=== PATIENT | female | born 1965 | race Caucasian/White ===

== ENCOUNTER 2016-10-28 12:58 | Inpatient (IN) ==
[2016-10-28] MEDS ORDERED: SODIUM CHLORIDE 0.9% 1,000 ML IV STA (13:29)
[2016-10-28] MEDS ORDERED: PROMETHAZINE 25 MG/1 ML VIAL IV STA (13:30)
[2016-10-28] MEDS ORDERED: METOCLOPRAMIDE 10 MG/2 ML VIAL IV STA (13:30)
[2016-10-28] MEDS ORDERED: PROMETHAZINE 25 MG/1 ML VIAL ONE (13:31)
--- NOTE | 2016-10-28 13:33 | Emergency Department Note ---
Arrival - Arrival Chief Complaint: Nausea/Vomiting/Diarrhea Stated Complaint: CHEST PAIN TROWING UP PASSING OUT WEAK PAIN ALL OV ED Nursing Triage Note: PT C/O NAUSEA/VOMITING/ABD PAIN SINCE LAST NIGHT. PT ALSO C/O CHEST PAIN, ONSET AFTER VOMITING SEVERAL TIMES LAST NIGHT. Mode of Arrival: Wheelchair Time Seen by Provider: 10/28/16 13:24 - History of Present Illness HPI Narrative: 51-year-old female presents today with complaint of nausea and vomiting with diarrhea that began last night. Patient states she has not been ill with hold down any food or fluids. As a bilious vomitus this morning. Complains of body aches all over as well. Subjective fever however has not checked her temperature. Has some abdominal pain from retching. Patient was released from the hospital approximately 3 weeks ago for the same. States had upper GI however no abnormality was identified at that time. Allergies/Adverse Reactions: Allergies Allergy/AdvReac Type Severity Reaction Status Date / Time ketorolac [From Toradol] Allergy ITCHING Verified 10/28/16 13:07 morphine AdvReac Unknown/Unable Verified 10/28/16 13:07 to obtain ondansetron AdvReac Anxiety Verified 10/28/16 13:07 prochlorperazine AdvReac Anxiety Verified 10/28/16 13:07 [From Compazine] Home Medications: Home Medications Medication Instructions Recorded Confirmed Type Gabapentin Cap/Tab [Neurontin 400 mg PO BID 09/11/16 10/28/16 History Cap/Tab] Insulin Aspart [NovoLOG] 15 unit SUBCUT TIDAC 09/11/16 10/28/16 History Insulin Glargine [Lantus] 50 unit SUBCUT BEDTIME 09/11/16 10/28/16 History Metoclopramide Tab [Reglan Tab] 10 mg PO BID 09/11/16 10/28/16 History Potassium Chloride Cap/Tab [K Dur] 10 meq PO DAILY 09/11/16 10/28/16 History Pantoprazole Tab [Protonix Tab] 40 mg PO DAILY #30 tablet 09/15/16 10/28/16 Rx HYDROcodone/ACETAMIN 10-325 [[place] 1 tablet PO BID 10/28/16 10/28/16 History 10-325] Review of System - Review of System 12 point system: reviewed and no additional remarkable complaints except as stated - Review of System Constitutional: Present: as per HPI, chills. 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 Pupils equal round and reactive to light with normal extraocular movement. Ear canals clear without discharge. Tympanic membranes with good light reflex and visualization of bony structures bilaterally. Throat without swelling, erythema or exudate. Neck: Supple without lymphadenopathy or nuchal rigidity Chest: Heart regular rate and rhythm without murmur. Lungs clear to auscultation and equal bilaterally. Abdomen: Soft with diffuse tenderness no masses. Bowel sounds normoactive. Back: Without CVA or point tenderness. Extremities: Full range of motion. No joint effusion or tenderness Skin: Clean dry and intact Vital Signs: Vital Signs Temperature 99.4 F 10/28/16 15:05 Pulse Rate 136 H 10/28/16 15:05 Respiratory Rate 20 10/28/16 15:05 Blood Pressure 180/103 10/28/16 15:05 O2 Sat by Pulse Oximetry 100 10/28/16 13:04 Course Course Narrative: Case discussed with Su Cai NP. They will evaluate pt in ED for admission - Reevaluation(s) Reevaluation #1: Patient continues to vomit despite having 10 of Reglan, 25 of Phenergan and Zofran. Time: 15:25 Results - Labs CBC & BMP: 10/28/16 13:30 10/28/16 13:30 Lab Results: I have reviewed the patients labs Disposition Clinical Impression: Gastroparesis, Intractable vomiting, Dehydration Case discussed with: patient Disposition: Still a Patient Time of Disposition: 15:41
--- NOTE | 2016-10-28 13:39 | EKG Report ---
Stationary ECG Study [facility] ER Test Date: 10/28/2016 1:12:31 PM Pat Name: ANN LOBO Department: Room: Gender: F Senior Director [employer]: : 1965 Requested by: Foreign [employer] Order Number: [id number] Reading MD: DONNY MENA Intervals [place] Rate: 123 P: 52 AR: 153 QRS: 65 QRSD: 85 T: 57 QT: 312 QTc: 385 Interpretive Statements SINUS TACHYCARDIA Electronically Signed On 10-28-16 14:24:21 [employer]OTT[employer] by DONNY MENA [email or web address]
[2016-10-28 13:52] LABS: Basophils % 0.2 % (0.0-0.8); Hematocrit 36.8 VOL% (35.7-47.0); Hemoglobin 13.2 GM/DL (12.0-16.0); Immature Granulocytes % 0.3 %; Immature Granulocytes Absolute 0.04 #; Lymphocytes # 0.9 10*3/uL (1.4-4.0); Lymphocytes % 7.4 % (21.3-54.2); Mean Corpuscular HGB Conc 35.9 GM/DL (32-36); Mean Corpuscular Hemoglobin 31 PG (27-34); Mean Corpuscular Volume 86.6 FL (87-102); Mean Platelet Volume 9.5 FL (9.6-12.0); Monocytes # 0.2 10*3/uL (0.11-0.8); Monocytes % 1.3 % (1.7-12.7); Neutrophils # 11.5 10*3/uL (1.4-7.4); Neutrophils % 90.8 % (38.7-73.9); Platelet Count 413 10*3/uL (130-400); Red Blood Count 4.25 10*6/uL (3.8-5.5); Red Cell Distribution Width 11.9 % (9.3-17.3); White Blood Count 12.6 10*3/uL (4.5-13.71)
[2016-10-28] MEDS ORDERED: METOCLOPRAMIDE 10 MG/2 ML VIAL ONE (13:54)
[2016-10-28 14:19] LABS: Alanine Aminotransferase 18 U/L (13-56); Albumin 3.9 G/DL (3.4-5.0); Alkaline Phosphatase 73 U/L (45-117); Aspartate Amino Transferase 31 U/L (0-37); Bilirubin,Direct < 0.1 MG/DL (0.0-0.20); Bilirubin,Indirect 0.7 MG/DL (0.0-1.0); Blood Urea Nitrogen 20 MG/DL (7-18); Calcium 9.1 MG/DL (8.5-10.1); Glucose 299 MG/DL (74-106); Osmolality,Calculated 286.8 MOS/KG (273-304); Potassium 5.2 MMOL/L (3.5-5.1); Sodium 137 MMOL/L (136-145); Total Protein 7.5 G/DL (6.4-8.3)
--- NOTE | 2016-10-28 14:22 | XRay Report ---
XR abdomen 2V Indication: Abdominal pain. Comparison: None. Technique: Flat and erect images of the abdomen were performed. Findings: Lung bases are clear. No organomegaly suggested. The bowel gas pattern demonstrates no significant abnormality. Bony structures as well as soft tissues demonstrate no evidence of significant pathology. Prior cholecystectomy is demonstrated. Additional midline infraumbilical celiotomy is suggested and may reflect hysterectomy. Impression: 1. No active process is suggested within the abdomen or pelvis. 10/28/2016 2:19 PM PROCEDURE INTERPRETED AT [facility] DEPARTMENT OF RADIOLOGY Final Report Signed by: Dr. Regan Locke
[2016-10-28 15:08] LABS: Lymphocytes 3 % (20-55); Segmented Neutrophils 96 % (50-85); Total Cells Counted 100
[2016-10-28 15:09] LABS: Platelet Estimate Normal
--- NOTE | 2016-10-28 15:10 | XRay Report ---
XR chest 2V Indication: Febrile illness. Comparison: Chest x-ray 09/11/2016 Technique: PA and lateral chest x-ray was performed. Findings: The heart size is within normal limits. The mediastinal contour demonstrates no significant abnormality. The lungs are clear. Bones and soft tissues demonstrate no acute abnormality. Previous cholecystectomy is again demonstrated. Impression: 1. No active cardiopulmonary disease. 10/28/2016 3:07 PM PROCEDURE INTERPRETED AT [facility] DEPARTMENT OF RADIOLOGY Final Report Signed by: Dr. Regan Locke
--- NOTE | 2016-10-28 15:10 | CT Report ---
CT abdomen pelvis wo con Indication: Left lower quadrant abdominal pain. Comparison: None. Technique: CT of the abdomen and pelvis was performed without administration of intravenous contrast. Findings: Suboptimal evaluation of the abdomen in the setting of abdominal pain is possible secondary lack of intravenous contrast. Complete evaluation of solid organs, bowel wall, and vascular structures is not possible. Lower chest demonstrates no evidence of acute pathology. Gallbladder surgically absent. Punctate calcifications present within the spleen are compatible with prior granulomatous disease. Previous hysterectomy is demonstrated. Surgical absence of the appendix is suggested. Otherwise, the imaged structures of the lower chest, liver, spleen, pancreas, adrenal glands, kidneys, aorta, inferior vena cava, stomach, bowel, and intrapelvic contents as well as bony structures soft tissues and musculature the body wall demonstrate no evidence of significant pathology. Impression: 1. No findings are present on noncontrast enhanced CT of the abdomen or pelvis to suggest etiology of provided symptoms. Other findings are present as detailed. 10/28/2016 3:05 PM PROCEDURE INTERPRETED AT [facility] DEPARTMENT OF RADIOLOGY Final Report Signed by: Dr. Regan Locke
[2016-10-28] MEDS ORDERED: ONDANSETRON 4 MG/2 ML VIAL ONE ×2 (15:14)
[2016-10-28] MEDS ORDERED: ONDANSETRON 4 MG/2 ML VIAL IV STA (15:23)
[2016-10-28] MEDS ORDERED: ACETAMINOPHEN 325 MG TABLET PO PRN (15:54)
[2016-10-28] MEDS ORDERED: LACTULOSE 20 GM/30 ML UDCUP PO PRN (15:54)
[2016-10-28] MEDS ORDERED: GLUCAGON 1 MG VIAL IM PRN (15:59)
[2016-10-28] MEDS: SODIUM CHLORIDE 0.9% 1,000 ML IV SCH (16:00)
[2016-10-28] MEDS: PROMETHAZINE 25 MG TABLET PO PRN (17:51)
[2016-10-28] MEDS: INSULIN LISPRO 100 UNIT/ML SUBCUT SCH ×3 (17:52→17:59)
[2016-10-28] MEDS: METOCLOPRAMIDE 10 MG/2 ML VIAL IV SCH (17:52)
--- NOTE | 2016-10-28 18:24 | Hospitalist History & Physical ---
Assessment and Plan - Time spent with patient Time spent with patient: Greater than 30 minutes (due to assessment, plan and documentation) (1) Dehydration Status: Acute Current Visit: Yes (2) Intractable vomiting Status: Acute Current Visit: Yes (3) Diabetes mellitus Status: Chronic Current Visit: No Qualifiers: Diabetes mellitus type: type 2 (4) Gastroparesis Status: Acute Assessment and plan: admit and monitor hydrate well with IV NS manage DM with home meds and SSI IV Reglan and IM Phenergan for anti-emetics PPI consult GI clear liquid diet for now PRN meds routine labs in AM further plan and addendum to follow per Dr. Velasquez Current Visit: Yes History of Present Illness Chief complaint: intractable n/v History of present illness: Ms. Romero is a 51 year old female with a PMH of gastropereis who presents to the ER today with a one week history of n/v/d with abdominal pain and unable to keep food and liquids down. She is using Reglan and Protonix at home with no relief. She was seen here in mid August for similar symptoms, had a normal EGD done but is wanting a colonoscopy done for fear she has some swelling in her intestines. She does appear to have lost significant amount of weight recently. Denies being able to control her pain, nausea or vomiting at home. She is also a diabetic, not well controlled. PSH includes non cancerous mass removed from her bladder. She does not smoke, denies alcohol. She denies chest pain, shortness of breath, does complain of subjective fever, weakness and generalized body aches. Home Medications Medication Instructions Recorded Confirmed Type Gabapentin Cap/Tab [Neurontin 400 mg PO BID 09/11/16 10/28/16 History Cap/Tab] Insulin Aspart [NovoLOG] 15 unit SUBCUT TIDAC 09/11/16 10/28/16 History Insulin Glargine [Lantus] 50 unit SUBCUT BEDTIME 09/11/16 10/28/16 History Metoclopramide Tab [Reglan Tab] 10 mg PO BID 09/11/16 10/28/16 History Potassium Chloride Cap/Tab [K Dur] 10 meq PO DAILY 09/11/16 10/28/16 History Pantoprazole Tab [Protonix Tab] 40 mg PO DAILY #30 tablet 09/15/16 10/28/16 Rx HYDROcodone/ACETAMIN 10-325 [[place] 1 tablet PO BID 10/28/16 10/28/16 History 10-325] Allergies Allergy/AdvReac Type Severity Reaction Status Date / Time ketorolac [From Toradol] Allergy ITCHING Verified 10/28/16 13:07 morphine AdvReac Unknown/Unable Verified 10/28/16 13:07 to obtain ondansetron AdvReac Anxiety Verified 10/28/16 13:07 prochlorperazine AdvReac Anxiety Verified 10/28/16 13:07 [From Compazine] Medical,Surgical,& Family Hx - Medical History Endocrine: History of: Diabetes Mellitus (IDDM) Genitourinary: History of: Problems (history of bladder benign mass removed and a bladder tact) Gastrointestinal: History of: GI Problems (gastropesis) - Surgical History HEENT Surgeries: Surgical HX of: Tonsilectomy & Adenoidectomy (tonsilectomy) Abdominal Surgeries: Surgical HX of: Appendectomy, Cholecystectomy Reproductive Surgeries: Surgical HX of;: Section (times 1), Genitourinary Surgery (Removed non cancerous mass from bladder), Hysterectomy - Family History Family History: Reports;: Family Diabetes (Mother, Father), Family Hypertension (Mother, Father) - Social History Smoking Status: Never smoker Frequency of Alcohol Use: None Type of Drug Use: None 12 point system: reviewed and no additional remarkable complaints except as stated Exam - Constitutional Vitals: Period Temp Pulse Resp BP Sys/Erickson Pulse Ox Last 24 Hr 136 20 156/76 98 General appearance: no acute distress, other (appears to have recently lost weight) - Head Head exam: Present: normal inspection, normocephalic - Eye Eye exam: Present: EOMI. Absent: scleral icterus Pupils: Present: DESTINY, normal accommodation - ENT ENT exam: Present: normal exam, normal oropharynx - Neck Neck exam: Present: normal inspection. Absent: lymphadenopathy - Respiratory Respiratory exam: Present: clear to auscultation bilaterally. Absent: wheezes - Cardiovascular Cardiovascular exam: Present: regular rate and rhythm. Absent: tachycardia - GI/Abdominal GI/Abdominal exam: Present: normal bowel sounds, soft. Absent: tenderness - Extremities Exam Extremities exam: Present: normal inspection, full ROM. Absent: edema - Back Exam Back exam: Present: normal inspection. Absent: muscle spasm - Neurological Exam Neurological exam: Present: alert, oriented X3 - Psychiatric Psychiatric exam: Present: normal affect, normal mood - Skin Skin exam: Present: normal color, warm, dry Results - Labs CBC & BMP: 10/28/16 13:30 10/28/16 13:30 Lab Results: I have reviewed the past 24 hour labs
[2016-10-28] MEDS: PROMETHAZINE 25 MG/1 ML VIAL IM PRN (20:16)
[2016-10-28] MEDS: GABAPENTIN 400 MG CAPSULE PO SCH (21:09)
[2016-10-28] MEDS: INSULIN GLARGINE 100 UNIT/ML SUBCUT SCH (21:09)
[2016-10-29] MEDS: SODIUM CHLORIDE 0.9% 1,000 ML IV SCH ×3 (02:02→19:00)
[2016-10-29] MEDS: PROMETHAZINE 25 MG/1 ML VIAL IM PRN ×4 (02:04→20:30)
[2016-10-29] MEDS: INSULIN LISPRO 100 UNIT/ML SUBCUT SCH ×7 (02:04→18:05)
[2016-10-29] MEDS: METOCLOPRAMIDE 10 MG/2 ML VIAL IV SCH ×3 (02:59→15:08)
[2016-10-29 05:38] LABS: Basophils % 0.3 % (0.0-0.8); Eosinophils % 0.1 % (0.00-10.9); Hematocrit 30.3 VOL% (35.7-47.0); Hemoglobin 10.4 GM/DL (12.0-16.0); Immature Granulocytes % 0.3 %; Immature Granulocytes Absolute 0.04 #; Lymphocytes # 3.8 10*3/uL (1.4-4.0); Lymphocytes % 29.2 % (21.3-54.2); Mean Corpuscular HGB Conc 34.3 GM/DL (32-36); Mean Corpuscular Hemoglobin 30 PG (27-34); Mean Corpuscular Volume 88.6 FL (87-102); Mean Platelet Volume 9.2 FL (9.6-12.0); Monocytes # 1.2 10*3/uL (0.11-0.8); Monocytes % 9.5 % (1.7-12.7); Neutrophils # 7.9 10*3/uL (1.4-7.4); Neutrophils % 60.6 % (38.7-73.9); Platelet Count 354 10*3/uL (130-400); Red Blood Count 3.42 10*6/uL (3.8-5.5); Red Cell Distribution Width 12.1 % (9.3-17.3); White Blood Count 13.1 10*3/uL (4.5-13.71)
[2016-10-29 06:10] LABS: Albumin 3.2 G/DL (3.4-5.0); Bilirubin,Total 0.9 MG/DL (0.2-1.0); Calcium 8.3 MG/DL (8.5-10.1); Osmolality,Calculated 283.8 MOS/KG (273-304); Potassium 3.5 MMOL/L (3.5-5.1); Total Protein 5.6 G/DL (6.4-8.3)
[2016-10-29] MEDS: PANTOPRAZOLE 40 MG TABLET PO SCH (08:29)
[2016-10-29] MEDS: GABAPENTIN 400 MG CAPSULE PO SCH ×2 (08:29→20:30)
--- NOTE | 2016-10-29 08:58 | Hospitalist Progress Note ---
Assessment and Plan (1) Abdominal pain Status: Acute Assessment and plan: She continues to complain of constant abdominal pain. She is not experiencing nausea or vomiting. Dr. Perrin of GI has been consulted. Current Visit: Yes Qualifiers: Abdominal location: generalized Qualified Code(s): R10.84 - Generalized abdominal pain Exam - Constitutional Vitals: Period Temp Pulse Resp BP Sys/Erickson Pulse Ox Last 24 Hr 97.5 F-98.4 F 103-136 16-20 116-156/66-76 95-98 General appearance: no acute distress, under weight - Head Head exam: Present: normal inspection - Neck Neck exam: Present: normal inspection - Respiratory Respiratory exam: Present: clear to auscultation bilaterally - Cardiovascular Cardiovascular exam: Present: regular rate and rhythm - GI/Abdominal GI/Abdominal exam: Present: normal bowel sounds, soft, other (nontender) - Extremities Exam Extremities exam: Present: normal inspection - Skin Skin exam: Present: normal color Results - Labs CBC & BMP: 10/29/16 05:12 10/29/16 05:12 Specialty Discharge - Follow Up or Referrals - Discharge Medications No Action Insulin Aspart [NovoLOG] 15 unit SUBCUT TIDAC Metoclopramide Tab [Reglan Tab] 10 mg PO BID Insulin Glargine [Lantus] 50 unit SUBCUT BEDTIME Potassium Chloride Cap/Tab [K Dur] 10 meq PO DAILY Gabapentin Cap/Tab [Neurontin Cap/Tab] 400 mg PO BID Pantoprazole Tab [Protonix Tab] 40 mg PO DAILY #30 tablet HYDROcodone/ACETAMIN 10-325 [[place] 10-325] 1 tablet PO BID
--- NOTE | 2016-10-29 12:07 | Gastrointestinal Consult Note ---
Assessment and Plan (1) Intractable vomiting Status: Acute Assessment and plan: 1/-Recent history of cyclic episodes of nausea and intractable vomiting with upper abd pain. Not well controlled with Reglan and Protonix. Plan and addendum to follow by Dr Perrin. Current Visit: Yes (2) Abdominal pain Status: Acute Assessment and plan: 10/29-LUQ abd pain, precipitated by food, with intractable nausea and vomiting with recent history of weight loss. Negative gastric emptying scan in August as well as negative EGD. Plan and addendum to follow by Dr Perrin. Current Visit: Yes Qualifiers: Abdominal location: generalized Qualified Code(s): R10.84 - Generalized abdominal pain History of Present Illness Chief complaint: N/V, abd pain History of present illness: Ms. Romero is a 51 year old female who presents to the hospital with ongoing nausea, vomiting and abdominal pain/discomfort. Pt was admitted two months ago with the same symptoms to our facility. She underwent a gastric emptying scan which was normal at that time. After discharge, she had an EGD done at [facility] which was normal as well per patient. She states that she has had minimal relief from her nausea and waves of pain with taking Protonix and Reglan regularly. She had lost 40 pounds in the last year as of August however her weight is up slightly at present approximately 5 pounds. She states that since discharge in August she has had waves of nausea and vomiting as well as LUQ pain that seems to always be precipitated by eating. She has had a cholecystectomy in the past and states this pain is nothing like that was before. She states she always feels "swollen" in her upper abdomen. She has a history of DM that she reports has been controlled fairly well. She denies any fever, chills or recent exposure to others who have been ill. Denies any coffee ground or hematemesis. States she has chronic constipation as well and only has a bowel movement every 4 days on average. She has concerns over needing a colonoscopy due to mother had history of multiple polyps and grandfather had colon cancer in the past. Denies any melena or hematochezia. Noncontrasted CT of abdomen shows no acute findings. Lipase 61. Home Medications Medication Instructions Recorded Confirmed Type Gabapentin Cap/Tab [Neurontin 400 mg PO BID 09/11/16 10/28/16 History Cap/Tab] Insulin Aspart [NovoLOG] 15 unit SUBCUT TIDAC 09/11/16 10/28/16 History Insulin Glargine [Lantus] 50 unit SUBCUT BEDTIME 09/11/16 10/28/16 History Metoclopramide Tab [Reglan Tab] 10 mg PO BID 09/11/16 10/28/16 History Potassium Chloride Cap/Tab [K Dur] 10 meq PO DAILY 09/11/16 10/28/16 History Pantoprazole Tab [Protonix Tab] 40 mg PO DAILY #30 tablet 09/15/16 10/28/16 Rx HYDROcodone/ACETAMIN 10-325 [[place] 1 tablet PO BID 10/28/16 10/28/16 History 10-325] Allergies Allergy/AdvReac Type Severity Reaction Status Date / Time ketorolac [From Toradol] Allergy ITCHING Verified 10/28/16 13:07 morphine AdvReac Unknown/Unable Verified 10/28/16 13:07 to obtain ondansetron AdvReac Anxiety Verified 10/28/16 13:07 prochlorperazine AdvReac Anxiety Verified 10/28/16 13:07 [From Compazine] Medical,Surgical,& Family Hx - Medical History Endocrine: History of: Diabetes Mellitus (IDDM) Genitourinary: History of: Problems (history of bladder benign mass removed and a bladder tact) Gastrointestinal: History of: GI Problems (gastropesis) - Surgical History HEENT Surgeries: Surgical HX of: Tonsilectomy & Adenoidectomy (tonsilectomy) Abdominal Surgeries: Surgical HX of: Appendectomy, Cholecystectomy Reproductive Surgeries: Surgical HX of;: Section (times 1), Genitourinary Surgery (Removed non cancerous mass from bladder), Hysterectomy - Family History Family History: Reports;: Family Diabetes (Mother, Father), Family Hypertension (Mother, Father) - Social History Smoking Status: Never smoker Frequency of Alcohol Use: None Type of Drug Use: None 12 point system: reviewed and no additional remarkable complaints except as stated - Constitutional Constitutional: Present: as per HPI - EENT Eyes: Present: as per HPI Ears: Present: as per HPI Nose, mouth and throat: Present: as per HPI - Cardiovascular Cardiovascular: Present: as per HPI - Respiratory Respiratory: Present: as per HPI - Gastrointestinal Gastrointestinal: Present: as per HPI, abdominal pain, nausea, vomiting - Genitourinary Genitourinary: Present: as per HPI - Musculoskeletal Musculoskeletal: Present: as per HPI - Neurological Neurological: Present: as per HPI - Psychiatric Psychiatric: Present: as per HPI - Endocrine Endocrine: Present: as per HPI - Hematologic/Lymphatic Hematologic/Lymphatic: Present: as per HPI Exam - Constitutional Vitals: Period Temp Pulse Resp BP Sys/Erickson Pulse Ox Last 24 Hr 97.5 F-98.4 F 97-136 14-20 88-190/49-85 95-98 General appearance: normal weight, no acute distress - Head Head exam: Present: normal inspection, normocephalic - Eye Eye exam: Present: other (lids and conjunctiva unremarkable). Absent: scleral icterus - ENT ENT exam: Present: normal exam, normal oropharynx - Neck Neck exam: Present: normal inspection - Respiratory Respiratory exam: Present: clear to auscultation bilaterally. Absent: rales, rhonchi, wheezes - Cardiovascular Cardiovascular exam: Present: regular rate and rhythm. Absent: diastolic murmur , JVD, systolic murmur - GI/Abdominal GI/Abdominal exam: Present: normal bowel sounds, soft. Absent: ascites, distended, mass, organomegaly, tenderness - Extremities Exam Extremities exam: Present: normal inspection, full ROM - Back Exam Back exam: Present: normal inspection - Neurological Exam Neurological exam: Present: alert, oriented X3 - Psychiatric Psychiatric exam: Present: normal affect, normal mood - Skin Skin exam: Present: normal color, warm, dry Results - Labs CBC & BMP: 10/29/16 05:12 10/29/16 05:12 Lab Results: I have reviewed the past 24 hour labs Specialty Discharge - Follow Up or Referrals - Discharge Medications No Action Insulin Aspart [NovoLOG] 15 unit SUBCUT TIDAC Metoclopramide Tab [Reglan Tab] 10 mg PO BID Insulin Glargine [Lantus] 50 unit SUBCUT BEDTIME Potassium Chloride Cap/Tab [K Dur] 10 meq PO DAILY Gabapentin Cap/Tab [Neurontin Cap/Tab] 400 mg PO BID Pantoprazole Tab [Protonix Tab] 40 mg PO DAILY #30 tablet HYDROcodone/ACETAMIN 10-325 [[place] 10-325] 1 tablet PO BID
[2016-10-29] MEDS: INSULIN GLARGINE 100 UNIT/ML SUBCUT SCH (20:33)
[2016-10-30] MEDS: INSULIN LISPRO 100 UNIT/ML SUBCUT SCH ×7 (00:37→18:42)
[2016-10-30] MEDS: DEXTROSE 50% 25 GM/50 ML VIAL IV PRN ×2 (00:53→06:15)
[2016-10-30] MEDS: METOCLOPRAMIDE 10 MG/2 ML VIAL IV SCH ×3 (01:20→17:10)
[2016-10-30] MEDS: PROMETHAZINE 25 MG/1 ML VIAL IM PRN ×4 (03:05→21:21)
[2016-10-30] MEDS: GABAPENTIN 400 MG CAPSULE PO SCH ×2 (09:06→21:23)
[2016-10-30] MEDS: PANTOPRAZOLE 40 MG TABLET PO SCH (09:06)
--- NOTE | 2016-10-30 09:41 | Gastrointestinal Progress Note ---
Assessment and Plan (1) Intractable vomiting Status: Acute Assessment and plan: 10/30-N/V improved at this time. Tolerating clear liquids. Will slowly advance diet at this time. Plan and addendum to follow by Dr Perrin. 10/29-Recent history of cyclic episodes of nausea and intractable vomiting with upper abd pain. Not well controlled with Reglan and Protonix. Plan and addendum to follow by Dr Perrin. Current Visit: Yes (2) Abdominal pain Status: Acute Assessment and plan: 10/30-No pain at present time. Advance to full liquids. Plan and addendum to follow by Dr Perrin. 10/29-LUQ abd pain, precipitated by food, with intractable nausea and vomiting with recent history of weight loss. Negative gastric emptying scan in August as well as negative EGD. Plan and addendum to follow by Dr Perrin. Current Visit: Yes Qualifiers: Abdominal location: generalized Qualified Code(s): R10.84 - Generalized abdominal pain Gastroenterology - PN: Subj Interval history: CC: Abd pain, nausea, vomiting Pt is awake and alert lying in bed with spouse at side. States she is feeling some better today. She has not had any nausea or vomiting since yesterday. She is tolerating a clear liquid diet well at this time. Denies any abdominal pain. Abdomen is soft, nontender. ROS: Denies SOB or chest pain Exam (Progress Note) - Constitutional Vitals: Period Temp Pulse Resp BP Sys/Erickson Pulse Ox Last 24 Hr 97.9 F-98.2 F 92-102 14-20 88-149/49-80 95-100 General appearance: normal weight, no acute distress - Head Head exam: Present: normal inspection, normocephalic - Eye Eye exam: Present: other (lids and conjunctiva unremarakble). Absent: scleral icterus - ENT ENT exam: Present: normal exam, normal oropharynx - Neck Neck exam: Present: normal inspection - Respiratory Respiratory exam: Present: clear to auscultation bilaterally. Absent: rales, rhonchi, wheezes - Cardiovascular Cardiovascular exam: Present: regular rate and rhythm. Absent: diastolic murmur , JVD, systolic murmur - GI/Abdominal GI/Abdominal exam: Present: normal bowel sounds, soft. Absent: ascites, distended, mass, organomegaly, tenderness - Extremities Exam Extremities exam: Present: normal inspection, full ROM - Back Exam Back exam: Present: normal inspection - Neurological Exam Neurological exam: Present: alert, oriented X3 - Psychiatric Psychiatric exam: Present: normal affect, normal mood - Skin Skin exam: Present: normal color, warm, dry Results - Labs CBC & BMP: 10/29/16 05:12 10/29/16 05:12 Lab Results: I have reviewed the past 24 hour labs Specialty Discharge - Follow Up or Referrals - Discharge Medications No Action Insulin Aspart [NovoLOG] 15 unit SUBCUT TIDAC Metoclopramide Tab [Reglan Tab] 10 mg PO BID Insulin Glargine [Lantus] 50 unit SUBCUT BEDTIME Potassium Chloride Cap/Tab [K Dur] 10 meq PO DAILY Gabapentin Cap/Tab [Neurontin Cap/Tab] 400 mg PO BID Pantoprazole Tab [Protonix Tab] 40 mg PO DAILY #30 tablet HYDROcodone/ACETAMIN 10-325 [[place] 10-325] 1 tablet PO BID
--- NOTE | 2016-10-30 09:50 | Hospitalist Progress Note ---
Assessment and Plan (1) Abdominal pain Status: Acute Assessment and plan: She is not experuiencing abdominal pain today. She is tolerating a clear liquid diet. I will advance her to full liquids. Current Visit: Yes Qualifiers: Abdominal location: generalized Qualified Code(s): R10.84 - Generalized abdominal pain (2) Gastroparesis Status: Acute Assessment and plan: As above. Current Visit: Yes Hospitalist: Subjective Interval history: She is tolerating a clear liquid diet. Exam - Constitutional Vitals: Period Temp Pulse Resp BP Sys/Erickson Pulse Ox Last 24 Hr 97.9 F-98.2 F 92-102 14-20 88-157/49-90 95-100 General appearance: no acute distress - Head Head exam: Present: normal inspection - Neck Neck exam: Present: normal inspection - Respiratory Respiratory exam: Present: clear to auscultation bilaterally - Cardiovascular Cardiovascular exam: Present: regular rate and rhythm - GI/Abdominal GI/Abdominal exam: Present: normal bowel sounds, soft, other (nontender) - Extremities Exam Extremities exam: Present: normal inspection - Skin Skin exam: Present: normal color Results - Labs CBC & BMP: 10/29/16 05:12 10/29/16 05:12 Specialty Discharge - Follow Up or Referrals - Discharge Medications No Action Insulin Aspart [NovoLOG] 15 unit SUBCUT TIDAC Metoclopramide Tab [Reglan Tab] 10 mg PO BID Insulin Glargine [Lantus] 50 unit SUBCUT BEDTIME Potassium Chloride Cap/Tab [K Dur] 10 meq PO DAILY Gabapentin Cap/Tab [Neurontin Cap/Tab] 400 mg PO BID Pantoprazole Tab [Protonix Tab] 40 mg PO DAILY #30 tablet HYDROcodone/ACETAMIN 10-325 [[place] 10-325] 1 tablet PO BID
[2016-10-30] MEDS: SODIUM CHLORIDE 0.9% 1,000 ML IV SCH ×2 (10:11→18:06)
[2016-10-30 15:45] LABS: Barbiturates Screen,Urine Negative (Negative); Benzodiazepines Screen,Urine Negative (Negative); Cannabinoid Screen,Urine Negative (Negative); Opiate Screen,Urine Negative (Negative); Phencyclidine Screen,Urine Negative (Negative)
[2016-10-30] MEDS: INSULIN GLARGINE 100 UNIT/ML SUBCUT SCH (21:37)
[2016-10-31] MEDS: INSULIN LISPRO 100 UNIT/ML SUBCUT SCH ×8 (00:27→23:32)
[2016-10-31] MEDS: METOCLOPRAMIDE 10 MG/2 ML VIAL IV SCH ×3 (00:49→15:46)
[2016-10-31] MEDS: SODIUM CHLORIDE 0.9% 1,000 ML IV SCH ×3 (02:16→18:14)
[2016-10-31] MEDS: PROMETHAZINE 25 MG/1 ML VIAL IM PRN ×5 (04:02→21:47)
[2016-10-31] MEDS: GABAPENTIN 400 MG CAPSULE PO SCH ×2 (08:26→21:48)
[2016-10-31] MEDS: PANTOPRAZOLE 40 MG TABLET PO SCH (08:27)
--- NOTE | 2016-10-31 10:16 | Hospitalist Progress Note ---
Assessment and Plan (1) Abdominal pain Status: Acute Assessment and plan: She was unable to tolerate full liquids. She experienced recurrent abdominal pain with full liquids. Will change her back to clear liquids. Current Visit: Yes Qualifiers: Abdominal location: generalized Qualified Code(s): R10.84 - Generalized abdominal pain (2) Gastroparesis Status: Acute Assessment and plan: As above. Current Visit: Yes Exam - Constitutional Vitals: Period Temp Pulse Resp BP Sys/Erickson Pulse Ox Last 24 Hr 98.1 F-99.2 F 97-118 16-20 117-165/65-98 97-99 General appearance: no acute distress - Head Head exam: Present: normal inspection - Neck Neck exam: Present: normal inspection - Respiratory Respiratory exam: Present: clear to auscultation bilaterally - Cardiovascular Cardiovascular exam: Present: regular rate and rhythm - GI/Abdominal GI/Abdominal exam: Present: normal bowel sounds, soft, other (nontender) - Extremities Exam Extremities exam: Present: normal inspection - Skin Skin exam: Present: normal color Results - Labs CBC & BMP: 10/29/16 05:12 10/29/16 05:12 Specialty Discharge - Follow Up or Referrals - Discharge Medications No Action Insulin Aspart [NovoLOG] 15 unit SUBCUT TIDAC Metoclopramide Tab [Reglan Tab] 10 mg PO BID Insulin Glargine [Lantus] 50 unit SUBCUT BEDTIME Potassium Chloride Cap/Tab [K Dur] 10 meq PO DAILY Gabapentin Cap/Tab [Neurontin Cap/Tab] 400 mg PO BID Pantoprazole Tab [Protonix Tab] 40 mg PO DAILY #30 tablet HYDROcodone/ACETAMIN 10-325 [[place] 10-325] 1 tablet PO BID
--- NOTE | 2016-10-31 14:14 | Gastrointestinal Progress Note ---
Assessment and Plan (1) Intractable vomiting Status: Acute Assessment and plan: 10/31-N/V worse today, 2-3 episodes of vomiting. Diet changed back to clear liquids. Negative drug screen. Plan and addendum to follow by DR Perrin. 10/30-N/V improved at this time. Tolerating clear liquids. Will slowly advance diet at this time. Plan and addendum to follow by Dr Perrin. 10/29-Recent history of cyclic episodes of nausea and intractable vomiting with upper abd pain. Not well controlled with Reglan and Protonix. Plan and addendum to follow by Dr Perrin. Current Visit: Yes (2) Abdominal pain Status: Acute Assessment and plan: 10/30-No pain at present time. Advance to full liquids. Plan and addendum to follow by Dr Perrin. 10/29-LUQ abd pain, precipitated by food, with intractable nausea and vomiting with recent history of weight loss. Negative gastric emptying scan in August as well as negative EGD. Plan and addendum to follow by Dr Perrin. Current Visit: Yes Qualifiers: Abdominal location: generalized Qualified Code(s): R10.84 - Generalized abdominal pain Gastroenterology - PN: Subj Interval history: CC: Intractable nausea, vomiting Pt is lying in bed, not feeling well today. States the nausea and vomiting reoccurred last night and has had 2-3 episodes since yesterday and having continued nausea. States the pain is the same at well. Abdomen is soft, mild tenderness. She was tolerating her diet however this has been changed back to clear liquids at present time. Urine drug screen noted to be negative. ROS: Denies SOB or chest pain Exam (Progress Note) - Constitutional Vitals: Period Temp Pulse Resp BP Sys/Erickson Pulse Ox Last 24 Hr 98.1 F-99.0 F 100-120 16-20 117-165/65-98 97-99 - Other Additional findings: General appearance: normal weight, no acute distress - Head Head exam: Present: normal inspection, normocephalic - Eye Eye exam: Present: other (lids and conjunctiva unremarakble). Absent: scleral icterus - ENT ENT exam: Present: normal exam, normal oropharynx - Neck Neck exam: Present: normal inspection - Respiratory Respiratory exam: Present: clear to auscultation bilaterally. Absent: rales, rhonchi, wheezes - Cardiovascular Cardiovascular exam: Present: regular rate and rhythm. Absent: diastolic murmur , JVD, systolic murmur - GI/Abdominal GI/Abdominal exam: Present: normal bowel sounds, soft. Absent: ascites, distended, mass, organomegaly, tenderness - Extremities Exam Extremities exam: Present: normal inspection, full ROM - Back Exam Back exam: Present: normal inspection - Neurological Exam Neurological exam: Present: alert, oriented X3 - Psychiatric Psychiatric exam: Present: normal affect, normal mood - Skin Skin exam: Present: normal color, warm, dry Results - Labs CBC & BMP: 10/29/16 05:12 10/29/16 05:12 Lab Results: I have reviewed the past 24 hour labs Specialty Discharge - Follow Up or Referrals - Discharge Medications No Action Insulin Aspart [NovoLOG] 15 unit SUBCUT TIDAC Metoclopramide Tab [Reglan Tab] 10 mg PO BID Insulin Glargine [Lantus] 50 unit SUBCUT BEDTIME Potassium Chloride Cap/Tab [K Dur] 10 meq PO DAILY Gabapentin Cap/Tab [Neurontin Cap/Tab] 400 mg PO BID Pantoprazole Tab [Protonix Tab] 40 mg PO DAILY #30 tablet HYDROcodone/ACETAMIN 10-325 [[place] 10-325] 1 tablet PO BID
[2016-10-31] MEDS: ERYTHROMYCIN INJ 125 MG in SODIUM CHLORIDE 0.9% 100 ML IV SCH (18:15)
[2016-10-31] MEDS: INSULIN GLARGINE 100 UNIT/ML SUBCUT SCH (21:00)
[2016-11-01] MEDS: ERYTHROMYCIN INJ 125 MG in SODIUM CHLORIDE 0.9% 100 ML IV SCH ×3 (02:02→17:25)
[2016-11-01] MEDS: PROMETHAZINE 25 MG/1 ML VIAL IM PRN ×5 (02:20→21:11)
[2016-11-01] MEDS: SODIUM CHLORIDE 0.9% 1,000 ML IV SCH ×3 (04:18→22:51)
[2016-11-01] MEDS: INSULIN LISPRO 100 UNIT/ML SUBCUT SCH ×6 (05:46→17:26)
[2016-11-01 06:05] LABS: Basophils % 0.2 % (0.0-0.8); Eosinophils % 0.1 % (0.00-10.9); Hematocrit 34.6 VOL% (35.7-47.0); Hemoglobin 11.8 GM/DL (12.0-16.0); Immature Granulocytes % 0.5 %; Immature Granulocytes Absolute 0.05 #; Lymphocytes # 1.9 10*3/uL (1.4-4.0); Mean Corpuscular HGB Conc 34.1 GM/DL (32-36); Mean Corpuscular Hemoglobin 30 PG (27-34); Mean Platelet Volume 9.7 FL (9.6-12.0); Monocytes # 0.4 10*3/uL (0.11-0.8); Monocytes % 3.7 % (1.7-12.7); Neutrophils # 8.6 10*3/uL (1.4-7.4); Neutrophils % 78.5 % (38.7-73.9); Platelet Count 351 10*3/uL (130-400); Red Blood Count 3.93 10*6/uL (3.8-5.5); Red Cell Distribution Width 11.9 % (9.3-17.3); White Blood Count 10.9 10*3/uL (4.5-13.71)
[2016-11-01 06:34] LABS: Calcium 8.1 MG/DL (8.5-10.1); Osmolality,Calculated 279.7 MOS/KG (273-304); Potassium 3.5 MMOL/L (3.5-5.1)
--- NOTE | 2016-11-01 07:28 | CT Report ---
CT angio abdomen TECHNIQUE: Axial CT images of the Abdomen were obtained during the arterial phase of contrast injection. Standard coronal and sagittal reformatted images were available for review. 3-D vascular MIPS reconstructions and multiplanar reformats were also created and evaluated. Omnipaque 350, 100 cc was administered intravenously with no immediate complication. Total DLP: 131.6 COMPARISON: Prior CT abdomen pelvis 10/28/16 CLINICAL HISTORY: Persistent/recurrent weight loss with abdominal pain CTA FINDINGS: The abdominal aorta is normal caliber with minimal atherosclerotic disease visualized. The celiac and superior mesenteric arteries appear widely patent with minimal atherosclerotic disease. There are single bilateral renal arteries which are widely patent. Inferior mesenteric artery is also widely patent. Included portion of the distal aorta appears grossly unremarkable. The bilateral common iliac arteries are widely patent with minimal atherosclerotic disease. NON--CTA FINDINGS: Very minimal posterior basilar atelectatic changes are noted bilaterally. Lung bases are otherwise clear. There is no pleural or pericardial effusion. ABDOMEN: Liver/Gallbladder: No abnormal enhancing hepatic lesions. Prior cholecystectomy. No biliary ductal dilatation. Portal vein is grossly patent. Spleen: No acute findings. Pancreas: No acute findings. Adrenals: Within normal limits in appearance. Kidneys: Both kidneys enhance symmetrically with no evidence of obstructive uropathy. Bowel/mesentery: Small bowel is nondilated. There is no free fluid/air within the abdomen. There is no mesenteric adenopathy. Visualized portion of the colon appears normal caliber. Retroperitoneum: No evidence of retroperitoneal adenopathy. Multiple punctate air droplets are noted within the gluteal regions bilaterally likely related to injection granulomas. BONES: No acute or suspicious osseous abnormalities are identified. IMPRESSION: 1. No evidence of significant atherosclerotic disease, aortic aneurysm or vascular stenosis within the visceral arterial vessels to suggest ischemia as a cause of persistent weight loss. 2. No other acute abnormality within the abdomen to explain patient's symptoms. 11/01/2016 7:07 AM PROCEDURE INTERPRETED AT [facility] DEPARTMENT OF RADIOLOGY Final Report Signed by: Gaurav Hernandez
[2016-11-01] MEDS: PANTOPRAZOLE 40 MG TABLET PO SCH (09:12)
[2016-11-01] MEDS: GABAPENTIN 400 MG CAPSULE PO SCH ×2 (09:12→21:11)
--- NOTE | 2016-11-01 10:02 | Gastrointestinal Progress Note ---
Assessment and Plan (1) Intractable vomiting Status: Acute Assessment and plan: 11/01-N/V continues thru the night. CTA of abdomen negative. Plan and addendum to follow by Dr Perrin. 10/31-N/V worse today, 2-3 episodes of vomiting. Diet changed back to clear liquids. Negative drug screen. Plan and addendum to follow by DR Perrin. 10/30-N/V improved at this time. Tolerating clear liquids. Will slowly advance diet at this time. Plan and addendum to follow by Dr Perrin. 10/29-Recent history of cyclic episodes of nausea and intractable vomiting with upper abd pain. Not well controlled with Reglan and Protonix. Plan and addendum to follow by Dr Perrin. Current Visit: Yes (2) Abdominal pain Status: Acute Assessment and plan: 10/30-No pain at present time. Advance to full liquids. Plan and addendum to follow by Dr Perrin. 10/29-LUQ abd pain, precipitated by food, with intractable nausea and vomiting with recent history of weight loss. Negative gastric emptying scan in August as well as negative EGD. Plan and addendum to follow by Dr Perrin. Current Visit: Yes Qualifiers: Abdominal location: generalized Qualified Code(s): R10.84 - Generalized abdominal pain Gastroenterology - PN: Subj Interval history: CC: Intractable nausea, vomiting Pt is awake, with spouse at side. States she is not feeling well today. Reports intractable nausea and vomiting overnight. She states nothing seems to be helping at present time. SHe had CTA of abdomen this morning with no acute findings noted. Abdomen is soft, mild tenderness. She is requesting pain medication for the nausea despite mild pain only. Discussed with pt that the side effect of the pain medication, in absence of severe pain, can worsen her nausea at this time. ROS: Denies SOB or chest pain Exam (Progress Note) - Constitutional Vitals: Period Temp Pulse Resp BP Sys/Erickson Pulse Ox Last 24 Hr 98.4 F-99.0 F 117-120 17-20 127-147/76-81 97-98 - Other Additional findings: General appearance: normal weight, no acute distress - Head Head exam: Present: normal inspection, normocephalic - Eye Eye exam: Present: other (lids and conjunctiva unremarakble). Absent: scleral icterus - ENT ENT exam: Present: normal exam, normal oropharynx - Neck Neck exam: Present: normal inspection - Respiratory Respiratory exam: Present: clear to auscultation bilaterally. Absent: rales, rhonchi, wheezes - Cardiovascular Cardiovascular exam: Present: regular rate and rhythm. Absent: diastolic murmur , JVD, systolic murmur - GI/Abdominal GI/Abdominal exam: Present: normal bowel sounds, soft. Absent: ascites, distended, mass, organomegaly, tenderness - Extremities Exam Extremities exam: Present: normal inspection, full ROM - Back Exam Back exam: Present: normal inspection - Neurological Exam Neurological exam: Present: alert, oriented X3 - Psychiatric Psychiatric exam: Present: normal affect, normal mood - Skin Skin exam: Present: normal color, warm, dry Results - Labs CBC & BMP: 11/01/16 05:37 11/01/16 05:37 Lab Results: I have reviewed the past 24 hour labs Specialty Discharge - Follow Up or Referrals - Discharge Medications No Action Insulin Aspart [NovoLOG] 15 unit SUBCUT TIDAC Metoclopramide Tab [Reglan Tab] 10 mg PO BID Insulin Glargine [Lantus] 50 unit SUBCUT BEDTIME Potassium Chloride Cap/Tab [K Dur] 10 meq PO DAILY Gabapentin Cap/Tab [Neurontin Cap/Tab] 400 mg PO BID Pantoprazole Tab [Protonix Tab] 40 mg PO DAILY #30 tablet HYDROcodone/ACETAMIN 10-325 [[place] 10-325] 1 tablet PO BID
--- NOTE | 2016-11-01 13:08 | Hospitalist Progress Note ---
Assessment and Plan (1) Abdominal pain Status: Acute Assessment and plan: She has been experiencing nausea, some vomiting, and persistent abdominal pain today. She was begun on IV erythromycin by GI. Current Visit: Yes Qualifiers: Abdominal location: generalized Qualified Code(s): R10.84 - Generalized abdominal pain (2) Gastroparesis Status: Acute Assessment and plan: As above. Current Visit: Yes Exam - Constitutional Vitals: Period Temp Pulse Resp BP Sys/Erickson Pulse Ox Last 24 Hr 98.4 F-99.1 F 117-118 17-22 147-154/66-76 98-98 General appearance: no acute distress - Head Head exam: Present: normal inspection - Neck Neck exam: Present: normal inspection - Respiratory Respiratory exam: Present: clear to auscultation bilaterally - Cardiovascular Cardiovascular exam: Present: regular rate and rhythm - GI/Abdominal GI/Abdominal exam: Present: normal bowel sounds, soft, other (nontender) - Extremities Exam Extremities exam: Present: normal inspection - Skin Skin exam: Present: normal color Results - Labs CBC & BMP: 11/01/16 05:37 11/01/16 05:37 Specialty Discharge - Follow Up or Referrals - Discharge Medications No Action Insulin Aspart [NovoLOG] 15 unit SUBCUT TIDAC Metoclopramide Tab [Reglan Tab] 10 mg PO BID Insulin Glargine [Lantus] 50 unit SUBCUT BEDTIME Potassium Chloride Cap/Tab [K Dur] 10 meq PO DAILY Gabapentin Cap/Tab [Neurontin Cap/Tab] 400 mg PO BID Pantoprazole Tab [Protonix Tab] 40 mg PO DAILY #30 tablet HYDROcodone/ACETAMIN 10-325 [[place] 10-325] 1 tablet PO BID
[2016-11-01] MEDS: INSULIN GLARGINE 100 UNIT/ML SUBCUT SCH (21:03)
[2016-11-02] MEDS: INSULIN LISPRO 100 UNIT/ML SUBCUT SCH ×7 (00:23→17:35)
[2016-11-02] MEDS: ERYTHROMYCIN INJ 125 MG in SODIUM CHLORIDE 0.9% 100 ML IV SCH ×4 (02:01→20:50)
[2016-11-02] MEDS: PROMETHAZINE 25 MG/1 ML VIAL IM PRN ×4 (02:02→17:35)
--- NOTE | 2016-11-02 08:57 | Hospitalist Progress Note ---
Assessment and Plan (1) Abdominal pain Status: Acute Assessment and plan: She has had less abdominal pain, nausea, and vomiting since yesterday. Will continue IV erythromycin. Current Visit: Yes Qualifiers: Abdominal location: generalized Qualified Code(s): R10.84 - Generalized abdominal pain (2) Gastroparesis Status: Acute Assessment and plan: As above. Current Visit: Yes Exam - Constitutional Vitals: Period Temp Pulse Resp BP Sys/Erickson Pulse Ox Last 24 Hr 97.6 F-99 F 109-127 18-24 135-159/70-86 98-99 General appearance: no acute distress - Head Head exam: Present: normal inspection - Neck Neck exam: Present: normal inspection - Respiratory Respiratory exam: Present: clear to auscultation bilaterally - Cardiovascular Cardiovascular exam: Present: regular rate and rhythm - GI/Abdominal GI/Abdominal exam: Present: normal bowel sounds, soft, other (nontender) - Extremities Exam Extremities exam: Present: normal inspection - Skin Skin exam: Present: normal color Results - Labs CBC & BMP: 11/01/16 05:37 11/01/16 05:37 Specialty Discharge - Follow Up or Referrals - Discharge Medications No Action Insulin Aspart [NovoLOG] 15 unit SUBCUT TIDAC Metoclopramide Tab [Reglan Tab] 10 mg PO BID Insulin Glargine [Lantus] 50 unit SUBCUT BEDTIME Potassium Chloride Cap/Tab [K Dur] 10 meq PO DAILY Gabapentin Cap/Tab [Neurontin Cap/Tab] 400 mg PO BID Pantoprazole Tab [Protonix Tab] 40 mg PO DAILY #30 tablet HYDROcodone/ACETAMIN 10-325 [[place] 10-325] 1 tablet PO BID
--- NOTE | 2016-11-02 09:57 | Gastrointestinal Progress Note ---
Assessment and Plan - Time spent with patient Time spent with patient: Greater than 30 minutes (1) Intractable vomiting Status: Acute Current Visit: Yes (2) Abdominal pain Status: Acute Current Visit: Yes Qualifiers: Abdominal location: generalized Qualified Code(s): R10.84 - Generalized abdominal pain (3) Other specified counseling Status: Acute Current Visit: Yes Exam (Progress Note) - Constitutional Vitals: Period Temp Pulse Resp BP Sys/Erickson Pulse Ox Last 24 Hr 97.6 F-99 F 109-127 18-24 135-159/70-86 98-99 Results - Labs CBC & BMP: 11/01/16 05:37 11/01/16 05:37 Specialty Discharge - Follow Up or Referrals - Discharge Medications No Action Insulin Aspart [NovoLOG] 15 unit SUBCUT TIDAC Metoclopramide Tab [Reglan Tab] 10 mg PO BID Insulin Glargine [Lantus] 50 unit SUBCUT BEDTIME Potassium Chloride Cap/Tab [K Dur] 10 meq PO DAILY Gabapentin Cap/Tab [Neurontin Cap/Tab] 400 mg PO BID Pantoprazole Tab [Protonix Tab] 40 mg PO DAILY #30 tablet HYDROcodone/ACETAMIN 10-325 [[place] 10-325] 1 tablet PO BID Note Addendum: PLEASE NOTE -- automatic citation of patient information is unavoidable in this electronic note. I have made a reasonable effort to review the information cited , but it is not a part of my evaluation, impression, or recommendation unless specifically discussed in the dictated text that follows. As well, voice recognition software was used in the creation of this clinical note. Reasonable effort was made to identify and correct gross errors. Despite proofreading, errors in hothouse worker may be present, including nonsense verbiage at times. If you encounter such an error, please contact me at [phone] for discussion and correction. -- Tesha Chief complaint: vomiting Subjective: the patient is a 51-year-old female seen for follow-up of persistent abdominal pain and nausea. She was admitted on 29 October with primary diagnosis of same. Working diagnosis, per Dr. Perrin, is diabetic gastroparesis and he has been progressing through pharmacologic therapies with current regimen including erythromycin. The patient has not endorsed significant improvement with any of these. Recent endoscopic examination has not revealed ideology. CT angiogram has also been accomplished with no etiologic finding. No emesis has been documented overnight. No bowel movements have been documented overnight. For her part, the patient reports that nausea is near constant and has been for probably a year. She knows that even the presence of food exacerbates the nausea but that the actual act of eating doesn' t make it any worse or any better. She does endorse some moderate improvement with the addition of erythromycin. Medications: Tylenol, [place], erythromycin, gabapentin, insulin, lactulose, Protonix, Phenergen, normal saline infusion Review of Symptoms: 12 point review of symptoms was negative except as noted above Physical examination: Vital Signs: Current vital signs reviewed. General Appearance: lying in bed. Comfortable. No apparent distress. Head: Normocephalic. Eyes: no scleral icterus. No scleral injection. No conjunctival pallor. Oral Cavity: Odor of breath was normal. No drooling was observed. Lips showed no abnormalities. Lungs: Respiration rhythm and depth was normal. Cardiovascular: Heart rate and rhythm were normal. Abdomen: abdomen was not distended. Abdominal auscultation revealed no abnormalities. Ascites was not discovered. Abdominal palpation revealed minimal diffuse tenderness with no hepatosplenomegaly or other focal findings. Musculoskeletal System: musculoskeletal system was grossly normal. Neurological: level of consciousness was normal. Speech was normal. No coordination/cerebellum abnormalities were noted. Skin: Gen. appearance was normal. Color and pigmentation were normal. No skin lesions were appreciated. Laboratory: no new laboratories ordered today Radiology: CT angiogram negative as discussed Impressions: 1. Nausea with vomiting -- I agree this is likely diabetic related gastroparesis. Patient endorses some improvement with erythromycin and I recommend continuing same. I have encouraged her to redouble her efforts to tolerate a clear liquid diet, working through the nausea, and she has agreed to do so. We have discussed potential treatment regimens up to and including gastric pacing and some consideration could be given to an outpatient consult in this regard. 2. Abdominal pain -- likely multifactorial with contribution from gastroparesis as well as functional abdominal pain. CT has not revealed evidence of intra- abdominal etiology, neither vascular compromise. I recommend against analgesics specifically for abdominal pain as this reliably leads to worsening problems over time. Hope would be that she will enjoy some improvement as the gastroparesis improves. 3. Patient Counseling: Medical Management: Patient seen for greater than 30 minutes. Greater than 50% of this time was spent counseling regarding differential diagnosis, likely diagnosis,, diagnostic and therapeutic options, risks, benefits, and alternatives to procedures and medications, informed consent, and plan of care generally. Patient has expressed understanding and wishes to proceed. Recommendations: -- continue current medication regimen -- continue to urge oral intake -- aggressive control of volume status and electrolytes including serum glucose -- some consideration could be given to outpatient consultation for gastric pacing -- will continue to follow with you
[2016-11-02] MEDS: SODIUM CHLORIDE 0.9% 1,000 ML IV SCH ×3 (10:56→20:23)
[2016-11-02] MEDS: PANTOPRAZOLE 40 MG TABLET PO SCH (10:57)
[2016-11-02] MEDS: GABAPENTIN 400 MG CAPSULE PO SCH ×2 (10:57→20:51)
[2016-11-02] MEDS: PROMETHAZINE 25 MG TABLET PO PRN (11:06)
[2016-11-02] MEDS: INSULIN GLARGINE 100 UNIT/ML SUBCUT SCH (20:51)
[2016-11-03] MEDS: INSULIN LISPRO 100 UNIT/ML SUBCUT SCH ×7 (04:09→21:11)
[2016-11-03] MEDS: ERYTHROMYCIN INJ 125 MG in SODIUM CHLORIDE 0.9% 100 ML IV SCH ×3 (05:31→21:25)
[2016-11-03] MEDS: PROMETHAZINE 25 MG/1 ML VIAL IM PRN ×4 (05:32→21:23)
[2016-11-03] MEDS: SODIUM CHLORIDE 0.9% 1,000 ML IV SCH ×2 (06:00→16:00)
--- NOTE | 2016-11-03 09:06 | Gastrointestinal Progress Note ---
Assessment and Plan (1) Intractable vomiting Status: Acute Current Visit: Yes (2) Abdominal pain Status: Acute Current Visit: Yes Qualifiers: Abdominal location: generalized Qualified Code(s): R10.84 - Generalized abdominal pain (3) Other specified counseling Status: Acute Current Visit: Yes Exam (Progress Note) - Constitutional Vitals: Period Temp Pulse Resp BP Sys/Erickson Pulse Ox Last 24 Hr 97.9 F-98.3 F 82-115 16-20 111-166/56-77 98-100 Results - Labs CBC & BMP: 11/01/16 05:37 11/01/16 05:37 Specialty Discharge - Follow Up or Referrals - Discharge Medications No Action Insulin Aspart [NovoLOG] 15 unit SUBCUT TIDAC Metoclopramide Tab [Reglan Tab] 10 mg PO BID Insulin Glargine [Lantus] 50 unit SUBCUT BEDTIME Potassium Chloride Cap/Tab [K Dur] 10 meq PO DAILY Gabapentin Cap/Tab [Neurontin Cap/Tab] 400 mg PO BID Pantoprazole Tab [Protonix Tab] 40 mg PO DAILY #30 tablet HYDROcodone/ACETAMIN 10-325 [[place] 10-325] 1 tablet PO BID Note Addendum: PLEASE NOTE -- automatic citation of patient information is unavoidable in this electronic note. I have made a reasonable effort to review the information cited , but it is not a part of my evaluation, impression, or recommendation unless specifically discussed in the dictated text that follows. As well, voice recognition software was used in the creation of this clinical note. Reasonable effort was made to identify and correct gross errors. Despite proofreading, errors in large engine assembler may be present, including nonsense verbiage at times. If you encounter such an error, please contact me at [phone] for discussion and correction. -- Tesha Chief complaint: vomiting Subjective: the patient is a 51-year-old female seen for follow-up of persistent abdominal pain and nausea. She reports feeling some better today. She has been able to tolerate some clear liquids without nausea or abdominal pain. She is not uncomfortable at present. Medications: Tylenol, [place], erythromycin, gabapentin, insulin, lactulose, Protonix, Phenergen, normal saline infusion Review of Symptoms: 12 point review of symptoms was negative except as noted above Physical examination: Vital Signs: Current vital signs reviewed. General Appearance: lying in bed. Comfortable. No apparent distress. Head: Normocephalic. Eyes: no scleral icterus. No scleral injection. No conjunctival pallor. Oral Cavity: Odor of breath was normal. No drooling was observed. Lips showed no abnormalities. Lungs: Respiration rhythm and depth was normal. Cardiovascular: Heart rate and rhythm were normal. Abdomen: abdomen was not distended. Abdominal auscultation revealed no abnormalities. Ascites was not discovered. Abdominal palpation revealed minimal diffuse tenderness with no hepatosplenomegaly or other focal findings. Musculoskeletal System: musculoskeletal system was grossly normal. Neurological: level of consciousness was normal. Speech was normal. No coordination/cerebellum abnormalities were noted. Skin: Gen. appearance was normal. Color and pigmentation were normal. No skin lesions were appreciated. Laboratory: no new laboratories ordered today Radiology: CT angiogram negative as discussed Impressions: 1. Nausea with vomiting -- I agree this is likely diabetic related gastroparesis. The patient is improving somewhat. I recommend continuing current regimen. 2. Abdominal pain -- likely multifactorial with contribution from gastroparesis as well as functional abdominal pain. She endorses some improvement today and my hope is this will be durable. 3. Patient Counseling: Medical Management: Patient seen for less than 30 minutes. Greater than 50% of this time was spent counseling regarding differential diagnosis, likely diagnosis,, diagnostic and therapeutic options, risks, benefits, and alternatives to procedures and medications, informed consent, and plan of care generally. Patient has expressed understanding and wishes to proceed. Recommendations: -- continue current medication regimen -- continue to urge oral intake -- aggressive control of volume status and electrolytes including serum glucose -- some consideration could be given to outpatient consultation for gastric pacing -- will continue to follow with you
[2016-11-03] MEDS: PANTOPRAZOLE 40 MG TABLET PO SCH (09:38)
[2016-11-03] MEDS: GABAPENTIN 400 MG CAPSULE PO SCH ×2 (09:40→21:22)
--- NOTE | 2016-11-03 10:04 | Hospitalist Progress Note ---
Assessment and Plan (1) Abdominal pain Status: Acute Assessment and plan: No dashawn, nausea, or vomiting. She has tolerated eating popsickles and wishes to try soup. Will continue IV erythromycin. Current Visit: Yes Qualifiers: Abdominal location: generalized Qualified Code(s): R10.84 - Generalized abdominal pain (2) Gastroparesis Status: Acute Assessment and plan: As above. Current Visit: Yes Exam - Constitutional Vitals: Period Temp Pulse Resp BP Sys/Erickson Pulse Ox Last 24 Hr 97.9 F-98.3 F 82-115 16-20 111-166/56-77 98-100 Results - Labs CBC & BMP: 11/01/16 05:37 11/01/16 05:37 Specialty Discharge - Follow Up or Referrals - Discharge Medications No Action Insulin Aspart [NovoLOG] 15 unit SUBCUT TIDAC Metoclopramide Tab [Reglan Tab] 10 mg PO BID Insulin Glargine [Lantus] 50 unit SUBCUT BEDTIME Potassium Chloride Cap/Tab [K Dur] 10 meq PO DAILY Gabapentin Cap/Tab [Neurontin Cap/Tab] 400 mg PO BID Pantoprazole Tab [Protonix Tab] 40 mg PO DAILY #30 tablet HYDROcodone/ACETAMIN 10-325 [[place] 10-325] 1 tablet PO BID
[2016-11-03] MEDS: INSULIN GLARGINE 100 UNIT/ML SUBCUT SCH (21:24)
[2016-11-04] MEDS: SODIUM CHLORIDE 0.9% 1,000 ML IV SCH ×3 (04:13→23:03)
[2016-11-04] MEDS: PROMETHAZINE 25 MG/1 ML VIAL IM PRN ×4 (04:13→22:44)
[2016-11-04] MEDS: INSULIN LISPRO 100 UNIT/ML SUBCUT SCH ×7 (04:16→17:43)
[2016-11-04] MEDS: ERYTHROMYCIN INJ 125 MG in SODIUM CHLORIDE 0.9% 100 ML IV SCH ×3 (05:16→22:47)
[2016-11-04 05:53] LABS: Basophils % 0.2 % (0.0-0.8); Eosinophils # 0.1 10*3/uL (0.0-0.87); Eosinophils % 0.9 % (0.00-10.9); Hematocrit 32.9 VOL% (35.7-47.0); Hemoglobin 11.9 GM/DL (12.0-16.0); Immature Granulocytes % 0.3 %; Immature Granulocytes Absolute 0.03 #; Lymphocytes % 33.6 % (21.3-54.2); Mean Corpuscular HGB Conc 36.2 GM/DL (32-36); Mean Corpuscular Hemoglobin 30 PG (27-34); Mean Corpuscular Volume 84.1 FL (87-102); Mean Platelet Volume 9.5 FL (9.6-12.0); Monocytes # 0.7 10*3/uL (0.11-0.8); Monocytes % 7.4 % (1.7-12.7); Neutrophils # 5.1 10*3/uL (1.4-7.4); Neutrophils % 57.6 % (38.7-73.9); Platelet Count 325 10*3/uL (130-400); Red Blood Count 3.91 10*6/uL (3.8-5.5); Red Cell Distribution Width 12.1 % (9.3-17.3); White Blood Count 8.9 10*3/uL (4.5-13.71)
[2016-11-04 06:19] LABS: Calcium 7.7 MG/DL (8.5-10.1); Osmolality,Calculated 281.7 MOS/KG (273-304); Potassium 2.6 MMOL/L (3.5-5.1)
--- NOTE | 2016-11-04 09:17 | Hospitalist Progress Note ---
Assessment and Plan (1) Abdominal pain Status: Acute Assessment and plan: No pain, nausea, or vomiting. She is tolerating liquids. Will continue IV erythromycin. Current Visit: Yes Qualifiers: Abdominal location: generalized Qualified Code(s): R10.84 - Generalized abdominal pain (2) Gastroparesis Status: Acute Assessment and plan: As above. Current Visit: Yes Hospitalist: Subjective Interval history: She is about the same. She is tolerating liquids but not much else. Exam - Constitutional Vitals: Period Temp Pulse Resp BP Sys/Erickson Pulse Ox Last 24 Hr 97.3 F-98.7 F 102-103 18-22 123-157/76-84 98-100 General appearance: no acute distress - Head Head exam: Present: normal inspection - Neck Neck exam: Present: normal inspection - Respiratory Respiratory exam: Present: clear to auscultation bilaterally - Cardiovascular Cardiovascular exam: Present: regular rate and rhythm - GI/Abdominal GI/Abdominal exam: Present: normal bowel sounds, soft, other (nontender) - Extremities Exam Extremities exam: Present: normal inspection - Skin Skin exam: Present: normal color Results - Labs CBC & BMP: 11/04/16 05:21 11/04/16 05:21 Specialty Discharge - Follow Up or Referrals - Discharge Medications No Action Insulin Aspart [NovoLOG] 15 unit SUBCUT TIDAC Metoclopramide Tab [Reglan Tab] 10 mg PO BID Insulin Glargine [Lantus] 50 unit SUBCUT BEDTIME Potassium Chloride Cap/Tab [K Dur] 10 meq PO DAILY Gabapentin Cap/Tab [Neurontin Cap/Tab] 400 mg PO BID Pantoprazole Tab [Protonix Tab] 40 mg PO DAILY #30 tablet HYDROcodone/ACETAMIN 10-325 [[place] 10-325] 1 tablet PO BID
[2016-11-04] MEDS: GABAPENTIN 400 MG CAPSULE PO SCH ×2 (09:21→22:46)
[2016-11-04] MEDS: POTASSIUM CHLORIDE 20 MEQ/15 ML UDCUP PO SCH (09:21)
[2016-11-04] MEDS: PANTOPRAZOLE 40 MG TABLET PO SCH (09:21)
--- NOTE | 2016-11-04 12:13 | Gastrointestinal Progress Note ---
Assessment and Plan (1) Intractable vomiting Status: Acute Assessment and plan: 11/04-No further vomiting x 2 days. Nausea continues. Plan and addendum to follow by DR Perrin. 11/01-N/V continues thru the night. CTA of abdomen negative. Plan and addendum to follow by Dr Perrin. 10/31-N/V worse today, 2-3 episodes of vomiting. Diet changed back to clear liquids. Negative drug screen. Plan and addendum to follow by DR Perrin. 10/30-N/V improved at this time. Tolerating clear liquids. Will slowly advance diet at this time. Plan and addendum to follow by Dr Perrin. 10/29-Recent history of cyclic episodes of nausea and intractable vomiting with upper abd pain. Not well controlled with Reglan and Protonix. Plan and addendum to follow by Dr Perrin. Current Visit: Yes (2) Abdominal pain Status: Acute Assessment and plan: 10/30-No pain at present time. Advance to full liquids. Plan and addendum to follow by Dr Perrin. 10/29-LUQ abd pain, precipitated by food, with intractable nausea and vomiting with recent history of weight loss. Negative gastric emptying scan in August as well as negative EGD. Plan and addendum to follow by Dr Perrin. Current Visit: Yes Qualifiers: Abdominal location: generalized Qualified Code(s): R10.84 - Generalized abdominal pain Gastroenterology - PN: Subj Interval history: CC: Abd pain Pt is awake and alert lying in bed. States she is feeling a little better however having some hypoglycemia. She states that she has not had vomiting x 2 days. She is tolerating small amounts of clear liquids at a time. Denies any abdominal pain at present. Abdomen is soft, nontender. ROS: Denies SOB or chest pain Exam (Progress Note) - Constitutional Vitals: Period Temp Pulse Resp BP Sys/Erickson Pulse Ox Last 24 Hr 97.3 F-98.7 F 101-105 18-22 123-157/70-84 98-100 - Other Additional findings: General appearance: normal weight, no acute distress - Head Head exam: Present: normal inspection, normocephalic - Eye Eye exam: Present: other (lids and conjunctiva unremarakble). Absent: scleral icterus - ENT ENT exam: Present: normal exam, normal oropharynx - Neck Neck exam: Present: normal inspection - Respiratory Respiratory exam: Present: clear to auscultation bilaterally. Absent: rales, rhonchi, wheezes - Cardiovascular Cardiovascular exam: Present: regular rate and rhythm. Absent: diastolic murmur , JVD, systolic murmur - GI/Abdominal GI/Abdominal exam: Present: normal bowel sounds, soft. Absent: ascites, distended, mass, organomegaly, tenderness - Extremities Exam Extremities exam: Present: normal inspection, full ROM - Back Exam Back exam: Present: normal inspection - Neurological Exam Neurological exam: Present: alert, oriented X3 - Psychiatric Psychiatric exam: Present: normal affect, normal mood - Skin Skin exam: Present: normal color, warm, dry Results - Labs CBC & BMP: 11/04/16 05:21 11/04/16 05:21 Lab Results: I have reviewed the past 24 hour labs Specialty Discharge - Follow Up or Referrals - Discharge Medications No Action Insulin Aspart [NovoLOG] 15 unit SUBCUT TIDAC Metoclopramide Tab [Reglan Tab] 10 mg PO BID Insulin Glargine [Lantus] 50 unit SUBCUT BEDTIME Potassium Chloride Cap/Tab [K Dur] 10 meq PO DAILY Gabapentin Cap/Tab [Neurontin Cap/Tab] 400 mg PO BID Pantoprazole Tab [Protonix Tab] 40 mg PO DAILY #30 tablet HYDROcodone/ACETAMIN 10-325 [[place] 10-325] 1 tablet PO BID
[2016-11-04] MEDS: INSULIN GLARGINE 100 UNIT/ML SUBCUT SCH (23:15)
[2016-11-05] MEDS: INSULIN LISPRO 100 UNIT/ML SUBCUT SCH ×3 (02:39→08:38)
[2016-11-05 05:57] LABS: Osmolality,Calculated 286.3 MOS/KG (273-304); Potassium 2.8 MMOL/L (3.5-5.1)
[2016-11-05] MEDS: SODIUM CHLORIDE 0.9% 1,000 ML IV SCH (06:09)
[2016-11-05] MEDS: PROMETHAZINE 25 MG/1 ML VIAL IM PRN (06:15)
[2016-11-05] MEDS: ERYTHROMYCIN INJ 125 MG in SODIUM CHLORIDE 0.9% 100 ML IV SCH (06:23)
[2016-11-05] MEDS: GABAPENTIN 400 MG CAPSULE PO SCH (08:38)
[2016-11-05] MEDS: PANTOPRAZOLE 40 MG TABLET PO SCH (08:38)
[2016-11-05] MEDS: POTASSIUM CHLORIDE 20 MEQ/15 ML UDCUP PO SCH (08:38)
--- NOTE | 2016-11-05 09:42 | Discharge Summary ---
Hospital Course - Hospital Course Hospital Course: Ms. Romero was hospitalized with abdominal pain, nausea, and vomiting. She had a previous histoty of gastrparesis and this was felt to be an exacerbation. She was seen in consultation by Dr. Perrin of GI. She was treated with NPO, IV NS, promethazine, and IV erythromycin. By the time of discharge, her symptoms had subsided and she was tolerating a liquid diet. Diagnosis - Discharge Diagnosis (1) Abdominal pain Status: Acute (2) Gastroparesis Status: Acute Specialty Discharge - Follow Up or Referrals - Discharge Medications No Action Insulin Aspart [NovoLOG] 15 unit SUBCUT TIDAC Metoclopramide Tab [Reglan Tab] 10 mg PO BID Insulin Glargine [Lantus] 50 unit SUBCUT BEDTIME Potassium Chloride Cap/Tab [K Dur] 10 meq PO DAILY Gabapentin Cap/Tab [Neurontin Cap/Tab] 400 mg PO BID Pantoprazole Tab [Protonix Tab] 40 mg PO DAILY #30 tablet HYDROcodone/ACETAMIN 10-325 [[place] 10-325] 1 tablet PO BID Discharge Plan - Discharge Data Disposition: Disch To Home/Self Care Condition at Discharge: Stable Discharge Diet: advance to your usual diet Activity: resume usual activities as tolerated Hygiene: no restrictions - Discharge Medications New Promethazine Tab [Phenergan Tab] 25 mg PO Q6H PRN #10 tablet PRN Reason: Nausea Continue Insulin Aspart [NovoLOG] 15 unit SUBCUT TIDAC Metoclopramide Tab [Reglan Tab] 10 mg PO BID Insulin Glargine [Lantus] 50 unit SUBCUT BEDTIME Potassium Chloride Cap/Tab [K Dur] 10 meq PO DAILY Gabapentin Cap/Tab [Neurontin Cap/Tab] 400 mg PO BID Pantoprazole Tab [Protonix Tab] 40 mg PO DAILY #30 tablet HYDROcodone/ACETAMIN 10-325 [[place] 10-325] 1 tablet PO BID - Follow Up or Referral - Forms/Instructions Exam - Constitutional Vitals: Period Temp Pulse Resp BP Sys/Erickson Pulse Ox Last 24 Hr 97.6 F-98.6 F 100-105 18-20 125-147/68-80 98-100 General appearance: no acute distress - Head Head exam: Present: normal inspection - Neck Neck exam: Present: normal inspection - Respiratory Respiratory exam: Present: clear to auscultation bilaterally - Cardiovascular Cardiovascular exam: Present: regular rate and rhythm - GI/Abdominal GI/Abdominal exam: Present: normal bowel sounds, soft, other (nontender) - Extremities Exam Extremities exam: Present: normal inspection - Skin Skin exam: Present: normal color Discharge Results Procedures and tests throughout hospitalization: Pending Orders 11/06/16 04:00 Basic Metabolic Panel IN AM 11/07/16 04:00 Basic Metabolic Panel IN AM Labs on day of discharge: Labs from last 24 hours 11/05/16 11/05/16 11/04/16 05:35 04:32 23:01 Sodium 148 H Potassium 2.8 L Chloride 107 Carbon Dioxide 29 Anion Gap 14.8 BUN 2 L Creatinine 0.20 L GFR Calculation 143 BUN/Creatinine Ratio 10.00 Glucose 50 L POC Glucose 60 L 192 H Calculated Osmolality 286.3 Calcium 8.0 L 11/04/16 11/04/16 11/04/16 18:13 16:01 11:05 Sodium Potassium Chloride Carbon Dioxide Anion Gap BUN Creatinine GFR Calculation BUN/Creatinine Ratio Glucose POC Glucose 159 H 120 H 66 L Calculated Osmolality Calcium 11/04/16 08:54 Sodium Potassium Chloride Carbon Dioxide Anion Gap BUN Creatinine GFR Calculation BUN/Creatinine Ratio Glucose POC Glucose 90 Calculated Osmolality Calcium DS: Provider Date of admission: 10/28/16 15:54 Primary care physician: Matthew Parker MD Attending physician on admission: Iraj Velasquez Consults: 10/28/16 16:01 Consult to Pharmacy [CONS] Routine Reason for Pharmacy Consult: Adjust Meds Renal Funct Discharging clinician: Iraj Velasquez Expected date of discharge: 11/05/16
[2016-11-05 09:53] VITALS: BP 142/79
== END 2016-11-05 11:18 | disposition home or self-care (01) | DRG 74 ==
LOC: N.ED 12:58 → N.EDINP 12:58 → OBSVTOIN 15:54 → N.2E 17:16

== ENCOUNTER 2016-11-08 09:14 | Inpatient (IN) ==
[2016-11-08] MEDS ORDERED: SODIUM CHLORIDE 0.9% 2,000 ML IV STA (09:57)
--- NOTE | 2016-11-08 10:05 | Emergency Department Note ---
Arrival - Arrival Chief Complaint: Abdominal / Flank Pain Stated Complaint: throwing up, weak, dizzy ED Nursing Triage Note: ABD pain "for several weeks". Pt was D/C'ed Wed for gastroparesis. Also c/o dizziness, N/V. BP checked several times in triage and bilat arms. Mode of Arrival: Ambulatory Limitations: No Limitations Source: Patient, RN Notes Reviewed Time Seen by Provider: 11/08/16 09:41 - History of Present Illness HPI Narrative: Patient is a 51-year-old white female who was recently hospitalized with a diagnosis of gastroparesis. She is seen today complaining of abdominal pain which is been persistent since her discharge from the hospital 3 days ago. The patient has had nausea and vomiting and been unable to keep any food or liquids down. She denies any chills or fever. She denies any dysuria or urinary frequency. Her last bowel movement was prior to being discharged from the hospital. Patient has a 30 year history of diabetes mellitus. Onset (ago): week(s) Consistency: constant Severity: moderate Allergies/Adverse Reactions: Allergies Allergy/AdvReac Type Severity Reaction Status Date / Time ketorolac [From Toradol] Allergy ITCHING Verified 10/28/16 13:07 morphine AdvReac Unknown/Unable Verified 10/28/16 13:07 to obtain ondansetron AdvReac Anxiety Verified 10/28/16 13:07 prochlorperazine AdvReac Anxiety Verified 10/28/16 13:07 [From Compazine] Home Medications: Home Medications Medication Instructions Recorded Confirmed Type Gabapentin Cap/Tab [Neurontin 400 mg PO BID 09/11/16 11/08/16 History Cap/Tab] Insulin Aspart [NovoLOG] 15 unit SUBCUT TIDAC 09/11/16 11/08/16 History Insulin Glargine [Lantus] 50 unit SUBCUT BEDTIME 09/11/16 11/08/16 History Potassium Chloride Cap/Tab [K Dur] 10 meq PO DAILY 09/11/16 11/08/16 History Pantoprazole Tab [Protonix Tab] 40 mg PO DAILY #30 tablet 09/15/16 11/08/16 Rx HYDROcodone/ACETAMIN 10-325 [[place] 1 tablet PO BID 10/28/16 11/08/16 History 10-325] Promethazine Tab [Phenergan Tab] 25 mg PO Q6H PRN #10 tablet 11/05/16 11/08/16 Rx Methocarbamol [Methocarbamol] 750 mg PO TID PRN 11/08/16 11/08/16 History Review of System - Review of System 12 point system: reviewed and no additional remarkable complaints except as stated Medical,Surgical,& Family Hx - Medical History Endocrine: History of: Diabetes Mellitus (IDDM) Genitourinary: History of: Problems (history of bladder benign mass removed and a bladder tact) Gastrointestinal: History of: GI Problems (gastropesis) - Surgical History HEENT Surgeries: Surgical HX of: Tonsilectomy & Adenoidectomy (tonsilectomy) Abdominal Surgeries: Surgical HX of: Appendectomy, Cholecystectomy Reproductive Surgeries: Surgical HX of;: Section (times 1), Genitourinary Surgery (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 VITAL SIGNS: Reviewed HEENT: Head is atraumatic and normocephalic. Pupils are equal round react to light. Extraocular movements are intact. Oropharynx is benign with dry mucous membranes. NECK: Neck is soft and supple without tenderness. There are no masses. There is no lymphadenopathy. LUNGS: Lungs are clear to auscultation. Chest rises symmetrically. There is no chest wall tenderness. CV: Heart is regular rate and rhythm without murmurs rubs or gallops. ABDOMEN: Abdomen is soft, minimal generalized tenderness to palpation without rebound or guarding. There are no abdominal abnormal masses palpated. There is no organomegaly. Bowel sounds are present and active. SKIN: Skin is warm and dry. No rash. EXTREMITIES: Patient has full range of motion without tenderness. There is no pedal edema. NEUROLOGIC: Awake alert and oriented 4. Cranial nerves II through XII are grossly intact. Motor is 5 over 5 in all extremities bilaterally. Course - Consultations Consultation #1: Discussed with hospitalist. Patient will be admitted to their service. Time: 11:52 Results - Labs CBC & BMP: 11/08/16 10:18 11/08/16 10:18 Lab Results: I have reviewed the patients labs - Diagnostic Findings Procedure: Abdominal x-ray: image reviewed by me (Nonspecific gas pattern, no free air, gas in the rectum.), Chest x-ray: image reviewed by me (No infiltrates , no cardiomegaly, no pleural effusions.) Disposition Clinical Impression: Moderate dehydration, Diabetes mellitus, Diabetic gastroparesis, Chronic abdominal pain Case discussed with: patient, patient's family Disposition: Still a Patient Condition: Stable Time of Disposition: 11:52
--- NOTE | 2016-11-08 10:23 | XRay Report ---
Portable chest Date:[10/28/2016] Clinical history: Generalized abdominal pain Comparison: 10/28/2016 Technique: Portable AP sitting chest Findings: The heart is normal in size. Minimal atelectasis at the lung bases. Unremarkable mediastinum. Degenerative changes are noted with right shoulder calcific tendinitis. Prior cholecystectomy. Impression: Minimal atelectasis at the lung bases. Right shoulder calcific tendinitis. Prior cholecystectomy. PROCEDURE INTERPRETED AT [facility] DEPARTMENT OF RADIOLOGY Final Report Signed by: Dr. Tere Valentine
--- NOTE | 2016-11-08 10:25 | XRay Report ---
Exam: XR abdomen 2V Date: 11/08/2016 9:57 AM Comparison: 10/28/2016 Indication: Generalized abdominal pain Technique: Supine and left lateral decubitus abdomen Findings: Mild gaseous distention of bowel with increased fecal material. No free air is identified. Prior cholecystectomy with postoperative findings in the pelvis. Minimal degenerative changes are noted. Impression: Mild gaseous distention of bowel which could be related to possible ileus, increased fecal material, etc. No free air is identified. Stable postoperative findings including prior cholecystectomy. PROCEDURE INTERPRETED AT [facility] DEPARTMENT OF RADIOLOGY Final Report Signed by: Dr. Tere Valentine
[2016-11-08 10:46] LABS: Basophils % 0.5 % (0.0-0.8); Eosinophils # 0.1 10*3/uL (0.0-0.87); Eosinophils % 0.9 % (0.00-10.9); Hematocrit 37.1 VOL% (35.7-47.0); Hemoglobin 12.8 GM/DL (12.0-16.0); Immature Granulocytes % 0.3 %; Immature Granulocytes Absolute 0.03 #; Lymphocytes # 2.5 10*3/uL (1.4-4.0); Lymphocytes % 29.5 % (21.3-54.2); Mean Corpuscular HGB Conc 34.5 GM/DL (32-36); Mean Corpuscular Hemoglobin 31 PG (27-34); Mean Corpuscular Volume 88.3 FL (87-102); Mean Platelet Volume 9.5 FL (9.6-12.0); Monocytes # 0.8 10*3/uL (0.11-0.8); Monocytes % 8.7 % (1.7-12.7); Neutrophils # 5.2 10*3/uL (1.4-7.4); Neutrophils % 60.1 % (38.7-73.9); Platelet Count 344 10*3/uL (130-400); White Blood Count 8.6 10*3/uL (4.5-13.71)
[2016-11-08] MEDS ORDERED: PROMETHAZINE 25 MG/1 ML VIAL IM STA (10:58)
[2016-11-08] MEDS ORDERED: PROMETHAZINE 25 MG/1 ML VIAL ONE (11:01)
[2016-11-08 11:23] LABS: Albumin 3.3 G/DL (3.4-5.0); Bilirubin,Total 0.4 MG/DL (0.2-1.0); Calcium 8.3 MG/DL (8.5-10.1); Osmolality,Calculated 276.8 MOS/KG (273-304); Potassium 3.9 MMOL/L (3.5-5.1); Total Protein 6.5 G/DL (6.4-8.3)
[2016-11-08 11:27] LABS: Amorphous Crystals,Urine Few /HPF (Few); Apearance,Urine CLOUDY (Clear); Bacteria,Urine Occasional /HPF (Few); Bilirubin,Urine Negative (Negative); Blood, Urine Negative (Negative); Glucose,Urine (UA) >=500 mg/dL (Negative); Ketones,Urine 80 mg/dL (Negative); Mucus,Urine Occasional /LPF (Occasional); Nitrite,Urine Negative (Negative); Protein,Urine 30 MG/DL; RBC,Urine 2 /HPF (0-4); Squamous Epithelial Cell,Urine Occasional /HPF (0-10); Urine Color Yellow (Yellow); Urine Specific Gravity 1.014 (1.001-1.035); Urine Urobilinogen < 2.0 EU/DL (0.2-1.0); WBC,Urine 2 /HPF (0-6)
[2016-11-08] MEDS ORDERED: HYDROmorphone 2 MG/1 ML VIAL IV STA (12:48)
[2016-11-08] MEDS ORDERED: HYDROmorphone 2 MG/1 ML VIAL ONE (12:50)
--- NOTE | 2016-11-08 14:22 | Hospitalist History & Physical ---
Assessment and Plan - Time spent with patient Time spent with patient: Greater than 30 minutes (due to assessment, plan and documentation) (1) Chronic abdominal pain Status: Acute Current Visit: Yes (2) Diabetes mellitus Status: Acute Current Visit: Yes (3) Moderate dehydration Status: Acute Current Visit: Yes (4) Diabetic gastroparesis Status: Acute Assessment and plan: Admit as inpt clear liquid diet consult GI, Dr. Perrin consult Dr. 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 Santos Current Visit: Yes History of Present Illness Chief complaint: gastroparesis History of present illness: Ms. Romero is a 51 year old female who presents to the ER today with gastroparesis. She was just discharged on Friday after an admit for the same. She states she was feeling better while here but did not continue to improve once she got home. She was tolerated a liquid diet on discharge but states she has not been able to tolerate a regular diet since she left. On her most recent admission, record states that she was taking reglan at home, however it is not on her home medication list today. She states her home meds are not helping her. She complains of upper abdominal pain and vomiting. She is tachycardic on bedside monitor and seems dry on exam. She is tender in her upper abdomen/ epigastric area. She has a PMH of gastroparesis and DM. 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 She does not smoke or drink. At present, she denies chest pain, shortness of breath, does complain of subjective fever, weakness and generalized body aches. Home Medications Medication Instructions Recorded Confirmed Type Insulin Aspart [NovoLOG] 15 unit SUBCUT TIDAC 09/11/16 11/08/16 History Insulin Glargine [Lantus] 50 unit SUBCUT BEDTIME 09/11/16 11/08/16 History Potassium Chloride Cap/Tab [K Dur] 10 meq PO DAILY 09/11/16 11/08/16 History Pantoprazole Tab [Protonix Tab] 40 mg PO DAILY #30 tablet 09/15/16 11/08/16 Rx HYDROcodone/ACETAMIN 10-325 [[place] 1 tablet PO BID 10/28/16 11/08/16 History 10-325] Promethazine Tab [Phenergan Tab] 25 mg PO Q6H PRN #10 tablet 11/05/16 11/08/16 Rx Methocarbamol [Methocarbamol] 750 mg PO TID PRN 11/08/16 11/08/16 History Allergies Allergy/AdvReac Type Severity Reaction Status Date / Time ketorolac [From Toradol] Allergy ITCHING Verified 10/28/16 13:07 morphine AdvReac Unknown/Unable Verified 10/28/16 13:07 to obtain ondansetron AdvReac Anxiety Verified 10/28/16 13:07 prochlorperazine AdvReac Anxiety Verified 10/28/16 13:07 [From Compazine] Medical,Surgical,& Family Hx - Medical History Endocrine: History of: Diabetes Mellitus (IDDM) Genitourinary: History of: Problems (history of bladder benign mass removed and a bladder tact) Gastrointestinal: History of: GI Problems (gastropesis) - Surgical History HEENT Surgeries: Surgical HX of: Tonsilectomy & Adenoidectomy (tonsilectomy) Abdominal Surgeries: Surgical HX of: Appendectomy, Cholecystectomy Reproductive Surgeries: Surgical HX of;: Section (times 1), Genitourinary Surgery (Removed non cancerous mass from bladder), Hysterectomy - Family History Family History: Reports;: Family Diabetes (Mother, Father), Family Hypertension (Mother, Father) - Social History Smoking Status: Never smoker Frequency of Alcohol Use: Unknown Type of Drug Use: Unknown 12 point system: reviewed and no additional remarkable complaints except as stated Exam - Constitutional Vitals: Period Temp Pulse Resp BP Sys/Erickson Pulse Ox Last 24 Hr 97.2 F 107-116 17-20 132-153/80-87 97-98 General appearance: no acute distress - Head Head exam: Present: normal inspection, normocephalic - Eye Eye exam: Present: EOMI. Absent: scleral icterus Pupils: Present: DESTINY, normal accommodation - ENT ENT exam: Present: normal exam, normal oropharynx - Neck Neck exam: Present: normal inspection. Absent: lymphadenopathy - Respiratory Respiratory exam: Present: clear to auscultation bilaterally. Absent: wheezes - Cardiovascular Cardiovascular exam: Present: regular rate and rhythm. Absent: tachycardia - GI/Abdominal GI/Abdominal exam: Present: normal bowel sounds, tenderness (mid upper abdomen/ epigastric region), soft - Extremities Exam Extremities exam: Present: normal inspection, full ROM. Absent: edema - Back Exam Back exam: Present: normal inspection. Absent: muscle spasm - Neurological Exam Neurological exam: Present: alert, oriented X3 - Psychiatric Psychiatric exam: Present: normal affect, normal mood - Skin Skin exam: Present: normal color, warm, dry Results - Labs CBC & BMP: 11/08/16 10:18 11/08/16 10:18 Lab Results: I have reviewed the past 24 hour labs
[2016-11-08] MEDS ORDERED: ACETAMINOPHEN 325 MG TABLET PO PRN (14:40)
[2016-11-08] MEDS ORDERED: LACTULOSE 20 GM/30 ML UDCUP PO PRN (14:40)
[2016-11-08] MEDS ORDERED: DEXTROSE 50% 25 GM/50 ML VIAL IV PRN (14:40)
[2016-11-08] MEDS ORDERED: GLUCAGON 1 MG VIAL IM PRN (14:40)
[2016-11-08] MEDS ORDERED: METOCLOPRAMIDE 10 MG/2 ML VIAL IV SCH (15:00)
[2016-11-08] MEDS: SODIUM CHLORIDE 0.45% 1,000 ML IV SCH (15:30)
[2016-11-08] MEDS ORDERED: DEXTROSE 10% 1,000 ML IV PRN (17:44)
[2016-11-08] MEDS: ERYTHROMYCIN INJ 500 MG in SODIUM CHLORIDE 0.9% 100 ML IV SCH ×2 (17:45→23:00)
[2016-11-08] MEDS: FAT EMULSION 20% 250 ML IV SCH (19:15)
[2016-11-08] MEDS: TRACE ELEMENTS (5) 1 ML, MULTIVITAMIN INJ 10 ML in AMINO ACIDS/DEXT/LYTES 4.25-5% 2,000 ML IV SCH (19:15)
[2016-11-08] MEDS: INSULIN LISPRO 100 UNIT/ML SUBCUT SCH (19:15)
[2016-11-08] MEDS: PROMETHAZINE 25 MG TABLET PO PRN (20:06)
[2016-11-08] MEDS ORDERED: INSULIN GLARGINE 100 UNIT/ML SUBCUT SCH (21:00)
[2016-11-08] MEDS ORDERED: GABAPENTIN 400 MG CAPSULE PO SCH (21:00)
[2016-11-09] MEDS: INSULIN LISPRO 100 UNIT/ML SUBCUT SCH ×4 (00:04→18:22)
[2016-11-09] MEDS: PROMETHAZINE 25 MG TABLET PO PRN ×3 (03:22→21:03)
[2016-11-09] MEDS: SODIUM CHLORIDE 0.45% 1,000 ML IV SCH ×2 (03:30→14:23)
[2016-11-09 04:56] LABS: Hematocrit 33.5 VOL% (35.7-47.0); Hemoglobin 11.5 GM/DL (12.0-16.0); Red Blood Count 3.82 10*6/uL (3.8-5.5); White Blood Count 8.5 10*3/uL (4.5-13.71)
[2016-11-09 04:57] LABS: Basophils % 0.2 % (0.0-0.8); Eosinophils # 0.2 10*3/uL (0.0-0.87); Eosinophils % 1.8 % (0.00-10.9); Immature Granulocytes % 0.2 %; Immature Granulocytes Absolute 0.02 #; Lymphocytes # 2.8 10*3/uL (1.4-4.0); Lymphocytes % 33.3 % (21.3-54.2); Mean Corpuscular HGB Conc 34.3 GM/DL (32-36); Mean Corpuscular Hemoglobin 30 PG (27-34); Mean Corpuscular Volume 87.7 FL (87-102); Mean Platelet Volume 9.8 FL (9.6-12.0); Monocytes # 0.6 10*3/uL (0.11-0.8); Monocytes % 7.3 % (1.7-12.7); Neutrophils # 4.8 10*3/uL (1.4-7.4); Neutrophils % 57.2 % (38.7-73.9); Platelet Count 332 10*3/uL (130-400); Red Cell Distribution Width 11.9 % (9.3-17.3)
[2016-11-09 05:27] LABS: Calcium 8.1 MG/DL (8.5-10.1); Osmolality,Calculated 283.4 MOS/KG (273-304); Potassium 3.9 MMOL/L (3.5-5.1)
[2016-11-09] MEDS: ERYTHROMYCIN INJ 500 MG in SODIUM CHLORIDE 0.9% 100 ML IV SCH ×4 (05:30→22:55)
[2016-11-09 05:31] LABS: Magnesium 1.7 MG/DL (1.8-2.4); Phosphorous 3.8 MG/DL (2.5-4.9); Prealbumin 18.8 MG/DL (20-40)
--- NOTE | 2016-11-09 10:45 | Hospitalist Progress Note ---
Assessment and Plan (1) Diabetic gastroparesis Status: Acute Assessment and plan: Continue to hydrate have GI see Current Visit: Yes Hospitalist: Subjective Interval history: Patient is a little better this morning was still having difficulty with eating Exam - Constitutional Vitals: Period Temp Pulse Resp BP Sys/Erickson Pulse Ox Last 24 Hr 97.2 F-99.9 F 104-116 16-20 126-170/70-94 97-99 Exam: Constitutional: General appearance is normal Eyes: Pupils equal round react to light and accommodation conjunctiva and lids are normal Neck: supple without masses Respiratory: Respiratory effort is normal. Lungs are clear to auscultation. Resonant to percussion. Cardiac: Regular rate and rhythm without murmur rub or gallop. PMI at the midclavicular line by palpation. Carotid arteries 2+ palpation no bruits GI: Bowel sounds normoactive, no tenderness or rebound tenderness, no organomegaly Extremities: no clubbing cyanosis or edema Results - Labs CBC & BMP: 11/09/16 03:46 11/09/16 03:46
--- NOTE | 2016-11-09 14:17 | Gastrointestinal Consult Note ---
Assessment and Plan - Time spent with patient Time spent with patient: Greater than 30 minutes (1) Intractable nausea and vomiting Status: Resolved Current Visit: No Qualifiers: Vomiting type: unspecified Qualified Code(s): R11.2 - Nausea with vomiting , unspecified (2) Abdominal pain Status: Acute Current Visit: No Qualifiers: Abdominal location: generalized Qualified Code(s): R10.84 - Generalized abdominal pain (3) Other specified counseling Status: Acute Current Visit: No History of Present Illness History of present illness: Ms. Romero is a 51 year old female Home Medications Medication Instructions Recorded Confirmed Type Insulin Aspart [NovoLOG] 15 unit SUBCUT TIDAC 09/11/16 11/08/16 History Insulin Glargine [Lantus] 50 unit SUBCUT BEDTIME 09/11/16 11/08/16 History Potassium Chloride Cap/Tab [K Dur] 10 meq PO DAILY 09/11/16 11/08/16 History Pantoprazole Tab [Protonix Tab] 40 mg PO DAILY #30 tablet 09/15/16 11/08/16 Rx HYDROcodone/ACETAMIN 10-325 [[place] 1 tablet PO BID 10/28/16 11/08/16 History 10-325] Promethazine Tab [Phenergan Tab] 25 mg PO Q6H PRN #10 tablet 11/05/16 11/08/16 Rx Methocarbamol [Methocarbamol] 750 mg PO TID PRN 11/08/16 11/08/16 History Allergies Allergy/AdvReac Type Severity Reaction Status Date / Time ketorolac [From Toradol] Allergy ITCHING Verified 10/28/16 13:07 morphine AdvReac Unknown/Unable Verified 10/28/16 13:07 to obtain ondansetron AdvReac Anxiety Verified 10/28/16 13:07 prochlorperazine AdvReac Anxiety Verified 10/28/16 13:07 [From Compazine] Medical,Surgical,& Family Hx - Medical History Endocrine: History of: Diabetes Mellitus (IDDM) Genitourinary: History of: Problems (history of bladder benign mass removed and a bladder tact) Gastrointestinal: History of: GI Problems (gastropesis) - Surgical History HEENT Surgeries: Surgical HX of: Tonsilectomy & Adenoidectomy (tonsilectomy) Abdominal Surgeries: Surgical HX of: Appendectomy, Cholecystectomy Reproductive Surgeries: Surgical HX of;: Section (times 1), Genitourinary Surgery (Removed non cancerous mass from bladder), Hysterectomy - Family History Family History: Reports;: Family Diabetes (Mother, Father), Family Hypertension (Mother, Father) - Social History Smoking Status: Never smoker Frequency of Alcohol Use: Unknown Type of Drug Use: Unknown Exam - Constitutional Vitals: Period Temp Pulse Resp BP Sys/Erickson Pulse Ox Last 24 Hr 98.0 F-99.9 F 104-115 16-18 126-170/70-94 97-99 Results - Labs CBC & BMP: 11/09/16 03:46 11/09/16 03:46 Note Addendum: PLEASE NOTE -- automatic citation of patient information is unavoidable in this electronic note. I have made a reasonable effort to review the information cited , but it is not a part of my evaluation, impression, or recommendation unless specifically discussed in the dictated text that follows.~ As well, voice recognition software was used in the creation of this clinical note. Reasonable effort was made to identify and correct gross errors. Despite proofreading, errors in roofing applicator may be present, including nonsense verbiage at times. If you encounter such an error, please contact me at for discussion and correction. -- Tesha Chief complaint: nausea and vomiting History of present illness: patient is a 51-year-old female, new patient, seen by consultation for evaluation of persistent nausea and vomiting. She is admitted to the hospitalist service with a primary diagnosis of chronic abdominal pain. She carries an underlying diagnosis of gastroparesis and has been admitted for treatment of these symptoms on several prior occasions, most recently on October 28 this year. Review of her discharge summary, November 05, reveal that her symptoms were treated with intravenous erythromycin as well as anti-emetic medications. She reports that she was not taking Reglan and was not taking erythromycin. She was reported to be tolerating PO intake at the time of her discharge. Dr. Perrin saw her in consultation during the recent admission and recommended she continue with Pro motility agents and follow-up in the outpatient G.I. clinic. She reports symptoms including abdominal pain, nausea, and vomiting. She is unable to take oral nutrition due to the symptoms. She has been treated conservatively but reports little change in symptoms since her admission. Patient denies fever, chills, night sweats, rigors, headache, dizziness, neck pain, visual changes, redness of the eyes, dysphagia, odynophagia, difficulty chewing, chest pain, shortness of breath, hematemesis, hematochezia, melena, proctalgia, constipation, dysuria, skin changes, temperature regulation issues, flushing, easy bleeding/bruising, musculoskeletal pain, mental status change, numbness/weakness in the extremities, yellowing of the eyes/skin, cutaneous eruptions, family history of gastrointestinal cancer and colon polyps, and other complaints in general. Review of systems: 12 point review of systems was negative except as documented above. Outpatient medications: methocarbamol, Phenergen, potassium chloride, Protonix, insulin, [place] Inpatient medications: Tylenol, [place], Benadryl, erythromycin, insulin, lactulose, promethazine, 1/2NS infusion Past Medical History: diabetes, gastroparesis, noncancerous bladder mass, appendicitis status post resection, cholecystitis status post resection Social history: negative tobacco. Negative alcohol ~ Family history: no gastrointestinal cancers. Mother and father with both diabetes and hypertension Physical examination:~ Vital Signs: Current vital signs reviewed and documented above.~ General Appearance: well-appearing. Not acutely ill. Head: Normocephalic.~ Neck: Palpation of the neck revealed no abnormalities.~ Eyes: No scleral icterus.~ No scleral injection.~ No conjunctival pallor.~ Oral Cavity: Odor of breath was normal. No drooling was observed. Lips showed no abnormalities. Floor of the mouth showed no abnormalities.~ Pharynx: Oropharynx was normal.~ Lungs: Respiration rhythm and depth was normal.~ Cardiovascular: Heart rate and rhythm were normal. No murmurs were appreciated.~ Abdomen: abdomen was not distended. Abdominal palpation revealed no tenderness and no hepatosplenomegaly. Ascites was not discovered. Abdominal auscultation revealed positive bowel sounds. Musculoskeletal System: Musculoskeletal system was grossly normal.~ Neurological: level of consciousness was normal. Speech was normal. Skin: General appearance was normal. Color and pigmentation were normal. No skin lesions. ~ Laboratory: white blood count 8.5, hemoglobin 11.5, hematocrit 33.5, platelets 332, sodium 140, potassium 3.9, chloride 101, CO2 28, BUN seven, creatinine 0.3 , glucose 233, calcium 8.1, magnesium 1.7, ALT 15, AST 13, bilirubin 0.4, albumin 3.3, total protein 6.5, alkaline phosphatase 58, pre-albumin 18.8 Radiology: CTA from 01 November revealed no evidence of significant atherosclerotic disease Impressions:~ 1. Intractable vomiting -- This is likely diabetic gastroparesis. I recommend continued aggressive diabetes, volume, and electrolyte control. I also recommend continued erythromycin. The patient reports subjective exacerbation of symptoms with Reglan but we can reconsider this at her discretion. 2. Abdominal pain -- multifactorial with no objective treatable etiology demonstrated on radiology or otherwise. Improvement of the gastroparesis may improve the symptoms. 3. Other specified counseling:~ The patient was seen for greater than 30 minutes.~ The patient was counseled for greater than 50% of this time regarding differential diagnosis, likely diagnosis, diagnostic and therapeutic alternatives, risks/benefits/alternatives of medications and procedures, and plan of care generally.~ The patient expressed understanding and wishes to proceed. Recommendations: -- continue current medication regimen -- continue aggressive control of glucose, electrolytes, and volume overall -- minimize gut altering medication to the greatest extent possible -- consider consultation for gastric pacing -- thank you for this consultation. We will continue to follow with you.
[2016-11-09] MEDS: diphenhydrAMINE CAP 25 MG CAPSULE PO PRN ×2 (14:19→21:03)
[2016-11-09] MEDS: FAT EMULSION 20% 250 ML IV SCH (16:08)
[2016-11-09] MEDS: TRACE ELEMENTS (5) 1 ML, MULTIVITAMIN INJ 10 ML in AMINO ACIDS/DEXT/LYTES 4.25-5% 2,000 ML IV SCH (18:21)
[2016-11-10] MEDS: INSULIN LISPRO 100 UNIT/ML SUBCUT SCH ×4 (00:15→18:17)
[2016-11-10] MEDS: SODIUM CHLORIDE 0.45% 1,000 ML IV SCH ×2 (00:15→11:20)
[2016-11-10] MEDS: PROMETHAZINE 25 MG TABLET PO PRN ×4 (02:40→21:02)
[2016-11-10] MEDS: diphenhydrAMINE CAP 25 MG CAPSULE PO PRN ×3 (02:44→21:02)
[2016-11-10] MEDS: ERYTHROMYCIN INJ 500 MG in SODIUM CHLORIDE 0.9% 100 ML IV SCH ×4 (05:37→22:48)
--- NOTE | 2016-11-10 09:26 | Pulmonology Progress Note ---
Pulmonary - PN: Subj Interval history: Patient without complaints this morning Exam (Progress Note) - Constitutional Vitals: Period Temp Pulse Resp BP Sys/Erickson Pulse Ox Last 24 Hr 97.7 F-98.5 F 93-114 16-20 129-160/70-88 97-99 Exam: Constitutional: General appearance is normal Eyes: Pupils equal round react to light and accommodation conjunctiva and lids are normal Neck: supple without masses Respiratory: Respiratory effort is normal. Lungs are clear to auscultation. Resonant to percussion. Cardiac: Regular rate and rhythm without murmur rub or gallop. PMI at the midclavicular line by palpation. Carotid arteries 2+ palpation no bruits GI: Bowel sounds normoactive, no tenderness or rebound tenderness, no organomegaly Extremities: no clubbing cyanosis or edema Results - Labs CBC & BMP: 11/09/16 03:46 11/09/16 03:46 Assessment and Plan (1) Diabetic gastroparesis Status: Acute Assessment and plan: Continue to hydrate have GI see 11/10 appreciate GIs input continue treatment as they've recommended we'll repeat blood work in the morning don't know if she's going to be a candidate for a gastric polyp or not Current Visit: Yes
--- NOTE | 2016-11-10 10:55 | Gastrointestinal Progress Note ---
Assessment and Plan (1) Intractable nausea and vomiting Status: Resolved Current Visit: No Qualifiers: Vomiting type: unspecified Qualified Code(s): R11.2 - Nausea with vomiting , unspecified (2) Abdominal pain Status: Acute Current Visit: No Qualifiers: Abdominal location: generalized Qualified Code(s): R10.84 - Generalized abdominal pain (3) Other specified counseling Status: Acute Current Visit: No Exam (Progress Note) - Constitutional Vitals: Period Temp Pulse Resp BP Sys/Erickson Pulse Ox Last 24 Hr 97.7 F-98.5 F 93-114 16-20 129-160/70-88 97-99 Results - Labs CBC & BMP: 11/09/16 03:46 11/09/16 03:46 Note Addendum: PLEASE NOTE -- automatic citation of patient information is unavoidable in this electronic note. I have made a reasonable effort to review the information cited , but it is not a part of my evaluation, impression, or recommendation unless specifically discussed in the dictated text that follows.~ As well, voice recognition software was used in the creation of this clinical note. Reasonable effort was made to identify and correct gross errors. Despite proofreading, errors in healthcare administrator may be present, including nonsense verbiage at times. If you encounter such an error, please contact me at for discussion and correction. -- Tesha Chief complaint: nausea and vomiting History of present illness: patient is a 51-year-old female seen for follow-up of gastroparesis with persistent nausea and vomiting. She is tolerating some oral intake. She has had one bowel movement reported overnight. She continues with abdominal bloating and discomfort. She would like to retry Reglan. Review of systems: 12 point review of systems was negative except as documented above. Medications: Tylenol, [place], Benadryl, erythromycin, PPN, insulin, lactulose, Phenergan, one half normal saline infusion Physical examination:~ Vital Signs: Current vital signs reviewed and documented above.~ General Appearance: well-appearing. Not acutely ill. Head: Normocephalic.~ Neck: Palpation of the neck revealed no abnormalities.~ Eyes: No scleral icterus.~ No scleral injection.~ No conjunctival pallor.~ Oral Cavity: Odor of breath was normal. No drooling was observed. Lips showed no abnormalities. Floor of the mouth showed no abnormalities.~ Pharynx: Oropharynx was normal.~ Lungs: Respiration rhythm and depth was normal.~ Cardiovascular: Heart rate and rhythm were normal. No murmurs were appreciated.~ Abdomen: abdomen was not distended. Abdominal palpation revealed no tenderness and no hepatosplenomegaly. Ascites was not discovered. Abdominal auscultation revealed positive bowel sounds. Musculoskeletal System: Musculoskeletal system was grossly normal.~ Neurological: level of consciousness was normal. Speech was normal. Skin: General appearance was normal. Color and pigmentation were normal. No skin lesions. ~ Laboratory: No new labs today Radiology: CTA from 01 November revealed no evidence of significant atherosclerotic disease Impressions:~ 1. Intractable vomiting -- the patient may be improving some. I recommend continued intravenous erythromycin. As discussed, consideration can be given to restarting Reglan at the patient's direction. 2. Abdominal pain -- multifactorial with no objective treatable etiology demonstrated on radiology or otherwise. Improvement of the gastroparesis may improve the symptoms. 3. Other specified counseling: The patient was seen for greater than 30 minutes.~ The patient was counseled for greater than 50% of this time regarding differential diagnosis, likely diagnosis, diagnostic and therapeutic alternatives, risks/benefits/alternatives of medications and procedures, and plan of care generally.~ The patient expressed understanding and wishes to proceed. Recommendations: -- continue current medication regimen -- add reglan -- continue aggressive control of glucose, electrolytes, and volume overall -- minimize gut altering medication to the greatest extent possible -- consider consultation for gastric pacing -- thank you for this consultation. Dr. Perrin will assume GI care for this patient tomorrow.
[2016-11-10] MEDS: FAT EMULSION 20% 250 ML IV SCH (13:43)
[2016-11-10] MEDS: TRACE ELEMENTS (5) 1 ML, MULTIVITAMIN INJ 10 ML in AMINO ACIDS/DEXT/LYTES 4.25-5% 2,000 ML IV SCH (18:18)
[2016-11-11] MEDS: INSULIN LISPRO 100 UNIT/ML SUBCUT SCH ×4 (00:54→18:14)
[2016-11-11] MEDS: diphenhydrAMINE CAP 25 MG CAPSULE PO PRN ×3 (03:12→17:33)
[2016-11-11] MEDS: PROMETHAZINE 25 MG TABLET PO PRN ×3 (03:12→17:33)
[2016-11-11] MEDS: ERYTHROMYCIN INJ 500 MG in SODIUM CHLORIDE 0.9% 100 ML IV SCH ×3 (05:44→17:32)
[2016-11-11 06:23] LABS: Basophils % 0.3 % (0.0-0.8); Eosinophils # 0.2 10*3/uL (0.0-0.87); Eosinophils % 2.6 % (0.00-10.9); Hematocrit 34.4 VOL% (35.7-47.0); Hemoglobin 11.9 GM/DL (12.0-16.0); Immature Granulocytes % 0.3 %; Immature Granulocytes Absolute 0.03 #; Lymphocytes # 2.4 10*3/uL (1.4-4.0); Lymphocytes % 26.5 % (21.3-54.2); Mean Corpuscular HGB Conc 34.6 GM/DL (32-36); Mean Corpuscular Hemoglobin 30 PG (27-34); Mean Corpuscular Volume 87.5 FL (87-102); Monocytes # 0.7 10*3/uL (0.11-0.8); Monocytes % 7.4 % (1.7-12.7); Neutrophils # 5.6 10*3/uL (1.4-7.4); Neutrophils % 62.9 % (38.7-73.9); Platelet Count 324 10*3/uL (130-400); Red Blood Count 3.93 10*6/uL (3.8-5.5); Red Cell Distribution Width 11.9 % (9.3-17.3)
[2016-11-11 06:43] LABS: Alanine Aminotransferase 11 U/L (13-56); Albumin 3.2 G/DL (3.4-5.0); Alkaline Phosphatase 68 U/L (45-117); Aspartate Amino Transferase 7 U/L (0-37); Bilirubin,Total < 0.39 MG/DL (0.2-1.0); Blood Urea Nitrogen 11 MG/DL (7-18); Calcium 8.4 MG/DL (8.5-10.1); Glucose 225 MG/DL (74-106); Osmolality,Calculated 284.4 MOS/KG (273-304); Potassium 4.4 MMOL/L (3.5-5.1); Sodium 140 MMOL/L (136-145); Total Protein 5.7 G/DL (6.4-8.3)
[2016-11-11] MEDS: SODIUM CHLORIDE 0.45% 1,000 ML IV SCH (09:15)
--- NOTE | 2016-11-11 09:20 | Gastrointestinal Progress Note ---
Assessment and Plan (1) Intractable nausea and vomiting Status: Resolved Assessment and plan: 11/10-Continued intractable nausea, no vomiting at this time. LUQ tenderness. TPN has been started. Continue to monitor at this time. Plan and addendum to follow by Dr Perrin. Current Visit: No Qualifiers: Vomiting type: unspecified Qualified Code(s): R11.2 - Nausea with vomiting , unspecified Gastroenterology - PN: Subj Interval history: CC: Nausea and vomiting Pt is seen, awake and alert lying in bed with family at side. States that she feels the same at present. She is having continued, intractable nausea without vomiting. She is unable to take in very much orally at this time. TPN has been started. Abdomen is soft, mild LUQ tenderness. ROS: Denies SOB or chest pain Exam (Progress Note) - Constitutional Vitals: Period Temp Pulse Resp BP Sys/Erickson Pulse Ox Last 24 Hr 97.8 F-98.6 F 89-115 18-19 97-157/57-78 92-100 General appearance: normal weight, no acute distress - Head Head exam: Present: normal inspection, normocephalic - Eye Eye exam: Present: other (lids and conjunctiva unremarakble). Absent: scleral icterus - ENT ENT exam: Present: normal exam, normal oropharynx - Neck Neck exam: Present: normal inspection - Respiratory Respiratory exam: Present: clear to auscultation bilaterally. Absent: rales, rhonchi, wheezes - Cardiovascular Cardiovascular exam: Present: regular rate and rhythm. Absent: diastolic murmur , JVD, systolic murmur - GI/Abdominal GI/Abdominal exam: Present: normal bowel sounds, soft. Absent: ascites, distended, mass, organomegaly, tenderness - Extremities Exam Extremities exam: Present: normal inspection, full ROM - Back Exam Back exam: Present: normal inspection - Neurological Exam Neurological exam: Present: alert, oriented X3 - Psychiatric Psychiatric exam: Present: normal affect, normal mood - Skin Skin exam: Present: normal color, warm, dry Results - Labs CBC & BMP: 11/11/16 05:34 11/11/16 05:34 Lab Results: I have reviewed the past 24 hour labs
[2016-11-11] MEDS: METOCLOPRAMIDE 10 MG/2 ML VIAL IV SCH ×2 (11:54→17:32)
[2016-11-11] MEDS: FAT EMULSION 20% 250 ML IV SCH (14:57)
[2016-11-11] MEDS: TRACE ELEMENTS (5) 1 ML, MULTIVITAMIN INJ 10 ML in AMINO ACIDS/DEXT/LYTES 4.25-5% 2,000 ML IV SCH (17:35)
--- NOTE | 2016-11-11 18:47 | Hospitalist Progress Note ---
Assessment and Plan (1) Diabetic gastroparesis Status: Acute Assessment and plan: reglan and erythromycin IV and tpn Current Visit: Yes (2) Diabetes mellitus Status: Acute Assessment and plan: lantus 15 units at bedtime Current Visit: Yes Hospitalist: Subjective Interval history: Patient was reporting that she still very nauseated and still vomiting. We have started her on IV Reglan. She is already on TPN. We will give her full liquids see if she can tolerate it. when out in the [place] after had left and asked for more pain medicines for her and I said that would only make her gastroparesis worse which we cannot do right now. Exam - Constitutional Vitals: Period Temp Pulse Resp BP Sys/Erickson Pulse Ox Last 24 Hr 96.4 F-98.7 F 94-115 18-20 92-167/55-90 92-100 Exam: Heart Rate-[tachy] Lungs-[CTAB] GI [+bs soft, tender diffuse] Ext-[no edema] neuro alert and oriented times 3, motor 5/5 psych depressed mood Results - Labs CBC & BMP: 11/11/16 05:34 11/11/16 05:34 Lab Results: I have reviewed the past 24 hour labs
[2016-11-11] MEDS: ENOXAPARIN 40 MG/0.4 ML SYRINGE SUBCUT SCH (21:59)
[2016-11-11] MEDS: INSULIN GLARGINE 100 UNIT/ML SUBCUT SCH (21:59)
[2016-11-12] MEDS: INSULIN LISPRO 100 UNIT/ML SUBCUT SCH ×4 (00:30→17:59)
[2016-11-12] MEDS: ERYTHROMYCIN INJ 500 MG in SODIUM CHLORIDE 0.9% 100 ML IV SCH ×4 (00:30→16:17)
[2016-11-12] MEDS: METOCLOPRAMIDE 10 MG/2 ML VIAL IV SCH ×4 (00:31→17:01)
[2016-11-12] MEDS: PROMETHAZINE 25 MG TABLET PO PRN ×4 (03:01→23:09)
[2016-11-12] MEDS: diphenhydrAMINE CAP 25 MG CAPSULE PO PRN ×3 (09:14→23:09)
--- NOTE | 2016-11-12 09:22 | Gastrointestinal Progress Note ---
Assessment and Plan (1) Gastroparesis Status: Acute Assessment and plan: 11/12-Continued intractable nausea, no vomiting. Tolerating TPN at present time. Denies abd pain. Plan and addendum to follow by Dr Perrin. Current Visit: No Gastroenterology - PN: Subj Interval history: CC: Intractable nausea, vomiting Pt is awake and alert with spouse at side. States she rested until 2am when she awoke with nausea and states it has persisted since then. No vomiting reported. Denies abdominal pain at present time. She and her and contemplating her options at this time. Discussed this with them further today regarding risk and complications associated. They continue to have some questions regarding the gastric pacemaker verses the J-tube. ROS: Denies SOB or chest pain Exam (Progress Note) - Constitutional Vitals: Period Temp Pulse Resp BP Sys/Erickson Pulse Ox Last 24 Hr 96.4 F-98.7 F 98-115 16-20 92-167/55-90 96-99 General appearance: normal weight, no acute distress - Head Head exam: Present: normal inspection, normocephalic - Eye Eye exam: Present: other (lids and conjunctiva unremarkable). Absent: scleral icterus - ENT ENT exam: Present: normal exam, normal oropharynx - Neck Neck exam: Present: normal inspection - Respiratory Respiratory exam: Present: clear to auscultation bilaterally. Absent: rales, rhonchi, wheezes - Cardiovascular Cardiovascular exam: Present: regular rate and rhythm. Absent: diastolic murmur , JVD, systolic murmur - GI/Abdominal GI/Abdominal exam: Present: normal bowel sounds, soft. Absent: ascites, distended, mass, organomegaly, tenderness - Extremities Exam Extremities exam: Present: normal inspection, full ROM - Back Exam Back exam: Present: normal inspection - Neurological Exam Neurological exam: Present: alert, oriented X3 - Psychiatric Psychiatric exam: Present: normal affect, normal mood - Skin Skin exam: Present: normal color, warm, dry Results - Labs CBC & BMP: 11/11/16 05:34 11/11/16 05:34 Lab Results: I have reviewed the past 24 hour labs
[2016-11-12] MEDS: FAT EMULSION 20% 250 ML IV SCH (13:34)
--- NOTE | 2016-11-12 15:55 | Event Note ---
Have brief discussion with Miss Romero and her family regarding J-tube versus gastric stimulator placement. She has lost about 100 pounds in the last year. She's had 3 hospitalizations for gastroparesis in the last month or so. At present she seems to be doing okay and tolerating TPN. She has no abdominal pain. I discussed with her how the gastric stimulator work and she seems agreeable. She seems to be an appropriate candidate. She will follow-up with me next week after discharge so that we can get authorization to proceed if she still wants to go ahead. I would hold off on J-tube placement at this time and hopefully we can get a stimulator placed soon.
--- NOTE | 2016-11-12 16:06 | Hospitalist Progress Note ---
Assessment and Plan (1) Diabetic gastroparesis Status: Acute Assessment and plan: reglan and erythromycin IV. wean off TPN, boost, gastric pace maker as outpatient Current Visit: Yes (2) Diabetes mellitus Status: Acute Assessment and plan: cont toshaus Current Visit: Yes Hospitalist: Subjective Interval history: Patient is still nauseated seems what mildly improved since yesterday though. Told her she did have start drinking boost and we needed to get her off the TPN. Dr. Duvall is seen her and feels that she would be a good candidate for a gastric pacemaker. I think that would be more of an outpatient procedure. I will give her boost today and try to wean her off the TPN Exam - Constitutional Vitals: Period Temp Pulse Resp BP Sys/Erickson Pulse Ox Last 24 Hr 97.2 F-98.7 F 98-111 16-20 99-152/61-84 96-99 Exam: Heart Rate-[tachy] Lungs-[CTAB] GI [+bs soft, tender diffuse] Ext-[no edema] neuro alert and oriented times 3, motor 5/5 psych depressed mood Results - Labs CBC & BMP: 11/11/16 05:34 11/11/16 05:34 Lab Results: I have reviewed the past 24 hour labs Specialty Discharge - Follow Up or Referrals Follow up with: Albert Duvall MD [Physician] - (middle of next week appointment)
[2016-11-12] MEDS: METOPROLOL SUCCINATE XL 25 MG TABLET PO SCH (16:16)
[2016-11-12] MEDS: TRACE ELEMENTS (5) 1 ML, MULTIVITAMIN INJ 10 ML in AMINO ACIDS/DEXT/LYTES 4.25-5% 2,000 ML IV SCH (17:01)
[2016-11-12] MEDS: ENOXAPARIN 40 MG/0.4 ML SYRINGE SUBCUT SCH (17:59)
[2016-11-12] MEDS: INSULIN GLARGINE 100 UNIT/ML SUBCUT SCH (20:30)
[2016-11-13] MEDS: INSULIN LISPRO 100 UNIT/ML SUBCUT SCH ×4 (00:02→18:35)
--- NOTE | 2016-11-13 08:40 | Gastrointestinal Progress Note ---
Assessment and Plan (1) Gastroparesis Status: Acute Assessment and plan: 11/13-Worsening of symptoms overnight due to medications held for pending gastric scan. Will await results. Plan and addendum to follow by Dr Perrin 11/12-Continued intractable nausea, no vomiting. Tolerating TPN at present time. Denies abd pain. Plan and addendum to follow by Dr Perrin. Current Visit: No Gastroenterology - PN: Subj Interval history: CC: Nausea, vomiting Pt states she had a bad night with continued nausea, no vomiting, due to her mediations being held for the repeat gastric emptying scan today. She has been seen in consultation by Dr Duvall regarding gastric pacemaker vs J-tube placement. They are still undecided on which option she feels is best at present time. Abdomen is soft, mild tenderness. Will await results of scan today. ROS: Denies SOB or chest pain Exam (Progress Note) - Constitutional Vitals: Period Temp Pulse Resp BP Sys/Erickson Pulse Ox Last 24 Hr 97.2 F-98.8 F 99-105 16-20 124-149/71-84 98-100 - Other Additional findings: General appearance: normal weight, no acute distress - Head Head exam: Present: normal inspection, normocephalic - Eye Eye exam: Present: other (lids and conjunctiva unremarkable). Absent: scleral icterus - ENT ENT exam: Present: normal exam, normal oropharynx - Neck Neck exam: Present: normal inspection - Respiratory Respiratory exam: Present: clear to auscultation bilaterally. Absent: rales, rhonchi, wheezes - Cardiovascular Cardiovascular exam: Present: regular rate and rhythm. Absent: diastolic murmur , JVD, systolic murmur - GI/Abdominal GI/Abdominal exam: Present: normal bowel sounds, soft, tenderness. Absent: ascites, distended, mass, organomegaly - Extremities Exam Extremities exam: Present: normal inspection, full ROM - Back Exam Back exam: Present: normal inspection - Neurological Exam Neurological exam: Present: alert, oriented X3 - Psychiatric Psychiatric exam: Present: normal affect, normal mood - Skin Skin exam: Present: normal color, warm, dry Results - Labs CBC & BMP: 11/11/16 05:34 11/11/16 05:34 Lab Results: I have reviewed the past 24 hour labs Specialty Discharge - Follow Up or Referrals Follow up with: Albert Duvall MD [Physician] - (middle of next week appointment)
[2016-11-13] MEDS: METOPROLOL SUCCINATE XL 25 MG TABLET PO SCH ×2 (09:49→21:10)
--- NOTE | 2016-11-13 13:02 | Hospitalist Progress Note ---
Assessment and Plan (1) Diabetic gastroparesis Status: Acute Assessment and plan: reglan liquid, [facility]PN through [facility],gastric emptying study today, gastric pace maker as outpatient Current Visit: Yes (2) Diabetes mellitus Status: Acute Assessment and plan: Increase Lantus to 20 units at bedtime. Current Visit: Yes Hospitalist: Subjective Interval history: Spoke with Dr. Roxanna Parker and he is okay to continue ppn at home. Patient getting another gastric emptying study again today. Patient feeling better last night until she was taken off reglan. Patient will need a picc line in am. Exam - Constitutional Vitals: Period Temp Pulse Resp BP Sys/Erickson Pulse Ox Last 24 Hr 97.4 F-98.8 F 99-111 16-20 124-157/71-84 98-100 Exam: Heart Rate-[tachy] Lungs-[CTAB] GI [+bs soft, tender diffuse] Ext-[no edema] neuro alert and oriented times 3, motor 5/5 psych depressed mood and affect general mild acute distress Results - Labs CBC & BMP: 11/11/16 05:34 11/11/16 05:34 Lab Results: I have reviewed the past 24 hour labs Specialty Discharge - Follow Up or Referrals Follow up with: Albert Duvall MD [Physician] - (middle of next week appointment)
--- NOTE | 2016-11-13 13:20 | Nuclear Medicine Report ---
NM gastric emptying study Indication: Nausea and vomiting. GASTRIC EMPTYING NUCLEAR MEDICINE SCAN Technique: 500 ?Ci technetium 99 labeled sulfur colloid was given by mouth in solid food (scrambled egg sandwich). Time activity curves of the stomach with linear fit analysis was performed. Findings: Half-life of activity in the stomach is 239 minutes raw data, 251 minutes linear fit. At 263 minutes, there is 50% emptying of the stomach with 33% residual activity present in the stomach. Impression: Delayed gastric emptying. PROCEDURE INTERPRETED AT [facility] DEPARTMENT OF RADIOLOGY Final Report Signed by: Rupert Esquivel M.D.
[2016-11-13] MEDS: PROMETHAZINE 25 MG TABLET PO PRN ×2 (13:47→21:09)
[2016-11-13] MEDS: FAT EMULSION 20% 250 ML IV SCH (13:51)
[2016-11-13] MEDS: ALPRAZolam 0.5 MG TABLET PO PRN ×2 (14:57→21:10)
[2016-11-13] MEDS: METOCLOPRAMIDE 10 MG/10 ML UDCUP PO SCH ×2 (16:22→21:09)
[2016-11-13] MEDS: ENOXAPARIN 40 MG/0.4 ML SYRINGE SUBCUT SCH (18:31)
[2016-11-13] MEDS ORDERED: INSULIN GLARGINE 100 UNIT/ML SUBCUT SCH (21:00)
[2016-11-13] MEDS: TRACE ELEMENTS (5) 1 ML, MULTIVITAMIN INJ 10 ML in AMINO ACIDS/DEXT/LYTES 4.25-5% 2,000 ML IV SCH ×2 (21:06→21:58)
[2016-11-13] MEDS: diphenhydrAMINE CAP 25 MG CAPSULE PO PRN (21:09)
[2016-11-14] MEDS: INSULIN LISPRO 100 UNIT/ML SUBCUT SCH ×3 (01:23→12:21)
[2016-11-14] MEDS: PROMETHAZINE 25 MG TABLET PO PRN ×2 (05:17→12:24)
[2016-11-14] MEDS: diphenhydrAMINE CAP 25 MG CAPSULE PO PRN (05:17)
[2016-11-14] MEDS: METOCLOPRAMIDE 10 MG/10 ML UDCUP PO SCH ×3 (08:57→17:11)
[2016-11-14] MEDS: ALPRAZolam 0.5 MG TABLET PO PRN (09:11)
[2016-11-14] MEDS: METOPROLOL SUCCINATE XL 25 MG TABLET PO SCH (09:11)
--- NOTE | 2016-11-14 09:39 | Discharge Summary ---
<Rosetta Maravilla - Last Filed: 11/14/16 09:29> Hospital Course - Hospital Course Hospital Course: Ms. Romero was admitted on 11/08/16 with diabetic gastroparesis, DM, chronic abdominal pain. She had recently been discharged for diabetic gastroparesis and was tolerating some clear liquids at discharge. She had previously been treated with Reglan, but felt that it made her sick, so this had been stopped. She also had some dizziness upon standing and appeared malnourished. E-mycin was not helpful. She was started on IV hydration, GI consult, and Dr. Duvall for gastroparesis symptoms management. IV reglan and IV phenergan was also started. Dr. Duvall has seen her and discussed J tube vs gastric stimulator placement. She has lost about 100 lbs in the past year. She seemed agreeable to the gastric stimulator placement. She was also started on erythromycin IV and TPN as well was trying to be weaned. She has had a gastric emptying scan and showed delayed gastric emptying at 263 minutes she had 50% emptying of the stomach with 33% residual activity present in the stomach. Her lantus was increased to 20 units at . She will be discharged home today with appropriate medications and follow up. - Time spent with patient Time with patient DS: Greater than 30 minutes (due to plan, doc and med rec.) Diagnosis - Discharge Diagnosis (1) Diabetic gastroparesis Status: Acute (2) Mild malnutrition Status: Acute (3) Diabetes mellitus Status: Acute Specialty Discharge - Follow Up or Referrals Follow up with: Albert Duvall MD [Physician] - 11/28/16 9:15 am (middle of next week appointment) Discharge Plan - Discharge Data Disposition: Home Health Service - Discharge Medications New ALPRAZolam [Xanax] 0.5 mg PO BID PRN #30 tablet PRN Reason: Anxiety Metoprolol Succinate Xl [Toprol Xl] 50 mg PO BID #60 tablet Continue Promethazine Tab [Phenergan Tab] 25 mg PO Q6H PRN #30 tablet PRN Reason: Nausea Pantoprazole Tab [Protonix Tab] 40 mg PO DAILY #30 tablet Metoclopramide Liquid [Reglan Liquid] 10 mg PO ACHS #1200 ml Changed HYDROcodone/ACETAMIN 10-325 [[place] 10-325] 1 tablet PO Q6H #30 tablet Insulin Aspart [NovoLOG] 7 unit SUBCUT TIDAC #100 ml Insulin Glargine [Lantus] 40 unit SUBCUT BEDTIME #100 ml Discontinued Potassium Chloride Cap/Tab [K Dur] 10 meq PO DAILY Methocarbamol [Methocarbamol] 750 mg PO TID PRN PRN Reason: muscle spasms - Follow Up or Referral Follow Up: Albert Duvlal MD [Physician] - 11/28/16 9:15 am (middle of next week appointment) Matthew Parker MD [Primary Care Provider] - 1 Week - Forms/Instructions Exam - Constitutional Vitals: Period Temp Pulse Resp BP Sys/Erickson Pulse Ox Last 24 Hr 97.6 F-98.2 F 92-126 16-18 99-157/55-81 99-100 Discharge Results Labs on day of discharge: Labs from last 24 hours 11/14/16 11/13/16 11/13/16 06:22 23:38 18:30 POC Glucose 248 H 329 H 394 H 11/13/16 11:18 POC Glucose 296 H DS: Provider Date of admission: 11/08/16 11:54 Primary care physician: Matthew Parker MD Attending physician on admission: Su Santos MD Consults: 11/08/16 13:35 Consult to Dietitian [CONS] Routine Reason for Dietitian: Diet Instruction 11/08/16 14:40 Consult to Physician [CONS] Routine Comment: Consulting Provider: Saul Perrin Person Notified: Date Notified: 11/08/16 Time Notified: 15:22 11/08/16 14:44 Consult to Pharmacy [CONS] Routine Reason for Pharmacy Consult: Adjust Meds Renal Funct 11/08/16 16:22 Consult to Dietitian [CONS] Routine Reason for Dietitian: TPN/PPN-Initiate/Manage 11/12/16 14:47 Consult to Physician [CONS] Routine Comment: gastric pacemaker Consulting Provider: Albert Duvall When should Consulting Provider be notified: Now Date Notified: 11/12/16 Time Notified: 15:54 Consult Notification Comment: aware 11/12/16 16:02 Consult to Case Mgmt/Social Srvs [CONS] Routine Reason for Case Mgmt/Social Srvs: Home IV Therapy Consult Comment: home PPN through [facility]. 11/12/16 16:05 Consult to Dietitian [CONS] Routine Reason for Dietitian: TPN/PPN-Initiate/Manage Consult Comment: need wean off ppn instructions/rate Discharging clinician: Rosetta Maravilla NP Expected date of discharge: 11/14/16 <Doreen Hector - Last Filed: 11/14/16 10:34> Hospital Course - Hospital Course Hospital Course: Patient seen and examined. Hospital course reviewed and edited as follows. Patient advanced to soft diet. Patient will be discharged home on Reglan liquid and TPN. Dr. Duvall has now had her gastric pacemaker approved. She is scheduled to see him in follow-up on November 28. [facility] providing her PPN not TPN. Her blood sugars are still not well controlled and we will increase her Lantus to 40 units at bedtime. Patient usually sees Dr. Howe for her pain medicines but has missed appointments due to hospitalization. I have spoken with Dr. Roxanna Parker has agreed to manage the PPN. Diagnosis - Discharge Diagnosis (1) Diabetic gastroparesis Status: Acute (2) Diabetes mellitus Status: Acute Discharge Plan - Discharge Data Condition at Discharge: Stable Discharge Diet: other (soft) Activity: resume usual activities as tolerated Hygiene: no restrictions Weight Bearing at Discharge: full weight bearing - Forms/Instructions Additional Discharge Instructions: [facility] by [facility]. Home health with nurse aide social media community manager and pharmacy. Exam - Constitutional General appearance: normal weight, no acute distress - Respiratory Respiratory exam: Present: clear to auscultation bilaterally. Absent: rhonchi, wheezes - Cardiovascular Cardiovascular exam: Present: regular rate and rhythm - GI/Abdominal GI/Abdominal exam: Present: soft. Absent: tenderness - Neurological Exam Neurological exam: Present: alert, oriented X3 - Psychiatric Psychiatric exam: Present: normal affect, normal mood
[2016-11-14] MEDS: FAT EMULSION 20% 250 ML IV SCH (14:49)
--- NOTE | 2016-11-14 16:25 | Post Interventional Procedure ---
Pre-op diagnosis: diabetic gastroparesis Post-op diagnosis: same Procedure: PICC placement Contrast: none Flouroscopy: 0.4 min Radiologist: Gaurav Hernandez Anesthesia: local Specimens: none sent Estimated blood loss: minimal (2 mL) Complications: none Condition: stable Description/Findings: 5 Divehi dual-lumen power PICC line placed to the left basilic vein. The catheter is ready for use. Assessment and Plan - Time spent with patient Time spent with patient: Less than 30 minutes (1) Diabetic gastroparesis Problem details: chronic issues Status: Acute Assessment and plan: PICC placement for home TPN Current Visit: Yes
--- NOTE | 2016-11-14 16:30 | Ultrasound Report ---
IR PICC line insertion, US guide vascular access IR PICC Placement Peripherally-inserted central catheter (PICC) placement using ultrasound and fluoroscopic guidance Ultrasound of the left upper extremity Clinical Information: PICC line is requested for home TPN administration 51 yo with diabetic gastroparesis. Physician: Dr. Hernandez Procedure: The patient was advised of the benefits, risks, and alternatives of the procedure and informed consent was obtained. A time out was performed with verification of the patient's name, MRN, site of procedure, and type of procedure to be performed. The patient was positioned in the supine position on the angiographic table. The site was prepped and draped in the usual sterile fashion. Additionally, maximal sterile barrier technique was employed for the procedure. A architect in training radiograph reveals no relevant abnormality. Ultrasound examination of the left arm demonstrates patent and compressible brachial and basilic veins. The left arm was prepped and draped in the usual sterile fashion. The left basilic vein was again identified. Using ultrasound guidance, a 21 gauge needle was used to access the vein. A permanent ultrasound recording of vascular access was obtained for the patient's record. A 0.018" cope wire was then advanced into the vein. The needle was exchanged for a 5 Nepali peel-away sheath. A 5 Nepali double lumen Bard Solo PICC catheter was measured and trimmed to the 40 cm goldie. The PICC line was advanced through the sheath and into the central circulation. The catheter tip was positioned at the cavo-atrial junction. The peel-away sheath was then removed. At the conclusion of the procedure, the catheter was secured in place using a Stat-Lock device. A sterile dressing was applied. The lumens aspirate and flush freely. The catheter is ready for immediate use. The patient tolerated the procedure well and was returned to the PRU in stable condition. EBL: < 5 mL. Complications: None. Fluoroscopy time: 0.4 minutes Conclusion: Successful placement of a 5 Nepali double lumen Bard Solo power injectable PICC via the left basilic vein. The catheter is ready for immediate use. PROCEDURE INTERPRETED AT [facility] DEPARTMENT OF RADIOLOGY Final Report Signed by: Gaurav Hernandez
[2016-11-14] MEDS: TRACE ELEMENTS (5) 1 ML, MULTIVITAMIN INJ 10 ML in AMINO ACIDS/DEXT/LYTES 4.25-5% 2,000 ML IV SCH (17:30)
[2016-11-14 22:49] VITALS: BP 159/74
== END 2016-11-14 18:10 | disposition home health service (06) | DRG 74 ==
LOC: N.ED 09:14 → N.EDINP 11:54 → N.5E 12:48
PROVIDERS: ADMIT Internal Medicine; ATTEND Internal Medicine

== ENCOUNTER 2017-02-19 20:25 | Inpatient (IN) ==
[2017-02-19] MEDS ORDERED: METOCLOPRAMIDE 10 MG/2 ML VIAL IV STA (21:54)
[2017-02-19] MEDS ORDERED: SODIUM CHLORIDE 0.9% 1,000 ML IV STA (21:54)
[2017-02-19] MEDS ORDERED: HYDROmorphone 2 MG/1 ML VIAL IV STA (21:54)
[2017-02-19] MEDS ORDERED: PANTOPRAZOLE 40 MG VIAL IV STA (21:54)
[2017-02-19] MEDS ORDERED: ALUM/MAG/SIMETH/LIDO VISC 1:1 30 ML BOTTLE PO STA (21:54)
--- NOTE | 2017-02-19 22:35 | Emergency Department Note ---
Saji Lin Manpreet, am scribing for, and in the presence of, Isaias Gutierrez MD 22:06. Brenda Lin Charles R, MD, personally performed the services described in this documentation, ascribed by Willie Lennon in my presence, and it is both accurate and complete . Arrival - Arrival Chief Complaint: Weakness Stated Complaint: throwing up, weak, dizzy, hurting ED Nursing Triage Note: patient to triage with c/o N/V, weakness, and dizziness since last friday. patient has seen her PCP and been seen in ER since the start of s/s. patient has TPN pump in use to central line to LUE. patient has gastric stimulator as well. Mode of Arrival: Wheelchair Source: Patient, Old Records Reviewed, RN Notes Reviewed - History of Present Illness HPI Narrative: Pt is a 51 y/o female with Hx of IDDM, gastroparesis, TPN, gastric stimulator, who presents to the ED with CC of weakness accompanied by N/V/D since 2016. Pt was previously seen in the ER for the same complaint, but states she did not feel better. Pt notes being advised by Dr. Duvall, s/p of gastric stimulator, to come to the ER if pain worsens. Pt states having more than 10 episodes of emesis today. Dr. Perrin is her puppy walker. No other complaints/pains reported to ED. Onset (ago): hour(s) Consistency: constant Severity: moderate Severity scale (1-10): 5 Date of Last Menstrual Period: hyst Allergies/Adverse Reactions: Allergies Allergy/AdvReac Type Severity Reaction Status Date / Time ketorolac [From Toradol] AdvReac Agitated Verified 02/19/17 20:42 ondansetron AdvReac ITCHING Verified 02/19/17 20:42 [From Zofran (as hydrochloride)] prochlorperazine AdvReac Anxiety Verified 02/19/17 20:42 [From Compazine] Home Medications: Home Medications Medication Instructions Recorded Confirmed Type ALPRAZolam [Xanax] 0.5 mg PO BID PRN #30 tablet 11/14/16 02/19/17 Rx Metoclopramide Liquid [Reglan 10 mg PO ACHS #1200 ml 11/14/16 02/19/17 Rx Liquid] Pantoprazole Tab [Protonix Tab] 40 mg PO DAILY #30 tablet 11/14/16 02/19/17 Rx Insulin Glargine [Lantus] 40 unit SUBCUT BEDTIME #0 01/31/17 02/19/17 Rx Promethazine Tab [Phenergan Tab] 25 mg PO Q6H PRN #30 tablet 01/31/17 02/19/17 Rx ARIPiprazole [Abilify] 5 mg PO BEDTIME 02/17/17 02/19/17 History Hydrocodone/Acetaminophen 1 each PO Q6H 02/17/17 02/19/17 History [Hydrocodon-Acetaminophn 10-325] Insulin Aspart [NovoLOG] 7 unit SUBCUT TID 02/17/17 02/19/17 History Metoprolol Succinate Xl [Toprol Xl] 50 mg PO BID 02/17/17 02/19/17 History Polyethylene Glycol Powder 17 gm PO QOTHER DAY PRN 02/17/17 02/19/17 History [Miralax] Review of System - Review of System 12 point system: reviewed and no additional remarkable complaints except as stated - Review of System Constitutional: Absent: diaphoresis, fever Cardiovascular: Absent: chest pain, palpitations Gastrointestinal: Present: abdominal pain, nausea, vomiting, diarrhea Musculoskeletal: Absent: arm pain, back pain, lower back pain, leg pain, neck pain Neurological: Absent: headache Medical,Surgical,& Family Hx - Medical History Cardio: History of: Cardiovascular Problems (tachycardia, VARICOUS VEINS LEFT LEG) Psychological: History of: Anxiety Disorders Neurology: History of: Migraine No history of: Seizures Endocrine: History of: Diabetes Mellitus (IDDM), Thyroid Disorder Respiratory: History of: Pneumonia Genitourinary: History of: Problems (history of bladder benign mass removed and a bladder tact) Gastrointestinal: History of: GERD, GI Problems (Gastroparesis. TPN. 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), Hysterectomy - Family History Family History: Reports;: Family Diabetes (Mother, Father), Family Hypertension (Mother, Father) - Social History Smoking Status: Never smoker Frequency of Alcohol Use: None Type of Drug Use: None Exam Vital Signs: Vital Signs Temperature 98.8 F 02/19/17 20:37 Pulse Rate 109 H 02/19/17 22:33 Respiratory Rate 20 02/19/17 22:34 Blood Pressure 152/101 02/19/17 22:33 O2 Sat by Pulse Oximetry 100 02/19/17 22:33 - General General appearance: alert, other (General weak appearance) - Head Head exam: Present: atraumatic, normocephalic, normal inspection - Eye Eye exam: Present: normal appearance, PERRL, EOMI - ENT ENT exam: Present: normal exam, normal oropharynx, mucous membranes dry, TM's normal bilaterally - Neck Neck exam: Present: normal inspection, full ROM, trachea midline. Absent: tenderness - Chest Chest inspection: Present: normal inspection, symmetric chest wall rise. Absent : tenderness - Respiratory Respiratory exam: Present: normal lung sounds bilaterally, accessory muscle use - Cardiovascular Cardiovascular exam: Present: normal rhythm, tachycardia, normal heart sounds - Abdominal Exam Abdominal exam: Present: soft, tenderness (Diffuse Tenderness), normal bowel sounds. Absent: distention - Rectal Exam Rectal exam: Present: deferred - Extremities Exam Extremities exam: Present: normal inspection, full ROM. Absent: tenderness - Back Exam Back exam: Present: normal inspection, full ROM. Absent: tenderness - Neurological Exam Neurological exam: Present: alert, oriented X3, CN II-XII intact. Absent: normal gait - Psychiatric Psychiatric exam: Present: normal affect, normal mood - Skin Skin exam: Present: warm, dry, intact, normal color. Absent: pallor Course - Consultations Time: 23:59 Results - Labs CBC & BMP: 02/19/17 22:35 02/19/17 22:35 Lab Results: I have reviewed the patients labs Labs: Laboratory Tests 02/19/17 22:35 WBC 10.4 D RBC 3.85 D Hgb 11.8 L Hct 34.2 L Plt Count 354 D Laboratory Tests 02/19/17 22:35 Sodium 132 L Potassium 4.3 Chloride 97 L Carbon Dioxide 25 Anion Gap 14.3 BUN 16 Creatinine 0.50 L BUN/Creatinine Ratio 32.00 H Glucose 334 H Calcium 8.4 L Magnesium 1.7 L Albumin/Globulin Ratio 1.0 L Lipase 112.0 D Disposition Clinical Impression: Abdominal pain, Diabetic gastroparesis, Vomiting, Mild malnutrition, Chronic abdominal pain, Dehydration, Intractable vomiting, Hyperglycemia Case discussed with: patient, patient's family Disposition: Still a Patient Condition: Stable Time of Disposition: 23:59
[2017-02-19] MEDS ORDERED: HYDROmorphone 2 MG/1 ML VIAL ONE (22:39)
[2017-02-19] MEDS ORDERED: ALUM/MAG/SIMETH/LIDO VISC 1:1 30 ML BOTTLE PO ONE (22:39)
[2017-02-19] MEDS ORDERED: PANTOPRAZOLE 40 MG VIAL IV ONE (22:39)
[2017-02-19] MEDS ORDERED: METOCLOPRAMIDE 10 MG/2 ML VIAL ONE (22:39)
[2017-02-19 22:55] LABS: Basophils # 0.1 10*3/uL (0.0-0.2); Basophils % 0.7 % (0.0-0.8); Eosinophils # 0.1 10*3/uL (0.0-0.87); Eosinophils % 1.1 % (0.00-10.9); Hematocrit 34.2 VOL% (35.7-47.0); Hemoglobin 11.8 GM/DL (12.0-16.0); Immature Granulocytes % 0.3 %; Immature Granulocytes Absolute 0.03 #; Lymphocytes # 2.4 10*3/uL (1.4-4.0); Lymphocytes % 23.2 % (21.3-54.2); Mean Corpuscular HGB Conc 34.5 GM/DL (32-36); Mean Corpuscular Hemoglobin 31 PG (27-34); Mean Corpuscular Volume 88.8 FL (87-102); Mean Platelet Volume 10.4 FL (9.6-12.0); Monocytes # 0.7 10*3/uL (0.11-0.8); Monocytes % 6.8 % (1.7-12.7); Neutrophils # 7.1 10*3/uL (1.4-7.4); Neutrophils % 67.9 % (38.7-73.9); Platelet Count 354 T/CUMM (130-400); Red Blood Count 3.85 MC/CUMM (3.8-5.5); Red Cell Distribution Width 12.4 % (9.3-17.3); White Blood Count 10.4 T/CUMM (4-12)
[2017-02-19 23:18] LABS: Alanine Aminotransferase 13 U/L (13-56); Albumin 3.4 G/DL (3.4-5.0); Alkaline Phosphatase 70 U/L (45-117); Amylase 57 U/L (25-115); Aspartate Amino Transferase 10 U/L (0-37); Blood Urea Nitrogen 16 MG/DL (7-18); Calcium 8.4 MG/DL (8.5-10.1); Glucose 334 MG/DL (74-106); Magnesium 1.7 MG/DL (1.8-2.4); Osmolality,Calculated 277.5 MOS/KG (273-304); Potassium 4.3 MMOL/L (3.5-5.1); Sodium 132 MMOL/L (136-145); Total Protein 6.5 G/DL (6.4-8.3); Troponin I Only < 0.015 NG/ML (0.00-0.045)
[2017-02-19] MEDS ORDERED: INSULIN REGULAR 100 UNIT/ML SUBCUT STA (23:58)
[2017-02-19] MEDS ORDERED: MAGNESIUM SULF RIDER 2 GM in PREMIX 1 EACH IV STA (23:59)
[2017-02-20] MEDS ORDERED: GLUCAGON 1 MG VIAL IM PRN (00:06)
[2017-02-20] MEDS ORDERED: DEXTROSE 50% 25 GM/50 ML VIAL IV PRN (00:06)
[2017-02-20] MEDS ORDERED: MAGNESIUM SULF RIDER 50 ML IV ONE (00:07)
[2017-02-20] MEDS ORDERED: INSULIN NPH/REGULAR 70/30 100 UNIT/ML SUBCUT ONE (00:09)
[2017-02-20 00:31] LABS: Apearance,Urine CLEAR (Clear); Bilirubin,Urine Negative (Negative); Blood, Urine Negative (Negative); Glucose,Urine (UA) >=500 mg/dL (Negative); Ketones,Urine Negative (Negative); Mucus,Urine Occasional /LPF (Occasional); Nitrite,Urine Negative (Negative); Protein,Urine Negative; Squamous Epithelial Cell,Urine Occasional /HPF (0-10); Urine Color Yellow (Yellow); Urine Specific Gravity 1.011 (1.001-1.035); Urine Urobilinogen < 2.0 EU/DL (0.2-1.0); WBC,Urine <1 /HPF (0-6)
--- NOTE | 2017-02-20 00:39 | Hospitalist History & Physical ---
Assessment and Plan (1) Diabetes mellitus Status: Acute Current Visit: No (2) Diabetic gastroparesis Problem details: chronic issues Status: Acute Current Visit: Yes (3) Chronic abdominal pain Status: Acute Current Visit: Yes (4) Abdominal pain Status: Acute Current Visit: Yes (5) Vomiting Status: Acute Current Visit: Yes (6) Anemia Status: Acute Current Visit: No (7) Hyperglycemia Status: Acute Assessment and plan: Our plan for this patient will be admission to our service. We will continue with IV hydration. We will continue with her TPN. We will put her on a clear liquid diet and see how she does. Phenergan can be used for her nausea. We will get Dr. Perrin to see her while she is here. We will also consult Dr. Kaplan to see her while she is here. She has already received some IV insulin while in the emergency room. We will need to monitor her glucose and treat accordingly should be able to restart her nighttime Lantus dose tomorrow. Current Visit: Yes History of Present Illness Chief complaint: Nausea and vomiting and abdominal pain History of present illness: Ms. Romero is a 51 year old female with past medical history significant for gastroparesis status post stimulator placed on the sixth and diabetes who presents to our ER tonight. Patient requires TPN at home she does this 20 out of 24 hours a day. She cannot keep anything down the water no food. She has been to the hospital a few days ago and was discharged and she still continued to throw up. Will question about the stimulator she said it seem like it worked well for about 2 weeks and then her symptoms returned. She came back to the ER tonight with the same nausea vomiting abdominal pain symptoms. I was consulted to admit her through the emergency room Home Medications Medication Instructions Recorded Confirmed Type ALPRAZolam [Xanax] 0.5 mg PO BID PRN #30 tablet 11/14/16 02/19/17 Rx Metoclopramide Liquid [Reglan 10 mg PO ACHS #1200 ml 11/14/16 02/19/17 Rx Liquid] Pantoprazole Tab [Protonix Tab] 40 mg PO DAILY #30 tablet 11/14/16 02/19/17 Rx Insulin Glargine [Lantus] 40 unit SUBCUT BEDTIME #0 01/31/17 02/19/17 Rx Promethazine Tab [Phenergan Tab] 25 mg PO Q6H PRN #30 tablet 01/31/17 02/19/17 Rx ARIPiprazole [Abilify] 5 mg PO BEDTIME 02/17/17 02/19/17 History Hydrocodone/Acetaminophen 1 each PO Q6H 02/17/17 02/19/17 History [Hydrocodon-Acetaminophn 10-325] Insulin Aspart [NovoLOG] 7 unit SUBCUT TID 02/17/17 02/19/17 History Metoprolol Succinate Xl [Toprol Xl] 50 mg PO BID 02/17/17 02/19/17 History Polyethylene Glycol Powder 17 gm PO QOTHER DAY PRN 02/17/17 02/19/17 History [Miralax] Allergies Allergy/AdvReac Type Severity Reaction Status Date / Time ketorolac [From Toradol] AdvReac Agitated Verified 02/19/17 20:42 ondansetron AdvReac ITCHING Verified 02/19/17 20:42 [From Zofran (as hydrochloride)] prochlorperazine AdvReac Anxiety Verified 02/19/17 20:42 [From Compazine] Medical,Surgical,& Family Hx - Medical History Cardio: History of: Cardiovascular Problems (tachycardia, VARICOUS VEINS LEFT LEG) Psychological: History of: Anxiety Disorders Neurology: History of: Migraine No history of: Seizures Endocrine: History of: Diabetes Mellitus (IDDM), Thyroid Disorder Respiratory: History of: Pneumonia Genitourinary: History of: Problems (history of bladder benign mass removed and a bladder tact) Gastrointestinal: History of: GERD, GI Problems (Gastroparesis. TPN. 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), Hysterectomy - Family History Family History: Reports;: Family Diabetes (Mother, Father), Family Hypertension (Mother, Father) - Social History Smoking Status: Never smoker Frequency of Alcohol Use: None Type of Drug Use: None 12 point system: reviewed and no additional remarkable complaints except as stated Exam - Constitutional Vitals: Period Temp Pulse Resp BP Sys/Erickson Pulse Ox Last 24 Hr 98.8 F-98.8 F 100-115 14-20 113-152/67-101 99-100 - General General appearance: alert, thin - Head Head exam: Present: atraumatic, normocephalic, normal inspection - Eye Eye exam: Present: normal appearance, PERRL, EOMI - ENT ENT exam: Present: normal exam, normal oropharynx, mucous membranes dry, TM's normal bilaterally - Neck Neck exam: Present: normal inspection, full ROM, trachea midline. Absent: tenderness - Chest Chest inspection: Present: normal inspection, symmetric chest wall rise. Absent : tenderness - Respiratory Respiratory exam: Present: normal lung sounds bilaterally, accessory muscle use - Cardiovascular Cardiovascular exam: Present: normal rhythm, tachycardia, normal heart sounds - Abdominal Exam Abdominal exam: Present: soft, tenderness diffuse positive bowel sounds - Extremities Exam Extremities exam: Present: normal inspection, full ROM. Absent: tenderness - Back Exam Back exam: Present: normal inspection, full ROM. Absent: tenderness - Neurological Exam Neurological exam: Present: alert, oriented X3, CN II-XII intact. Absent: normal gait - Psychiatric Psychiatric exam: Present: normal affect, normal mood - Skin Skin exam: Present: warm, dry, intact, normal color. Results - Labs CBC & BMP: 02/19/17 22:35 02/19/17 22:35
[2017-02-20] MEDS ORDERED: POLYETHYLENE GLYCOL POWDER 17 GM PACK PO PRN (00:49)
[2017-02-20] MEDS: SODIUM CHLORIDE 0.9% 1,000 ML IV SCH ×3 (02:10→15:47)
[2017-02-20] MEDS: HYDROmorphone 2 MG/1 ML VIAL IV PRN ×4 (02:15→22:46)
[2017-02-20] MEDS: PROMETHAZINE 25 MG/1 ML VIAL IM PRN ×2 (02:47→08:55)
--- NOTE | 2017-02-20 05:53 | XRay Report ---
XR abdomen 2V Indication: Abdominal pain. Comparison: Abdominal series 01/18/2017 Technique: Flat and erect images of the abdomen were performed. Findings: Interval placement of gastric pacemaker is demonstrated. Surgical absence of the gallbladder is present. Lung bases are clear. No organomegaly is suggested. Bowel gas pattern demonstrates no significant abnormality. Impression: 1. No active process is suggested within the abdomen or pelvis. 02/20/2017 5:48 AM PROCEDURE INTERPRETED AT [facility] OF [facility] Final Report Signed by: Dr. Regan Locke
--- NOTE | 2017-02-20 05:53 | XRay Report ---
XR chest 1V portable Indication: Abdominal pain Comparison: None. Technique: Portable AP chest was performed. Findings: Heart size, mediastinal contour, and hilar structures demonstrate no evidence of acute pathology. Lungs are clear. Bones and soft tissues demonstrate no evidence of acute pathology. Left-sided PICC appears to terminate within the azygos vein. Impression: 1. No evidence of acute pathology. 2. PICC placement as detailed. 02/20/2017 5:47 AM PROCEDURE INTERPRETED AT [facility] DEPARTMENT OF RADIOLOGY Final Report Signed by: Dr. Regan Locke
[2017-02-20 06:17] LABS: Basophils % 0.5 % (0.0-0.8); Eosinophils # 0.2 10*3/uL (0.0-0.87); Eosinophils % 1.9 % (0.00-10.9); Hematocrit 28.9 VOL% (35.7-47.0); Immature Granulocytes % 0.3 %; Immature Granulocytes Absolute 0.02 #; Lymphocytes # 3.1 10*3/uL (1.4-4.0); Lymphocytes % 39.2 % (21.3-54.2); Mean Corpuscular HGB Conc 34.6 GM/DL (32-36); Mean Corpuscular Hemoglobin 30 PG (27-34); Mean Corpuscular Volume 87.3 FL (87-102); Mean Platelet Volume 10.3 FL (9.6-12.0); Monocytes # 0.6 10*3/uL (0.11-0.8); Neutrophils % 51.1 % (38.7-73.9); Platelet Count 294 T/CUMM (130-400); Red Blood Count 3.31 MC/CUMM (3.8-5.5); Red Cell Distribution Width 12.6 % (9.3-17.3); White Blood Count 7.9 T/CUMM (4-12)
--- NOTE | 2017-02-20 06:38 | EKG Report ---
Stationary ECG Study [facility] ER Test Date: 02/20/2017 1:11:05 AM Pat Name: ANN LOBO Department: Room: 220 Gender: F Sidehand: : 1965 Requested by: Isaias Mcknight Order Number: [id number] Dee MD: FLAVIO MAURO Intervals [place] Rate: 100 P: 65 NH: 154 QRS: 82 QRSD: 86 T: 16 QT: 326 QTc: 383 Interpretive Statements SINUS TACHYCARDIA Electronically Signed On 02-23-17 17:31:06 CDT by FLAVIO MAURO [email or web address]
[2017-02-20 06:53] LABS: Calcium 8.2 MG/DL (8.5-10.1); Potassium 3.9 MMOL/L (3.5-5.1)
--- NOTE | 2017-02-20 07:58 | Hospitalist Progress Note ---
Hospitalist: Subjective Interval history: Pt continues to complain of 10/10 sharp diffuse abd pain. She states her last emesis was in ER around 3AM today. No fever. LAst BM yesterday and denies melena or BRBPR. No diarrhea. +heartburn. No cp or SOB. Exam - Constitutional Vitals: Period Temp Pulse Resp BP Sys/Erickson Pulse Ox Last 24 Hr 98.0 F-98.4 F 102-104 18-20 120-139/49-77 95-98 Exam: General exam: Patient is chronically ill-appearing, lying in hospital bed in no acute distress HEENT: Clear sclerae, dry mucous membranes. Neck: Supple, no lymphadenopathy or thyromegaly appreciated. No JVD CV: Tachycardia but regular rhythm, normal S1-S2 no obvious murmurs rubs or gallops. LUNGS: Clear to auscultation bilaterally anteriorly. Diminished at the bases. Nonlabored breathing noted. Abdomen: Soft with suprapubic tenderness to palpation without rebound or guarding. hypoactive bowel sounds. Extremities: Warm and well perfused no clubbing cyanosis or edema. NEURO: Nonfocal Results - Labs CBC & BMP: 02/20/17 05:58 02/20/17 05:58 - Impressions (1) Diabetes mellitus with complications of DM gastroparesis Status: Acute Current Visit: No - Resume Lantus at 20 units qhs and cont I.S.S. for now. Check HgbA1c. (2) Acute Diabetic gastroparesis flare Problem details: chronic issues Status: Acute Current Visit: Yes - on Reglan. Will order Thorazine for hiccups and nausea/ vomiting as needed. Clear diet and advance as tolerated. Dr. Perrin (GI) to see. Dr. Kaplan ( surgery) has been consulted to evaluate the gastric stimulator. (3) Chronic abdominal pain Status: Acute Current Visit: Yes - resume home oral analagesics. Check UA (4) Anemia Status: Chronic Current Visit: No (5) Suspect severe protein calorie malnutrition - D/W pharmacy and resume home TPN. Follow triglycerides, lytes and renal function per protocol. Status: Acute Current Visit: Yes DVT prophylaxis- SCDs. D/W pt, , and pharmacy. All questions answered. Quality Measures - Stroke Symptom Onset Unknown: No
[2017-02-20] MEDS ORDERED: DEXTROSE 10% 1,000 ML IV PRN (08:55)
[2017-02-20] MEDS: INSULIN REGULAR 100 UNIT/ML SUBCUT SCH ×4 (08:58→22:33)
[2017-02-20] MEDS: METOCLOPRAMIDE 10 MG/10 ML UDCUP PO SCH ×4 (08:59→22:33)
[2017-02-20] MEDS: PANTOPRAZOLE 40 MG TABLET PO SCH (08:59)
[2017-02-20] MEDS: METOPROLOL SUCCINATE XL 50 MG TABLET PO SCH ×2 (09:06→22:33)
[2017-02-20] MEDS ORDERED: chlorproMAZINE 25 MG/1 ML AMP IM PRN (10:09)
[2017-02-20] MEDS ORDERED: chlorproMAZINE INJ 25 MG in SODIUM CHLORIDE 0.9% 100 ML IV PRN (10:10)
[2017-02-20] MEDS ORDERED: CALCIUM CARBONATE CHEW 500 MG TABLET PO PRN (10:12)
--- NOTE | 2017-02-20 10:38 | Gastrointestinal Consult Note ---
Assessment and Plan (1) Gastroparesis Status: Acute Assessment and plan: 02/20-Exacerbation of nausea, vomiting, abd pain similar to prior flare of gastroparesis in the past with recent gastric pacemaker placement. Plan and addendum to follow by Dr Perrin Current Visit: No History of Present Illness Chief complaint: Gastroparesis History of present illness: Ms. Romero is a 51 year old female who presented to the hospital with complaints of nausea, vomiting and abdominal pain. Pt has a history of uncontrolled gastroparesis with four hospitalizations over the last 6 months for exacerbations of this. Pt states that she was doing fairly well after her last discharge 12/28/16 and was managing her gastroparesis at home along with TPN. She was discharged home on Protonix, Reglan and Phenergan. She decided to proceed with the gastric pacemaker and underwent this on 01/[address] Duvall. Pt states initially the pacemaker did help with the nausea and vomiting. She saw Dr Duvall last week on and states the pacemaker was adjusted due to her symptoms had increased. Pt states that she is still on TPN however this has been decreased to 20 out of 24 hours at present time. She states over the last several days she has been unable to keep anything down and had some generalized abdominal soreness, tenderness. She denies any fever, chills. Denies any melena or hematochezia. Denies any diarrhea. Pt was admitted for IV fluids and Dr Duvall has been consulted. Home Medications Medication Instructions Recorded Confirmed Type ALPRAZolam [Xanax] 0.5 mg PO BID PRN #30 tablet 11/14/16 02/20/17 Rx Metoclopramide Liquid [Reglan 10 mg PO ACHS #1200 ml 11/14/16 02/20/17 Rx Liquid] Pantoprazole Tab [Protonix Tab] 40 mg PO DAILY #30 tablet 11/14/16 02/20/17 Rx Insulin Glargine [Lantus] 40 unit SUBCUT BEDTIME #0 01/31/17 02/20/17 Rx Promethazine Tab [Phenergan Tab] 25 mg PO Q6H PRN #30 tablet 01/31/17 02/20/17 Rx ARIPiprazole [Abilify] 5 mg PO BEDTIME 02/17/17 02/20/17 History Hydrocodone/Acetaminophen 1 each PO Q6H 02/17/17 02/20/17 History [Hydrocodon-Acetaminophn 10-325] Insulin Aspart [NovoLOG] 7 unit SUBCUT TID 02/17/17 02/20/17 History Metoprolol Succinate Xl [Toprol Xl] 50 mg PO BID 02/17/17 02/20/17 History Polyethylene Glycol Powder 17 gm PO QOTHER DAY PRN 02/17/17 02/20/17 History [Miralax] Allergies Allergy/AdvReac Type Severity Reaction Status Date / Time ketorolac [From Toradol] AdvReac Agitated Verified 02/19/17 20:42 ondansetron AdvReac ITCHING Verified 02/19/17 20:42 [From Zofran (as hydrochloride)] prochlorperazine AdvReac Anxiety Verified 02/19/17 20:42 [From Compazine] Medical,Surgical,& Family Hx - Medical History Cardio: History of: Cardiovascular Problems (tachycardia, VARICOUS VEINS LEFT LEG) Psychological: History of: Anxiety Disorders Neurology: History of: Migraine No history of: Seizures Endocrine: History of: Diabetes Mellitus (IDDM), Thyroid Disorder Respiratory: History of: Pneumonia Genitourinary: History of: Recurring Urinary Tract Infections, Problems ( history of bladder benign mass removed and a bladder tact) Gastrointestinal: History of: GERD, GI Problems (Gastroparesis. TPN. 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), Hysterectomy - Family History Family History: Reports;: Family Diabetes (Mother, Father), Family Hypertension (Mother, Father) - Social History Smoking Status: Never smoker Frequency of Alcohol Use: None Type of Drug Use: None 12 point system: reviewed and no additional remarkable complaints except as stated - Constitutional Constitutional: Present: as per HPI - EENT Eyes: Present: as per HPI Ears: Present: as per HPI Nose, mouth and throat: Present: as per HPI - Cardiovascular Cardiovascular: Present: as per HPI - Respiratory Respiratory: Present: as per HPI - Gastrointestinal Gastrointestinal: Present: as per HPI, abdominal pain, nausea, vomiting - Genitourinary Genitourinary: Present: as per HPI - Musculoskeletal Musculoskeletal: Present: as per HPI - Neurological Neurological: Present: as per HPI - Psychiatric Psychiatric: Present: as per HPI - Endocrine Endocrine: Present: as per HPI - Hematologic/Lymphatic Hematologic/Lymphatic: Present: as per HPI Exam - Constitutional Vitals: Period Temp Pulse Resp BP Sys/Erickson Pulse Ox Last 24 Hr 98.0 F-98.4 F 102-104 18-20 120-139/49-77 95-98 General appearance: normal weight, no acute distress - Head Head exam: Present: normal inspection, normocephalic - Eye Eye exam: Present: other (lids and conjunctive unremarkable). Absent: scleral icterus - ENT ENT exam: Present: normal exam, normal oropharynx - Neck Neck exam: Present: normal inspection - Respiratory Respiratory exam: Present: clear to auscultation bilaterally. Absent: rales, rhonchi, wheezes - Cardiovascular Cardiovascular exam: Present: regular rate and rhythm. Absent: diastolic murmur , JVD, systolic murmur - GI/Abdominal GI/Abdominal exam: Present: normal bowel sounds, tenderness, soft. Absent: ascites, distended, mass, organomegaly - Extremities Exam Extremities exam: Present: normal inspection, full ROM - Back Exam Back exam: Present: normal inspection - Neurological Exam Neurological exam: Present: alert, oriented X3 - Psychiatric Psychiatric exam: Present: normal affect, normal mood - Skin Skin exam: Present: normal color, warm, dry Results - Labs CBC & BMP: 02/20/17 05:58 02/20/17 05:58 Lab Results: I have reviewed the past 24 hour labs Quality Measures - Stroke Symptom Onset Unknown: No
--- NOTE | 2017-02-20 10:48 | Event Note ---
Patient known to me. She is undergone gastric stimulator placement. She is admitted with an acute flare of gastroparesis. I saw her in the office a couple of days ago and significantly increased her settings at that time. Her nausea remains. Her vomiting has improved since admission. She has some suprapubic pain unrelated to surgery. She is really nontender at the generator site and incisions in the upper abdomen. I reviewed the CT scan abdominal x- ray and lab work. There is nothing to suggest infection. There does not appear to be any complication from surgery. She has follow-up with me next month. It may take up to 6 weeks for the setting changes to become effective. Recommend continuing hydration and anti-medics for symptom control. Nothing further surgical needed at this time.
[2017-02-20] MEDS: ENOXAPARIN 40 MG/0.4 ML SYRINGE SUBCUT SCH (12:54)
[2017-02-20] MEDS: FAT EMULSION 20% 250 ML IV SCH (14:57)
[2017-02-20] MEDS ORDERED: ELECTROLYTE CONCENTRATE 40 ML, TRACE ELEMENTS (5) 1 ML, MULTIVITAMIN INJ 10 ML, INSULIN... IV SCH (17:00)
[2017-02-20] MEDS: INSULIN GLARGINE 100 UNIT/ML SUBCUT SCH ×2 (22:34→22:47)
[2017-02-20] MEDS: ERYTHROMYCIN INJ 125 MG in SODIUM CHLORIDE 0.9% 100 ML IV SCH (22:34)
[2017-02-20] MEDS: ARIPiprazole 5 MG TABLET PO SCH (22:45)
[2017-02-20] MEDS: PROMETHAZINE 25 MG TABLET PO PRN (22:52)
[2017-02-21] MEDS: HYDROmorphone 2 MG/1 ML VIAL IV PRN ×4 (02:55→21:19)
[2017-02-21] MEDS: SODIUM CHLORIDE 0.9% 1,000 ML IV SCH ×2 (04:48→14:44)
[2017-02-21] MEDS: PROMETHAZINE 25 MG TABLET PO PRN ×3 (04:49→19:07)
[2017-02-21] MEDS: ERYTHROMYCIN INJ 125 MG in SODIUM CHLORIDE 0.9% 100 ML IV SCH ×4 (04:50→22:53)
[2017-02-21 08:39] LABS: Magnesium 1.4 MG/DL (1.8-2.4); Phosphorous 3.5 MG/DL (2.5-4.9); Potassium 3.2 MMOL/L (3.5-5.1); Prealbumin 14.9 MG/DL (20-40)
[2017-02-21 08:44] LABS: Calcium 5.7 MG/DL (8.5-10.1)
--- NOTE | 2017-02-21 09:08 | Hospitalist Progress Note ---
Hospitalist: Subjective Interval history: Pt states the Thorazine helped her hiccups but has since been discontinued. She states she continues to have nausea and vomiting and is tearful at the bedside. She denies any change in her abdominal pain. No cp or SOB. +loose stool this am. She states she is unable to eat Exam - Constitutional Vitals: Period Temp Pulse Resp BP Sys/Erickson Pulse Ox Last 24 Hr 97.3 F-98.9 F 106-120 18-20 118-146/68-77 95-99 Exam: General exam: Patient is chronically ill-appearing, sitting on the side of the hospital bed tearful HEENT: Clear sclerae, moist mucous membranes. Neck: Supple, no lymphadenopathy or thyromegaly appreciated. No JVD CV: regular rate and rhythm, normal S1-S2 no obvious murmurs rubs or gallops. LUNGS: Clear to auscultation bilaterally anteriorly. Diminished at the bases. Nonlabored breathing noted. Abdomen: Soft with suprapubic tenderness to palpation without rebound or guarding. hypoactive bowel sounds. Extremities: Warm and well perfused no clubbing cyanosis or edema. NEURO: Nonfocal Results - Labs CBC & BMP: 02/20/17 05:58 02/21/17 07:16 - Impressions (1) Diabetes mellitus with complications of DM gastroparesis- pt is hyperglycemic today. Fairly well controlled with HgbA1c 7.4 Status: Acute Current Visit: No - Lantus was not given last night. ??? why. Cont I.S.S. for now. (2) Acute Diabetic gastroparesis flare s/p gastric stimulator 01/30 Problem details: chronic issues Status: Acute Current Visit: Yes - on Reglan po and IV Erythromycin per GI. Cont antiemetics as needed Clear diet and advance as tolerated. Dr. Perrin (GI) following. Appreciate Dr. Kaplan (surgery) input. No further surgical indication noted. (3) Chronic abdominal pain with loose stools Status: Acute Current Visit: Yes - Cont home oral analagesics. UA negative for signs of infection. May need to consider fecal fat studies and consider Creon if positive. (4) Normocytic Anemia -suspect of chronic disease Status: Chronic Current Visit: No (5) Severe protein calorie malnutrition - Cont TPN. Follow triglycerides, lytes and renal function per protocol. Status: Acute Current Visit: Yes (6) Hypomagnesemia and hypokalemia - replace per protocol DVT prophylaxis- SCDs. D/W pt. Attempted to discuss with nurse but she was not available. All questions answered. Quality Measures - Stroke Symptom Onset Unknown: No
[2017-02-21] MEDS ORDERED: POTASSIUM CHLORIDE RIDER 10 MEQ in PREMIX 1 EACH IV PRN (09:10)
[2017-02-21] MEDS ORDERED: POTASSIUM CHLORIDE RIDER 20 MEQ in PREMIX 1 EACH IV PRN (09:10)
[2017-02-21] MEDS ORDERED: MAGNESIUM SULF RIDER 4 GM in PREMIX 1 EACH IV PRN (09:10)
[2017-02-21 09:27] LABS: Albumin 2.2 G/DL (3.4-5.0); Calcium 5.9 MG/DL (8.5-10.1); Phosphorous 3.3 MG/DL (2.5-4.9); Potassium 3.2 MMOL/L (3.5-5.1)
--- NOTE | 2017-02-21 09:55 | Gastrointestinal Progress Note ---
Assessment and Plan (1) Gastroparesis Status: Acute Assessment and plan: 02/21-Continued N/V with abd pain overnight. Continue to monitor at present time. Plan and addendum to follow by Dr Perrin. 02/20-Exacerbation of nausea, vomiting, abd pain similar to prior flare of gastroparesis in the past with recent gastric pacemaker placement. Plan and addendum to follow by Dr Perrin Current Visit: No Gastroenterology - PN: Subj Interval history: CC: Gastroparesis Pt is seen, awake, with spouse at side. States she is having continued nausea and vomiting during the night. She states that the po Phenergan is not staying down as well. Abdomen is soft, nontender. She was concerned that her Thorazine has been stopped however informed pt that a potential interaction exists between this and Erythromycin. Pt verbalized understanding. ROS: Denies SOB or chest pain Exam (Progress Note) - Constitutional Vitals: Period Temp Pulse Resp BP Sys/Erickson Pulse Ox Last 24 Hr 97.3 F-98.9 F 106-120 18-20 118-146/68-77 95-99 General appearance: normal weight, no acute distress - Head Head exam: Present: normal inspection, normocephalic - Eye Eye exam: Present: other (lids and conjunctiva unremarkable). Absent: scleral icterus - ENT ENT exam: Present: normal exam, normal oropharynx - Neck Neck exam: Present: normal inspection - Respiratory Respiratory exam: Present: clear to auscultation bilaterally. Absent: rales, rhonchi, wheezes - Cardiovascular Cardiovascular exam: Present: regular rate and rhythm. Absent: diastolic murmur , JVD, systolic murmur - GI/Abdominal GI/Abdominal exam: Present: normal bowel sounds, tenderness, soft. Absent: ascites, distended, mass, organomegaly - Extremities Exam Extremities exam: Present: normal inspection, full ROM - Back Exam Back exam: Present: normal inspection - Neurological Exam Neurological exam: Present: alert, oriented X3 - Psychiatric Psychiatric exam: Present: normal affect, normal mood - Skin Skin exam: Present: normal color, warm, dry Results - Labs CBC & BMP: 02/20/17 05:58 02/21/17 07:16 Lab Results: I have reviewed the past 24 hour labs
[2017-02-21] MEDS: INSULIN REGULAR 100 UNIT/ML SUBCUT SCH ×4 (10:31→21:16)
[2017-02-21] MEDS: METOCLOPRAMIDE 10 MG/10 ML UDCUP PO SCH ×4 (10:32→21:18)
[2017-02-21] MEDS: PANTOPRAZOLE 40 MG TABLET PO SCH (10:33)
[2017-02-21] MEDS: ENOXAPARIN 40 MG/0.4 ML SYRINGE SUBCUT SCH (10:33)
[2017-02-21] MEDS: ALPRAZolam 0.5 MG TABLET PO PRN ×2 (10:33→21:18)
[2017-02-21] MEDS: METOPROLOL SUCCINATE XL 50 MG TABLET PO SCH ×2 (10:34→21:18)
[2017-02-21] MEDS: FAT EMULSION 20% 250 ML IV SCH (14:12)
[2017-02-21] MEDS: ELECTROLYTE CONCENTRATE 40 ML, TRACE ELEMENTS (5) 1 ML, MULTIVITAMIN INJ 10 ML, INSULIN... IV SCH (18:55)
[2017-02-21] MEDS: MAGNESIUM SULF RIDER 2 GM in PREMIX 1 EACH IV PRN (19:08)
[2017-02-21] MEDS: INSULIN GLARGINE 100 UNIT/ML SUBCUT SCH (21:17)
[2017-02-21] MEDS: ARIPiprazole 5 MG TABLET PO SCH (22:53)
[2017-02-22] MEDS: PROMETHAZINE 25 MG TABLET PO PRN ×4 (03:18→23:18)
[2017-02-22] MEDS: HYDROmorphone 2 MG/1 ML VIAL IV PRN ×5 (03:19→23:18)
[2017-02-22] MEDS: SODIUM CHLORIDE 0.9% 1,000 ML IV SCH ×4 (03:20→21:22)
[2017-02-22 06:25] LABS: Calcium 8.1 MG/DL (8.5-10.1); Magnesium 2.4 MG/DL (1.8-2.4); Osmolality,Calculated 274.7 MOS/KG (273-304); Potassium 3.8 MMOL/L (3.5-5.1)
--- NOTE | 2017-02-22 08:14 | Hospitalist Progress Note ---
Hospitalist: Subjective Interval history: Patient states she feels better but has only had 2 bites of popsicle. Nursing reports she has not visualized any emesis. No chest pain or shortness of breath. She denies any abdominal pain at this time. No fevers or chills. No bowel movement yet today. Exam - Constitutional Vitals: Period Temp Pulse Resp BP Sys/Erickson Pulse Ox Last 24 Hr 98.3 F-99.6 F 94-110 17-20 130-147/69-82 96-99 Exam: General exam: Patient is chronically ill-appearing, lying in the hospital bed in no acute distress. Color appears to be better today. HEENT: Clear sclerae, moist mucous membranes. Neck: Supple, no lymphadenopathy or thyromegaly appreciated. No JVD CV: regular rate and rhythm, normal S1-S2 no obvious murmurs rubs or gallops. LUNGS: Clear to auscultation bilaterally anteriorly. Diminished at the bases. Nonlabored breathing noted. Abdomen: Soft, nontender, nondistended, hypoactive bowel sounds. Extremities: Warm and well perfused no clubbing cyanosis or edema. NEURO: Nonfocal Results - Labs CBC & BMP: 02/20/17 05:58 02/22/17 05:31 - Impressions (1) Diabetes mellitus with complications of DM gastroparesis-blood sugar is better today after receiving insulin. Fairly well controlled with HgbA1c 7.4 Status: Acute Current Visit: No -Cont Lantus and I.S.S. for now. (2) Acute Diabetic gastroparesis flare s/p gastric stimulator / Problem details: chronic issues Status: Acute Current Visit: Yes - on Reglan po and IV Erythromycin per GI. Cont antiemetics as needed. Clear diet and advance as tolerated. Dr. Perrin (GI) following. Appreciate Dr. Kaplan (surgery) input. No further surgical indication noted. Plans to follow -up with Dr. Kaplan outpatient in approximately 1 month. (3) Chronic abdominal pain with loose stools Status: Acute Current Visit: Yes - Cont home oral analagesics. UA negative for signs of infection. Fecal fat studies ordered. Consider Creon if positive. (4) Normocytic Anemia -suspect of chronic disease Status: Chronic Current Visit: No (5) Severe protein calorie malnutrition - Cont TPN. Follow triglycerides, lytes and renal function per protocol. Status: Acute Current Visit: Yes (6) Hypomagnesemia and hypokalemia - replace per protocol DVT prophylaxis- SCDs. D/W pt and at bedside. Discuss with nurse. All questions answered. I will be away several days. One of my associates will follow in my absence. Quality Measures - Stroke Symptom Onset Unknown: No
[2017-02-22] MEDS: PANTOPRAZOLE 40 MG TABLET PO SCH (08:29)
[2017-02-22] MEDS: METOCLOPRAMIDE 10 MG/10 ML UDCUP PO SCH ×4 (08:29→21:24)
[2017-02-22] MEDS: ALPRAZolam 0.5 MG TABLET PO PRN ×2 (08:29→21:24)
[2017-02-22] MEDS: METOPROLOL SUCCINATE XL 50 MG TABLET PO SCH ×2 (08:29→22:13)
[2017-02-22] MEDS: ENOXAPARIN 40 MG/0.4 ML SYRINGE SUBCUT SCH (08:30)
[2017-02-22] MEDS: ERYTHROMYCIN INJ 125 MG in SODIUM CHLORIDE 0.9% 100 ML IV SCH ×3 (09:07→23:17)
[2017-02-22] MEDS: INSULIN REGULAR 100 UNIT/ML SUBCUT SCH ×4 (09:12→21:24)
[2017-02-22] MEDS: FAT EMULSION 20% 250 ML IV SCH (13:57)
--- NOTE | 2017-02-22 16:53 | Gastrointestinal Progress Note ---
Assessment and Plan (1) Gastroparesis Status: Acute Assessment and plan: 02/22 appears to be slowly improving with gastroparesis flare on IV erythromycin. Continue IVs fluid support and antinausea therapy. Current Visit: No Gastroenterology - PN: Subj Interval history: Patient some improved today with less vomiting. Still complains of nausea. She is starting to eat some clear liquids. Exam (Progress Note) - Constitutional Vitals: Period Temp Pulse Resp BP Sys/Erickson Pulse Ox Last 24 Hr 98.2 F-99.6 F 93-95 17-18 131-147/69-82 96-98 General appearance: no acute distress - Head Head exam: Present: normocephalic, atraumatic - Eye Eye exam: Absent: scleral icterus - Respiratory Respiratory exam: Present: clear to auscultation bilaterally. Absent: wheezes - Cardiovascular Cardiovascular exam: Present: regular rate and rhythm. Absent: gallop, rubs - GI/Abdominal GI/Abdominal exam: Present: normal bowel sounds, soft. Absent: distended, tenderness - Extremities Exam Extremities exam: Absent: calf tenderness, edema - Neurological Exam Neurological exam: Present: alert, oriented X3, CN II-XII intact - Psychiatric Psychiatric exam: Present: flat affect - Skin Skin exam: Present: warm, dry Results - Labs CBC & BMP: 02/20/17 05:58 02/22/17 05:31 Lab Results: I have reviewed the past 24 hour labs
[2017-02-22] MEDS: ELECTROLYTE CONCENTRATE 40 ML, TRACE ELEMENTS (5) 1 ML, MULTIVITAMIN INJ 10 ML, INSULIN... IV SCH (19:02)
[2017-02-22] MEDS: ARIPiprazole 5 MG TABLET PO SCH (21:24)
[2017-02-22] MEDS: INSULIN GLARGINE 100 UNIT/ML SUBCUT SCH (21:24)
[2017-02-23] MEDS: HYDROmorphone 2 MG/1 ML VIAL IV PRN ×4 (05:42→22:40)
[2017-02-23] MEDS: PROMETHAZINE 25 MG TABLET PO PRN (05:42)
[2017-02-23] MEDS: SODIUM CHLORIDE 0.9% 1,000 ML IV SCH ×2 (05:46→19:00)
--- NOTE | 2017-02-23 09:07 | Hospitalist Progress Note ---
Assessment and Plan - Time spent with patient Time spent with patient: Less than 30 minutes (1) Malnutrition Status: Acute Assessment and plan: Continuing TPN at this time. Following electrolytes and nutritional status. Current Visit: Yes (2) Gastroparesis Status: Chronic Assessment and plan: Patient has gastroparesis and is status post gastric stimulator placement. She continues with severe nausea and we are providing IV fluids and nutritional support along with IV erythromycin and IV antibiotic therapy. Gastroenterology is assisting with her care. Current Visit: No (3) Diabetes mellitus Status: Chronic Assessment and plan: Continuing current medical regimen and Accu-Cheks with sliding scale insulin. Current Visit: No Qualifiers: Diabetes mellitus type: type 2 (4) Anemia Status: Chronic Assessment and plan: Stable without any evidence of bleeding. Continue to follow. Current Visit: No Hospitalist: Subjective Interval history: Patient states he is having some abdominal discomfort and continues to have severe nausea but denies any recent emesis. She states that she is tolerating minimal clear liquids. Chart has been reviewed in detail. is in the room and present during our discussion. Exam - Constitutional Vitals: Period Temp Pulse Resp BP Sys/Erickson Pulse Ox Last 24 Hr 97.8 F-98.9 F 90-97 14-20 126-158/71-89 95-99 General appearance: no acute distress - Head Head exam: Present: normocephalic, atraumatic - Eye Eye exam: Present: EOMI Pupils: Present: DESTINY - ENT ENT exam: Present: normal exam - Neck Neck exam: Present: normal inspection - Respiratory Respiratory exam: Present: clear to auscultation bilaterally - Cardiovascular Cardiovascular exam: Present: regular rate and rhythm. Absent: systolic murmur - GI/Abdominal GI/Abdominal exam: Present: normal bowel sounds, soft. Absent: tenderness - Extremities Exam Extremities exam: Absent: calf tenderness, edema - Back Exam Back exam: Present: normal inspection - Neurological Exam Neurological exam: Present: alert, oriented X3, CN II-XII intact. Absent: motor sensory deficit - Psychiatric Psychiatric exam: Present: normal affect, normal mood. Absent: agitated, anxious - Skin Skin exam: Present: warm, dry. Absent: rash Results - Labs CBC & BMP: 02/20/17 05:58 02/22/17 05:31 Lab Results: I have reviewed the past 24 hour labs Quality Measures - Stroke Symptom Onset Unknown: No
[2017-02-23] MEDS: ERYTHROMYCIN INJ 125 MG in SODIUM CHLORIDE 0.9% 100 ML IV SCH ×3 (09:51→22:51)
[2017-02-23] MEDS: ALPRAZolam 0.5 MG TABLET PO PRN ×2 (09:52→22:39)
[2017-02-23] MEDS: ENOXAPARIN 40 MG/0.4 ML SYRINGE SUBCUT SCH (09:52)
[2017-02-23] MEDS: METOPROLOL SUCCINATE XL 50 MG TABLET PO SCH ×3 (09:52→22:24)
[2017-02-23] MEDS: PANTOPRAZOLE 40 MG TABLET PO SCH (09:52)
[2017-02-23] MEDS: METOCLOPRAMIDE 10 MG/10 ML UDCUP PO SCH ×2 (09:53→13:42)
[2017-02-23] MEDS: INSULIN REGULAR 100 UNIT/ML SUBCUT SCH ×4 (11:35→22:24)
[2017-02-23] MEDS: FAT EMULSION 20% 250 ML IV SCH (13:55)
--- NOTE | 2017-02-23 14:28 | Gastrointestinal Progress Note ---
Assessment and Plan (1) Gastroparesis Status: Acute Assessment and plan: 02/22 appears to be slowly improving with gastroparesis flare on IV erythromycin. Continue IVs fluid support and antinausea therapy. 02/23 51-year-old female with gastroparesis has still persistent nausea symptoms unrelieved with Zofran. She remains on TPN. I am going to add Phenergan IM as needed for nausea symptoms. Continue IV erythromycin for now. Current Visit: No Gastroenterology - PN: Subj Interval history: Severe nausea persists but no vomiting she says. She is drinking sips of water intermittently. Still having epigastric pain as well. Had a formed bowel movement yesterday. Exam (Progress Note) - Constitutional Vitals: Period Temp Pulse Resp BP Sys/Erickson Pulse Ox Last 24 Hr 97.8 F-98.9 F 90-97 14-20 126-158/71-89 95-99 General appearance: no acute distress - Head Head exam: Present: normocephalic, atraumatic - Eye Eye exam: Present: EOMI. Absent: scleral icterus - Respiratory Respiratory exam: Present: clear to auscultation bilaterally. Absent: wheezes - Cardiovascular Cardiovascular exam: Present: regular rate and rhythm. Absent: gallop, rubs - GI/Abdominal GI/Abdominal exam: Present: normal bowel sounds, soft. Absent: distended, organomegaly, tenderness - Extremities Exam Extremities exam: Absent: calf tenderness, edema - Neurological Exam Neurological exam: Present: alert, oriented X3, CN II-XII intact - Psychiatric Psychiatric exam: Present: anxious, flat affect - Skin Skin exam: Present: warm, dry Results - Labs CBC & BMP: 02/20/17 05:58 02/22/17 05:31
[2017-02-23] MEDS: PROMETHAZINE 25 MG/1 ML VIAL IM PRN ×2 (15:28→22:41)
[2017-02-23] MEDS: ELECTROLYTE CONCENTRATE 40 ML, TRACE ELEMENTS (5) 1 ML, MULTIVITAMIN INJ 10 ML, INSULIN... IV SCH (18:48)
[2017-02-23] MEDS: ARIPiprazole 5 MG TABLET PO SCH (22:39)
[2017-02-23] MEDS: INSULIN GLARGINE 100 UNIT/ML SUBCUT SCH (23:14)
[2017-02-24] MEDS: SODIUM CHLORIDE 0.9% 1,000 ML IV SCH ×3 (03:27→16:17)
[2017-02-24] MEDS: PROMETHAZINE 25 MG/1 ML VIAL IM PRN ×3 (05:05→21:04)
[2017-02-24] MEDS: HYDROmorphone 2 MG/1 ML VIAL IV PRN ×5 (05:06→21:04)
[2017-02-24 06:58] LABS: Calcium 8.5 MG/DL (8.5-10.1); Magnesium 1.9 MG/DL (1.8-2.4); Osmolality,Calculated 275.2 MOS/KG (273-304); Potassium 4.7 MMOL/L (3.5-5.1)
[2017-02-24 07:02] LABS: Phosphorous 4.3 MG/DL (2.5-4.9); Prealbumin 20.8 MG/DL (20-40)
[2017-02-24] MEDS: ERYTHROMYCIN INJ 125 MG in SODIUM CHLORIDE 0.9% 100 ML IV SCH ×2 (08:58→16:20)
[2017-02-24] MEDS: INSULIN REGULAR 100 UNIT/ML SUBCUT SCH ×4 (08:58→22:44)
--- NOTE | 2017-02-24 09:10 | Hospitalist Progress Note ---
Assessment and Plan (1) Gastroparesis Status: Chronic Assessment and plan: Impression: 1. Type II DM with gastroparesis Plan: Continue TPN and GI rest. She and I discussed minimizing her use of opioids. She is already taking several anti-emetics. This note was completed using [employer] voice recognition software. There may be creative/art director errors as a result. Current Visit: No Hospitalist: Subjective Interval history: Follow-up type II DM with gastroparesis. The patient has been diabetic for over 20 years. She says that she has had gastroparesis symptoms following a urologic procedure couple of years ago. She has had a gastric pacemaker implanted about a month ago. At that time, she also started some Abilify for what sounds like some depressive symptoms. She reports an initial good response to the pacemaker, but now is having a flare of her gastroparesis. She reports chronic nausea despite taking her usual home medications, and is not able to tolerate liquids. She continues on TPN. Exam - Constitutional Vitals: Period Temp Pulse Resp BP Sys/Erickson Pulse Ox Last 24 Hr 97.8 F-98.7 F 97-108 18-20 112-141/59-72 95-99 Vital signs are noted above. Heart is regular with no murmur or gallop. Lungs are clear with no rales. Abdomen is soft with only minimal bowel sounds noted. Results - Labs CBC & BMP: 02/20/17 05:58 02/24/17 06:02 Quality Measures - Stroke Symptom Onset Unknown: No
[2017-02-24] MEDS: ENOXAPARIN 40 MG/0.4 ML SYRINGE SUBCUT SCH (09:40)
[2017-02-24] MEDS: METOPROLOL SUCCINATE XL 50 MG TABLET PO SCH ×2 (09:41→21:33)
[2017-02-24] MEDS: PANTOPRAZOLE 40 MG TABLET PO SCH (09:41)
--- NOTE | 2017-02-24 10:25 | Gastrointestinal Progress Note ---
Assessment and Plan (1) Gastroparesis Status: Chronic Assessment and plan: 02/24-nausea better controlled, no vomiting at present. Abdominal soreness. Continue IV erythromycin. Plan an addendum to followed by Dr. Perrin. 02/21-Continued N/V with abd pain overnight. Continue to monitor at present time. Plan and addendum to follow by Dr Perrin. 02/20-Exacerbation of nausea, vomiting, abd pain similar to prior flare of gastroparesis in the past with recent gastric pacemaker placement. Plan and addendum to follow by Dr Perrin Current Visit: No Gastroenterology - PN: Subj Interval history: CC: Gastroparesis Patient is seen awake, alert, with spouse at bedside. States she is feeling about the same at this time. She states the only improvement is that she is having continued nausea but she is only had one episode of vomiting in the past couple of days. Changing her Phenergan IM has helped some with controlling this. Denies any abdominal pain however just complains of some soreness. Abdomen soft, nontender. She has had 2 small bowel movements over the weekend. ROS: Denies shortness of breath or chest pain Exam (Progress Note) - Constitutional Vitals: Period Temp Pulse Resp BP Sys/Erickson Pulse Ox Last 24 Hr 97.8 F-98.7 F 97-108 18-20 112-141/59-72 95-99 General appearance: normal weight, no acute distress - Head Head exam: Present: normal inspection, normocephalic - Eye Eye exam: Present: other (Lids and conjunctivae are unremarkable). Absent: scleral icterus - ENT ENT exam: Present: normal exam, normal oropharynx - Neck Neck exam: Present: normal inspection - Respiratory Respiratory exam: Present: clear to auscultation bilaterally. Absent: rales, rhonchi, wheezes - Cardiovascular Cardiovascular exam: Present: regular rate and rhythm. Absent: diastolic murmur , JVD, systolic murmur - GI/Abdominal GI/Abdominal exam: Present: normal bowel sounds, tenderness, soft. Absent: ascites, distended, mass, organomegaly - Extremities Exam Extremities exam: Present: normal inspection, full ROM - Back Exam Back exam: Present: normal inspection - Neurological Exam Neurological exam: Present: alert, oriented X3 - Psychiatric Psychiatric exam: Present: normal affect, normal mood - Skin Skin exam: Present: normal color, warm, dry Results - Labs CBC & BMP: 02/20/17 05:58 02/24/17 06:02 Lab Results: I have reviewed the past 24 hour labs
[2017-02-24] MEDS: FAT EMULSION 20% 250 ML IV SCH (14:36)
[2017-02-24] MEDS: ELECTROLYTE CONCENTRATE 40 ML, TRACE ELEMENTS (5) 1 ML, MULTIVITAMIN INJ 10 ML, INSULIN... IV SCH (19:49)
[2017-02-24] MEDS: ALPRAZolam 0.5 MG TABLET PO PRN (21:03)
[2017-02-24] MEDS: ARIPiprazole 5 MG TABLET PO SCH (21:03)
[2017-02-24] MEDS: INSULIN GLARGINE 100 UNIT/ML SUBCUT SCH (21:33)
[2017-02-25] MEDS: ERYTHROMYCIN INJ 125 MG in SODIUM CHLORIDE 0.9% 100 ML IV SCH ×3 (00:32→16:39)
[2017-02-25] MEDS: SODIUM CHLORIDE 0.9% 1,000 ML IV SCH ×4 (00:35→21:35)
[2017-02-25] MEDS: PROMETHAZINE 25 MG/1 ML VIAL IM PRN ×3 (03:30→16:40)
[2017-02-25] MEDS: HYDROmorphone 2 MG/1 ML VIAL IV PRN ×3 (03:30→21:34)
--- NOTE | 2017-02-25 08:48 | Hospitalist Progress Note ---
Assessment and Plan (1) Gastroparesis Status: Chronic Assessment and plan: Impression: 1. Type II DM with gastroparesis Plan: Continue TPN and GI rest. She will attempt liquids when she feels like her nausea is better. Recheck electrolytes in the morning.. This note was completed using [email or web address] voice recognition software. There may be thermal engineer errors as a result. Current Visit: No Hospitalist: Subjective Interval history: Follow-up type II DM with gastroparesis The patient continues to have nausea just about around the clock. She has some liquids on her breakfast tray, but is not interested in trying these at this time. She has not had a bowel movement in a day or so. TPN continues to infuse. Prior to placement of the gastric pacemaker, she reports hospitalizations several times a year for management of flares of gastroparesis. Glucoses are anywhere from 200-300. Exam - Constitutional Vitals: Period Temp Pulse Resp BP Sys/Erickson Pulse Ox Last 24 Hr 96.2 F-98.5 F 94-105 15-20 110-154/59-80 98-99 Vital signs are noted above. Heart is regular with no murmur or gallop. Lungs are clear with no rales or wheezes. Abdomen is soft with rare bowel sounds and generalized tenderness. She is awake and alert. Results - Labs CBC & BMP: 02/20/17 05:58 02/24/17 06:02 Lab Results: I have reviewed the past 24 hour labs (Magnesium is normal following supplementation.) Quality Measures - Stroke Symptom Onset Unknown: No
[2017-02-25] MEDS: INSULIN REGULAR 100 UNIT/ML SUBCUT SCH ×4 (09:31→21:35)
[2017-02-25] MEDS: PANTOPRAZOLE 40 MG TABLET PO SCH (09:31)
[2017-02-25] MEDS: METOPROLOL SUCCINATE XL 50 MG TABLET PO SCH ×2 (09:31→21:36)
[2017-02-25] MEDS: ENOXAPARIN 40 MG/0.4 ML SYRINGE SUBCUT SCH (09:31)
--- NOTE | 2017-02-25 10:06 | Gastrointestinal Progress Note ---
Assessment and Plan (1) Gastroparesis Status: Chronic Assessment and plan: 02/25-continued nausea, no emesis. Tolerating very small amounts of full liquids. No changes at present. Plan an addendum to follow by Dr. Perrin. 02/24-nausea better controlled, no vomiting at present. Abdominal soreness. Continue IV erythromycin. Plan an addendum to followed by Dr. Perrin. 02/21-Continued N/V with abd pain overnight. Continue to monitor at present time. Plan and addendum to follow by Dr Perrin. 02/20-Exacerbation of nausea, vomiting, abd pain similar to prior flare of gastroparesis in the past with recent gastric pacemaker placement. Plan and addendum to follow by Dr Perrin Current Visit: No Gastroenterology - PN: Subj Interval history: CC: Gastroparesis Patient is seen awake and alert with spouse at bedside. States she is feeling about the same at this time. Patient states that she has had no further vomiting but does have continued nausea. She was able to eat several bites of pudding on yesterday and tolerated BS. Abdomen is soft, nontender. She has not had a bowel movement in a couple of days. States she is having continued upper abdominal soreness/discomfort but it is controlled at present time. ROS: Denies shortness of breath or chest pain. Exam (Progress Note) - Constitutional Vitals: Period Temp Pulse Resp BP Sys/Erickson Pulse Ox Last 24 Hr 96.2 F-98.5 F 94-105 15-20 110-154/59-80 98-99 - Other Additional findings: General appearance: normal weight, no acute distress - Head Head exam: Present: normal inspection, normocephalic - Eye Eye exam: Present: other (Lids and conjunctivae are unremarkable). Absent: scleral icterus - ENT ENT exam: Present: normal exam, normal oropharynx - Neck Neck exam: Present: normal inspection - Respiratory Respiratory exam: Present: clear to auscultation bilaterally. Absent: rales, rhonchi, wheezes - Cardiovascular Cardiovascular exam: Present: regular rate and rhythm. Absent: diastolic murmur , JVD, systolic murmur - GI/Abdominal GI/Abdominal exam: Present: normal bowel sounds, tenderness, soft. Absent: ascites, distended, mass, organomegaly - Extremities Exam Extremities exam: Present: normal inspection, full ROM - Back Exam Back exam: Present: normal inspection - Neurological Exam Neurological exam: Present: alert, oriented X3 - Psychiatric Psychiatric exam: Present: normal affect, normal mood - Skin Skin exam: Present: normal color, warm, dry Results - Labs CBC & BMP: 02/20/17 05:58 02/24/17 06:02 Lab Results: I have reviewed the past 24 hour labs
[2017-02-25 11:04] LABS: Basophils % 0.6 % (0.0-0.8); Eosinophils # 0.4 10*3/uL (0.0-0.87); Eosinophils % 5.8 % (0.00-10.9); Hematocrit 34.1 VOL% (35.7-47.0); Hemoglobin 11.6 GM/DL (12.0-16.0); Immature Granulocytes % 0.3 %; Immature Granulocytes Absolute 0.02 #; Lymphocytes # 2.3 10*3/uL (1.4-4.0); Lymphocytes % 33.1 % (21.3-54.2); Mean Corpuscular Hemoglobin 30 PG (27-34); Mean Corpuscular Volume 88.6 FL (87-102); Mean Platelet Volume 10.4 FL (9.6-12.0); Monocytes # 0.5 10*3/uL (0.11-0.8); Monocytes % 7.8 % (1.7-12.7); Neutrophils # 3.6 10*3/uL (1.4-7.4); Neutrophils % 52.4 % (38.7-73.9); Platelet Count 309 T/CUMM (130-400); Red Blood Count 3.85 MC/CUMM (3.8-5.5); Red Cell Distribution Width 12.3 % (9.3-17.3); White Blood Count 6.9 T/CUMM (4-12)
[2017-02-25] MEDS: FAT EMULSION 20% 250 ML IV SCH (14:10)
[2017-02-25] MEDS: ELECTROLYTE CONCENTRATE 40 ML, TRACE ELEMENTS (5) 1 ML, MULTIVITAMIN INJ 10 ML, INSULIN... IV SCH (17:15)
[2017-02-25] MEDS: ARIPiprazole 5 MG TABLET PO SCH (21:34)
[2017-02-25] MEDS: ALPRAZolam 0.5 MG TABLET PO PRN (21:34)
[2017-02-25] MEDS: INSULIN GLARGINE 100 UNIT/ML SUBCUT SCH (21:35)
[2017-02-26] MEDS: ERYTHROMYCIN INJ 125 MG in SODIUM CHLORIDE 0.9% 100 ML IV SCH ×3 (00:22→16:30)
[2017-02-26] MEDS: PROMETHAZINE 25 MG/1 ML VIAL IM PRN ×3 (02:39→16:17)
[2017-02-26] MEDS: HYDROmorphone 2 MG/1 ML VIAL IV PRN ×4 (02:39→21:25)
[2017-02-26 06:43] LABS: Calcium 8.2 MG/DL (8.5-10.1); Magnesium 1.9 MG/DL (1.8-2.4); Potassium 4.4 MMOL/L (3.5-5.1)
[2017-02-26] MEDS: SODIUM CHLORIDE 0.9% 1,000 ML IV SCH ×4 (07:08→21:30)
--- NOTE | 2017-02-26 08:19 | Hospitalist Progress Note ---
Assessment and Plan (1) Gastroparesis Status: Chronic Assessment and plan: Impression: 1. Type II DM with gastroparesis Plan: Continue TPN and liquids. Increase activity. Recheck lab in the morning. This note was completed using [employer] voice recognition software. There may be dba developer errors as a result. Current Visit: No Hospitalist: Subjective Interval history: Follow-up type II DM with gastroparesis. The patient continues on TPN and IV fluids. She is still having difficulty tolerating full liquids. She spends most of the day in the bed, and we discussed increasing her activity in an attempt to improve GI motility. She says that she will try to get out of bed today. Exam - Constitutional Vitals: Period Temp Pulse Resp BP Sys/Erickson Pulse Ox Last 24 Hr 97.0 F-98.8 F 98-106 18-20 120-164/61-80 98-99 Vital signs are noted above. Heart is regular with no murmur or gallop. Abdomen is diffusely tender with only rare bowel sounds. She is awake and alert. Results - Labs CBC & BMP: 02/25/17 10:23 02/26/17 05:47 Quality Measures - Stroke Symptom Onset Unknown: No
[2017-02-26] MEDS: ENOXAPARIN 40 MG/0.4 ML SYRINGE SUBCUT SCH (09:50)
[2017-02-26] MEDS: INSULIN REGULAR 100 UNIT/ML SUBCUT SCH ×4 (09:51→21:42)
[2017-02-26] MEDS: PANTOPRAZOLE 40 MG TABLET PO SCH (09:51)
[2017-02-26] MEDS: METOPROLOL SUCCINATE XL 50 MG TABLET PO SCH ×2 (09:52→21:26)
--- NOTE | 2017-02-26 10:10 | Gastrointestinal Progress Note ---
Assessment and Plan (1) Gastroparesis Status: Chronic Assessment and plan: 02/26-no changes at present time. No emesis. Tolerating small amounts of pudding /crackers. Plan an addendum to followed by Dr. Perrin. 02/25-continued nausea, no emesis. Tolerating very small amounts of full liquids. No changes at present. Plan an addendum to follow by Dr. Perrin. 02/24-nausea better controlled, no vomiting at present. Abdominal soreness. Continue IV erythromycin. Plan an addendum to followed by Dr. Perrin. 02/21-Continued N/V with abd pain overnight. Continue to monitor at present time. Plan and addendum to follow by Dr Perrin. 02/20-Exacerbation of nausea, vomiting, abd pain similar to prior flare of gastroparesis in the past with recent gastric pacemaker placement. Plan and addendum to follow by Dr Perrin Current Visit: No Gastroenterology - PN: Subj Interval history: CC: Gastroparesis Patient is seen awake and alert with spouse at side. States she is feeling a little better today. She has been able to tolerate pudding and crackers since yesterday in small increments. Denies any vomiting. She has continued nausea but states this is better controlled at present time. Abdomen is soft, mild tenderness to palpation. No bowel movement 3 days. ROS: Denies shortness of breath or chest pain. Exam (Progress Note) - Constitutional Vitals: Period Temp Pulse Resp BP Sys/Erickson Pulse Ox Last 24 Hr 97.0 F-98.8 F 95-106 18-20 116-164/61-80 98-99 General appearance: normal weight, no acute distress - Head Head exam: Present: normal inspection, normocephalic - Eye Eye exam: Present: other (Lids and conjunctivae unremarkable). Absent: scleral icterus - ENT ENT exam: Present: normal exam, normal oropharynx - Neck Neck exam: Present: normal inspection - Respiratory Respiratory exam: Present: clear to auscultation bilaterally. Absent: rales, rhonchi, wheezes - Cardiovascular Cardiovascular exam: Present: regular rate and rhythm. Absent: diastolic murmur , JVD, systolic murmur - GI/Abdominal GI/Abdominal exam: Present: normal bowel sounds, soft. Absent: ascites, distended, mass, organomegaly, tenderness - Extremities Exam Extremities exam: Present: normal inspection, full ROM - Back Exam Back exam: Present: normal inspection - Neurological Exam Neurological exam: Present: alert, oriented X3 - Psychiatric Psychiatric exam: Present: normal affect, normal mood - Skin Skin exam: Present: normal color, warm, dry Results - Labs CBC & BMP: 02/25/17 10:23 02/26/17 05:47 Lab Results: I have reviewed the past 24 hour labs
[2017-02-26] MEDS: FAT EMULSION 20% 250 ML IV SCH (13:52)
[2017-02-26] MEDS: ELECTROLYTE CONCENTRATE 40 ML, TRACE ELEMENTS (5) 1 ML, MULTIVITAMIN INJ 10 ML, INSULIN... IV SCH (16:30)
[2017-02-26] MEDS: INSULIN GLARGINE 100 UNIT/ML SUBCUT SCH (21:24)
[2017-02-26] MEDS: ARIPiprazole 5 MG TABLET PO SCH (21:25)
[2017-02-27] MEDS: ERYTHROMYCIN INJ 125 MG in SODIUM CHLORIDE 0.9% 100 ML IV SCH ×3 (01:39→16:49)
[2017-02-27] MEDS: PROMETHAZINE 25 MG/1 ML VIAL IM PRN ×3 (01:41→17:14)
[2017-02-27] MEDS: HYDROmorphone 2 MG/1 ML VIAL IV PRN ×4 (01:49→21:20)
[2017-02-27 07:05] LABS: Calcium 8.4 MG/DL (8.5-10.1); Magnesium 1.9 MG/DL (1.8-2.4); Potassium 4.4 MMOL/L (3.5-5.1); Prealbumin 16.7 MG/DL (20-40)
--- NOTE | 2017-02-27 08:18 | Hospitalist Progress Note ---
Assessment and Plan (1) Gastroparesis Status: Chronic Assessment and plan: Impression: 1. Type II DM with gastroparesis Plan: Continue TPN and liquids. I have encouraged her to continue to increase activity. Add MiraLAX. This note was completed using [employer] voice recognition software. There may be engineering leader errors as a result. Current Visit: No Hospitalist: Subjective Interval history: Follow-up for type II DM and gastroparesis. She continues to complain of some abdominal pain with nausea. She has not vomited. She is tolerating some yogurt at the time of my visit. She reports no bowel movement in several days. She was able to get up and move about with the assistance of physical therapy. Exam - Constitutional Vitals: Period Temp Pulse Resp BP Sys/Erickson Pulse Ox Last 24 Hr 97.1 F-99.0 F 95-108 18-20 102-144/59-67 95-100 Vital signs are noted above. Heart is regular with no murmur or gallop. Lungs are clear with no rales or wheezes. Abdomen is soft with some minimal generalized tenderness. Bowel sounds are hypoactive. She is awake and alert. Results - Labs CBC & BMP: 02/25/17 10:23 02/27/17 05:16 Lab Results: I have reviewed the past 24 hour labs Quality Measures - Stroke Symptom Onset Unknown: No
[2017-02-27] MEDS: PANTOPRAZOLE 40 MG TABLET PO SCH (09:15)
[2017-02-27] MEDS: ALPRAZolam 0.5 MG TABLET PO PRN ×2 (09:16→21:28)
[2017-02-27] MEDS: POLYETHYLENE GLYCOL POWDER 17 GM PACK PO SCH (09:16)
[2017-02-27] MEDS: ENOXAPARIN 40 MG/0.4 ML SYRINGE SUBCUT SCH (09:44)
--- NOTE | 2017-02-27 10:25 | Gastrointestinal Progress Note ---
Assessment and Plan (1) Gastroparesis Status: Chronic Assessment and plan: 02/27-nausea continues with no vomiting reported. Tolerating very small amounts of full liquids. Plan an addendum to followed by Dr. Perrin 02/26-no changes at present time. No emesis. Tolerating small amounts of pudding /crackers. Plan an addendum to followed by Dr. Perrin. 02/25-continued nausea, no emesis. Tolerating very small amounts of full liquids. No changes at present. Plan an addendum to follow by Dr. Perrin. 02/24-nausea better controlled, no vomiting at present. Abdominal soreness. Continue IV erythromycin. Plan an addendum to followed by Dr. Perrin. 02/21-Continued N/V with abd pain overnight. Continue to monitor at present time. Plan and addendum to follow by Dr Perrin. 02/20-Exacerbation of nausea, vomiting, abd pain similar to prior flare of gastroparesis in the past with recent gastric pacemaker placement. Plan and addendum to follow by Dr Perrin Current Visit: No Gastroenterology - PN: Subj Interval history: CC: Gastroparesis Patient is seen awake, alert. Spouse is at bedside. She states that she is feeling slightly better today. She has been up ambulating some. She is tolerating a little more of her diet with addition of yogurt. Abdomen is soft, nontender. She has still not had a bowel movement however she has just recently felt like ambulating with the assistance of physical therapy. No bowel movement now 4 days. MiraLAX has been started. ROS: Denies shortness of breath or chest Exam (Progress Note) - Constitutional Vitals: Period Temp Pulse Resp BP Sys/Erickson Pulse Ox Last 24 Hr 97.1 F-99.0 F 95-108 18-20 102-144/59-67 95-100 - Other Additional findings: General appearance: normal weight, no acute distress - Head Head exam: Present: normal inspection, normocephalic - Eye Eye exam: Present: other (Lids and conjunctivae unremarkable). Absent: scleral icterus - ENT ENT exam: Present: normal exam, normal oropharynx - Neck Neck exam: Present: normal inspection - Respiratory Respiratory exam: Present: clear to auscultation bilaterally. Absent: rales, rhonchi, wheezes - Cardiovascular Cardiovascular exam: Present: regular rate and rhythm. Absent: diastolic murmur , JVD, systolic murmur - GI/Abdominal GI/Abdominal exam: Present: normal bowel sounds, soft. Absent: ascites, distended, mass, organomegaly, tenderness - Extremities Exam Extremities exam: Present: normal inspection, full ROM - Back Exam Back exam: Present: normal inspection - Neurological Exam Neurological exam: Present: alert, oriented X3 - Psychiatric Psychiatric exam: Present: normal affect, normal mood - Skin Skin exam: Present: normal color, warm, dry Results - Labs CBC & BMP: 02/25/17 10:23 02/27/17 05:16 Lab Results: I have reviewed the past 24 hour labs
[2017-02-27] MEDS: METOPROLOL SUCCINATE XL 50 MG TABLET PO SCH ×2 (12:27→21:20)
[2017-02-27] MEDS: INSULIN REGULAR 100 UNIT/ML SUBCUT SCH ×4 (12:42→21:23)
[2017-02-27] MEDS: FAT EMULSION 20% 250 ML IV SCH (14:29)
[2017-02-27] MEDS: SODIUM CHLORIDE 0.9% 1,000 ML IV SCH (14:29)
[2017-02-27] MEDS: ELECTROLYTE CONCENTRATE 40 ML, TRACE ELEMENTS (5) 1 ML, MULTIVITAMIN INJ 10 ML, INSULIN... IV SCH (16:50)
[2017-02-27] MEDS: ARIPiprazole 5 MG TABLET PO SCH (21:23)
[2017-02-27] MEDS: INSULIN GLARGINE 100 UNIT/ML SUBCUT SCH (21:25)
[2017-02-28] MEDS: HYDROmorphone 2 MG/1 ML VIAL IV PRN ×4 (02:41→20:26)
[2017-02-28] MEDS: ERYTHROMYCIN INJ 125 MG in SODIUM CHLORIDE 0.9% 100 ML IV SCH ×4 (02:41→23:57)
[2017-02-28] MEDS: PROMETHAZINE 25 MG/1 ML VIAL IM PRN ×3 (02:41→20:28)
[2017-02-28] MEDS: SODIUM CHLORIDE 0.9% 1,000 ML IV SCH ×3 (06:20→22:30)
[2017-02-28 06:25] LABS: Basophils % 0.5 % (0.0-0.8); Eosinophils # 0.4 10*3/uL (0.0-0.87); Eosinophils % 5.5 % (0.00-10.9); Hematocrit 30.7 VOL% (35.7-47.0); Hemoglobin 10.5 GM/DL (12.0-16.0); Immature Granulocytes % 0.6 %; Immature Granulocytes Absolute 0.05 #; Lymphocytes # 2.7 10*3/uL (1.4-4.0); Lymphocytes % 33.7 % (21.3-54.2); Mean Corpuscular HGB Conc 34.2 GM/DL (32-36); Mean Corpuscular Hemoglobin 30 PG (27-34); Mean Corpuscular Volume 87.7 FL (87-102); Mean Platelet Volume 10.6 FL (9.6-12.0); Monocytes # 0.8 10*3/uL (0.11-0.8); Monocytes % 9.6 % (1.7-12.7); Neutrophils % 50.1 % (38.7-73.9); Platelet Count 277 T/CUMM (130-400); Red Cell Distribution Width 12.2 % (9.3-17.3)
[2017-02-28] MEDS: ENOXAPARIN 40 MG/0.4 ML SYRINGE SUBCUT SCH (08:02)
[2017-02-28] MEDS: POLYETHYLENE GLYCOL POWDER 17 GM PACK PO SCH (08:03)
[2017-02-28] MEDS: PANTOPRAZOLE 40 MG TABLET PO SCH (08:03)
[2017-02-28] MEDS: METOPROLOL SUCCINATE XL 50 MG TABLET PO SCH ×2 (08:03→21:09)
[2017-02-28] MEDS: ALPRAZolam 0.5 MG TABLET PO PRN (09:15)
[2017-02-28] MEDS: INSULIN REGULAR 100 UNIT/ML SUBCUT SCH ×4 (09:15→21:07)
--- NOTE | 2017-02-28 09:40 | Hospitalist Progress Note ---
Assessment and Plan (1) Gastroparesis Status: Chronic Assessment and plan: Impression: 1. Type II DM with gastroparesis Plan: Continue TPN and liquids. Continue MiraLAX and increase activity. We will look at discharge planning once she is able to go a day without vomiting. This note was completed using [employer] voice recognition software. There may be tax professional errors as a result. Current Visit: No Hospitalist: Subjective Interval history: Follow-up type II DM with gastroparesis. The patient continues on TPN and IV fluids. She vomited last night. She has not had a bowel movement for several days now. She is still spending most of the day in the bed. Exam - Constitutional Vitals: Period Temp Pulse Resp BP Sys/Erickson Pulse Ox Last 24 Hr 97.2 F-98.8 F 84-105 18-20 93-137/57-85 97-100 Vital signs are noted above. Heart is regular with no murmur or gallop. Lungs are clear with no rales or wheezes. Abdomen has occasional bowel sounds, and some generalized tenderness. She is awake alert. Results - Labs CBC & BMP: 02/28/17 05:52 02/27/17 05:16 Lab Results: I have reviewed the past 24 hour labs Quality Measures - Stroke Symptom Onset Unknown: No
--- NOTE | 2017-02-28 09:43 | Gastrointestinal Progress Note ---
Assessment and Plan (1) Gastroparesis Status: Chronic Assessment and plan: 02/28-Vomiting x 1 last night. Slightly more intake of full liquids. Plan and addendum to follow by Dr Perrin. 02/27-nausea continues with no vomiting reported. Tolerating very small amounts of full liquids. Plan an addendum to followed by Dr. Perrin 02/26-no changes at present time. No emesis. Tolerating small amounts of pudding /crackers. Plan an addendum to followed by Dr. Perrin. 02/25-continued nausea, no emesis. Tolerating very small amounts of full liquids. No changes at present. Plan an addendum to follow by Dr. Perrin. 02/24-nausea better controlled, no vomiting at present. Abdominal soreness. Continue IV erythromycin. Plan an addendum to followed by Dr. Perrin. 02/21-Continued N/V with abd pain overnight. Continue to monitor at present time. Plan and addendum to follow by Dr Perrin. 02/20-Exacerbation of nausea, vomiting, abd pain similar to prior flare of gastroparesis in the past with recent gastric pacemaker placement. Plan and addendum to follow by Dr Perrin Current Visit: No Gastroenterology - PN: Subj Interval history: CC: Gastroparesis Pt is seen awake and alert. States she is feeling about the same at this time. She was able to take in a little more of her full liquid diet however she did throw up last night. She states that she has been eating a little more though. Abdomen is soft, nontender. She has not had a bowel movement but states she feels like she will today. ROS: Denies SOB or chest pain Exam (Progress Note) - Constitutional Vitals: Period Temp Pulse Resp BP Sys/Erickson Pulse Ox Last 24 Hr 97.2 F-98.8 F 84-105 18-20 93-137/57-85 97-100 General appearance: normal weight, no acute distress - Head Head exam: Present: normal inspection, normocephalic - Eye Eye exam: Present: other (lids and conjunctiva unremarakble). Absent: scleral icterus - ENT ENT exam: Present: normal exam, normal oropharynx - Neck Neck exam: Present: normal inspection - Respiratory Respiratory exam: Present: clear to auscultation bilaterally. Absent: rales, rhonchi, wheezes - Cardiovascular Cardiovascular exam: Present: regular rate and rhythm. Absent: diastolic murmur , JVD, systolic murmur - GI/Abdominal GI/Abdominal exam: Present: normal bowel sounds, soft. Absent: ascites, mass, organomegaly, tenderness - Extremities Exam Extremities exam: Present: normal inspection, full ROM - Back Exam Back exam: Present: normal inspection - Neurological Exam Neurological exam: Present: alert, oriented X3 - Psychiatric Psychiatric exam: Present: normal affect, normal mood - Skin Skin exam: Present: normal color, warm, dry Results - Labs CBC & BMP: 02/28/17 05:52 02/27/17 05:16 Lab Results: I have reviewed the past 24 hour labs
[2017-02-28] MEDS: FAT EMULSION 20% 250 ML IV SCH (14:22)
[2017-02-28] MEDS: ARIPiprazole 5 MG TABLET PO SCH (21:05)
[2017-02-28] MEDS: INSULIN GLARGINE 100 UNIT/ML SUBCUT SCH (21:05)
[2017-03-01] MEDS: HYDROmorphone 2 MG/1 ML VIAL IV PRN ×6 (00:29→22:28)
[2017-03-01] MEDS: ELECTROLYTE CONCENTRATE 40 ML, TRACE ELEMENTS (5) 1 ML, MULTIVITAMIN INJ 10 ML, INSULIN... IV SCH (00:33)
[2017-03-01] MEDS: PROMETHAZINE 25 MG/1 ML VIAL IM PRN ×3 (03:25→22:30)
[2017-03-01] MEDS: INSULIN REGULAR 100 UNIT/ML SUBCUT SCH ×4 (08:41→21:06)
[2017-03-01] MEDS: ENOXAPARIN 40 MG/0.4 ML SYRINGE SUBCUT SCH (08:41)
[2017-03-01] MEDS: PANTOPRAZOLE 40 MG TABLET PO SCH (08:41)
[2017-03-01] MEDS: ALPRAZolam 0.5 MG TABLET PO PRN (08:41)
[2017-03-01] MEDS: ERYTHROMYCIN INJ 125 MG in SODIUM CHLORIDE 0.9% 100 ML IV SCH ×2 (08:42→16:37)
[2017-03-01] MEDS: POLYETHYLENE GLYCOL POWDER 17 GM PACK PO SCH (08:42)
[2017-03-01] MEDS: METOPROLOL SUCCINATE XL 50 MG TABLET PO SCH ×2 (08:42→21:07)
--- NOTE | 2017-03-01 09:03 | Hospitalist Progress Note ---
Assessment and Plan (1) Gastroparesis Status: Chronic Assessment and plan: Impression: 1. Type II DM with gastroparesis Plan: Continue current diet. Continue MiraLAX and increase activity. Tentatively plan discharge in the morning unless she has a setback.. This note was completed using [employer] voice recognition software. There may be charge aide errors as a result. Current Visit: No Hospitalist: Subjective Interval history: Follow-up type II DM with gastroparesis. The patient says that she had a small bowel movement yesterday. She has done physical therapy twice. She has been out of the bed. She has tolerated a soft diet, and has not vomited in over 24 hours. Exam - Constitutional Vitals: Period Temp Pulse Resp BP Sys/Erickson Pulse Ox Last 24 Hr 98.0 F-98.9 F 94-111 16-21 110-148/53-81 94-99 Vital signs are noted above. Heart is regular with no murmur or gallop. Lungs are clear with no rales or wheezes. Abdomen is soft with occasional bowel sounds and no evidence of peritoneal irritation. She is awake and alert Results - Labs CBC & BMP: 02/28/17 05:52 02/27/17 05:16 Quality Measures - Stroke Symptom Onset Unknown: No
--- NOTE | 2017-03-01 10:58 | Gastrointestinal Progress Note ---
Assessment and Plan (1) Intractable nausea and vomiting Status: Resolved Assessment and plan: The patient's primary care provider is Dr. Perrin who is off for the weekend. The patient herself is improved, though the patient is not able to eat much food, she remains on TPN--I will be at a low level of only 35 mL/h. She has been able to tolerate small amounts of pudding. My suggestion would be at this point to discontinue the IV fluids entirely/TPN entirely--just to see if she still needs this. This may motivate her to eat and drink more which would help expand her stomach and help with the motivation needed to return to full feeds. Current Visit: No Qualifiers: Vomiting type: unspecified Qualified Code(s): R11.2 - Nausea with vomiting , unspecified (2) Abnormal weight loss Status: Acute Assessment and plan: Patient states that she is lost approximately 130 pounds of weight in the left last 1 year. We will continue to monitor daily weights. Current Visit: Yes (3) Gastroparesis Status: Chronic Assessment and plan: This is a patient who is status post gastric pacemaker. She is required TPN at home due to her extreme weight loss of approximately 130 pounds over the last 1 year. It is my hope that we may be able to wean her off of her low level of TPN at this time. Current Visit: No (4) Anemia Status: Acute Assessment and plan: This patient does have mild anemia with hematocrit of 28%, presumably nutritional. Current Visit: Yes Gastroenterology - PN: Subj Interval history: Patient states that she is tolerating a little bit of pudding, i.e. some full liquids, but no solids yet. She is on a relatively decreased dose of TPN, she is about to be discharged from the hospital according to the hospitalist notes. She states that she has had approximately 130 pound weight loss over the last 1 year. She recently had a gastric pacemaker placed previous to this admission. Dr. Duvall followed this patient up last on 02/20/17 Exam (Progress Note) - Constitutional Vitals: Period Temp Pulse Resp BP Sys/Erickson Pulse Ox Last 24 Hr 98.0 F-98.9 F 94-111 16-21 110-148/53-81 94-99 General appearance: mild distress - Eye Eye exam: Present: EOMI Pupils: Present: DESTINY - Respiratory Respiratory exam: Present: clear to auscultation bilaterally. Absent: rhonchi, stridor, wheezes - Cardiovascular Cardiovascular exam: Present: regular rate and rhythm - GI/Abdominal GI/Abdominal exam: Present: normal bowel sounds, distended, tenderness, soft, other (Recent surgical site in the lower abdomen from gastric pacemaker insertion). Absent: rebound - Back Exam Back exam: Present: normal inspection - Neurological Exam Neurological exam: Present: alert, oriented X3 - Psychiatric Psychiatric exam: Present: normal affect, normal mood - Skin Skin exam: Present: warm Results - Labs CBC & BMP: 02/28/17 05:52 02/27/17 05:16
[2017-03-01] MEDS: SODIUM CHLORIDE 0.9% 1,000 ML IV SCH (14:48)
[2017-03-01] MEDS: ARIPiprazole 5 MG TABLET PO SCH (21:07)
[2017-03-01] MEDS: INSULIN GLARGINE 100 UNIT/ML SUBCUT SCH (21:07)
[2017-03-02] MEDS: ERYTHROMYCIN INJ 125 MG in SODIUM CHLORIDE 0.9% 100 ML IV SCH ×4 (00:19→23:04)
[2017-03-02] MEDS: HYDROmorphone 2 MG/1 ML VIAL IV PRN ×5 (02:27→20:07)
[2017-03-02] MEDS: SODIUM CHLORIDE 0.9% 1,000 ML IV SCH ×2 (04:03→14:58)
[2017-03-02] MEDS: PROMETHAZINE 25 MG/1 ML VIAL IM PRN ×3 (04:04→23:04)
[2017-03-02] MEDS: POLYETHYLENE GLYCOL POWDER 17 GM PACK PO SCH (08:33)
[2017-03-02] MEDS: METOPROLOL SUCCINATE XL 50 MG TABLET PO SCH ×2 (08:33→21:05)
[2017-03-02] MEDS: PANTOPRAZOLE 40 MG TABLET PO SCH (08:36)
[2017-03-02] MEDS: ALPRAZolam 0.5 MG TABLET PO PRN (08:36)
[2017-03-02] MEDS: ENOXAPARIN 40 MG/0.4 ML SYRINGE SUBCUT SCH (08:36)
[2017-03-02] MEDS: INSULIN REGULAR 100 UNIT/ML SUBCUT SCH ×4 (08:36→21:03)
--- NOTE | 2017-03-02 08:47 | Hospitalist Progress Note ---
Assessment and Plan (1) Gastroparesis Status: Chronic Assessment and plan: Impression: 1. Type II DM with gastroparesis Plan: She still has significant pain. We will try to increase activity. TPN was discontinued yesterday by GI. The patient and her are going to aim for going home tomorrow. This note was completed using [employer] voice recognition software. There may be equipment sales specialist errors as a result. Current Visit: No Hospitalist: Subjective Interval history: Follow-up gastroparesis. The patient's TPN was discontinued. She is tolerating small amounts of pudding and liquids. She says that her bowels finally moved yesterday. She has not vomited so far today. She says that she is up and about, but I have never seen her out of the bed. Exam - Constitutional Vitals: Period Temp Pulse Resp BP Sys/Erickson Pulse Ox Last 24 Hr 98.0 F-98.9 F 93-102 18-18 91-112/46-63 95-100 Vital signs are noted above. Heart is regular with no murmur or gallop. Lungs are clear with no rales or wheezes. Abdomen is generally tender with hypoactive bowel sounds. She is awake and alert Results - Labs CBC & BMP: 02/28/17 05:52 02/27/17 05:16 Quality Measures - Stroke Symptom Onset Unknown: No
[2017-03-02] MEDS ORDERED: GLUCAGON 1 MG VIAL IM PRN (12:38)
[2017-03-02] MEDS ORDERED: DEXTROSE 50% 25 GM/50 ML VIAL IV PRN (12:38)
--- NOTE | 2017-03-02 12:43 | Gastrointestinal Progress Note ---
Assessment and Plan (1) Intractable nausea and vomiting Status: Resolved Assessment and plan: The patient's primary care provider is Dr. Perrin who is off for the weekend. The patient herself is improved, though the patient is not able to eat much food, she remains on TPN--I will be at a low level of only 35 mL/h. She has been able to tolerate small amounts of pudding. My suggestion would be at this point to discontinue the IV fluids entirely/TPN entirely--just to see if she still needs this. This may motivate her to eat and drink more which would help expand her stomach and help with the motivation needed to return to full feeds. 03/02/17--the patient does state that her appetite is mildly improved and would like to try something a little bit more hearty than the full liquid diet. We discussed this and will go ahead and start her on an 1800-calorie ADA low residual soft diet to see how she tolerates this. She was reminded to eat small amounts all through the day for best tolerance. Current Visit: No Qualifiers: Vomiting type: unspecified Qualified Code(s): R11.2 - Nausea with vomiting , unspecified (2) Abnormal weight loss Status: Acute Assessment and plan: Patient states that she is lost approximately 130 pounds of weight in the left last 1 year. We will continue to monitor daily weights. 03/02/17--Patient is currently noted to have a weight of 125.1 pounds. We will continue to monitor this over time. Dr. Perrin will return again tomorrow. I do not the patient has been tried on Reglan and erythromycin but not domperidone, a potential consideration for the future. Current Visit: Yes (3) Gastroparesis Status: Chronic Assessment and plan: This is a patient who is status post gastric pacemaker. She is required TPN at home due to her extreme weight loss of approximately 130 pounds over the last 1 year. It is my hope that we may be able to wean her off of her low level of TPN at this time. 03/02/17--Continue to observe the patient as she attempts to advance her diet. Current Visit: No (4) Anemia Status: Acute Assessment and plan: This patient does have mild anemia with hematocrit of 28%, presumably nutritional. 03/02/17--Recheck patient's hematocrit in the future. Especially if she begins to eat better/gain weight. Current Visit: Yes Gastroenterology - PN: Subj Interval history: Patient states that she is now taking the full liquid diet adequately and would like to try something a little bit more solid potentially. We did talk about the need to take multiple small meals during the day in order to allow her stomach time to adapt to the pacemaker. She desires a soft ADA diet, will write for low residual as well. TPN is on hold to see if this will improve her appetite. Exam (Progress Note) - Constitutional Vitals: Period Temp Pulse Resp BP Sys/Erickson Pulse Ox Last 24 Hr 97.0 F-98.9 F 69-102 18-20 91-104/46-63 93-100 General appearance: no acute distress - Head Head exam: Present: normocephalic - Eye Pupils: Present: DESTINY - Respiratory Respiratory exam: Present: clear to auscultation bilaterally - Cardiovascular Cardiovascular exam: Present: regular rate and rhythm - GI/Abdominal GI/Abdominal exam: Present: normal bowel sounds, tenderness (Mild tenderness noted mostly in the epigastric region but also slightly elsewhere), soft. Absent: distended, guarding, rebound - Extremities Exam Extremities exam: Absent: edema - Neurological Exam Neurological exam: Present: alert, oriented X3 - Psychiatric Psychiatric exam: Present: normal affect, normal mood - Skin Skin exam: Present: warm Results - Labs CBC & BMP: 02/28/17 05:52 02/27/17 05:16
[2017-03-02] MEDS: INSULIN GLARGINE 100 UNIT/ML SUBCUT SCH (21:03)
[2017-03-02] MEDS: ARIPiprazole 5 MG TABLET PO SCH (21:05)
[2017-03-03] MEDS: HYDROmorphone 2 MG/1 ML VIAL IV PRN ×5 (00:15→19:47)
[2017-03-03] MEDS: SODIUM CHLORIDE 0.9% 1,000 ML IV SCH ×2 (04:38→19:48)
[2017-03-03 07:15] LABS: Calcium 7.6 MG/DL (8.5-10.1); Magnesium 1.6 MG/DL (1.8-2.4); Osmolality,Calculated 277.5 MOS/KG (273-304); Phosphorous 3.7 MG/DL (2.5-4.9); Potassium 3.9 MMOL/L (3.5-5.1); Prealbumin 11.9 MG/DL (20-40)
[2017-03-03] MEDS: METOPROLOL SUCCINATE XL 50 MG TABLET PO SCH ×2 (09:26→20:49)
[2017-03-03] MEDS: PROMETHAZINE 25 MG/1 ML VIAL IM PRN ×3 (09:30→22:26)
[2017-03-03] MEDS: ERYTHROMYCIN INJ 125 MG in SODIUM CHLORIDE 0.9% 100 ML IV SCH ×3 (09:30→23:51)
[2017-03-03] MEDS: ALPRAZolam 0.5 MG TABLET PO PRN (09:34)
[2017-03-03] MEDS: INSULIN REGULAR 100 UNIT/ML SUBCUT SCH ×4 (09:34→20:49)
[2017-03-03] MEDS: ENOXAPARIN 40 MG/0.4 ML SYRINGE SUBCUT SCH (09:35)
[2017-03-03] MEDS: POLYETHYLENE GLYCOL POWDER 17 GM PACK PO SCH (09:35)
[2017-03-03] MEDS: PANTOPRAZOLE 40 MG TABLET PO SCH (09:35)
--- NOTE | 2017-03-03 10:26 | Gastrointestinal Progress Note ---
Assessment and Plan (1) Gastroparesis Status: Chronic Assessment and plan: 03/03-Nausea w/o vomiting over weekend. TPN discontinued on Friday. Plan and addendum to follow by Dr Perrin. 02/28-Vomiting x 1 last night. Slightly more intake of full liquids. Plan and addendum to follow by Dr Perrin. 02/27-nausea continues with no vomiting reported. Tolerating very small amounts of full liquids. Plan an addendum to followed by Dr. Perrin 02/26-no changes at present time. No emesis. Tolerating small amounts of pudding /crackers. Plan an addendum to followed by Dr. Perrin. 02/25-continued nausea, no emesis. Tolerating very small amounts of full liquids. No changes at present. Plan an addendum to follow by Dr. Perrin. 02/24-nausea better controlled, no vomiting at present. Abdominal soreness. Continue IV erythromycin. Plan an addendum to followed by Dr. Perrin. 02/21-Continued N/V with abd pain overnight. Continue to monitor at present time. Plan and addendum to follow by Dr Perrin. 02/20-Exacerbation of nausea, vomiting, abd pain similar to prior flare of gastroparesis in the past with recent gastric pacemaker placement. Plan and addendum to follow by Dr Perrin Current Visit: No Gastroenterology - PN: Subj Interval history: CC: Gastroparesis Pt is seen awake, alert, with family at side. States she is feeling about the same at present time. She has had continued nausea throughout the weekend without any vomiting reported. She states that she has had no abdominal pain at present time. She states she is only able to take in small amounts again at present time and was started on a low residual diet over the weekend. Her TPN was stopped on friday. Abdomen is soft, nontender. ROS: Denies SOB or chest pain Exam (Progress Note) - Constitutional Vitals: Period Temp Pulse Resp BP Sys/Erickson Pulse Ox Last 24 Hr 97.0 F-98.7 F 69-101 16-22 88-137/53-70 93-99 General appearance: normal weight, no acute distress - Head Head exam: Present: normal inspection, normocephalic - Eye Eye exam: Present: other (lids and conjunctiva unremarkable). Absent: scleral icterus - ENT ENT exam: Present: normal exam, normal oropharynx - Neck Neck exam: Present: normal inspection - Respiratory Respiratory exam: Present: clear to auscultation bilaterally. Absent: rales, rhonchi, wheezes - Cardiovascular Cardiovascular exam: Present: regular rate and rhythm. Absent: diastolic murmur , JVD, systolic murmur - GI/Abdominal GI/Abdominal exam: Present: normal bowel sounds, soft. Absent: ascites, distended, mass, organomegaly, tenderness - Extremities Exam Extremities exam: Present: normal inspection, full ROM - Back Exam Back exam: Present: normal inspection - Neurological Exam Neurological exam: Present: alert, oriented X3 - Psychiatric Psychiatric exam: Present: normal affect, normal mood - Skin Skin exam: Present: normal color, warm, dry Results - Labs CBC & BMP: 02/28/17 05:52 03/03/17 04:49 Lab Results: I have reviewed the past 24 hour labs
--- NOTE | 2017-03-03 10:50 | Hospitalist Progress Note ---
Assessment and Plan (1) Nausea Status: Acute Assessment and plan: Continue supportive treatment. Defer to GI. Current Visit: Yes (2) Gastroparesis Status: Acute Assessment and plan: Defer to GI. Current Visit: No (3) Diabetes mellitus Status: Acute Assessment and plan: Continue current management. Current Visit: No Hospitalist: Subjective Interval history: Reports continued nausea. Has been on a clear diet. States she hasnt had much by mouth and is concerned she isnt on TPN which was discontinued over the weekend. Exam - Constitutional Vitals: Period Temp Pulse Resp BP Sys/Erickson Pulse Ox Last 24 Hr 97.0 F-98.7 F 69-101 16-22 88-137/53-70 93-99 General appearance: no acute distress, under weight - Head Head exam: Present: normocephalic, atraumatic - Eye Eye exam: Present: EOMI Pupils: Present: DESTINY - ENT ENT exam: Present: normal exam - Neck Neck exam: Present: normal inspection - Respiratory Respiratory exam: Present: clear to auscultation bilaterally. Absent: accessory muscle use, prolonged expiratory phase, rhonchi, wheezes - Cardiovascular Cardiovascular exam: Present: regular rate and rhythm. Absent: bradycardia, gallop, irregular rhythm, rubs, systolic murmur - GI/Abdominal GI/Abdominal exam: Present: hypoactive bowel sounds, soft. Absent: distended, firm, guarding, tenderness, rebound - Extremities Exam Extremities exam: Present: normal inspection. Absent: calf tenderness, edema Results - Labs CBC & BMP: 02/28/17 05:52 03/03/17 04:49 Quality Measures - Stroke Symptom Onset Unknown: No
[2017-03-03] MEDS: MAGNESIUM SULF RIDER 2 GM in PREMIX 1 EACH IV PRN (13:35)
[2017-03-03] MEDS: ARIPiprazole 5 MG TABLET PO SCH (20:49)
[2017-03-03] MEDS: INSULIN GLARGINE 100 UNIT/ML SUBCUT SCH (20:53)
[2017-03-04] MEDS: HYDROmorphone 2 MG/1 ML VIAL IV PRN ×3 (02:59→13:23)
[2017-03-04 04:02] LABS: Basophils % 0.4 % (0.0-0.8); Eosinophils # 0.2 10*3/uL (0.0-0.87); Eosinophils % 2.8 % (0.00-10.9); Hematocrit 26.6 VOL% (35.7-47.0); Immature Granulocytes % 0.3 %; Immature Granulocytes Absolute 0.02 #; Lymphocytes # 2.2 10*3/uL (1.4-4.0); Lymphocytes % 32.2 % (21.3-54.2); Mean Corpuscular HGB Conc 33.8 GM/DL (32-36); Mean Corpuscular Hemoglobin 30 PG (27-34); Mean Corpuscular Volume 87.8 FL (87-102); Mean Platelet Volume 11.2 FL (9.6-12.0); Monocytes # 0.5 10*3/uL (0.11-0.8); Monocytes % 7.4 % (1.7-12.7); Neutrophils # 3.9 10*3/uL (1.4-7.4); Neutrophils % 56.9 % (38.7-73.9); Platelet Count 218 T/CUMM (130-400); Red Blood Count 3.03 MC/CUMM (3.8-5.5); White Blood Count 6.8 T/CUMM (4-12)
[2017-03-04 04:26] LABS: Calcium 8.1 MG/DL (8.5-10.1); Osmolality,Calculated 275.4 MOS/KG (273-304); Potassium 3.6 MMOL/L (3.5-5.1)
[2017-03-04] MEDS: PANTOPRAZOLE 40 MG TABLET PO SCH (08:56)
[2017-03-04] MEDS: ENOXAPARIN 40 MG/0.4 ML SYRINGE SUBCUT SCH (08:56)
[2017-03-04] MEDS: INSULIN REGULAR 100 UNIT/ML SUBCUT SCH ×3 (08:57→22:11)
[2017-03-04] MEDS: METOPROLOL SUCCINATE XL 50 MG TABLET PO SCH (08:58)
[2017-03-04] MEDS: POLYETHYLENE GLYCOL POWDER 17 GM PACK PO SCH (08:59)
[2017-03-04] MEDS: SODIUM CHLORIDE 0.9% 1,000 ML IV SCH (09:19)
[2017-03-04] MEDS: ALPRAZolam 0.5 MG TABLET PO PRN (09:19)
[2017-03-04] MEDS: ERYTHROMYCIN INJ 125 MG in SODIUM CHLORIDE 0.9% 100 ML IV SCH ×2 (09:20→22:09)
[2017-03-04] MEDS: PROMETHAZINE 25 MG TABLET PO PRN (10:12)
--- NOTE | 2017-03-04 10:16 | Gastrointestinal Progress Note ---
Assessment and Plan (1) Gastroparesis Status: Chronic Assessment and plan: 03/04-No abd pain, N/V. Tolerating small amounts diet. Okay to discharge from GI standpoint .Plan and addendum to follow by Dr Perrin. 03/03-Nausea w/o vomiting over weekend. TPN discontinued on Friday. Plan and addendum to follow by Dr Perrin. 02/28-Vomiting x 1 last night. Slightly more intake of full liquids. Plan and addendum to follow by Dr Perrin. 02/27-nausea continues with no vomiting reported. Tolerating very small amounts of full liquids. Plan an addendum to followed by Dr. Perrin 02/26-no changes at present time. No emesis. Tolerating small amounts of pudding /crackers. Plan an addendum to followed by Dr. Perrin. 02/25-continued nausea, no emesis. Tolerating very small amounts of full liquids. No changes at present. Plan an addendum to follow by Dr. Perrin. 02/24-nausea better controlled, no vomiting at present. Abdominal soreness. Continue IV erythromycin. Plan an addendum to followed by Dr. Perrin. 02/21-Continued N/V with abd pain overnight. Continue to monitor at present time. Plan and addendum to follow by Dr Perrin. 02/20-Exacerbation of nausea, vomiting, abd pain similar to prior flare of gastroparesis in the past with recent gastric pacemaker placement. Plan and addendum to follow by Dr Perrin Current Visit: No Gastroenterology - PN: Subj Interval history: CC: Gastroparesis Pt is seen, awake, alert, stating she is feeling some better today. She has had no vomiting episodes and nausea is a little better controlled at present time. She is tolerating small amounts of her diet. Abdomen is soft, nontender. She states she feels as if she is ready for discharge at this time and attempt controlling her symptoms at home. ROS: Denies SOB or chest pain Exam (Progress Note) - Constitutional Vitals: Period Temp Pulse Resp BP Sys/Erickson Pulse Ox Last 24 Hr 97.9 F-98.9 F 86-106 16-20 107-158/61-81 98-99 General appearance: normal weight, no acute distress - Head Head exam: Present: normal inspection, normocephalic - Eye Eye exam: Present: other (lids and conjunctiva unremarkable). Absent: scleral icterus - ENT ENT exam: Present: normal exam, normal oropharynx - Neck Neck exam: Present: normal inspection - Respiratory Respiratory exam: Present: clear to auscultation bilaterally. Absent: rales, rhonchi, wheezes - Cardiovascular Cardiovascular exam: Present: regular rate and rhythm. Absent: diastolic murmur , JVD, systolic murmur - GI/Abdominal GI/Abdominal exam: Present: normal bowel sounds, soft. Absent: ascites, distended, mass, organomegaly, tenderness - Extremities Exam Extremities exam: Present: normal inspection, full ROM - Back Exam Back exam: Present: normal inspection - Neurological Exam Neurological exam: Present: alert, oriented X3 - Psychiatric Psychiatric exam: Present: normal affect, normal mood - Skin Skin exam: Present: normal color, warm, dry Results - Labs CBC & BMP: 03/04/17 Unknown 03/04/17 Unknown Lab Results: I have reviewed the past 24 hour labs
--- NOTE | 2017-03-04 12:21 | Discharge Summary ---
Hospital Course - Hospital Course Hospital Course: Ms. Romero was admitted for evaluation of nausea vomiting and abdominal pain. CT her abdomen was unremarkable. She was seen in consultation by Dr. Kaplan given her history of gastric stimulator placement. Furthermore patient was seen in consultation by gastroenterology. Patient required IV Phenergan and IV Dilaudid for control of nausea and abdominal pain. Her abdominal pain and nausea improved and the patient was able to tolerate a diet. By discharge she had returned to baseline had met maximum benefit of hospitalization. She will follow-up with surgery as an outpatient. I spent 35 minutes coordinating this discharge. - Time spent with patient Time with patient DS: Greater than 30 minutes Diagnosis - Discharge Diagnosis (1) Nausea Status: Acute (2) Gastroparesis Status: Acute (3) Diabetes mellitus Status: Acute Discharge Plan - Discharge Data Disposition: Disch To Home/Self Care Condition at Discharge: Stable Discharge Diet: diabetic diet Activity: resume usual activities as tolerated - Discharge Medications Continue ALPRAZolam [Xanax] 0.5 mg PO BID PRN #30 tablet PRN Reason: Anxiety Insulin Glargine [Lantus] 40 unit SUBCUT BEDTIME #0 Promethazine Tab [Phenergan Tab] 25 mg PO Q6H PRN #30 tablet PRN Reason: Nausea ARIPiprazole [Abilify] 5 mg PO BEDTIME Insulin Aspart [NovoLOG] 7 unit SUBCUT TID Polyethylene Glycol Powder [Miralax] 17 gm PO QOTHER DAY PRN PRN Reason: Constipation Pantoprazole Tab [Protonix Tab] 40 mg PO DAILY #30 tablet Metoclopramide Liquid [Reglan Liquid] 10 mg PO ACHS #1200 ml Metoprolol Succinate Xl [Toprol Xl] 50 mg PO BID Hydrocodone/Acetaminophen [Hydrocodon-Acetaminophn 10-325] 1 each PO Q6H - Follow Up or Referral - Forms/Instructions Exam - Constitutional Vitals: Period Temp Pulse Resp BP Sys/Erickson Pulse Ox Last 24 Hr 97.9 F-98.9 F 86-106 16-20 107-158/66-81 98-99 General appearance: normal weight, no acute distress - Head Head exam: Present: normal inspection, normocephalic, atraumatic - Eye Eye exam: Present: EOMI Pupils: Present: DESTINY - ENT ENT exam: Present: normal exam - Neck Neck exam: Present: normal inspection - Respiratory Respiratory exam: Present: clear to auscultation bilaterally. Absent: accessory muscle use, prolonged expiratory phase, wheezes - Cardiovascular Cardiovascular exam: Present: regular rate and rhythm. Absent: bradycardia, irregular rhythm, systolic murmur - GI/Abdominal GI/Abdominal exam: Present: normal bowel sounds. Absent: ascites, distended, hypoactive bowel sounds, tenderness - Extremities Exam Extremities exam: Present: normal inspection Discharge Results Procedures and tests throughout hospitalization: Pending Orders 02/21/17 11:20 Fat, Feces Stat Labs on day of discharge: Labs from last 24 hours 03/04/17 03/04/17 03/04/17 Unknown Unknown 11:32 WBC 6.8 RBC 3.03 L Hgb 9.0 L Hct 26.6 L MCV 87.8 MCH 30 MCHC 33.8 RDW 12.0 Plt Count 218 D MPV 11.2 Neut % (Auto) 56.9 Lymph % (Auto) 32.2 Meigs % (Auto) 7.4 Eos % (Auto) 2.8 Baso % (Auto) 0.4 Neut # (Auto) 3.9 Lymph # (Auto) 2.2 Meigs # (Auto) 0.5 Eos # (Auto) 0.2 Baso # (Auto) 0.0 Immature Gran % 0.3 Nucleated RBC % 0.0 Immature Gran # 0.02 Nucleated RBCs # 0.00 Sodium 140 Potassium 3.6 Chloride 104 Carbon Dioxide 28 Anion Gap 11.6 BUN 5 L Creatinine 0.20 L GFR Calculation 146 BUN/Creatinine Ratio 25.00 H Glucose 97 POC Glucose 133 H Calculated Osmolality 275.4 Calcium 8.1 L 03/04/17 03/03/17 03/03/17 07:41 19:58 15:33 WBC RBC Hgb Hct MCV MCH MCHC RDW Plt Count MPV Neut % (Auto) Lymph % (Auto) Meigs % (Auto) Eos % (Auto) Baso % (Auto) Neut # (Auto) Lymph # (Auto) Meigs # (Auto) Eos # (Auto) Baso # (Auto) Immature Gran % Nucleated RBC % Immature Gran # Nucleated RBCs # Sodium Potassium Chloride Carbon Dioxide Anion Gap BUN Creatinine GFR Calculation BUN/Creatinine Ratio Glucose POC Glucose 91 207 H 125 H Calculated Osmolality Calcium DS: Provider Date of admission: 02/20/17 00:03 Primary care physician: Matthew Parker MD Attending physician on admission: Rhona Samaniego MD Consults: 02/20/17 01:51 Consult to Dietitian [CONS] Routine Reason for Dietitian: Other Consult Comment: pt takes tpn at home, initiate TPN Consult to Pastoral Services [CONS] Routine Comment: Pastoral Screen: Request [facility] Visit Pastoral Screen Source of Request: Patient 02/20/17 07:59 Consult to Pharmacy [CONS] Routine Reason for Pharmacy Consult: Home Medication Review Comment: please clarify home insulin dose 02/26/17 08:23 Consult to Physical Therapy [CONS] Routine Reason for Physical Therapy: Evaluate and Treat Discharging clinician: Gris Hargrove MD Expected date of discharge: 03/04/17
[2017-03-04 21:54] VITALS: BP 178/67
== END 2017-03-04 17:15 | disposition home health service (06) | DRG 73 ==
LOC: N.ED 20:25 → N.EDINP 02-20 00:03 → SUATTDRO 02-20 00:03 → N.EDINP 02-20 01:16 → N.2E 02-20 01:29
PROVIDERS: ADMIT Pediatrics; ATTEND Internal Medicine

== ENCOUNTER 2020-07-13 15:09 | Inpatient (IN) ==
[2020-07-13] MEDS ORDERED: ONDANSETRON 4 MG/2 ML VIAL IV STA (15:23)
[2020-07-13] MEDS ORDERED: SODIUM CHLORIDE 0.9% 1,000 ML IV STA (15:23)
[2020-07-13 15:53] LABS: Basophils % 0.2 % (0.0-0.8); Hematocrit 36.2 VOL% (35.7-47.0); Hemoglobin 11.8 GM/DL (12.0-16.0); Immature Granulocytes Absolute 0.05 #; Lymphocytes % 19.7 % (21.3-54.2); Mean Corpuscular HGB Conc 32.6 GM/DL (32-36); Mean Corpuscular Volume 86.4 FL (87-102); Mean Platelet Volume 9.3 FL (9.6-12.0); Monocytes % 4.4 % (1.7-12.7); Neutrophils % 74.7 % (38.7-73.9); Platelet Count 336 T/CUMM (130-400); Red Blood Count 4.19 MC/CUMM (3.8-5.5); Red Cell Distribution Width 13.4 % (9.3-17.3); White Blood Count 5.2 T/CUMM (4-12)
[2020-07-13 16:15] LABS: Albumin 3.3 G/DL (3.4-5.0); Bilirubin,Total 0.6 MG/DL (0.2-1.0); Calcium 8.8 MG/DL (8.5-10.1); Osmolality,Calculated 278.5 MOS/KG (273-304); Total Protein 8.2 G/DL (6.4-8.3)
[2020-07-13 16:20] LABS: Bilirubin,Urine Negative (Negative); Blood, Urine Negative (Negative); Glucose,Urine (UA) >=500 mg/dL (Negative); Ketones,Urine 80 mg/dL (Negative); Mucus,Urine Occasional /LPF (Occasional); Nitrite,Urine Negative (Negative); Protein,Urine 100 MG/DL; Squamous Epithelial Cell,Urine Occasional /HPF (0-10); Urine Appearance CLEAR (Clear); Urine Color Yellow (Yellow); Urine Specific Gravity 1.028 (1.001-1.035); Urine Urobilinogen < 2.0 EU/DL (0.2-1.0); WBC,Urine 1 /HPF (0-6)
[2020-07-13 16:23] LABS: Hypochromasia 1+; Lymphocytes 17 % (20-55); Microcytosis 1+; Platelet Estimate Adequate; Segmented Neutrophils 81 % (50-85); Total Cells Counted 100
[2020-07-13] MEDS ORDERED: PROMETHAZINE 25 MG/1 ML VIAL ONE (16:50)
[2020-07-13] MEDS ORDERED: PROMETHAZINE 25 MG/1 ML VIAL IM STA (16:55)
[2020-07-13] MEDS ORDERED: METOCLOPRAMIDE 10 MG/2 ML VIAL IV STA (17:27)
[2020-07-13] MEDS ORDERED: HYDROmorphone 2 MG/1 ML VIAL IV STA (17:28)
[2020-07-13] MEDS ORDERED: GLUCAGON 1 MG VIAL IM PRN (19:03)
[2020-07-13] MEDS ORDERED: DEXTROSE 50% 25 GM/50 ML VIAL IV PRN (19:03)
[2020-07-13] MEDS ORDERED: hydrALAZINE 20 MG/1 ML VIAL IV PRN (19:07)
[2020-07-13] MEDS ORDERED: niCARdipine INJ 25 MG in SODIUM CHLORIDE 0.9% 240 ML IV PRN ×2 (19:31→19:53)
[2020-07-13] MEDS: SODIUM CHLORIDE 0.9% 1,000 ML IV SCH (20:19)
[2020-07-13] MEDS: HYDROmorphone 2 MG/1 ML VIAL IV PRN (21:37)
[2020-07-13] MEDS: ENOXAPARIN 40 MG/0.4 ML SYRINGE SUBCUT SCH (21:37)
[2020-07-13] MEDS: QUEtiapine 100 MG TABLET PO SCH (21:37)
[2020-07-13] MEDS: GABAPENTIN 600 MG TABLET PO SCH (21:37)
[2020-07-13] MEDS: busPIRone 15 MG TABLET PO SCH (21:38)
[2020-07-13] MEDS: ONDANSETRON 4 MG/2 ML VIAL IV PRN (21:45)
[2020-07-13] MEDS: INSULIN LISPRO 100 UNIT/ML SUBCUT SCH (21:58)
[2020-07-13] MEDS: PROMETHAZINE INJ 12.5 MG in SODIUM CHLORIDE 0.9% 50 ML IV PRN (22:47)
[2020-07-14] MEDS: HYDROmorphone 2 MG/1 ML VIAL IV PRN ×4 (04:16→21:14)
[2020-07-14] MEDS: PROMETHAZINE INJ 12.5 MG in SODIUM CHLORIDE 0.9% 50 ML IV PRN ×3 (04:17→18:31)
[2020-07-14 06:39] LABS: Basophils % 0.2 % (0.0-0.8); Eosinophils % 0.2 % (0.00-10.9); Hematocrit 29.3 VOL% (35.7-47.0); Hemoglobin 9.4 GM/DL (12.0-16.0); Immature Granulocytes Absolute 0.05 #; Lymphocytes # 2.1 10*3/uL (1.4-4.0); Lymphocytes % 41.9 % (21.3-54.2); Mean Corpuscular HGB Conc 32.1 GM/DL (32-36); Mean Corpuscular Volume 89.3 FL (87-102); Mean Platelet Volume 9.7 FL (9.6-12.0); Monocytes % 10.6 % (1.7-12.7); Neutrophils % 46.1 % (38.7-73.9); Platelet Count 311 T/CUMM (130-400); Red Blood Count 3.28 MC/CUMM (3.8-5.5); Red Cell Distribution Width 13.5 % (9.3-17.3); White Blood Count 4.9 T/CUMM (4-12)
[2020-07-14 07:12] LABS: Osmolality,Calculated 281.5 MOS/KG (273-304); Thyroid Stimulating Hormone 0.267 uIU/ml (0.358-3.74)
[2020-07-14 07:20] LABS: Hypochromasia Slight; Lymphocytes 44 % (20-55); Platelet Estimate Normal; Segmented Neutrophils 48 % (50-85); Total Cells Counted 100
[2020-07-14] MEDS: INSULIN LISPRO 100 UNIT/ML SUBCUT SCH ×4 (07:43→21:16)
[2020-07-14] MEDS: ONDANSETRON 4 MG/2 ML VIAL IV PRN ×2 (07:50→15:12)
[2020-07-14] MEDS: PANTOPRAZOLE 40 MG VIAL IV SCH ×2 (07:52→08:58)
[2020-07-14] MEDS: SODIUM CHLORIDE 0.9% 1,000 ML IV SCH (07:52)
[2020-07-14] MEDS: GABAPENTIN 600 MG TABLET PO SCH ×2 (08:57→21:08)
[2020-07-14] MEDS: ARIPiprazole 10 MG TABLET PO SCH (08:57)
[2020-07-14] MEDS: tiZANidine 4 MG TABLET PO SCH (08:57)
[2020-07-14] MEDS: busPIRone 15 MG TABLET PO SCH ×2 (08:58→21:09)
[2020-07-14] MEDS: QUEtiapine 100 MG TABLET PO SCH (21:09)
[2020-07-14] MEDS: traZODone 50 MG TABLET PO SCH (21:16)
[2020-07-14] MEDS: ENOXAPARIN 40 MG/0.4 ML SYRINGE SUBCUT SCH (21:19)
[2020-07-15] MEDS: HYDROmorphone 2 MG/1 ML VIAL IV PRN ×4 (01:29→16:00)
[2020-07-15] MEDS: PROMETHAZINE INJ 12.5 MG in SODIUM CHLORIDE 0.9% 50 ML IV PRN ×3 (01:31→21:10)
[2020-07-15 05:26] LABS: Basophils % 0.6 % (0.0-0.8); Eosinophils # 0.1 10*3/uL (0.0-0.87); Hemoglobin 9.5 GM/DL (12.0-16.0); Immature Granulocytes Absolute 0.05 #; Lymphocytes # 2.4 10*3/uL (1.4-4.0); Mean Corpuscular HGB Conc 31.7 GM/DL (32-36); Mean Corpuscular Volume 89.3 FL (87-102); Mean Platelet Volume 9.2 FL (9.6-12.0); Monocytes % 11.9 % (1.7-12.7); Neutrophils % 38.5 % (38.7-73.9); Platelet Count 299 T/CUMM (130-400); Red Blood Count 3.36 MC/CUMM (3.8-5.5); White Blood Count 5.2 T/CUMM (4-12)
[2020-07-15 06:02] LABS: Band Neutrophils 1 % (0-10); Eosinophils 1 % (0-10); Hypochromasia 1+; Lymphocytes 41 % (20-55); Microcytosis 1+; Nucleated Red Blood Cells 1 (0-5); Platelet Estimate Adequate; Segmented Neutrophils 41 % (50-85); Total Cells Counted 100
[2020-07-15 06:03] LABS: Atypical Lymphocytes Few; Calcium 7.8 MG/DL (8.5-10.1); Osmolality,Calculated 284.4 MOS/KG (273-304)
[2020-07-15] MEDS: ONDANSETRON 4 MG/2 ML VIAL IV PRN ×2 (07:39→16:02)
[2020-07-15] MEDS: INSULIN LISPRO 100 UNIT/ML SUBCUT SCH ×4 (07:50→21:09)
[2020-07-15] MEDS: PANTOPRAZOLE 40 MG VIAL IV SCH ×3 (09:12→21:04)
[2020-07-15] MEDS: busPIRone 15 MG TABLET PO SCH ×2 (09:13→21:08)
[2020-07-15] MEDS: ARIPiprazole 10 MG TABLET PO SCH (09:13)
[2020-07-15] MEDS: tiZANidine 4 MG TABLET PO SCH (09:14)
[2020-07-15] MEDS: GABAPENTIN 600 MG TABLET PO SCH ×2 (09:14→21:08)
[2020-07-15] MEDS: POTASSIUM CHLORIDE RIDER 10 MEQ in PREMIX 1 EACH IV PRN ×4 (09:29→13:05)
[2020-07-15] MEDS ORDERED: BISACODYL 10 MG SUPP RECTAL PRN (10:52)
[2020-07-15] MEDS: POLYETHYLENE GLYCOL POWDER 17 GM PACK PO SCH (21:06)
[2020-07-15] MEDS: ENOXAPARIN 40 MG/0.4 ML SYRINGE SUBCUT SCH (21:08)
[2020-07-15] MEDS: QUEtiapine 100 MG TABLET PO SCH (21:08)
[2020-07-15] MEDS: traZODone 50 MG TABLET PO SCH (21:09)
[2020-07-16] MEDS: PROMETHAZINE INJ 12.5 MG in SODIUM CHLORIDE 0.9% 50 ML IV PRN (03:24)
[2020-07-16 04:56] LABS: Basophils % 0.4 % (0.0-0.8); Eosinophils # 0.1 10*3/uL (0.0-0.87); Eosinophils % 1.7 % (0.00-10.9); Hematocrit 32.5 VOL% (35.7-47.0); Hemoglobin 10.1 GM/DL (12.0-16.0); Immature Granulocytes Absolute 0.05 #; Lymphocytes % 38.2 % (21.3-54.2); Mean Corpuscular HGB Conc 31.1 GM/DL (32-36); Mean Corpuscular Volume 90.5 FL (87-102); Mean Platelet Volume 9.2 FL (9.6-12.0); Neutrophils % 47.7 % (38.7-73.9); Platelet Count 302 T/CUMM (130-400); Red Blood Count 3.59 MC/CUMM (3.8-5.5); Red Cell Distribution Width 13.3 % (9.3-17.3); White Blood Count 5.2 T/CUMM (4-12)
[2020-07-16 05:30] LABS: Eosinophils 3 % (0-10); Lymphocytes 25 % (20-55); Platelet Estimate Normal; Segmented Neutrophils 65 % (50-85); Total Cells Counted 100
[2020-07-16 05:44] LABS: Calcium 8.1 MG/DL (8.5-10.1); Osmolality,Calculated 278.1 MOS/KG (273-304)
[2020-07-16] MEDS: PANTOPRAZOLE 40 MG VIAL IV SCH ×2 (10:09→21:27)
[2020-07-16] MEDS: POLYETHYLENE GLYCOL POWDER 17 GM PACK PO SCH ×3 (10:10→21:23)
[2020-07-16] MEDS: tiZANidine 4 MG TABLET PO SCH (10:10)
[2020-07-16] MEDS: ARIPiprazole 10 MG TABLET PO SCH (10:11)
[2020-07-16] MEDS: GABAPENTIN 600 MG TABLET PO SCH ×2 (10:11→21:21)
[2020-07-16] MEDS: busPIRone 15 MG TABLET PO SCH ×2 (10:20→21:21)
[2020-07-16] MEDS: INSULIN LISPRO 100 UNIT/ML SUBCUT SCH ×4 (10:25→21:22)
[2020-07-16] MEDS ORDERED: PHENOL 1.4% THROAT SPRAY 177 ML BOTTLE PO PRN (10:28)
[2020-07-16] MEDS: ONDANSETRON 4 MG/2 ML VIAL IV PRN (16:03)
[2020-07-16] MEDS: QUEtiapine 100 MG TABLET PO SCH (21:21)
[2020-07-16] MEDS: ENOXAPARIN 40 MG/0.4 ML SYRINGE SUBCUT SCH (21:22)
[2020-07-16] MEDS: traZODone 50 MG TABLET PO SCH (21:23)
[2020-07-17 05:16] LABS: Basophils % 0.4 % (0.0-0.8); Eosinophils # 0.2 10*3/uL (0.0-0.87); Hematocrit 30.2 VOL% (35.7-47.0); Hemoglobin 9.6 GM/DL (12.0-16.0); Immature Granulocytes % 0.9 %; Immature Granulocytes Absolute 0.05 #; Lymphocytes # 2.3 10*3/uL (1.4-4.0); Lymphocytes % 40.4 % (21.3-54.2); Mean Corpuscular HGB Conc 31.8 GM/DL (32-36); Mean Corpuscular Volume 89.1 FL (87-102); Mean Platelet Volume 9.1 FL (9.6-12.0); Monocytes % 10.7 % (1.7-12.7); Neutrophils % 44.6 % (38.7-73.9); Platelet Count 340 T/CUMM (130-400); Red Blood Count 3.39 MC/CUMM (3.8-5.5); Red Cell Distribution Width 13.2 % (9.3-17.3); White Blood Count 5.6 T/CUMM (4-12)
[2020-07-17 05:30] LABS: Calcium 8.3 MG/DL (8.5-10.1); Osmolality,Calculated 283.3 MOS/KG (273-304)
[2020-07-17 05:35] LABS: Hypochromasia 1+; Microcytosis Slight; Ovalocytes Slight; Platelet Estimate Adequate
[2020-07-17] MEDS: INSULIN LISPRO 100 UNIT/ML SUBCUT SCH ×4 (08:40→21:11)
[2020-07-17] MEDS: busPIRone 15 MG TABLET PO SCH ×2 (08:41→21:11)
[2020-07-17] MEDS: ARIPiprazole 10 MG TABLET PO SCH (08:41)
[2020-07-17] MEDS: tiZANidine 4 MG TABLET PO SCH (08:41)
[2020-07-17] MEDS: PANTOPRAZOLE 40 MG VIAL IV SCH (08:41)
[2020-07-17] MEDS: GABAPENTIN 600 MG TABLET PO SCH ×2 (08:41→21:13)
[2020-07-17] MEDS: POLYETHYLENE GLYCOL POWDER 17 GM PACK PO SCH ×3 (08:41→21:11)
[2020-07-17] MEDS: POTASSIUM CHLORIDE RIDER 10 MEQ in PREMIX 1 EACH IV PRN ×2 (08:42→10:56)
[2020-07-17] MEDS: PROMETHAZINE INJ 12.5 MG in SODIUM CHLORIDE 0.9% 50 ML IV PRN (09:45)
[2020-07-17] MEDS: PANTOPRAZOLE 40 MG TABLET PO SCH (21:12)
[2020-07-17] MEDS: QUEtiapine 100 MG TABLET PO SCH (21:12)
[2020-07-17] MEDS: ENOXAPARIN 40 MG/0.4 ML SYRINGE SUBCUT SCH (21:17)
[2020-07-17] MEDS: traZODone 50 MG TABLET PO SCH (21:17)
[2020-07-18] MEDS: PROMETHAZINE 25 MG TABLET PO PRN ×2 (00:35→08:38)
[2020-07-18] MEDS: POLYETHYLENE GLYCOL POWDER 17 GM PACK PO SCH ×3 (08:39→21:40)
[2020-07-18] MEDS: GABAPENTIN 600 MG TABLET PO SCH ×2 (08:39→21:40)
[2020-07-18] MEDS: busPIRone 15 MG TABLET PO SCH ×2 (08:39→21:39)
[2020-07-18] MEDS: PANTOPRAZOLE 40 MG TABLET PO SCH ×2 (08:39→21:39)
[2020-07-18] MEDS: ARIPiprazole 10 MG TABLET PO SCH (08:39)
[2020-07-18] MEDS: tiZANidine 4 MG TABLET PO SCH (08:39)
[2020-07-18] MEDS: INSULIN LISPRO 100 UNIT/ML SUBCUT SCH ×4 (08:39→22:26)
[2020-07-18] MEDS: PROMETHAZINE 25 MG/1 ML VIAL IM PRN ×2 (14:45→21:39)
[2020-07-18] MEDS: QUEtiapine 100 MG TABLET PO SCH (21:38)
[2020-07-18] MEDS: ENOXAPARIN 40 MG/0.4 ML SYRINGE SUBCUT SCH (21:40)
[2020-07-18] MEDS: traZODone 50 MG TABLET PO SCH (21:46)
[2020-07-19] MEDS: PROMETHAZINE 25 MG/1 ML VIAL IM PRN ×3 (04:16→18:21)
[2020-07-19 05:33] LABS: Basophils % 0.5 % (0.0-0.8); Eosinophils # 0.2 10*3/uL (0.0-0.87); Eosinophils % 3.7 % (0.00-10.9); Hematocrit 31.5 VOL% (35.7-47.0); Hemoglobin 10.4 GM/DL (12.0-16.0); Immature Granulocytes % 0.9 %; Immature Granulocytes Absolute 0.06 #; Lymphocytes # 2.7 10*3/uL (1.4-4.0); Lymphocytes % 41.2 % (21.3-54.2); Mean Corpuscular Volume 87.5 FL (87-102); Mean Platelet Volume 9.3 FL (9.6-12.0); Monocytes % 8.4 % (1.7-12.7); Neutrophils % 45.3 % (38.7-73.9); Platelet Count 354 T/CUMM (130-400); Red Cell Distribution Width 12.9 % (9.3-17.3); White Blood Count 6.4 T/CUMM (4-12)
[2020-07-19 05:47] LABS: Calcium 8.6 MG/DL (8.5-10.1); Osmolality,Calculated 278.8 MOS/KG (273-304)
[2020-07-19] MEDS ORDERED: ONDANSETRON 4 MG/2 ML VIAL ONE (08:43)
[2020-07-19] MEDS: LACTATED RINGERS 1,000 ML IV SCH (08:43)
[2020-07-19] MEDS: ONDANSETRON 4 MG/2 ML VIAL IV PRN (08:47)
[2020-07-19] MEDS ORDERED: propofoL 200 MG/20 ML VIAL IV ONE (09:00)
[2020-07-19] MEDS ORDERED: SUCCINYLCHOLINE 200 MG/10 ML VIAL ONE ×2 (09:00→11:36)
[2020-07-19] MEDS ORDERED: LIDOCAINE 2% 5 ML VIAL ONE (09:00)
[2020-07-19] MEDS ORDERED: MIDAZOLAM 2 MG/2 ML VIAL ONE (09:26)
[2020-07-19] MEDS: ARIPiprazole 10 MG TABLET PO SCH (11:38)
[2020-07-19] MEDS: busPIRone 15 MG TABLET PO SCH ×2 (11:38→21:57)
[2020-07-19] MEDS: POLYETHYLENE GLYCOL POWDER 17 GM PACK PO SCH ×3 (11:38→21:57)
[2020-07-19] MEDS: PANTOPRAZOLE 40 MG TABLET PO SCH ×2 (11:39→22:01)
[2020-07-19] MEDS: tiZANidine 4 MG TABLET PO SCH (11:39)
[2020-07-19] MEDS: INSULIN LISPRO 100 UNIT/ML SUBCUT SCH ×4 (11:39→20:13)
[2020-07-19] MEDS: GABAPENTIN 600 MG TABLET PO SCH ×2 (11:39→21:57)
[2020-07-19] MEDS: ENOXAPARIN 40 MG/0.4 ML SYRINGE SUBCUT SCH (21:57)
[2020-07-19] MEDS: QUEtiapine 100 MG TABLET PO SCH (21:57)
[2020-07-19] MEDS: traZODone 50 MG TABLET PO SCH (21:58)
[2020-07-20] MEDS: PROMETHAZINE 25 MG/1 ML VIAL IM PRN (04:05)
[2020-07-20] MEDS ORDERED: PROMETHAZINE 25 MG/1 ML VIAL IV PRN (05:03)
[2020-07-20 06:31] LABS: Basophils % 0.4 % (0.0-0.8); Eosinophils % 0.1 % (0.00-10.9); Hemoglobin 10.6 GM/DL (12.0-16.0); Immature Granulocytes % 0.8 %; Immature Granulocytes Absolute 0.09 #; Lymphocytes # 2.3 10*3/uL (1.4-4.0); Lymphocytes % 20.2 % (21.3-54.2); Mean Corpuscular HGB Conc 32.1 GM/DL (32-36); Mean Corpuscular Volume 87.5 FL (87-102); Mean Platelet Volume 9.9 FL (9.6-12.0); Monocytes % 5.1 % (1.7-12.7); Neutrophils % 73.4 % (38.7-73.9); Platelet Count 418 T/CUMM (130-400); Red Blood Count 3.77 MC/CUMM (3.8-5.5); Red Cell Distribution Width 13.1 % (9.3-17.3); White Blood Count 11.4 T/CUMM (4-12)
[2020-07-20 06:51] LABS: Calcium 8.7 MG/DL (8.5-10.1); Osmolality,Calculated 281.2 MOS/KG (273-304)
[2020-07-20] MEDS: POLYETHYLENE GLYCOL POWDER 17 GM PACK PO SCH ×3 (09:26→22:09)
[2020-07-20] MEDS: tiZANidine 4 MG TABLET PO SCH (09:27)
[2020-07-20] MEDS: GABAPENTIN 600 MG TABLET PO SCH ×2 (09:27→22:10)
[2020-07-20] MEDS: PANTOPRAZOLE 40 MG TABLET PO SCH ×2 (09:27→22:09)
[2020-07-20] MEDS: ARIPiprazole 10 MG TABLET PO SCH (09:27)
[2020-07-20] MEDS: INSULIN LISPRO 100 UNIT/ML SUBCUT SCH ×4 (09:28→22:09)
[2020-07-20] MEDS: busPIRone 15 MG TABLET PO SCH ×2 (09:28→22:09)
[2020-07-20] MEDS: PROMETHAZINE INJ 12.5 MG in SODIUM CHLORIDE 0.9% 50 ML IV PRN ×2 (09:46→17:09)
[2020-07-20 12:00] LABS: Bilirubin,Urine Negative (Negative); Blood, Urine Negative (Negative); Glucose,Urine (UA) >=500 mg/dL (Negative); Hyaline Casts,Urine 4 /LPF (0-3); Ketones,Urine 20 mg/dL (Negative); Nitrite,Urine Negative (Negative); Protein,Urine Negative; RBC,Urine 3 /HPF (0-4); Squamous Epithelial Cell,Urine Occasional /HPF (0-10); Urine Appearance CLEAR (Clear); Urine Color Yellow (Yellow); Urine Specific Gravity 1.027 (1.001-1.035); Urine Urobilinogen < 2.0 EU/DL (0.2-1.0); WBC,Urine 8 /HPF (0-6)
[2020-07-20] MEDS: LACTATED RINGERS 1,000 ML IV SCH (15:48)
[2020-07-20] MEDS: ENOXAPARIN 40 MG/0.4 ML SYRINGE SUBCUT SCH (22:08)
[2020-07-20] MEDS: QUEtiapine 100 MG TABLET PO SCH (22:09)
[2020-07-20] MEDS: PROMETHAZINE 25 MG TABLET PO PRN (22:23)
[2020-07-20] MEDS: traZODone 50 MG TABLET PO SCH (23:03)
[2020-07-21] MEDS: PROMETHAZINE 25 MG TABLET PO PRN ×4 (04:28→22:42)
[2020-07-21] MEDS: tiZANidine 4 MG TABLET PO SCH (09:54)
[2020-07-21] MEDS: ARIPiprazole 10 MG TABLET PO SCH (09:54)
[2020-07-21] MEDS: PANTOPRAZOLE 40 MG TABLET PO SCH ×2 (09:54→21:13)
[2020-07-21] MEDS: GABAPENTIN 600 MG TABLET PO SCH ×2 (09:54→21:13)
[2020-07-21] MEDS: busPIRone 15 MG TABLET PO SCH ×2 (09:54→21:13)
[2020-07-21] MEDS: INSULIN LISPRO 100 UNIT/ML SUBCUT SCH ×4 (09:57→21:14)
[2020-07-21] MEDS: POLYETHYLENE GLYCOL POWDER 17 GM PACK PO SCH ×3 (10:01→21:12)
[2020-07-21] MEDS: LACTATED RINGERS 1,000 ML IV SCH (19:08)
[2020-07-21] MEDS: ENOXAPARIN 40 MG/0.4 ML SYRINGE SUBCUT SCH (21:13)
[2020-07-21] MEDS: QUEtiapine 100 MG TABLET PO SCH (21:13)
[2020-07-21] MEDS: traZODone 50 MG TABLET PO SCH (21:13)
[2020-07-22 06:49] LABS: Basophils % 0.6 % (0.0-0.8); Eosinophils # 0.2 10*3/uL (0.0-0.87); Eosinophils % 2.3 % (0.00-10.9); Hematocrit 33.6 VOL% (35.7-47.0); Immature Granulocytes % 0.6 %; Immature Granulocytes Absolute 0.04 #; Lymphocytes # 2.7 10*3/uL (1.4-4.0); Lymphocytes % 41.7 % (21.3-54.2); Mean Corpuscular HGB Conc 32.7 GM/DL (32-36); Mean Platelet Volume 9.8 FL (9.6-12.0); Monocytes % 8.3 % (1.7-12.7); Neutrophils % 46.5 % (38.7-73.9); Platelet Count 356 T/CUMM (130-400); Red Blood Count 3.82 MC/CUMM (3.8-5.5); Red Cell Distribution Width 13.5 % (9.3-17.3); White Blood Count 6.4 T/CUMM (4-12)
[2020-07-22 07:04] LABS: Calcium 8.5 MG/DL (8.5-10.1)
[2020-07-22 08:17] VITALS: BP 119/64
[2020-07-22] MEDS: INSULIN LISPRO 100 UNIT/ML SUBCUT SCH (09:24)
[2020-07-22] MEDS: tiZANidine 4 MG TABLET PO SCH (09:24)
[2020-07-22] MEDS: GABAPENTIN 600 MG TABLET PO SCH (09:24)
[2020-07-22] MEDS: ARIPiprazole 10 MG TABLET PO SCH (09:24)
[2020-07-22] MEDS: busPIRone 15 MG TABLET PO SCH (09:24)
[2020-07-22] MEDS: PANTOPRAZOLE 40 MG TABLET PO SCH (09:24)
[2020-07-22] MEDS: PROMETHAZINE 25 MG TABLET PO PRN (09:25)
[2020-07-22] MEDS: POLYETHYLENE GLYCOL POWDER 17 GM PACK PO SCH (09:30)
[2020-07-22] MEDS: LACTATED RINGERS 1,000 ML IV SCH (10:25)
== END 2020-07-22 11:21 | disposition home or self-care (01) | DRG 74 ==
LOC: N.ED 15:09 → N.EDINP 19:03 → N.TELEN 20:45
PROVIDERS: ADMIT Internal Medicine; ATTEND Internal Medicine

== ENCOUNTER 2020-08-29 14:50 | Inpatient (IN) ==
[2020-08-29] MEDS ORDERED: PANTOPRAZOLE 40 MG VIAL IV STA (15:43)
[2020-08-29] MEDS ORDERED: SODIUM CHLORIDE 0.9% 1,000 ML IV STA (15:43)
[2020-08-29] MEDS ORDERED: HYDROmorphone 2 MG/1 ML VIAL IV STA (15:43)
[2020-08-29 15:44] LABS: Bilirubin,Urine Negative (Negative); Blood, Urine Negative (Negative); Glucose,Urine (UA) >=500 mg/dL (Negative); Hyaline Casts,Urine 4 /LPF (0-3); Ketones,Urine 20 mg/dL (Negative); Mucus,Urine Occasional /LPF (Occasional); Nitrite,Urine Negative (Negative); Protein,Urine 30 MG/DL; RBC,Urine 2 /HPF (0-4); Squamous Epithelial Cell,Urine Few /HPF (0-10); Urine Appearance Slightly Hazy (Clear); Urine Color Yellow (Yellow); Urine Specific Gravity 1.023 (1.001-1.035); Urine Urobilinogen < 2.0 EU/DL (0.2-1.0); WBC,Urine 7 /HPF (0-6)
[2020-08-29] MEDS ORDERED: PROMETHAZINE 25 MG/1 ML VIAL ONE (15:57)
[2020-08-29 16:12] LABS: Basophils % 0.1 % (0.0-0.8); Hematocrit 35.8 VOL% (35.7-47.0); Hemoglobin 12.1 GM/DL (12.0-16.0); Immature Granulocytes % 0.7 %; Immature Granulocytes Absolute 0.15 #; Lymphocytes % 9.8 % (21.3-54.2); Mean Corpuscular HGB Conc 33.8 GM/DL (32-36); Mean Corpuscular Volume 85.6 FL (87-102); Mean Platelet Volume 9.9 FL (9.6-12.0); Monocytes % 4.5 % (1.7-12.7); Neutrophils % 84.9 % (38.7-73.9); Platelet Count 512 T/CUMM (130-400); Red Blood Count 4.18 MC/CUMM (3.8-5.5); Red Cell Distribution Width 13.8 % (9.3-17.3); White Blood Count 20.9 T/CUMM (4-12)
[2020-08-29 16:34] LABS: Albumin 4.2 G/DL (3.4-5.0); Bilirubin,Total 0.6 MG/DL (0.2-1.0); Calcium 9.2 MG/DL (8.5-10.1); Osmolality,Calculated 279.9 MOS/KG (273-304); Total Protein 8.7 G/DL (6.4-8.3)
[2020-08-29 16:45] LABS: Lymphocytes 10 % (20-55); Segmented Neutrophils 88 % (50-85); Total Cells Counted 100
[2020-08-29 16:46] LABS: Anisocytosis Slight; Atypical Lymphocytes Few; Microcytosis Slight; Platelet Estimate Increased
[2020-08-29] MEDS ORDERED: INSULIN REGULAR 100 UNIT/ML IV STA (17:49)
[2020-08-29] MEDS ORDERED: PROMETHAZINE INJ 25 MG in SODIUM CHLORIDE 0.9% 50 ML IV STA (18:11)
[2020-08-29] MEDS ORDERED: GLUCAGON 1 MG VIAL IM PRN (19:12)
[2020-08-29] MEDS ORDERED: DEXTROSE 50% 25 GM/50 ML VIAL IV PRN (19:12)
[2020-08-29] MEDS ORDERED: hydrALAZINE 20 MG/1 ML VIAL IV PRN (19:18)
[2020-08-29] MEDS ORDERED: ONDANSETRON 4 MG/2 ML VIAL IV PRN (19:18)
[2020-08-29] MEDS: SODIUM CHLORIDE 0.9% 1,000 ML IV SCH (21:37)
[2020-08-29] MEDS: ENOXAPARIN 40 MG/0.4 ML SYRINGE SUBCUT SCH (21:37)
[2020-08-29] MEDS: INSULIN REGULAR 100 UNIT/ML SUBCUT SCH (21:37)
[2020-08-29] MEDS: HYDROmorphone 2 MG/1 ML VIAL IV PRN (21:40)
[2020-08-29] MEDS: PROMETHAZINE 25 MG/1 ML VIAL IM PRN (23:54)
[2020-08-30] MEDS: HYDROmorphone 2 MG/1 ML VIAL IV PRN ×5 (02:19→21:38)
[2020-08-30 05:24] LABS: Basophils # 0.1 10*3/uL (0.0-0.2); Basophils % 0.3 % (0.0-0.8); Eosinophils % 0.2 % (0.00-10.9); Hematocrit 31.8 VOL% (35.7-47.0); Hemoglobin 10.6 GM/DL (12.0-16.0); Immature Granulocytes % 0.4 %; Immature Granulocytes Absolute 0.07 #; Lymphocytes # 3.8 10*3/uL (1.4-4.0); Lymphocytes % 22.4 % (21.3-54.2); Mean Corpuscular HGB Conc 33.3 GM/DL (32-36); Mean Corpuscular Volume 86.9 FL (87-102); Mean Platelet Volume 9.8 FL (9.6-12.0); Monocytes % 7.3 % (1.7-12.7); Neutrophils % 69.4 % (38.7-73.9); Platelet Count 441 T/CUMM (130-400); Red Blood Count 3.66 MC/CUMM (3.8-5.5); Red Cell Distribution Width 13.9 % (9.3-17.3); White Blood Count 16.8 T/CUMM (4-12)
[2020-08-30 05:39] LABS: Calcium 8.6 MG/DL (8.5-10.1)
[2020-08-30] MEDS: SODIUM CHLORIDE 0.9% 1,000 ML IV SCH ×2 (06:32→14:28)
[2020-08-30] MEDS: INSULIN REGULAR 100 UNIT/ML SUBCUT SCH ×4 (07:20→22:07)
[2020-08-30] MEDS: PROMETHAZINE 25 MG/1 ML VIAL IM PRN ×2 (09:50→21:37)
[2020-08-30] MEDS: METOPROLOL SUCCINATE XL 25 MG TABLET PO SCH (09:54)
[2020-08-30] MEDS: PANTOPRAZOLE 40 MG VIAL IV SCH (09:54)
[2020-08-30] MEDS: lisinopriL 10 MG TABLET PO SCH (09:54)
[2020-08-30] MEDS: ERYTHROMYCIN INJ 500 MG in SODIUM CHLORIDE 0.9% 100 ML IV SCH ×2 (16:11→21:38)
[2020-08-30] MEDS: diphenhydrAMINE CAP 25 MG CAPSULE PO PRN ×2 (17:21→23:25)
[2020-08-30] MEDS: ENOXAPARIN 40 MG/0.4 ML SYRINGE SUBCUT SCH (21:38)
[2020-08-31] MEDS: SODIUM CHLORIDE 0.9% 1,000 ML IV SCH ×3 (00:04→19:34)
[2020-08-31] MEDS: ERYTHROMYCIN INJ 500 MG in SODIUM CHLORIDE 0.9% 100 ML IV SCH ×3 (05:36→21:30)
[2020-08-31] MEDS: PROMETHAZINE 25 MG/1 ML VIAL IM PRN ×3 (05:38→20:38)
[2020-08-31] MEDS: HYDROmorphone 2 MG/1 ML VIAL IV PRN ×4 (05:38→21:51)
[2020-08-31] MEDS: diphenhydrAMINE CAP 25 MG CAPSULE PO PRN ×2 (07:28→13:06)
[2020-08-31] MEDS: INSULIN REGULAR 100 UNIT/ML SUBCUT SCH ×4 (07:28→20:28)
[2020-08-31 09:06] LABS: Basophils % 0.4 % (0.0-0.8); Eosinophils # 0.1 10*3/uL (0.0-0.87); Eosinophils % 1.5 % (0.00-10.9); Hematocrit 31.2 VOL% (35.7-47.0); Hematocrit 31.3 VOL% (35.7-47.0); Hemoglobin 10.2 GM/DL (12.0-16.0); Hemoglobin 10.3 GM/DL (12.0-16.0); Immature Granulocytes % 0.3 %; Immature Granulocytes % 0.4 %; Immature Granulocytes Absolute 0.03 #; Immature Granulocytes Absolute 0.04 #; Lymphocytes # 2.5 10*3/uL (1.4-4.0); Lymphocytes # 2.6 10*3/uL (1.4-4.0); Lymphocytes % 27.4 % (21.3-54.2); Mean Corpuscular HGB Conc 32.7 GM/DL (32-36); Mean Corpuscular HGB Conc 32.9 GM/DL (32-36); Mean Corpuscular Volume 88.7 FL (87-102); Mean Corpuscular Volume 88.9 FL (87-102); Mean Platelet Volume 9.9 FL (9.6-12.0); Monocytes % 6.2 % (1.7-12.7); Monocytes % 6.7 % (1.7-12.7); Neutrophils % 63.6 % (38.7-73.9); Platelet Count 352 T/CUMM (130-400); Platelet Count 355 T/CUMM (130-400); Red Blood Count 3.51 MC/CUMM (3.8-5.5); Red Blood Count 3.53 MC/CUMM (3.8-5.5); Red Cell Distribution Width 14.1 % (9.3-17.3); White Blood Count 9.1 T/CUMM (4-12); White Blood Count 9.3 T/CUMM (4-12)
[2020-08-31 09:41] LABS: Osmolality,Calculated 281.8 MOS/KG (273-304)
[2020-08-31] MEDS: METOPROLOL SUCCINATE XL 25 MG TABLET PO SCH (09:47)
[2020-08-31] MEDS: lisinopriL 10 MG TABLET PO SCH (09:47)
[2020-08-31] MEDS: PANTOPRAZOLE 40 MG VIAL IV SCH (09:48)
[2020-08-31] MEDS: POLYETHYLENE GLYCOL POWDER 17 GM PACK PO SCH ×2 (16:35→20:30)
[2020-08-31] MEDS: INSULIN GLARGINE 100 UNIT/ML SUBCUT SCH (17:24)
[2020-08-31] MEDS: busPIRone 15 MG TABLET PO SCH (20:29)
[2020-08-31] MEDS: ENOXAPARIN 40 MG/0.4 ML SYRINGE SUBCUT SCH (20:29)
[2020-08-31] MEDS: GABAPENTIN 600 MG TABLET PO SCH (20:29)
[2020-09-01] MEDS: PROMETHAZINE 25 MG/1 ML VIAL IM PRN (05:48)
[2020-09-01] MEDS: ERYTHROMYCIN INJ 500 MG in SODIUM CHLORIDE 0.9% 100 ML IV SCH (05:49)
[2020-09-01 06:30] LABS: Calcium 7.9 MG/DL (8.5-10.1); Osmolality,Calculated 280.3 MOS/KG (273-304)
[2020-09-01 06:34] LABS: Basophils % 0.4 % (0.0-0.8); Eosinophils # 0.3 10*3/uL (0.0-0.87); Eosinophils % 3.8 % (0.00-10.9); Hematocrit 29.7 VOL% (35.7-47.0); Hemoglobin 9.8 GM/DL (12.0-16.0); Immature Granulocytes % 0.4 %; Immature Granulocytes Absolute 0.03 #; Lymphocytes # 3.1 10*3/uL (1.4-4.0); Lymphocytes % 39.9 % (21.3-54.2); Mean Corpuscular Volume 89.7 FL (87-102); Mean Platelet Volume 9.8 FL (9.6-12.0); Monocytes % 7.5 % (1.7-12.7); Platelet Count 279 T/CUMM (130-400); Red Blood Count 3.31 MC/CUMM (3.8-5.5); Red Cell Distribution Width 14.2 % (9.3-17.3); White Blood Count 7.9 T/CUMM (4-12)
[2020-09-01] MEDS: INSULIN REGULAR 100 UNIT/ML SUBCUT SCH ×4 (08:05→22:15)
[2020-09-01] MEDS: INSULIN GLARGINE 100 UNIT/ML SUBCUT SCH ×2 (08:17→18:07)
[2020-09-01] MEDS: lisinopriL 10 MG TABLET PO SCH (09:25)
[2020-09-01] MEDS: GABAPENTIN 600 MG TABLET PO SCH ×2 (09:25→20:22)
[2020-09-01] MEDS: METOPROLOL SUCCINATE XL 25 MG TABLET PO SCH (09:25)
[2020-09-01] MEDS: busPIRone 15 MG TABLET PO SCH ×2 (09:25→20:22)
[2020-09-01] MEDS: ARIPiprazole 10 MG TABLET PO SCH (09:25)
[2020-09-01] MEDS: POLYETHYLENE GLYCOL POWDER 17 GM PACK PO SCH ×3 (09:26→20:21)
[2020-09-01] MEDS: tiZANidine 4 MG TABLET PO SCH (09:26)
[2020-09-01] MEDS: PANTOPRAZOLE 40 MG VIAL IV SCH (09:27)
[2020-09-01] MEDS: HYDROmorphone 2 MG/1 ML VIAL IV PRN ×3 (09:31→20:24)
[2020-09-01] MEDS: SODIUM CHLORIDE 0.9% 1,000 ML IV SCH ×3 (12:59→21:26)
[2020-09-01] MEDS ORDERED: DEXTROSE 50% 25 GM/50 ML VIAL IV PRN (14:48)
[2020-09-01] MEDS: PROMETHAZINE 25 MG TABLET PO PRN (20:22)
[2020-09-01] MEDS: ENOXAPARIN 40 MG/0.4 ML SYRINGE SUBCUT SCH (20:22)
[2020-09-01] MEDS: traZODone 50 MG TABLET PO SCH (22:12)
[2020-09-02] MEDS: QUEtiapine 100 MG TABLET PO SCH ×2 (01:48→21:05)
[2020-09-02] MEDS: HYDROmorphone 2 MG/1 ML VIAL IV PRN ×2 (03:41→08:45)
[2020-09-02] MEDS: PROMETHAZINE 25 MG TABLET PO PRN (03:41)
[2020-09-02] MEDS: SODIUM CHLORIDE 0.9% 1,000 ML IV SCH ×2 (03:42→15:35)
[2020-09-02] MEDS: INSULIN GLARGINE 100 UNIT/ML SUBCUT SCH ×2 (07:23→16:39)
[2020-09-02] MEDS: INSULIN REGULAR 100 UNIT/ML SUBCUT SCH ×4 (07:24→21:18)
[2020-09-02] MEDS: tiZANidine 4 MG TABLET PO SCH (08:43)
[2020-09-02] MEDS: GABAPENTIN 600 MG TABLET PO SCH ×2 (08:43→21:12)
[2020-09-02] MEDS: POLYETHYLENE GLYCOL POWDER 17 GM PACK PO SCH ×3 (08:43→21:19)
[2020-09-02] MEDS: ARIPiprazole 10 MG TABLET PO SCH (08:44)
[2020-09-02] MEDS: METOPROLOL SUCCINATE XL 25 MG TABLET PO SCH (08:44)
[2020-09-02] MEDS: lisinopriL 10 MG TABLET PO SCH (08:44)
[2020-09-02] MEDS: busPIRone 15 MG TABLET PO SCH ×2 (08:44→21:04)
[2020-09-02] MEDS: PANTOPRAZOLE 40 MG VIAL IV SCH (08:45)
[2020-09-02 08:46] LABS: Basophils % 0.4 % (0.0-0.8); Eosinophils # 0.3 10*3/uL (0.0-0.87); Eosinophils % 3.8 % (0.00-10.9); Hematocrit 28.1 VOL% (35.7-47.0); Hemoglobin 9.2 GM/DL (12.0-16.0); Immature Granulocytes % 0.3 %; Immature Granulocytes Absolute 0.02 #; Lymphocytes # 2.7 10*3/uL (1.4-4.0); Lymphocytes % 37.3 % (21.3-54.2); Mean Corpuscular HGB Conc 32.7 GM/DL (32-36); Mean Corpuscular Volume 89.8 FL (87-102); Monocytes % 6.4 % (1.7-12.7); Neutrophils % 51.8 % (38.7-73.9); Platelet Count 289 T/CUMM (130-400); Red Blood Count 3.13 MC/CUMM (3.8-5.5); Red Cell Distribution Width 14.2 % (9.3-17.3); White Blood Count 7.3 T/CUMM (4-12)
[2020-09-02] MEDS: PROMETHAZINE 25 MG/1 ML VIAL IM PRN (15:31)
[2020-09-02] MEDS: ENOXAPARIN 40 MG/0.4 ML SYRINGE SUBCUT SCH (21:04)
[2020-09-02] MEDS: traZODone 50 MG TABLET PO SCH (21:04)
[2020-09-03] MEDS: SODIUM CHLORIDE 0.9% 1,000 ML IV SCH ×3 (02:45→13:00)
[2020-09-03] MEDS: lisinopriL 10 MG TABLET PO SCH (08:57)
[2020-09-03] MEDS: METOPROLOL SUCCINATE XL 25 MG TABLET PO SCH (08:57)
[2020-09-03] MEDS: ARIPiprazole 10 MG TABLET PO SCH (08:57)
[2020-09-03] MEDS: GABAPENTIN 600 MG TABLET PO SCH ×2 (08:57→21:23)
[2020-09-03] MEDS: tiZANidine 4 MG TABLET PO SCH (08:57)
[2020-09-03] MEDS: busPIRone 15 MG TABLET PO SCH ×2 (08:57→21:22)
[2020-09-03] MEDS: PANTOPRAZOLE 40 MG VIAL IV SCH (08:58)
[2020-09-03] MEDS: PROMETHAZINE 25 MG/1 ML VIAL IM PRN ×3 (08:58→21:25)
[2020-09-03] MEDS: INSULIN REGULAR 100 UNIT/ML SUBCUT SCH ×4 (09:55→21:36)
[2020-09-03] MEDS: POLYETHYLENE GLYCOL POWDER 17 GM PACK PO SCH (09:56)
[2020-09-03] MEDS: INSULIN GLARGINE 100 UNIT/ML SUBCUT SCH ×2 (09:56→16:52)
[2020-09-03] MEDS: traZODone 50 MG TABLET PO SCH (21:22)
[2020-09-03] MEDS: QUEtiapine 100 MG TABLET PO SCH (21:23)
[2020-09-03] MEDS: ENOXAPARIN 40 MG/0.4 ML SYRINGE SUBCUT SCH (21:25)
[2020-09-04 06:13] LABS: Basophils % 0.4 % (0.0-0.8); Eosinophils # 0.3 10*3/uL (0.0-0.87); Eosinophils % 3.4 % (0.00-10.9); Hemoglobin 9.6 GM/DL (12.0-16.0); Immature Granulocytes % 0.3 %; Immature Granulocytes Absolute 0.02 #; Lymphocytes # 2.7 10*3/uL (1.4-4.0); Lymphocytes % 36.3 % (21.3-54.2); Mean Corpuscular HGB Conc 33.1 GM/DL (32-36); Mean Corpuscular Volume 87.6 FL (87-102); Mean Platelet Volume 9.7 FL (9.6-12.0); Monocytes % 6.8 % (1.7-12.7); Neutrophils % 52.8 % (38.7-73.9); Platelet Count 267 T/CUMM (130-400); Red Blood Count 3.31 MC/CUMM (3.8-5.5); Red Cell Distribution Width 13.8 % (9.3-17.3); White Blood Count 7.3 T/CUMM (4-12)
[2020-09-04] MEDS: PROMETHAZINE 25 MG/1 ML VIAL IM PRN (06:16)
[2020-09-04 06:32] LABS: Calcium 8.3 MG/DL (8.5-10.1)
[2020-09-04] MEDS: INSULIN REGULAR 100 UNIT/ML SUBCUT SCH ×2 (07:46→12:46)
[2020-09-04] MEDS: PANTOPRAZOLE 40 MG VIAL IV SCH (09:53)
[2020-09-04] MEDS: busPIRone 15 MG TABLET PO SCH (09:54)
[2020-09-04] MEDS: ARIPiprazole 10 MG TABLET PO SCH (09:54)
[2020-09-04] MEDS: GABAPENTIN 600 MG TABLET PO SCH (09:55)
[2020-09-04] MEDS: lisinopriL 10 MG TABLET PO SCH (09:55)
[2020-09-04] MEDS: METOPROLOL SUCCINATE XL 25 MG TABLET PO SCH (09:55)
[2020-09-04] MEDS: tiZANidine 4 MG TABLET PO SCH (09:56)
[2020-09-04] MEDS: INSULIN GLARGINE 100 UNIT/ML SUBCUT SCH (11:04)
[2020-09-04 11:59] VITALS: BP 146/57
== END 2020-09-04 13:36 | disposition home or self-care (01) | DRG 74 ==
LOC: N.3E 14:50 → N.ED 14:50 → N.3E 20:22 → SUATTDRO 09-01 15:47
PROVIDERS: ADMIT Family Medicine; ATTEND Internal Medicine

== ENCOUNTER 2021-01-11 16:51 | Inpatient (IN) ==
[2021-01-11] MEDS ORDERED: HYDROmorphone 2 MG/1 ML VIAL IV STA (18:24)
[2021-01-11] MEDS ORDERED: PROMETHAZINE INJ 12.5 MG in SODIUM CHLORIDE 0.9% 50 ML IV STA (18:24)
[2021-01-11] MEDS ORDERED: SODIUM CHLORIDE 0.9% 1,000 ML IV STA (18:26)
[2021-01-11 19:12] LABS: Bilirubin,Urine Negative (Negative); Blood, Urine Negative (Negative); Glucose,Urine (UA) 150 mg/dL (Negative); Ketones,Urine 20 mg/dL (Negative); Mucus,Urine Many /LPF (Occasional); Nitrite,Urine Negative (Negative); Protein,Urine >=500 MG/DL; RBC,Urine 10 /HPF (0-4); Squamous Epithelial Cell,Urine Few /HPF (0-10); Urine Appearance Slightly Hazy (Clear); Urine Color Yellow (Yellow); Urine Specific Gravity 1.027 (1.001-1.035); Urine Urobilinogen < 2.0 EU/DL (0.2-1.0); WBC,Urine 30 /HPF (0-6)
[2021-01-11 19:43] LABS: Basophils % 0.2 % (0.0-0.8); Hematocrit 34.2 VOL% (35.7-47.0); Hemoglobin 11.3 GM/DL (12.0-16.0); Immature Granulocytes % 0.6 %; Immature Granulocytes Absolute 0.11 #; Lymphocytes # 1.8 10*3/uL (1.4-4.0); Mean Corpuscular Volume 86.4 FL (87-102); Mean Platelet Volume 9.5 FL (9.6-12.0); Monocytes % 5.8 % (1.7-12.7); Neutrophils % 83.4 % (38.7-73.9); Platelet Count 365 T/CUMM (130-400); Red Blood Count 3.96 MC/CUMM (3.8-5.5); Red Cell Distribution Width 13.2 % (9.3-17.3); White Blood Count 17.9 T/CUMM (4-12)
[2021-01-11 19:54] LABS: PT Patient Result 10.9 SECS (9.8-11.9); Partial Thromboplastin Time 23.7 SECS (23.9-33.8)
[2021-01-11 20:06] LABS: Albumin 3.8 G/DL (3.4-5.0); Bilirubin,Total 0.5 MG/DL (0.2-1.0); Calcium 8.7 MG/DL (8.5-10.1); Osmolality,Calculated 272.7 MOS/KG (273-304); Potassium 3.5 MMOL/L (3.5-5.1); Total Protein 7.8 G/DL (5.0-7.5)
[2021-01-11] MEDS ORDERED: METOCLOPRAMIDE 10 MG/2 ML VIAL IV STA (22:53)
[2021-01-11] MEDS ORDERED: ONDANSETRON 4 MG/2 ML VIAL IV STA (22:54)
[2021-01-11] MEDS ORDERED: diphenhydrAMINE CAP 25 MG CAPSULE PO PRN (22:58)
[2021-01-11] MEDS ORDERED: ZALEPLON 5 MG CAPSULE PO PRN (22:58)
[2021-01-11] MEDS ORDERED: DEXTROSE 50% 25 GM/50 ML VIAL IV PRN (22:58)
[2021-01-11] MEDS ORDERED: hydrALAZINE 20 MG/1 ML VIAL IV PRN (22:58)
[2021-01-11] MEDS ORDERED: NICOTINE 21 MG/24 HR PATCH TRANSDERM PRN (22:58)
[2021-01-11] MEDS ORDERED: GLUCAGON 1 MG VIAL IM PRN (22:58)
[2021-01-11] MEDS ORDERED: guaiFENesin/DM ER 600-30 MG TABLET PO PRN (22:58)
[2021-01-11] MEDS ORDERED: METOCLOPRAMIDE 5 MG TABLET PO PRN (23:02)
[2021-01-12] MEDS: cefTRIAXone 1,000 MG in SYRINGE 1 EACH IV SCH (00:45)
[2021-01-12] MEDS: FAMOTIDINE 20 MG/2 ML VIAL IV SCH ×3 (00:53→20:49)
[2021-01-12] MEDS: PANTOPRAZOLE 40 MG VIAL IV SCH ×3 (00:54→20:51)
[2021-01-12] MEDS ORDERED: SODIUM CHLOR 0.9% KCL 40 MEQ 40 MEQ/1,000 ML BAG IV SCH (01:00)
[2021-01-12] MEDS: MORPHINE 4 MG/1 ML VIAL IV PRN ×4 (01:23→19:26)
[2021-01-12] MEDS: PROMETHAZINE 25 MG/1 ML VIAL IM PRN ×4 (01:25→20:54)
[2021-01-12 06:02] LABS: Albumin 3.4 G/DL (3.4-5.0); Bilirubin,Total 1.1 MG/DL (0.2-1.0); Calcium 8.2 MG/DL (8.5-10.1); Osmolality,Calculated 271.9 MOS/KG (273-304); Potassium 3.6 MMOL/L (3.5-5.1); Total Protein 6.7 G/DL (5.0-7.5)
[2021-01-12 06:24] LABS: Basophils % 0.3 % (0.0-0.8); Hemoglobin 10.8 GM/DL (12.0-16.0); Immature Granulocytes % 0.6 %; Immature Granulocytes Absolute 0.09 #; Lymphocytes # 1.8 10*3/uL (1.4-4.0); Lymphocytes % 11.9 % (21.3-54.2); Mean Corpuscular HGB Conc 32.7 GM/DL (32-36); Mean Corpuscular Volume 88.2 FL (87-102); Mean Platelet Volume 10.1 FL (9.6-12.0); Monocytes % 7.1 % (1.7-12.7); Neutrophils % 80.1 % (38.7-73.9); Platelet Count 337 T/CUMM (130-400); Red Blood Count 3.74 MC/CUMM (3.8-5.5); Red Cell Distribution Width 13.2 % (9.3-17.3); White Blood Count 15.1 T/CUMM (4-12)
[2021-01-12] MEDS ORDERED: METOPROLOL SUCCINATE XL 25 MG TABLET PO SCH (09:00)
[2021-01-12] MEDS ORDERED: VANCOMYCIN INJ 1,000 MG in SODIUM CHLORIDE 0.9% 250 ML IV ONE (10:00)
[2021-01-12] MEDS: SODIUM CHLORIDE 0.9% 1,000 ML IV SCH ×2 (10:04→23:10)
[2021-01-12] MEDS: POLYETHYLENE GLYCOL POWDER 17 GM PACK PO SCH ×3 (10:05→20:47)
[2021-01-12] MEDS: ENOXAPARIN 40 MG/0.4 ML SYRINGE SUBCUT SCH (10:05)
[2021-01-12] MEDS: busPIRone 15 MG TABLET PO SCH ×2 (10:06→20:49)
[2021-01-12] MEDS: INSULIN LISPRO 100 UNIT/ML SUBCUT SCH ×4 (10:06→20:57)
[2021-01-12] MEDS: GABAPENTIN 600 MG TABLET PO SCH ×2 (10:07→20:49)
[2021-01-12] MEDS: lisinopriL 10 MG TABLET PO SCH (10:07)
[2021-01-12] MEDS: tiZANidine 4 MG TABLET PO SCH (10:07)
[2021-01-12] MEDS ORDERED: INSULIN DETEMIR U 20 UNIT SUBCUT SCH (16:30)
[2021-01-12] MEDS: SODIUM CHLORIDE 0.9% IV SCH (17:29)
[2021-01-12] MEDS: ARIPiprazole 10 MG TABLET PO SCH (17:29)
[2021-01-12] MEDS: ERYTHROMYCIN IV SCH (17:29)
[2021-01-12] MEDS: ONDANSETRON 4 MG/2 ML VIAL IV PRN (19:36)
[2021-01-12] MEDS: QUEtiapine 100 MG TABLET PO SCH (20:48)
[2021-01-13] MEDS: SODIUM CHLORIDE 0.9% IV SCH ×2 (01:06→09:37)
[2021-01-13] MEDS: ERYTHROMYCIN IV SCH ×2 (01:06→09:37)
[2021-01-13] MEDS: ONDANSETRON 4 MG/2 ML VIAL IV PRN (01:13)
[2021-01-13] MEDS: MORPHINE 4 MG/1 ML VIAL IV PRN ×5 (01:15→20:18)
[2021-01-13 03:26] LABS: Basophils # 0.1 10*3/uL (0.0-0.2); Basophils % 0.5 % (0.0-0.8); Eosinophils # 0.1 10*3/uL (0.0-0.87); Eosinophils % 0.5 % (0.00-10.9); Hematocrit 30.7 VOL% (35.7-47.0); Hemoglobin 10.2 GM/DL (12.0-16.0); Immature Granulocytes % 0.6 %; Immature Granulocytes Absolute 0.06 #; Lymphocytes # 2.8 10*3/uL (1.4-4.0); Mean Corpuscular HGB Conc 33.2 GM/DL (32-36); Mean Corpuscular Volume 86.5 FL (87-102); Monocytes % 9.9 % (1.7-12.7); Neutrophils % 62.5 % (38.7-73.9); Platelet Count 267 T/CUMM (130-400); Red Blood Count 3.55 MC/CUMM (3.8-5.5); Red Cell Distribution Width 12.9 % (9.3-17.3); White Blood Count 10.7 T/CUMM (4-12)
[2021-01-13 03:52] LABS: Calcium 7.8 MG/DL (8.5-10.1); Osmolality,Calculated 274.2 MOS/KG (273-304); Potassium 3.2 MMOL/L (3.5-5.1)
[2021-01-13] MEDS: SODIUM CHLORIDE 0.9% 1,000 ML IV SCH ×3 (05:00→20:14)
[2021-01-13] MEDS: POTASSIUM CHLORIDE 20 MEQ TABLET PO PRN ×4 (05:39→20:17)
[2021-01-13] MEDS: PROMETHAZINE 25 MG/1 ML VIAL IM PRN ×3 (05:40→20:17)
[2021-01-13] MEDS: INSULIN LISPRO 100 UNIT/ML SUBCUT SCH ×4 (08:41→20:17)
[2021-01-13] MEDS: POLYETHYLENE GLYCOL POWDER 17 GM PACK PO SCH ×3 (08:41→20:17)
[2021-01-13] MEDS: FAMOTIDINE 20 MG/2 ML VIAL IV SCH ×2 (08:42→20:20)
[2021-01-13] MEDS: ENOXAPARIN 40 MG/0.4 ML SYRINGE SUBCUT SCH (08:42)
[2021-01-13] MEDS: PANTOPRAZOLE 40 MG VIAL IV SCH ×2 (08:42→20:22)
[2021-01-13] MEDS: cefTRIAXone 1,000 MG in SYRINGE 1 EACH IV SCH (08:43)
[2021-01-13] MEDS: lisinopriL 10 MG TABLET PO SCH (08:43)
[2021-01-13] MEDS: ARIPiprazole 10 MG TABLET PO SCH (08:43)
[2021-01-13] MEDS: GABAPENTIN 600 MG TABLET PO SCH ×2 (08:43→20:17)
[2021-01-13] MEDS: busPIRone 15 MG TABLET PO SCH ×2 (08:43→20:17)
[2021-01-13] MEDS: tiZANidine 4 MG TABLET PO SCH (08:44)
[2021-01-13] MEDS: QUEtiapine 100 MG TABLET PO SCH (20:16)
[2021-01-14] MEDS: ERYTHROMYCIN IV SCH ×5 (01:00→16:33)
[2021-01-14] MEDS: SODIUM CHLORIDE 0.9% IV SCH ×5 (01:00→16:33)
[2021-01-14] MEDS: MORPHINE 4 MG/1 ML VIAL IV PRN ×3 (02:25→19:38)
[2021-01-14] MEDS: PROMETHAZINE 25 MG/1 ML VIAL IM PRN ×4 (02:25→21:01)
[2021-01-14] MEDS: SODIUM CHLORIDE 0.9% 1,000 ML IV SCH ×3 (05:51→21:15)
[2021-01-14] MEDS: cefTRIAXone 1,000 MG in SYRINGE 1 EACH IV SCH (08:26)
[2021-01-14] MEDS: INSULIN LISPRO 100 UNIT/ML SUBCUT SCH ×4 (08:27→21:26)
[2021-01-14] MEDS: ENOXAPARIN 40 MG/0.4 ML SYRINGE SUBCUT SCH (08:27)
[2021-01-14] MEDS: PANTOPRAZOLE 40 MG VIAL IV SCH ×2 (08:28→21:01)
[2021-01-14] MEDS: FAMOTIDINE 20 MG/2 ML VIAL IV SCH ×2 (08:28→21:03)
[2021-01-14] MEDS: tiZANidine 4 MG TABLET PO SCH (08:30)
[2021-01-14] MEDS: GABAPENTIN 600 MG TABLET PO SCH ×2 (08:30→21:02)
[2021-01-14] MEDS: busPIRone 15 MG TABLET PO SCH ×2 (08:30→21:02)
[2021-01-14] MEDS: ARIPiprazole 10 MG TABLET PO SCH (08:30)
[2021-01-14] MEDS: lisinopriL 10 MG TABLET PO SCH (08:30)
[2021-01-14 08:41] LABS: Basophils % 0.4 % (0.0-0.8); Eosinophils # 0.1 10*3/uL (0.0-0.87); Eosinophils % 1.5 % (0.00-10.9); Hematocrit 33.2 VOL% (35.7-47.0); Hemoglobin 11.1 GM/DL (12.0-16.0); Immature Granulocytes % 0.5 %; Immature Granulocytes Absolute 0.05 #; Lymphocytes # 1.8 10*3/uL (1.4-4.0); Lymphocytes % 18.7 % (21.3-54.2); Mean Corpuscular HGB Conc 33.4 GM/DL (32-36); Mean Corpuscular Volume 86.2 FL (87-102); Mean Platelet Volume 9.5 FL (9.6-12.0); Monocytes % 7.1 % (1.7-12.7); Neutrophils % 71.8 % (38.7-73.9); Platelet Count 250 T/CUMM (130-400); Red Blood Count 3.85 MC/CUMM (3.8-5.5); Red Cell Distribution Width 12.9 % (9.3-17.3); White Blood Count 9.5 T/CUMM (4-12)
[2021-01-14 08:57] LABS: Calcium 7.9 MG/DL (8.5-10.1); Osmolality,Calculated 274.4 MOS/KG (273-304); Potassium 3.9 MMOL/L (3.5-5.1)
[2021-01-14] MEDS ORDERED: LEVOFLOXACIN INJ 750 MG in PREMIX 1 EACH IV SCH (11:00)
[2021-01-14] MEDS: POLYETHYLENE GLYCOL POWDER 17 GM PACK PO SCH ×3 (12:39→21:02)
[2021-01-14] MEDS: INSULIN GLARGINE 100 UNIT/ML SUBCUT SCH (16:34)
[2021-01-14] MEDS: QUEtiapine 100 MG TABLET PO SCH (21:02)
[2021-01-15] MEDS: MORPHINE 4 MG/1 ML VIAL IV PRN ×5 (01:00→22:07)
[2021-01-15] MEDS: SODIUM CHLORIDE 0.9% IV SCH ×3 (01:03→16:28)
[2021-01-15] MEDS: ERYTHROMYCIN IV SCH ×3 (01:03→16:28)
[2021-01-15 03:50] LABS: Basophils # 0.1 10*3/uL (0.0-0.2); Basophils % 0.4 % (0.0-0.8); Eosinophils # 0.2 10*3/uL (0.0-0.87); Eosinophils % 1.9 % (0.00-10.9); Hematocrit 32.9 VOL% (35.7-47.0); Hemoglobin 10.7 GM/DL (12.0-16.0); Immature Granulocytes % 0.5 %; Immature Granulocytes Absolute 0.06 #; Lymphocytes # 2.2 10*3/uL (1.4-4.0); Lymphocytes % 19.1 % (21.3-54.2); Mean Corpuscular HGB Conc 32.5 GM/DL (32-36); Mean Corpuscular Volume 87.7 FL (87-102); Monocytes % 8.1 % (1.7-12.7); Platelet Count 277 T/CUMM (130-400); Red Blood Count 3.75 MC/CUMM (3.8-5.5); Red Cell Distribution Width 12.7 % (9.3-17.3); White Blood Count 11.5 T/CUMM (4-12)
[2021-01-15 04:09] LABS: Calcium 8.1 MG/DL (8.5-10.1); Osmolality,Calculated 271.1 MOS/KG (273-304); Potassium 3.2 MMOL/L (3.5-5.1)
[2021-01-15] MEDS: PROMETHAZINE 25 MG/1 ML VIAL IM PRN ×3 (08:22→22:07)
[2021-01-15] MEDS: ENOXAPARIN 40 MG/0.4 ML SYRINGE SUBCUT SCH (08:22)
[2021-01-15] MEDS: PANTOPRAZOLE 40 MG VIAL IV SCH ×2 (08:22→22:06)
[2021-01-15] MEDS: INSULIN LISPRO 100 UNIT/ML SUBCUT SCH ×4 (08:22→22:05)
[2021-01-15] MEDS: POLYETHYLENE GLYCOL POWDER 17 GM PACK PO SCH ×3 (08:23→22:02)
[2021-01-15] MEDS: lisinopriL 10 MG TABLET PO SCH (08:24)
[2021-01-15] MEDS: ARIPiprazole 10 MG TABLET PO SCH (08:24)
[2021-01-15] MEDS: busPIRone 15 MG TABLET PO SCH ×2 (08:24→22:06)
[2021-01-15] MEDS: POTASSIUM CHLORIDE 20 MEQ TABLET PO PRN ×4 (08:24→16:31)
[2021-01-15] MEDS: FAMOTIDINE 20 MG/2 ML VIAL IV SCH ×2 (08:24→22:07)
[2021-01-15] MEDS: GABAPENTIN 600 MG TABLET PO SCH ×2 (08:25→22:06)
[2021-01-15] MEDS: tiZANidine 4 MG TABLET PO SCH (08:25)
[2021-01-15] MEDS: SODIUM CHLORIDE 0.9% 1,000 ML IV SCH ×3 (08:25→22:20)
[2021-01-15] MEDS: NON-FORMULARY MEDICATION (Insulin Aspart U-100 [Novolog Flexpen U-100 Insulin] 100 unit/mL SUBCUT SCH (14:42)
[2021-01-15] MEDS: cephALEXin 500 MG CAPSULE PO SCH ×2 (16:28→22:06)
[2021-01-15] MEDS: INSULIN GLARGINE 100 UNIT/ML SUBCUT SCH (16:29)
[2021-01-15] MEDS: QUEtiapine 100 MG TABLET PO SCH (22:06)
[2021-01-16] MEDS: ERYTHROMYCIN IV SCH ×3 (00:34→16:01)
[2021-01-16] MEDS: SODIUM CHLORIDE 0.9% IV SCH ×3 (00:34→16:01)
[2021-01-16] MEDS: PROMETHAZINE 25 MG/1 ML VIAL IM PRN ×3 (05:15→22:04)
[2021-01-16] MEDS: MORPHINE 4 MG/1 ML VIAL IV PRN ×4 (05:15→20:16)
[2021-01-16 05:49] LABS: Basophils % 0.3 % (0.0-0.8); Eosinophils # 0.3 10*3/uL (0.0-0.87); Eosinophils % 2.7 % (0.00-10.9); Hematocrit 35.2 VOL% (35.7-47.0); Hemoglobin 11.2 GM/DL (12.0-16.0); Immature Granulocytes % 0.7 %; Immature Granulocytes Absolute 0.08 #; Lymphocytes # 1.8 10*3/uL (1.4-4.0); Lymphocytes % 14.9 % (21.3-54.2); Mean Corpuscular HGB Conc 31.8 GM/DL (32-36); Mean Corpuscular Volume 89.3 FL (87-102); Mean Platelet Volume 10.3 FL (9.6-12.0); Monocytes % 5.7 % (1.7-12.7); Neutrophils % 75.7 % (38.7-73.9); Platelet Count 308 T/CUMM (130-400); Red Blood Count 3.94 MC/CUMM (3.8-5.5); Red Cell Distribution Width 13.1 % (9.3-17.3); White Blood Count 11.8 T/CUMM (4-12)
[2021-01-16 06:05] LABS: Calcium 8.6 MG/DL (8.5-10.1); Osmolality,Calculated 271.2 MOS/KG (273-304); Potassium 4.1 MMOL/L (3.5-5.1)
[2021-01-16] MEDS: lisinopriL 10 MG TABLET PO SCH (08:11)
[2021-01-16] MEDS: cephALEXin 500 MG CAPSULE PO SCH ×3 (08:11→20:16)
[2021-01-16] MEDS: busPIRone 15 MG TABLET PO SCH ×2 (08:11→20:16)
[2021-01-16] MEDS: GABAPENTIN 600 MG TABLET PO SCH ×2 (08:11→20:16)
[2021-01-16] MEDS: FAMOTIDINE 20 MG/2 ML VIAL IV SCH ×2 (08:11→20:16)
[2021-01-16] MEDS: ENOXAPARIN 40 MG/0.4 ML SYRINGE SUBCUT SCH (08:11)
[2021-01-16] MEDS: PANTOPRAZOLE 40 MG VIAL IV SCH ×2 (08:11→20:16)
[2021-01-16] MEDS: tiZANidine 4 MG TABLET PO SCH (08:11)
[2021-01-16] MEDS: POLYETHYLENE GLYCOL POWDER 17 GM PACK PO SCH ×3 (08:11→20:17)
[2021-01-16] MEDS: ARIPiprazole 10 MG TABLET PO SCH (08:11)
[2021-01-16] MEDS: SODIUM CHLORIDE 0.9% 1,000 ML IV SCH ×2 (08:12→12:10)
[2021-01-16] MEDS: INSULIN LISPRO 100 UNIT/ML SUBCUT SCH ×4 (08:13→20:15)
[2021-01-16] MEDS: ONDANSETRON 4 MG/2 ML VIAL IV PRN (10:09)
[2021-01-16] MEDS: INSULIN GLARGINE 100 UNIT/ML SUBCUT SCH (16:01)
[2021-01-16] MEDS: QUEtiapine 100 MG TABLET PO SCH (20:16)
[2021-01-17] MEDS: ERYTHROMYCIN IV SCH ×3 (00:36→16:54)
[2021-01-17] MEDS: SODIUM CHLORIDE 0.9% IV SCH ×3 (00:36→16:54)
[2021-01-17] MEDS: MORPHINE 4 MG/1 ML VIAL IV PRN ×5 (00:36→21:43)
[2021-01-17] MEDS: SODIUM CHLORIDE 0.9% 1,000 ML IV SCH ×3 (01:52→21:42)
[2021-01-17 05:38] LABS: Basophils % 0.4 % (0.0-0.8); Eosinophils # 0.6 10*3/uL (0.0-0.87); Eosinophils % 5.7 % (0.00-10.9); Hematocrit 31.6 VOL% (35.7-47.0); Immature Granulocytes % 0.5 %; Immature Granulocytes Absolute 0.05 #; Lymphocytes # 2.9 10*3/uL (1.4-4.0); Lymphocytes % 29.1 % (21.3-54.2); Mean Corpuscular HGB Conc 31.6 GM/DL (32-36); Mean Corpuscular Volume 89.5 FL (87-102); Mean Platelet Volume 10.1 FL (9.6-12.0); Monocytes % 8.5 % (1.7-12.7); Neutrophils % 55.8 % (38.7-73.9); Platelet Count 271 T/CUMM (130-400); Red Blood Count 3.53 MC/CUMM (3.8-5.5); Red Cell Distribution Width 13.2 % (9.3-17.3); White Blood Count 9.9 T/CUMM (4-12)
[2021-01-17 06:04] LABS: Calcium 8.2 MG/DL (8.5-10.1); Osmolality,Calculated 274.5 MOS/KG (273-304); Potassium 3.3 MMOL/L (3.5-5.1)
[2021-01-17] MEDS: INSULIN LISPRO 100 UNIT/ML SUBCUT SCH ×4 (08:14→21:33)
[2021-01-17] MEDS: PROMETHAZINE 25 MG/1 ML VIAL IM PRN ×3 (08:15→21:35)
[2021-01-17] MEDS: FAMOTIDINE 20 MG/2 ML VIAL IV SCH ×2 (08:21→21:41)
[2021-01-17] MEDS: PANTOPRAZOLE 40 MG VIAL IV SCH ×2 (08:21→21:38)
[2021-01-17] MEDS: ARIPiprazole 10 MG TABLET PO SCH (08:21)
[2021-01-17] MEDS: POLYETHYLENE GLYCOL POWDER 17 GM PACK PO SCH ×3 (08:21→21:35)
[2021-01-17] MEDS: ENOXAPARIN 40 MG/0.4 ML SYRINGE SUBCUT SCH (08:21)
[2021-01-17] MEDS: tiZANidine 4 MG TABLET PO SCH (08:22)
[2021-01-17] MEDS: GABAPENTIN 600 MG TABLET PO SCH ×2 (08:22→21:32)
[2021-01-17] MEDS: busPIRone 15 MG TABLET PO SCH ×2 (08:22→21:32)
[2021-01-17] MEDS: lisinopriL 10 MG TABLET PO SCH (08:22)
[2021-01-17] MEDS ORDERED: POTASSIUM CHLORIDE 20 MEQ TABLET PO ONE (09:00)
[2021-01-17] MEDS: INSULIN GLARGINE 100 UNIT/ML SUBCUT SCH (16:18)
[2021-01-17] MEDS: QUEtiapine 100 MG TABLET PO SCH (21:32)
[2021-01-18] MEDS: SODIUM CHLORIDE 0.9% IV SCH ×2 (00:55→10:02)
[2021-01-18] MEDS: ERYTHROMYCIN IV SCH ×2 (00:55→10:02)
[2021-01-18] MEDS: SODIUM CHLORIDE 0.9% 1,000 ML IV SCH ×2 (00:56→05:08)
[2021-01-18] MEDS: MORPHINE 4 MG/1 ML VIAL IV PRN ×2 (06:44→12:19)
[2021-01-18] MEDS: PROMETHAZINE 25 MG/1 ML VIAL IM PRN (06:44)
[2021-01-18] MEDS: lisinopriL 10 MG TABLET PO SCH (08:56)
[2021-01-18] MEDS: tiZANidine 4 MG TABLET PO SCH (08:56)
[2021-01-18] MEDS: busPIRone 15 MG TABLET PO SCH (08:56)
[2021-01-18] MEDS: ARIPiprazole 10 MG TABLET PO SCH (08:56)
[2021-01-18] MEDS: PANTOPRAZOLE 40 MG VIAL IV SCH (08:57)
[2021-01-18] MEDS: GABAPENTIN 600 MG TABLET PO SCH (08:57)
[2021-01-18] MEDS: ENOXAPARIN 40 MG/0.4 ML SYRINGE SUBCUT SCH (08:57)
[2021-01-18] MEDS: FAMOTIDINE 20 MG/2 ML VIAL IV SCH (08:57)
[2021-01-18] MEDS: POLYETHYLENE GLYCOL POWDER 17 GM PACK PO SCH (10:04)
[2021-01-18] MEDS: INSULIN LISPRO 100 UNIT/ML SUBCUT SCH ×2 (10:08→12:17)
[2021-01-18 12:57] VITALS: BP 136/58
[2021-01-18] MEDS ORDERED: ERYTHROMYCIN BASE 250 MG TABLET PO SCH (15:00)
[2021-01-18] MEDS ORDERED: DOCUSATE SODIUM 100 MG CAPSULE PO SCH (21:00)
== END 2021-01-18 14:47 | disposition home or self-care (01) | DRG 74 ==
LOC: N.EDINP 16:51 → N.ED 16:51 → SUATTDRO 22:58 → N.5E 23:55 → SUATTDRO 01-12 11:40
PROVIDERS: ADMIT Internal Medicine; ATTEND Internal Medicine

== ENCOUNTER 2021-01-24 07:17 | Inpatient (IN) ==
[2021-01-24] MEDS ORDERED: SODIUM CHLORIDE 0.9% 1,000 ML IV STA (07:55)
[2021-01-24] MEDS ORDERED: ONDANSETRON 4 MG/2 ML VIAL IV STA (07:55)
[2021-01-24 09:04] LABS: Basophils # 0.1 10*3/uL (0.0-0.2); Basophils % 0.5 % (0.0-0.8); Eosinophils # 0.1 10*3/uL (0.0-0.87); Eosinophils % 0.6 % (0.00-10.9); Hematocrit 39.8 VOL% (35.7-47.0); Hemoglobin 13.2 GM/DL (12.0-16.0); Immature Granulocytes % 0.4 %; Immature Granulocytes Absolute 0.05 #; Lymphocytes # 2.3 10*3/uL (1.4-4.0); Lymphocytes % 20.7 % (21.3-54.2); Mean Corpuscular HGB Conc 33.2 GM/DL (32-36); Mean Corpuscular Volume 86.1 FL (87-102); Mean Platelet Volume 9.9 FL (9.6-12.0); Monocytes % 8.3 % (1.7-12.7); Neutrophils % 69.5 % (38.7-73.9); Platelet Count 406 T/CUMM (130-400); Red Blood Count 4.62 MC/CUMM (3.8-5.5); Red Cell Distribution Width 13.2 % (9.3-17.3); White Blood Count 11.1 T/CUMM (4-12)
[2021-01-24 09:34] LABS: Albumin 3.5 G/DL (3.4-5.0); Bilirubin,Total 0.6 MG/DL (0.2-1.0); Calcium 9.1 MG/DL (8.5-10.1); Osmolality,Calculated 263.8 MOS/KG (273-304); Potassium 3.4 MMOL/L (3.5-5.1); Total Protein 7.1 G/DL (6.4-8.2)
[2021-01-24] MEDS ORDERED: propofoL 200 MG/20 ML VIAL IV ONE ×2 (10:10→10:25)
[2021-01-24] MEDS ORDERED: LIDOCAINE 2% 5 ML VIAL ONE (10:10)
[2021-01-24] MEDS: LACTATED RINGERS 1,000 ML IV SCH (10:12)
[2021-01-24] MEDS: ONDANSETRON 4 MG/2 ML VIAL IV PRN (12:12)
[2021-01-24] MEDS ORDERED: PROMETHAZINE 25 MG TABLET PO PRN ×2 (12:25→14:12)
[2021-01-24] MEDS ORDERED: lisinopriL 20 MG TABLET PO SCH (12:30)
[2021-01-24] MEDS ORDERED: ACETAMINOPHEN 325 MG TABLET PO PRN (12:33)
[2021-01-24] MEDS ORDERED: DEXTROSE 50% 25 GM/50 ML VIAL IV PRN (12:33)
[2021-01-24] MEDS ORDERED: DOCUSATE SODIUM 100 MG CAPSULE PO PRN (12:33)
[2021-01-24] MEDS ORDERED: GLUCAGON 1 MG VIAL IM PRN (12:33)
[2021-01-24] MEDS ORDERED: PANTOPRAZOLE 40 MG VIAL IV SCH (13:00)
[2021-01-24] MEDS ORDERED: MAGNESIUM SULF RIDER 2 GM in PREMIX 1 EACH IV ONE (14:00)
[2021-01-24] MEDS ORDERED: SODIUM CHLORIDE 0.45% 1,000 ML IV SCH (14:00)
[2021-01-24] MEDS: POTASSIUM CHLORIDE INJ 30 MEQ in SODIUM CHLORIDE 0.9% 1,000 ML IV SCH ×2 (14:39→23:39)
[2021-01-24 15:08] LABS: Bilirubin,Urine Negative (Negative); Blood, Urine Negative (Negative); Glucose,Urine (UA) 150 mg/dL (Negative); Hyaline Casts,Urine 7 /LPF (0-3); Ketones,Urine 5 mg/dL (Negative); Mucus,Urine Occasional /LPF (Occasional); Nitrite,Urine Negative (Negative); Protein,Urine Negative; RBC,Urine 4 /HPF (0-4); Squamous Epithelial Cell,Urine Occasional /HPF (0-10); Urine Appearance CLEAR (Clear); Urine Color Yellow (Yellow); Urine Specific Gravity 1.012 (1.001-1.035); Urine Urobilinogen < 2.0 EU/DL (0.2-1.0); WBC,Urine 21 /HPF (0-6)
[2021-01-24] MEDS: POLYETHYLENE GLYCOL POWDER 17 GM PACK PO SCH ×2 (15:57→21:09)
[2021-01-24] MEDS: INSULIN REGULAR 100 UNIT/ML SUBCUT SCH ×2 (15:57→21:08)
[2021-01-24] MEDS: ERYTHROMYCIN INJ 250 MG in SODIUM CHLORIDE 0.9% 100 ML IV SCH ×2 (16:50→23:39)
[2021-01-24] MEDS: SUCRALFATE 1 GM/10 ML UDCUP PO SCH ×2 (16:50→21:08)
[2021-01-24] MEDS: PROMETHAZINE INJ 25 MG in SODIUM CHLORIDE 0.9% 50 ML IV PRN (18:18)
[2021-01-24] MEDS ORDERED: QUEtiapine 100 MG TABLET PO SCH (21:00)
[2021-01-24] MEDS ORDERED: INSULIN GLARGINE 100 UNIT/ML SUBCUT SCH (21:00)
[2021-01-24] MEDS: busPIRone 15 MG TABLET PO SCH (21:08)
[2021-01-24] MEDS: traZODone 50 MG TABLET PO SCH (21:08)
[2021-01-24] MEDS: PANTOPRAZOLE 40 MG TABLET PO SCH (21:08)
[2021-01-24] MEDS: ATORVASTATIN 40 MG TABLET PO SCH (21:08)
[2021-01-24] MEDS: QUEtiapine 100 MG TABLET PO SCH (21:09)
[2021-01-25] MEDS: ONDANSETRON 4 MG/2 ML VIAL IV PRN (00:25)
[2021-01-25] MEDS: POTASSIUM CHLORIDE INJ 30 MEQ in SODIUM CHLORIDE 0.9% 1,000 ML IV SCH ×2 (03:39→15:40)
[2021-01-25 05:01] LABS: Basophils % 0.4 % (0.0-0.8); Eosinophils # 0.1 10*3/uL (0.0-0.87); Eosinophils % 1.5 % (0.00-10.9); Hematocrit 33.1 VOL% (35.7-47.0); Hemoglobin 11.1 GM/DL (12.0-16.0); Immature Granulocytes % 0.3 %; Immature Granulocytes Absolute 0.02 #; Lymphocytes # 2.3 10*3/uL (1.4-4.0); Mean Corpuscular HGB Conc 33.5 GM/DL (32-36); Mean Corpuscular Volume 86.2 FL (87-102); Mean Platelet Volume 10.2 FL (9.6-12.0); Monocytes % 6.9 % (1.7-12.7); Neutrophils % 58.9 % (38.7-73.9); Platelet Count 314 T/CUMM (130-400); Red Blood Count 3.84 MC/CUMM (3.8-5.5); Red Cell Distribution Width 13.3 % (9.3-17.3); White Blood Count 7.2 T/CUMM (4-12)
[2021-01-25 05:50] LABS: Calcium 7.9 MG/DL (8.5-10.1); Osmolality,Calculated 275.2 MOS/KG (273-304); Potassium 3.9 MMOL/L (3.5-5.1)
[2021-01-25] MEDS: busPIRone 15 MG TABLET PO SCH ×2 (08:28→20:28)
[2021-01-25] MEDS: PROMETHAZINE INJ 25 MG in SODIUM CHLORIDE 0.9% 50 ML IV PRN ×3 (08:28→21:40)
[2021-01-25] MEDS: PANTOPRAZOLE 40 MG TABLET PO SCH ×2 (08:28→20:28)
[2021-01-25] MEDS: INSULIN REGULAR 100 UNIT/ML SUBCUT SCH ×4 (08:28→21:55)
[2021-01-25] MEDS: POLYETHYLENE GLYCOL POWDER 17 GM PACK PO SCH ×3 (08:28→21:56)
[2021-01-25] MEDS: ARIPiprazole 10 MG TABLET PO SCH (08:28)
[2021-01-25] MEDS: SUCRALFATE 1 GM/10 ML UDCUP PO SCH ×4 (08:28→20:28)
[2021-01-25] MEDS: ERYTHROMYCIN INJ 250 MG in SODIUM CHLORIDE 0.9% 100 ML IV SCH ×3 (09:01→23:37)
[2021-01-25] MEDS: LACTATED RINGERS 1,000 ML IV SCH (11:10)
[2021-01-25] MEDS: cefTRIAXone 1,000 MG in SYRINGE 1 EACH IV SCH (13:15)
[2021-01-25] MEDS: traZODone 50 MG TABLET PO SCH (20:28)
[2021-01-25] MEDS: ATORVASTATIN 40 MG TABLET PO SCH (20:28)
[2021-01-25] MEDS: QUEtiapine 100 MG TABLET PO SCH (20:28)
[2021-01-25] MEDS: INSULIN GLARGINE 100 UNIT/ML SUBCUT SCH (21:41)
[2021-01-26] MEDS: ONDANSETRON 4 MG/2 ML VIAL IV PRN (01:29)
[2021-01-26] MEDS: POTASSIUM CHLORIDE INJ 30 MEQ in SODIUM CHLORIDE 0.9% 1,000 ML IV SCH ×4 (01:33→18:19)
[2021-01-26] MEDS: PROMETHAZINE INJ 25 MG in SODIUM CHLORIDE 0.9% 50 ML IV PRN ×3 (04:12→20:50)
[2021-01-26 06:20] LABS: Basophils % 0.6 % (0.0-0.8); Eosinophils # 0.3 10*3/uL (0.0-0.87); Eosinophils % 4.5 % (0.00-10.9); Hematocrit 33.5 VOL% (35.7-47.0); Hemoglobin 10.6 GM/DL (12.0-16.0); Immature Granulocytes % 0.3 %; Immature Granulocytes Absolute 0.02 #; Lymphocytes % 45.2 % (21.3-54.2); Mean Corpuscular HGB Conc 31.6 GM/DL (32-36); Mean Corpuscular Volume 90.1 FL (87-102); Mean Platelet Volume 10.5 FL (9.6-12.0); Monocytes % 9.5 % (1.7-12.7); Neutrophils % 39.9 % (38.7-73.9); Platelet Count 296 T/CUMM (130-400); Red Blood Count 3.72 MC/CUMM (3.8-5.5); Red Cell Distribution Width 13.2 % (9.3-17.3); White Blood Count 6.6 T/CUMM (4-12)
[2021-01-26 06:34] LABS: INR 1.1; PT Patient Result 11.4 SECS (9.8-11.9)
[2021-01-26 06:42] LABS: Calcium 7.8 MG/DL (8.5-10.1); Osmolality,Calculated 275.7 MOS/KG (273-304)
[2021-01-26] MEDS: INSULIN REGULAR 100 UNIT/ML SUBCUT SCH ×4 (07:46→20:57)
[2021-01-26] MEDS: LACTATED RINGERS 1,000 ML IV SCH ×2 (08:30→11:21)
[2021-01-26] MEDS: SUCRALFATE 1 GM/10 ML UDCUP PO SCH ×4 (11:16→20:48)
[2021-01-26] MEDS: ERYTHROMYCIN INJ 250 MG in SODIUM CHLORIDE 0.9% 100 ML IV SCH ×2 (11:20→17:01)
[2021-01-26] MEDS: ARIPiprazole 10 MG TABLET PO SCH (11:20)
[2021-01-26] MEDS: PANTOPRAZOLE 40 MG TABLET PO SCH ×2 (11:20→20:48)
[2021-01-26] MEDS: busPIRone 15 MG TABLET PO SCH ×2 (11:20→20:48)
[2021-01-26] MEDS: POLYETHYLENE GLYCOL POWDER 17 GM PACK PO SCH ×3 (11:21→20:57)
[2021-01-26] MEDS: cefTRIAXone 1,000 MG in SYRINGE 1 EACH IV SCH (13:09)
[2021-01-26] MEDS: ENOXAPARIN 40 MG/0.4 ML SYRINGE SUBCUT SCH (15:57)
[2021-01-26] MEDS: diphenhydrAMINE CAP 25 MG CAPSULE PO PRN (17:01)
[2021-01-26] MEDS: ATORVASTATIN 40 MG TABLET PO SCH (20:48)
[2021-01-26] MEDS: traZODone 50 MG TABLET PO SCH (20:48)
[2021-01-26] MEDS: QUEtiapine 100 MG TABLET PO SCH (20:48)
[2021-01-26] MEDS: INSULIN GLARGINE 100 UNIT/ML SUBCUT SCH (20:49)
[2021-01-27] MEDS: ERYTHROMYCIN INJ 250 MG in SODIUM CHLORIDE 0.9% 100 ML IV SCH ×4 (00:21→23:48)
[2021-01-27] MEDS: POTASSIUM CHLORIDE INJ 30 MEQ in SODIUM CHLORIDE 0.9% 1,000 ML IV SCH ×3 (05:20→19:01)
[2021-01-27 05:22] LABS: Basophils # 0.1 10*3/uL (0.0-0.2); Basophils % 0.7 % (0.0-0.8); Eosinophils # 0.3 10*3/uL (0.0-0.87); Eosinophils % 3.8 % (0.00-10.9); Hematocrit 32.7 VOL% (35.7-47.0); Hemoglobin 10.6 GM/DL (12.0-16.0); Immature Granulocytes % 0.4 %; Immature Granulocytes Absolute 0.03 #; Lymphocytes % 40.7 % (21.3-54.2); Mean Corpuscular HGB Conc 32.4 GM/DL (32-36); Mean Corpuscular Volume 88.6 FL (87-102); Mean Platelet Volume 9.8 FL (9.6-12.0); Neutrophils % 44.4 % (38.7-73.9); Platelet Count 283 T/CUMM (130-400); Red Blood Count 3.69 MC/CUMM (3.8-5.5); Red Cell Distribution Width 13.2 % (9.3-17.3); White Blood Count 7.4 T/CUMM (4-12)
[2021-01-27 05:42] LABS: Calcium 7.9 MG/DL (8.5-10.1); Osmolality,Calculated 278.3 MOS/KG (273-304)
[2021-01-27] MEDS: ONDANSETRON 4 MG/2 ML VIAL IV PRN (06:08)
[2021-01-27] MEDS: INSULIN REGULAR 100 UNIT/ML SUBCUT SCH ×4 (07:31→21:05)
[2021-01-27] MEDS: SUCRALFATE 1 GM/10 ML UDCUP PO SCH ×4 (08:34→20:32)
[2021-01-27] MEDS: busPIRone 15 MG TABLET PO SCH ×2 (08:34→20:31)
[2021-01-27] MEDS: PANTOPRAZOLE 40 MG TABLET PO SCH ×2 (08:35→20:31)
[2021-01-27] MEDS: LACTATED RINGERS 1,000 ML IV SCH ×2 (08:36→11:43)
[2021-01-27] MEDS: ARIPiprazole 10 MG TABLET PO SCH (10:03)
[2021-01-27] MEDS: POLYETHYLENE GLYCOL POWDER 17 GM PACK PO SCH ×3 (10:04→20:44)
[2021-01-27] MEDS: cefTRIAXone 1,000 MG in SYRINGE 1 EACH IV SCH (11:52)
[2021-01-27] MEDS: PROMETHAZINE INJ 25 MG in SODIUM CHLORIDE 0.9% 50 ML IV PRN ×2 (12:40→20:33)
[2021-01-27] MEDS: ENOXAPARIN 40 MG/0.4 ML SYRINGE SUBCUT SCH (16:24)
[2021-01-27] MEDS: MIDODRINE 2.5 MG TABLET PO SCH ×2 (16:24→20:31)
[2021-01-27] MEDS: traZODone 50 MG TABLET PO SCH (20:31)
[2021-01-27] MEDS: QUEtiapine 100 MG TABLET PO SCH (20:31)
[2021-01-27] MEDS: ATORVASTATIN 40 MG TABLET PO SCH (20:32)
[2021-01-27] MEDS: INSULIN GLARGINE 100 UNIT/ML SUBCUT SCH (20:33)
[2021-01-28 05:25] LABS: Basophils % 0.6 % (0.0-0.8); Eosinophils # 0.3 10*3/uL (0.0-0.87); Eosinophils % 4.8 % (0.00-10.9); Hemoglobin 10.4 GM/DL (12.0-16.0); Immature Granulocytes % 0.3 %; Immature Granulocytes Absolute 0.02 #; Lymphocytes # 2.8 10*3/uL (1.4-4.0); Lymphocytes % 44.9 % (21.3-54.2); Mean Corpuscular HGB Conc 31.5 GM/DL (32-36); Mean Corpuscular Volume 89.7 FL (87-102); Mean Platelet Volume 10.3 FL (9.6-12.0); Neutrophils % 40.4 % (38.7-73.9); Platelet Count 293 T/CUMM (130-400); Red Blood Count 3.68 MC/CUMM (3.8-5.5); Red Cell Distribution Width 13.2 % (9.3-17.3); White Blood Count 6.2 T/CUMM (4-12)
[2021-01-28 05:40] LABS: Calcium 7.8 MG/DL (8.5-10.1); Osmolality,Calculated 278.4 MOS/KG (273-304)
[2021-01-28] MEDS: ONDANSETRON 4 MG/2 ML VIAL IV PRN ×2 (05:42→09:56)
[2021-01-28] MEDS: POTASSIUM CHLORIDE INJ 30 MEQ in SODIUM CHLORIDE 0.9% 1,000 ML IV SCH ×3 (06:03→18:18)
[2021-01-28] MEDS: INSULIN REGULAR 100 UNIT/ML SUBCUT SCH ×4 (09:49→20:44)
[2021-01-28] MEDS: ERYTHROMYCIN INJ 250 MG in SODIUM CHLORIDE 0.9% 100 ML IV SCH ×3 (09:51→23:48)
[2021-01-28] MEDS: SUCRALFATE 1 GM/10 ML UDCUP PO SCH ×4 (09:51→20:40)
[2021-01-28] MEDS: POLYETHYLENE GLYCOL POWDER 17 GM PACK PO SCH ×3 (09:52→20:38)
[2021-01-28] MEDS: busPIRone 15 MG TABLET PO SCH ×2 (09:52→20:40)
[2021-01-28] MEDS: ARIPiprazole 10 MG TABLET PO SCH (09:52)
[2021-01-28] MEDS: MIDODRINE 2.5 MG TABLET PO SCH ×3 (09:52→20:40)
[2021-01-28] MEDS: PANTOPRAZOLE 40 MG TABLET PO SCH ×2 (10:02→20:38)
[2021-01-28] MEDS: LACTATED RINGERS 1,000 ML IV SCH ×2 (11:32)
[2021-01-28] MEDS: cefTRIAXone 1,000 MG in SYRINGE 1 EACH IV SCH (11:39)
[2021-01-28] MEDS: PROMETHAZINE INJ 25 MG in SODIUM CHLORIDE 0.9% 50 ML IV PRN ×2 (11:40→20:36)
[2021-01-28] MEDS: ENOXAPARIN 40 MG/0.4 ML SYRINGE SUBCUT SCH (16:15)
[2021-01-28] MEDS: traZODone 50 MG TABLET PO SCH (20:38)
[2021-01-28] MEDS: ATORVASTATIN 40 MG TABLET PO SCH (20:38)
[2021-01-28] MEDS: SENNA 8.6 MG TABLET PO SCH (20:39)
[2021-01-28] MEDS: QUEtiapine 100 MG TABLET PO SCH (20:40)
[2021-01-28] MEDS: INSULIN GLARGINE 100 UNIT/ML SUBCUT SCH (20:44)
[2021-01-29 04:16] LABS: Basophils % 0.4 % (0.0-0.8); Eosinophils # 0.3 10*3/uL (0.0-0.87); Eosinophils % 3.7 % (0.00-10.9); Hematocrit 34.2 VOL% (35.7-47.0); Immature Granulocytes % 0.3 %; Immature Granulocytes Absolute 0.02 #; Lymphocytes # 2.8 10*3/uL (1.4-4.0); Lymphocytes % 42.2 % (21.3-54.2); Mean Corpuscular HGB Conc 32.2 GM/DL (32-36); Mean Corpuscular Volume 88.1 FL (87-102); Mean Platelet Volume 10.5 FL (9.6-12.0); Monocytes % 8.1 % (1.7-12.7); Neutrophils % 45.3 % (38.7-73.9); Platelet Count 298 T/CUMM (130-400); Red Blood Count 3.88 MC/CUMM (3.8-5.5); Red Cell Distribution Width 13.4 % (9.3-17.3); White Blood Count 6.7 T/CUMM (4-12)
[2021-01-29 04:31] LABS: Calcium 8.1 MG/DL (8.5-10.1); Osmolality,Calculated 272.5 MOS/KG (273-304); Potassium 4.1 MMOL/L (3.5-5.1)
[2021-01-29] MEDS: ONDANSETRON 4 MG/2 ML VIAL IV PRN ×2 (05:13→21:34)
[2021-01-29] MEDS: POTASSIUM CHLORIDE INJ 30 MEQ in SODIUM CHLORIDE 0.9% 1,000 ML IV SCH ×2 (05:14→16:15)
[2021-01-29] MEDS: INSULIN REGULAR 100 UNIT/ML SUBCUT SCH ×4 (07:19→21:16)
[2021-01-29] MEDS: SUCRALFATE 1 GM/10 ML UDCUP PO SCH ×4 (08:44→20:14)
[2021-01-29] MEDS: LINACLOTIDE 145 MCG CAPSULE PO SCH (08:44)
[2021-01-29] MEDS: MIDODRINE 2.5 MG TABLET PO SCH ×3 (08:45→20:14)
[2021-01-29] MEDS: ARIPiprazole 10 MG TABLET PO SCH (08:45)
[2021-01-29] MEDS: busPIRone 15 MG TABLET PO SCH ×2 (08:45→20:14)
[2021-01-29] MEDS: PANTOPRAZOLE 40 MG TABLET PO SCH ×2 (08:45→20:12)
[2021-01-29] MEDS: PROMETHAZINE INJ 25 MG in SODIUM CHLORIDE 0.9% 50 ML IV PRN (08:46)
[2021-01-29] MEDS: LACTATED RINGERS 1,000 ML IV SCH (08:46)
[2021-01-29] MEDS: POLYETHYLENE GLYCOL POWDER 17 GM PACK PO SCH ×3 (08:46→21:24)
[2021-01-29] MEDS: ERYTHROMYCIN INJ 250 MG in SODIUM CHLORIDE 0.9% 100 ML IV SCH ×2 (10:06→16:55)
[2021-01-29] MEDS: cefTRIAXone 1,000 MG in SYRINGE 1 EACH IV SCH (11:52)
[2021-01-29] MEDS: ENOXAPARIN 40 MG/0.4 ML SYRINGE SUBCUT SCH (16:09)
[2021-01-29] MEDS: traZODone 50 MG TABLET PO SCH (20:13)
[2021-01-29] MEDS: SENNA 8.6 MG TABLET PO SCH (20:14)
[2021-01-29] MEDS: ATORVASTATIN 40 MG TABLET PO SCH (20:14)
[2021-01-29] MEDS: QUEtiapine 100 MG TABLET PO SCH (20:14)
[2021-01-29] MEDS: INSULIN GLARGINE 100 UNIT/ML SUBCUT SCH (20:15)
[2021-01-30] MEDS: ERYTHROMYCIN INJ 250 MG in SODIUM CHLORIDE 0.9% 100 ML IV SCH ×4 (00:07→23:59)
[2021-01-30] MEDS: POTASSIUM CHLORIDE INJ 30 MEQ in SODIUM CHLORIDE 0.9% 1,000 ML IV SCH ×3 (00:43→21:45)
[2021-01-30 05:48] LABS: Basophils % 0.4 % (0.0-0.8); Eosinophils # 0.2 10*3/uL (0.0-0.87); Eosinophils % 2.5 % (0.00-10.9); Hematocrit 37.1 VOL% (35.7-47.0); Immature Granulocytes % 0.3 %; Immature Granulocytes Absolute 0.02 #; Lymphocytes # 2.6 10*3/uL (1.4-4.0); Mean Corpuscular HGB Conc 32.3 GM/DL (32-36); Mean Corpuscular Volume 88.5 FL (87-102); Mean Platelet Volume 10.3 FL (9.6-12.0); Monocytes % 7.3 % (1.7-12.7); Neutrophils % 55.5 % (38.7-73.9); Platelet Count 321 T/CUMM (130-400); Red Blood Count 4.19 MC/CUMM (3.8-5.5); Red Cell Distribution Width 13.6 % (9.3-17.3); White Blood Count 7.7 T/CUMM (4-12)
[2021-01-30 06:17] LABS: Calcium 8.5 MG/DL (8.5-10.1); Osmolality,Calculated 267.8 MOS/KG (273-304); Potassium 3.9 MMOL/L (3.5-5.1)
[2021-01-30] MEDS: INSULIN REGULAR 100 UNIT/ML SUBCUT SCH ×4 (07:41→21:33)
[2021-01-30] MEDS: SUCRALFATE 1 GM/10 ML UDCUP PO SCH ×4 (09:04→20:17)
[2021-01-30] MEDS: busPIRone 15 MG TABLET PO SCH ×2 (09:05→20:19)
[2021-01-30] MEDS: PANTOPRAZOLE 40 MG TABLET PO SCH ×2 (09:05→20:18)
[2021-01-30] MEDS: ARIPiprazole 10 MG TABLET PO SCH (09:05)
[2021-01-30] MEDS: POLYETHYLENE GLYCOL POWDER 17 GM PACK PO SCH ×3 (09:06→20:16)
[2021-01-30] MEDS: MIDODRINE 2.5 MG TABLET PO SCH ×3 (09:06→20:18)
[2021-01-30] MEDS: LINACLOTIDE 145 MCG CAPSULE PO SCH (09:06)
[2021-01-30] MEDS: LACTATED RINGERS 1,000 ML IV SCH (09:07)
[2021-01-30] MEDS: PROMETHAZINE INJ 25 MG in SODIUM CHLORIDE 0.9% 50 ML IV PRN ×2 (11:49→18:00)
[2021-01-30] MEDS: ONDANSETRON 4 MG/2 ML VIAL IV PRN (13:58)
[2021-01-30] MEDS: cefTRIAXone 1,000 MG in SYRINGE 1 EACH IV SCH (13:59)
[2021-01-30] MEDS: INSULIN GLARGINE 100 UNIT/ML SUBCUT SCH (20:17)
[2021-01-30] MEDS: SENNA 8.6 MG TABLET PO SCH (20:18)
[2021-01-30] MEDS: QUEtiapine 100 MG TABLET PO SCH (20:18)
[2021-01-30] MEDS: ATORVASTATIN 40 MG TABLET PO SCH (20:18)
[2021-01-30] MEDS: traZODone 50 MG TABLET PO SCH (20:18)
[2021-01-31 05:18] LABS: Basophils # 0.1 10*3/uL (0.0-0.2); Basophils % 0.6 % (0.0-0.8); Eosinophils # 0.3 10*3/uL (0.0-0.87); Eosinophils % 3.2 % (0.00-10.9); Hematocrit 37.5 VOL% (35.7-47.0); Hemoglobin 11.9 GM/DL (12.0-16.0); Immature Granulocytes % 0.4 %; Immature Granulocytes Absolute 0.03 #; Lymphocytes # 3.7 10*3/uL (1.4-4.0); Lymphocytes % 44.8 % (21.3-54.2); Mean Corpuscular HGB Conc 31.7 GM/DL (32-36); Mean Corpuscular Volume 88.4 FL (87-102); Monocytes % 7.9 % (1.7-12.7); Neutrophils % 43.1 % (38.7-73.9); Platelet Count 337 T/CUMM (130-400); Red Blood Count 4.24 MC/CUMM (3.8-5.5); Red Cell Distribution Width 13.7 % (9.3-17.3); White Blood Count 8.3 T/CUMM (4-12)
[2021-01-31 05:54] LABS: Calcium 8.9 MG/DL (8.5-10.1); Osmolality,Calculated 278.4 MOS/KG (273-304)
[2021-01-31] MEDS ORDERED: MIDAZOLAM 2 MG/2 ML VIAL ONE (07:09)
[2021-01-31] MEDS ORDERED: DEXAMETHASONE 4 MG/1 ML VIAL ONE ×2 (07:09→07:21)
[2021-01-31] MEDS ORDERED: LIDOCAINE 2% 5 ML VIAL ONE (07:09)
[2021-01-31] MEDS ORDERED: propofoL 200 MG/20 ML VIAL IV ONE (07:09)
[2021-01-31] MEDS ORDERED: fentaNYL 100 MCG/2 ML VIAL ONE ×2 (07:09→08:36)
[2021-01-31] MEDS ORDERED: SEVOFLURANE 1 UNIT/15 MINUTE INH ONE ×2 (07:09→09:51)
[2021-01-31] MEDS ORDERED: ONDANSETRON 4 MG/2 ML VIAL ONE (07:09)
[2021-01-31] MEDS ORDERED: SUCCINYLCHOLINE 200 MG/10 ML VIAL ONE (07:09)
[2021-01-31] MEDS ORDERED: ROCURONIUM 50 MG/5 ML VIAL IV ONE (07:09)
[2021-01-31] MEDS ORDERED: ROPIVACAINE 0.5% 30 ML VIAL ONE (07:21)
[2021-01-31] MEDS ORDERED: LIDOCAINE 1% 5 ML VIAL ONE (07:21)
[2021-01-31] MEDS: SUCRALFATE 1 GM/10 ML UDCUP PO SCH ×4 (07:40→21:18)
[2021-01-31] MEDS: INSULIN REGULAR 100 UNIT/ML SUBCUT SCH ×4 (07:40→21:18)
[2021-01-31] MEDS: LACTATED RINGERS 1,000 ML IV SCH (07:41)
[2021-01-31] MEDS ORDERED: LACTATED RINGERS 1,000 ML IV SCH (08:30)
[2021-01-31] MEDS: ERYTHROMYCIN INJ 250 MG in SODIUM CHLORIDE 0.9% 100 ML IV SCH ×2 (09:44→16:26)
[2021-01-31] MEDS ORDERED: HYDROmorphone 2 MG/1 ML VIAL ONE (09:46)
[2021-01-31] MEDS: HYDROmorphone 2 MG/1 ML VIAL IV PRN ×6 (09:50→22:52)
[2021-01-31] MEDS ORDERED: cefOXitin 2,000 MG in SYRINGE 1 EACH IV ONE (09:52)
[2021-01-31 09:54] LABS: Bacteria,Urine Occasional /HPF (Few); Bilirubin,Urine Negative (Negative); Blood, Urine Small mg/dL (Negative); Glucose,Urine (UA) Negative (Negative); Ketones,Urine Negative (Negative); Mucus,Urine Occasional /LPF (Occasional); Nitrite,Urine Negative (Negative); Protein,Urine Negative; RBC,Urine 1 /HPF (0-4); Squamous Epithelial Cell,Urine Occasional /HPF (0-10); Urine Appearance CLEAR (Clear); Urine Color Straw (Yellow); Urine Specific Gravity 1.008 (1.001-1.035); Urine Urobilinogen < 2.0 EU/DL (0.2-1.0); WBC,Urine 1 /HPF (0-6)
[2021-01-31] MEDS ORDERED: MEPERIDINE 25 MG/1 ML VIAL IV PRN (09:54)
[2021-01-31] MEDS: LINACLOTIDE 145 MCG CAPSULE PO SCH (11:12)
[2021-01-31] MEDS: PANTOPRAZOLE 40 MG TABLET PO SCH ×2 (11:12→21:18)
[2021-01-31] MEDS: POLYETHYLENE GLYCOL POWDER 17 GM PACK PO SCH ×3 (11:13→21:18)
[2021-01-31] MEDS: busPIRone 15 MG TABLET PO SCH ×2 (11:13→21:19)
[2021-01-31] MEDS: MIDODRINE 2.5 MG TABLET PO SCH ×3 (11:13→21:18)
[2021-01-31] MEDS: ARIPiprazole 10 MG TABLET PO SCH (11:13)
[2021-01-31] MEDS: ONDANSETRON 4 MG/2 ML VIAL IV PRN ×2 (12:45→19:05)
[2021-01-31] MEDS: POTASSIUM CHLORIDE INJ 30 MEQ in SODIUM CHLORIDE 0.9% 1,000 ML IV SCH (14:35)
[2021-01-31] MEDS: PROMETHAZINE INJ 25 MG in SODIUM CHLORIDE 0.9% 50 ML IV PRN ×2 (14:35→22:06)
[2021-01-31] MEDS: ATORVASTATIN 40 MG TABLET PO SCH (21:18)
[2021-01-31] MEDS: SENNA 8.6 MG TABLET PO SCH (21:18)
[2021-01-31] MEDS: QUEtiapine 100 MG TABLET PO SCH (21:18)
[2021-01-31] MEDS: traZODone 50 MG TABLET PO SCH ×2 (21:18→21:20)
[2021-01-31] MEDS: INSULIN GLARGINE 100 UNIT/ML SUBCUT SCH (21:18)
[2021-02-01] MEDS: ERYTHROMYCIN INJ 250 MG in SODIUM CHLORIDE 0.9% 100 ML IV SCH (00:13)
[2021-02-01] MEDS: ONDANSETRON 4 MG/2 ML VIAL IV PRN ×3 (01:39→16:57)
[2021-02-01] MEDS: POTASSIUM CHLORIDE INJ 30 MEQ in SODIUM CHLORIDE 0.9% 1,000 ML IV SCH ×3 (05:02→16:51)
[2021-02-01] MEDS: HYDROmorphone 2 MG/1 ML VIAL IV PRN ×8 (05:06→23:50)
[2021-02-01 05:50] LABS: Basophils % 0.3 % (0.0-0.8); Eosinophils % 0.1 % (0.00-10.9); Hematocrit 34.9 VOL% (35.7-47.0); Hemoglobin 11.1 GM/DL (12.0-16.0); Immature Granulocytes % 0.6 %; Lymphocytes # 1.1 10*3/uL (1.4-4.0); Lymphocytes % 6.8 % (21.3-54.2); Mean Corpuscular HGB Conc 31.8 GM/DL (32-36); Mean Corpuscular Volume 89.7 FL (87-102); Mean Platelet Volume 10.1 FL (9.6-12.0); Monocytes % 4.6 % (1.7-12.7); Neutrophils % 87.6 % (38.7-73.9); Platelet Count 349 T/CUMM (130-400); Red Blood Count 3.89 MC/CUMM (3.8-5.5); Red Cell Distribution Width 13.6 % (9.3-17.3)
[2021-02-01 06:12] LABS: Calcium 8.6 MG/DL (8.5-10.1); Potassium 4.5 MMOL/L (3.5-5.1)
[2021-02-01] MEDS: PROMETHAZINE INJ 25 MG in SODIUM CHLORIDE 0.9% 50 ML IV PRN ×3 (06:25→20:46)
[2021-02-01] MEDS: SUCRALFATE 1 GM/10 ML UDCUP PO SCH ×4 (07:59→20:46)
[2021-02-01] MEDS: POLYETHYLENE GLYCOL POWDER 17 GM PACK PO SCH ×3 (08:45→20:46)
[2021-02-01] MEDS: LACTATED RINGERS 1,000 ML IV SCH (08:45)
[2021-02-01] MEDS: PANTOPRAZOLE 40 MG TABLET PO SCH ×2 (08:45→20:46)
[2021-02-01] MEDS: MIDODRINE 2.5 MG TABLET PO SCH ×3 (08:46→20:46)
[2021-02-01] MEDS: busPIRone 15 MG TABLET PO SCH ×2 (09:46→20:46)
[2021-02-01] MEDS: ARIPiprazole 10 MG TABLET PO SCH (09:46)
[2021-02-01] MEDS: LINACLOTIDE 145 MCG CAPSULE PO SCH (09:47)
[2021-02-01] MEDS: INSULIN REGULAR 100 UNIT/ML SUBCUT SCH ×4 (09:50→20:46)
[2021-02-01] MEDS: diphenhydrAMINE CAP 25 MG CAPSULE PO PRN ×2 (15:10→23:26)
[2021-02-01] MEDS: traZODone 50 MG TABLET PO SCH (20:46)
[2021-02-01] MEDS: SENNA 8.6 MG TABLET PO SCH (20:46)
[2021-02-01] MEDS: INSULIN GLARGINE 100 UNIT/ML SUBCUT SCH (20:46)
[2021-02-01] MEDS: QUEtiapine 100 MG TABLET PO SCH (20:46)
[2021-02-01] MEDS: ATORVASTATIN 40 MG TABLET PO SCH (20:46)
[2021-02-01] MEDS: GABAPENTIN 600 MG TABLET PO SCH (20:46)
[2021-02-01] MEDS: PHENOL 1.4% THROAT SPRAY 177 ML BOTTLE PO PRN (22:17)
[2021-02-02] MEDS: HYDROmorphone 2 MG/1 ML VIAL IV PRN ×7 (03:51→22:03)
[2021-02-02] MEDS: PROMETHAZINE INJ 25 MG in SODIUM CHLORIDE 0.9% 50 ML IV PRN ×3 (03:51→20:16)
[2021-02-02] MEDS: POTASSIUM CHLORIDE INJ 30 MEQ in SODIUM CHLORIDE 0.9% 1,000 ML IV SCH ×2 (05:55→17:38)
[2021-02-02] MEDS: ONDANSETRON 4 MG/2 ML VIAL IV PRN ×2 (05:55→16:36)
[2021-02-02 06:51] LABS: Basophils % 0.2 % (0.0-0.8); Eosinophils # 0.4 10*3/uL (0.0-0.87); Eosinophils % 3.3 % (0.00-10.9); Hematocrit 34.1 VOL% (35.7-47.0); Immature Granulocytes % 0.3 %; Immature Granulocytes Absolute 0.04 #; Lymphocytes # 2.7 10*3/uL (1.4-4.0); Lymphocytes % 22.1 % (21.3-54.2); Mean Corpuscular HGB Conc 32.3 GM/DL (32-36); Mean Corpuscular Volume 90.5 FL (87-102); Mean Platelet Volume 10.2 FL (9.6-12.0); Monocytes % 7.4 % (1.7-12.7); Neutrophils % 66.7 % (38.7-73.9); Platelet Count 324 T/CUMM (130-400); Red Blood Count 3.77 MC/CUMM (3.8-5.5); Red Cell Distribution Width 14.2 % (9.3-17.3); White Blood Count 12.3 T/CUMM (4-12)
[2021-02-02 07:16] LABS: Calcium 8.5 MG/DL (8.5-10.1); Osmolality,Calculated 266.5 MOS/KG (273-304); Potassium 4.7 MMOL/L (3.5-5.1)
[2021-02-02] MEDS: LINACLOTIDE 145 MCG CAPSULE PO SCH (09:49)
[2021-02-02] MEDS: PANTOPRAZOLE 40 MG TABLET PO SCH ×2 (09:50→21:55)
[2021-02-02] MEDS: INSULIN REGULAR 100 UNIT/ML SUBCUT SCH ×4 (09:50→22:06)
[2021-02-02] MEDS: QUEtiapine 100 MG TABLET PO SCH ×2 (09:50→21:54)
[2021-02-02] MEDS: ARIPiprazole 10 MG TABLET PO SCH (09:50)
[2021-02-02] MEDS: busPIRone 15 MG TABLET PO SCH ×2 (09:50→21:53)
[2021-02-02] MEDS: MIDODRINE 2.5 MG TABLET PO SCH ×3 (10:08→21:55)
[2021-02-02] MEDS: GABAPENTIN 600 MG TABLET PO SCH ×2 (10:08→21:54)
[2021-02-02] MEDS: POLYETHYLENE GLYCOL POWDER 17 GM PACK PO SCH ×3 (10:08→21:53)
[2021-02-02] MEDS: hydroCHLOROthiazide 12.5 MG CAPSULE PO SCH (10:08)
[2021-02-02] MEDS: tiZANidine 4 MG TABLET PO SCH (10:08)
[2021-02-02] MEDS: SUCRALFATE 1 GM/10 ML UDCUP PO SCH ×4 (10:08→21:53)
[2021-02-02] MEDS: LACTATED RINGERS 1,000 ML IV SCH (10:08)
[2021-02-02] MEDS: PHENOL 1.4% THROAT SPRAY 177 ML BOTTLE PO PRN (16:37)
[2021-02-02] MEDS: SENNA 8.6 MG TABLET PO SCH (21:53)
[2021-02-02] MEDS: traZODone 50 MG TABLET PO SCH (21:54)
[2021-02-02] MEDS: ATORVASTATIN 40 MG TABLET PO SCH (21:54)
[2021-02-02] MEDS: INSULIN GLARGINE 100 UNIT/ML SUBCUT SCH (22:06)
[2021-02-03] MEDS: HYDROmorphone 2 MG/1 ML VIAL IV PRN ×7 (00:38→23:20)
[2021-02-03] MEDS: POTASSIUM CHLORIDE INJ 30 MEQ in SODIUM CHLORIDE 0.9% 1,000 ML IV SCH ×2 (04:27→17:13)
[2021-02-03 06:17] LABS: Basophils % 0.3 % (0.0-0.8); Eosinophils # 0.4 10*3/uL (0.0-0.87); Eosinophils % 3.9 % (0.00-10.9); Hematocrit 32.6 VOL% (35.7-47.0); Hemoglobin 10.2 GM/DL (12.0-16.0); Immature Granulocytes % 0.3 %; Immature Granulocytes Absolute 0.03 #; Lymphocytes # 1.7 10*3/uL (1.4-4.0); Lymphocytes % 16.7 % (21.3-54.2); Mean Corpuscular HGB Conc 31.3 GM/DL (32-36); Mean Corpuscular Volume 92.4 FL (87-102); Monocytes % 6.5 % (1.7-12.7); Neutrophils % 72.3 % (38.7-73.9); Platelet Count 316 T/CUMM (130-400); Red Blood Count 3.53 MC/CUMM (3.8-5.5); Red Cell Distribution Width 14.3 % (9.3-17.3)
[2021-02-03 06:48] LABS: Calcium 8.5 MG/DL (8.5-10.1); Potassium 4.7 MMOL/L (3.5-5.1)
[2021-02-03] MEDS: ARIPiprazole 10 MG TABLET PO SCH (08:35)
[2021-02-03] MEDS: LACTATED RINGERS 1,000 ML IV SCH (08:35)
[2021-02-03] MEDS: SUCRALFATE 1 GM/10 ML UDCUP PO SCH ×4 (08:35→21:16)
[2021-02-03] MEDS: LINACLOTIDE 145 MCG CAPSULE PO SCH (08:35)
[2021-02-03] MEDS: GABAPENTIN 600 MG TABLET PO SCH ×2 (08:36→21:17)
[2021-02-03] MEDS: busPIRone 15 MG TABLET PO SCH ×2 (08:36→21:17)
[2021-02-03] MEDS: PANTOPRAZOLE 40 MG TABLET PO SCH ×2 (08:36→21:17)
[2021-02-03] MEDS: MIDODRINE 2.5 MG TABLET PO SCH ×3 (08:36→21:17)
[2021-02-03] MEDS: hydroCHLOROthiazide 12.5 MG CAPSULE PO SCH (08:36)
[2021-02-03] MEDS: POLYETHYLENE GLYCOL POWDER 17 GM PACK PO SCH ×3 (08:36→21:20)
[2021-02-03] MEDS: QUEtiapine 100 MG TABLET PO SCH ×2 (08:36→21:17)
[2021-02-03] MEDS: tiZANidine 4 MG TABLET PO SCH (08:36)
[2021-02-03] MEDS: INSULIN REGULAR 100 UNIT/ML SUBCUT SCH ×4 (09:06→22:11)
[2021-02-03] MEDS: PROMETHAZINE INJ 25 MG in SODIUM CHLORIDE 0.9% 50 ML IV PRN ×2 (11:00→22:12)
[2021-02-03] MEDS: METOCLOPRAMIDE 10 MG/2 ML VIAL IV SCH ×2 (13:13→18:01)
[2021-02-03] MEDS: traZODone 50 MG TABLET PO SCH (21:17)
[2021-02-03] MEDS: SENNA 8.6 MG TABLET PO SCH (21:17)
[2021-02-03] MEDS: ATORVASTATIN 40 MG TABLET PO SCH (21:17)
[2021-02-03] MEDS: INSULIN GLARGINE 100 UNIT/ML SUBCUT SCH (22:19)
[2021-02-04] MEDS: METOCLOPRAMIDE 10 MG/2 ML VIAL IV SCH ×4 (00:32→18:09)
[2021-02-04] MEDS: POTASSIUM CHLORIDE INJ 30 MEQ in SODIUM CHLORIDE 0.9% 1,000 ML IV SCH ×2 (03:32→13:50)
[2021-02-04] MEDS: HYDROmorphone 2 MG/1 ML VIAL IV PRN ×2 (03:41→10:14)
[2021-02-04 05:34] LABS: Basophils % 0.4 % (0.0-0.8); Eosinophils # 0.5 10*3/uL (0.0-0.87); Eosinophils % 5.3 % (0.00-10.9); Hematocrit 30.8 VOL% (35.7-47.0); Hemoglobin 9.7 GM/DL (12.0-16.0); Immature Granulocytes % 0.3 %; Immature Granulocytes Absolute 0.03 #; Lymphocytes # 2.2 10*3/uL (1.4-4.0); Mean Corpuscular HGB Conc 31.5 GM/DL (32-36); Mean Corpuscular Volume 90.3 FL (87-102); Mean Platelet Volume 9.7 FL (9.6-12.0); Monocytes % 6.8 % (1.7-12.7); Neutrophils % 63.2 % (38.7-73.9); Platelet Count 304 T/CUMM (130-400); Red Blood Count 3.41 MC/CUMM (3.8-5.5); Red Cell Distribution Width 13.5 % (9.3-17.3)
[2021-02-04 05:49] LABS: Calcium 7.9 MG/DL (8.5-10.1); Osmolality,Calculated 270.2 MOS/KG (273-304); Potassium 4.5 MMOL/L (3.5-5.1)
[2021-02-04] MEDS: INSULIN REGULAR 100 UNIT/ML SUBCUT SCH ×4 (10:13→21:02)
[2021-02-04] MEDS: GABAPENTIN 600 MG TABLET PO SCH ×2 (10:18→21:03)
[2021-02-04] MEDS: POLYETHYLENE GLYCOL POWDER 17 GM PACK PO SCH ×3 (10:18→20:49)
[2021-02-04] MEDS: SUCRALFATE 1 GM/10 ML UDCUP PO SCH ×4 (10:18→20:50)
[2021-02-04] MEDS: PANTOPRAZOLE 40 MG TABLET PO SCH ×2 (10:18→20:47)
[2021-02-04] MEDS: ARIPiprazole 10 MG TABLET PO SCH (10:18)
[2021-02-04] MEDS: LINACLOTIDE 145 MCG CAPSULE PO SCH (10:18)
[2021-02-04] MEDS: LACTATED RINGERS 1,000 ML IV SCH (10:18)
[2021-02-04] MEDS: MIDODRINE 2.5 MG TABLET PO SCH ×3 (10:18→20:49)
[2021-02-04] MEDS: busPIRone 15 MG TABLET PO SCH ×2 (10:18→20:47)
[2021-02-04] MEDS: hydroCHLOROthiazide 12.5 MG CAPSULE PO SCH (10:18)
[2021-02-04] MEDS: QUEtiapine 100 MG TABLET PO SCH ×2 (10:19→20:49)
[2021-02-04] MEDS: tiZANidine 4 MG TABLET PO SCH (10:19)
[2021-02-04] MEDS: METHYLNALTREXONE 12 MG/0.6 ML VIAL SUBCUT SCH (17:27)
[2021-02-04] MEDS: KETOROLAC 15 MG/1 ML VIAL IV PRN (20:46)
[2021-02-04] MEDS: ATORVASTATIN 40 MG TABLET PO SCH (20:47)
[2021-02-04] MEDS: traZODone 50 MG TABLET PO SCH (20:48)
[2021-02-04] MEDS: INSULIN GLARGINE 100 UNIT/ML SUBCUT SCH (21:01)
[2021-02-04] MEDS: SENNA 8.6 MG TABLET PO SCH (21:03)
[2021-02-05] MEDS: HYDROmorphone 2 MG/1 ML VIAL IV PRN ×3 (00:10→18:23)
[2021-02-05] MEDS: ONDANSETRON 4 MG/2 ML VIAL IV PRN ×2 (00:11→10:19)
[2021-02-05] MEDS: METOCLOPRAMIDE 10 MG/2 ML VIAL IV SCH ×4 (00:11→18:20)
[2021-02-05] MEDS: POTASSIUM CHLORIDE INJ 30 MEQ in SODIUM CHLORIDE 0.9% 1,000 ML IV SCH ×3 (01:28→21:43)
[2021-02-05 05:24] LABS: Basophils % 0.5 % (0.0-0.8); Eosinophils # 0.5 10*3/uL (0.0-0.87); Eosinophils % 6.3 % (0.00-10.9); Hematocrit 30.1 VOL% (35.7-47.0); Hemoglobin 9.7 GM/DL (12.0-16.0); Immature Granulocytes % 0.4 %; Immature Granulocytes Absolute 0.03 #; Lymphocytes # 2.4 10*3/uL (1.4-4.0); Lymphocytes % 30.3 % (21.3-54.2); Mean Corpuscular HGB Conc 32.2 GM/DL (32-36); Mean Corpuscular Volume 89.3 FL (87-102); Mean Platelet Volume 9.5 FL (9.6-12.0); Monocytes % 6.3 % (1.7-12.7); Neutrophils % 56.2 % (38.7-73.9); Platelet Count 319 T/CUMM (130-400); Red Blood Count 3.37 MC/CUMM (3.8-5.5); Red Cell Distribution Width 13.2 % (9.3-17.3)
[2021-02-05 05:39] LABS: Calcium 8.2 MG/DL (8.5-10.1); Potassium 4.1 MMOL/L (3.5-5.1)
[2021-02-05] MEDS: KETOROLAC 15 MG/1 ML VIAL IV PRN (06:21)
[2021-02-05] MEDS: INSULIN REGULAR 100 UNIT/ML SUBCUT SCH ×4 (07:59→21:10)
[2021-02-05] MEDS: SUCRALFATE 1 GM/10 ML UDCUP PO SCH ×4 (08:00→21:08)
[2021-02-05] MEDS: LINACLOTIDE 145 MCG CAPSULE PO SCH (08:00)
[2021-02-05] MEDS: LACTATED RINGERS 1,000 ML IV SCH (08:00)
[2021-02-05] MEDS: PANTOPRAZOLE 40 MG TABLET PO SCH ×2 (08:01→21:08)
[2021-02-05] MEDS: MIDODRINE 2.5 MG TABLET PO SCH ×3 (08:01→21:09)
[2021-02-05] MEDS: POLYETHYLENE GLYCOL POWDER 17 GM PACK PO SCH ×3 (08:01→21:10)
[2021-02-05] MEDS: busPIRone 15 MG TABLET PO SCH ×2 (10:08→21:08)
[2021-02-05] MEDS: hydroCHLOROthiazide 12.5 MG CAPSULE PO SCH (10:08)
[2021-02-05] MEDS: ARIPiprazole 10 MG TABLET PO SCH (10:08)
[2021-02-05] MEDS: tiZANidine 4 MG TABLET PO SCH (10:09)
[2021-02-05] MEDS: METHYLNALTREXONE 12 MG/0.6 ML VIAL SUBCUT SCH (10:09)
[2021-02-05] MEDS: GABAPENTIN 600 MG TABLET PO SCH ×2 (10:09→21:09)
[2021-02-05] MEDS: QUEtiapine 100 MG TABLET PO SCH ×2 (10:09→21:08)
[2021-02-05] MEDS: LACTULOSE 20 GM/30 ML UDCUP PO SCH ×2 (14:06→18:11)
[2021-02-05] MEDS: PHENOL 1.4% THROAT SPRAY 177 ML BOTTLE PO PRN (16:40)
[2021-02-05] MEDS: INSULIN GLARGINE 100 UNIT/ML SUBCUT SCH (21:08)
[2021-02-05] MEDS: ATORVASTATIN 40 MG TABLET PO SCH (21:09)
[2021-02-05] MEDS: traZODone 50 MG TABLET PO SCH (21:09)
[2021-02-05] MEDS: SENNA 8.6 MG TABLET PO SCH (21:11)
[2021-02-06] MEDS: LACTULOSE 20 GM/30 ML UDCUP PO SCH ×2 (01:06→06:59)
[2021-02-06] MEDS: METOCLOPRAMIDE 10 MG/2 ML VIAL IV SCH ×2 (01:59→06:59)
[2021-02-06] MEDS: HYDROmorphone 2 MG/1 ML VIAL IV PRN (02:30)
[2021-02-06 05:29] LABS: Basophils # 0.1 10*3/uL (0.0-0.2); Basophils % 0.7 % (0.0-0.8); Eosinophils # 0.6 10*3/uL (0.0-0.87); Eosinophils % 7.7 % (0.00-10.9); Hemoglobin 9.6 GM/DL (12.0-16.0); Immature Granulocytes % 0.2 %; Immature Granulocytes Absolute 0.02 #; Lymphocytes # 1.8 10*3/uL (1.4-4.0); Lymphocytes % 22.2 % (21.3-54.2); Mean Corpuscular Volume 89.3 FL (87-102); Mean Platelet Volume 9.8 FL (9.6-12.0); Monocytes % 6.5 % (1.7-12.7); Neutrophils % 62.7 % (38.7-73.9); Platelet Count 314 T/CUMM (130-400); Red Blood Count 3.36 MC/CUMM (3.8-5.5); Red Cell Distribution Width 13.5 % (9.3-17.3); White Blood Count 8.3 T/CUMM (4-12)
[2021-02-06 05:36] LABS: Calcium 8.2 MG/DL (8.5-10.1); Osmolality,Calculated 275.7 MOS/KG (273-304)
[2021-02-06] MEDS: INSULIN REGULAR 100 UNIT/ML SUBCUT SCH ×2 (07:39→11:45)
[2021-02-06] MEDS: POLYETHYLENE GLYCOL POWDER 17 GM PACK PO SCH ×2 (08:24→14:02)
[2021-02-06] MEDS: LACTATED RINGERS 1,000 ML IV SCH (08:24)
[2021-02-06] MEDS: POTASSIUM CHLORIDE INJ 30 MEQ in SODIUM CHLORIDE 0.9% 1,000 ML IV SCH (08:56)
[2021-02-06] MEDS: tiZANidine 4 MG TABLET PO SCH (08:57)
[2021-02-06] MEDS: GABAPENTIN 600 MG TABLET PO SCH (08:57)
[2021-02-06] MEDS: PANTOPRAZOLE 40 MG TABLET PO SCH (08:57)
[2021-02-06] MEDS: busPIRone 15 MG TABLET PO SCH (08:57)
[2021-02-06] MEDS: ARIPiprazole 10 MG TABLET PO SCH (08:57)
[2021-02-06] MEDS: hydroCHLOROthiazide 12.5 MG CAPSULE PO SCH (08:57)
[2021-02-06] MEDS: QUEtiapine 100 MG TABLET PO SCH (08:57)
[2021-02-06] MEDS: MIDODRINE 2.5 MG TABLET PO SCH ×2 (08:57→14:39)
[2021-02-06] MEDS: LINACLOTIDE 145 MCG CAPSULE PO SCH (08:58)
[2021-02-06] MEDS: SUCRALFATE 1 GM/10 ML UDCUP PO SCH ×2 (08:58→10:33)
[2021-02-06] MEDS: METHYLNALTREXONE 12 MG/0.6 ML VIAL SUBCUT SCH (09:01)
[2021-02-06] MEDS ORDERED: LACTULOSE 20 GM/30 ML UDCUP PO PRN (10:06)
[2021-02-06 11:17] VITALS: BP 150/62
[2021-02-06] MEDS ORDERED: METOCLOPRAMIDE 10 MG TABLET PO SCH (11:30)
== END 2021-02-06 15:00 | disposition home or self-care (01) | DRG 327 ==
LOC: N.ED 07:17 → N.GILAB 09:32 → N.3E 09:32 → N.GILAB 10:10 → N.3E 11:50 → SUATTDRO 01-26 14:04
PROVIDERS: ADMIT Hospitalist; ATTEND Hospitalist

== ENCOUNTER 2021-06-08 20:37 | Inpatient (IN) ==
[2021-06-08] MEDS ORDERED: HALOPERIDOL 5 MG/ML AMP IM STA (22:49)
[2021-06-08] MEDS ORDERED: PROMETHAZINE INJ 12.5 MG in SODIUM CHLORIDE 0.9% 50 ML IV STA (22:50)
[2021-06-08] MEDS ORDERED: SODIUM CHLORIDE 0.9% 1,000 ML IV STA (22:51)
[2021-06-08 22:52] LABS: Basophils # 0.1 10*3/uL (0.0-0.2); Basophils % 0.3 % (0.0-0.8); Hematocrit 32.7 VOL% (35.7-47.0); Hemoglobin 10.5 GM/DL (12.0-16.0); Immature Granulocytes % 0.7 %; Immature Granulocytes Absolute 0.13 #; Lymphocytes # 1.5 10*3/uL (1.4-4.0); Lymphocytes % 8.3 % (21.3-54.2); Mean Corpuscular HGB Conc 32.1 GM/DL (32-36); Mean Platelet Volume 9.7 FL (9.6-12.0); Monocytes % 3.3 % (1.7-12.7); Neutrophils % 87.4 % (38.7-73.9); Platelet Count 488 T/CUMM (130-400); Red Blood Count 3.76 MC/CUMM (3.8-5.5); Red Cell Distribution Width 13.2 % (9.3-17.3); White Blood Count 17.7 T/CUMM (4-12)
[2021-06-08 23:06] LABS: Albumin 4.1 G/DL (3.4-5.0); Bilirubin,Total 0.4 MG/DL (0.20-1.00); Osmolality,Calculated 269.7 MOS/KG (273-304); Potassium 3.9 MMOL/L (3.5-5.1); Total Protein 8.1 G/DL (6.4-8.2)
[2021-06-09] MEDS ORDERED: HYDROmorphone 2 MG/1 ML VIAL IV STA (01:39)
[2021-06-09] MEDS ORDERED: diphenhydrAMINE CAP 25 MG CAPSULE PO PRN (01:58)
[2021-06-09] MEDS ORDERED: guaiFENesin/DM ER 600-30 MG TABLET PO PRN (01:58)
[2021-06-09] MEDS ORDERED: ZALEPLON 5 MG CAPSULE PO PRN (01:58)
[2021-06-09] MEDS ORDERED: DEXTROSE 50% 25 GM/50 ML VIAL IV PRN (01:58)
[2021-06-09] MEDS ORDERED: CALCIUM CARBONATE CHEW 500 MG TABLET PO PRN (01:58)
[2021-06-09] MEDS ORDERED: DOCUSATE SODIUM 100 MG CAPSULE PO PRN (01:58)
[2021-06-09] MEDS ORDERED: ALUMINUM/MAGNES/SIMETH MAX STR 30 ML UDCUP PO PRN (01:58)
[2021-06-09] MEDS ORDERED: GLUCAGON 1 MG VIAL IM PRN (01:58)
[2021-06-09] MEDS ORDERED: hydrALAZINE 20 MG/1 ML VIAL IV PRN (01:58)
[2021-06-09] MEDS ORDERED: SIMETHICONE CHEW 125 MG TABLET PO PRN (01:58)
[2021-06-09] MEDS ORDERED: PANTOPRAZOLE 40 MG VIAL IV STA (02:00)
[2021-06-09] MEDS: ENOXAPARIN 40 MG/0.4 ML SYRINGE SUBCUT SCH (02:15)
[2021-06-09] MEDS ORDERED: LEVOFLOXACIN INJ 750 MG/150 ML PREMIX IV STA (05:09)
[2021-06-09] MEDS: SODIUM CHLORIDE 0.9% 1,000 ML IV SCH ×3 (05:11→22:55)
[2021-06-09] MEDS: MORPHINE 2 MG/1 ML SYRINGE IV PRN ×5 (05:11→21:28)
[2021-06-09] MEDS: PROMETHAZINE 25 MG/1 ML VIAL IM PRN ×4 (05:15→23:16)
[2021-06-09 07:03] LABS: Basophils % 0.2 % (0.0-0.8); Hematocrit 30.5 VOL% (35.7-47.0); Hemoglobin 9.6 GM/DL (12.0-16.0); Immature Granulocytes % 0.6 %; Lymphocytes # 1.7 10*3/uL (1.4-4.0); Lymphocytes % 10.7 % (21.3-54.2); Mean Corpuscular HGB Conc 31.5 GM/DL (32-36); Mean Corpuscular Volume 89.2 FL (87-102); Mean Platelet Volume 9.9 FL (9.6-12.0); Monocytes % 5.4 % (1.7-12.7); Neutrophils % 83.1 % (38.7-73.9); Platelet Count 418 T/CUMM (130-400); Red Blood Count 3.42 MC/CUMM (3.8-5.5); Red Cell Distribution Width 13.3 % (9.3-17.3); White Blood Count 16.2 T/CUMM (4-12)
[2021-06-09 07:30] LABS: Calcium 8.2 MG/DL (8.5-10.1); Osmolality,Calculated 279.7 MOS/KG (273-304)
[2021-06-09] MEDS: INSULIN LISPRO 100 UNIT/ML SUBCUT SCH ×4 (09:23→21:35)
[2021-06-09] MEDS: PANTOPRAZOLE 40 MG VIAL IV SCH (09:26)
[2021-06-09] MEDS: ONDANSETRON 4 MG/2 ML VIAL IV PRN ×2 (14:49→20:21)
[2021-06-09 15:24] LABS: Bilirubin,Urine Negative (Negative); Blood, Urine Negative (Negative); Glucose,Urine (UA) >=500 mg/dL (Negative); Ketones,Urine 20 mg/dL (Negative); Mucus,Urine Occasional /LPF (Occasional); Nitrite,Urine Negative (Negative); Protein,Urine 100 MG/DL; RBC,Urine 1 /HPF (0-4); Squamous Epithelial Cell,Urine Occasional /HPF (0-10); Urine Appearance CLEAR (Clear); Urine Color Yellow (Yellow); Urine Specific Gravity 1.042 (1.001-1.035); Urine Urobilinogen < 2.0 EU/DL (0.2-1.0)
[2021-06-09 19:40] LABS: Barbiturates Screen,Urine Negative (Negative); Benzodiazepines Screen,Urine Negative (Negative); Cannabinoid Screen,Urine Negative (Negative); Opiate Screen,Urine Positive (Negative); Phencyclidine Screen,Urine Negative (Negative)
[2021-06-09] MEDS: INSULIN GLARGINE 100 UNIT/ML SUBCUT SCH (21:34)
[2021-06-10] MEDS: MORPHINE 2 MG/1 ML SYRINGE IV PRN ×6 (01:23→21:30)
[2021-06-10] MEDS: ONDANSETRON 4 MG/2 ML VIAL IV PRN ×2 (03:32→21:31)
[2021-06-10] MEDS: ENOXAPARIN 40 MG/0.4 ML SYRINGE SUBCUT SCH (03:33)
[2021-06-10] MEDS: PROMETHAZINE 25 MG/1 ML VIAL IM PRN ×3 (05:34→18:00)
[2021-06-10 06:20] LABS: Potassium 3.9 MMOL/L (3.5-5.1)
[2021-06-10 06:25] LABS: Basophils # 0.1 10*3/uL (0.0-0.2); Basophils % 0.3 % (0.0-0.8); Eosinophils % 0.1 % (0.00-10.9); Hematocrit 31.7 VOL% (35.7-47.0); Hemoglobin 10.1 GM/DL (12.0-16.0); Immature Granulocytes % 0.6 %; Lymphocytes # 2.1 10*3/uL (1.4-4.0); Lymphocytes % 13.1 % (21.3-54.2); Mean Corpuscular HGB Conc 31.9 GM/DL (32-36); Mean Corpuscular Volume 90.1 FL (87-102); Mean Platelet Volume 9.9 FL (9.6-12.0); Monocytes % 6.2 % (1.7-12.7); Neutrophils % 79.7 % (38.7-73.9); Platelet Count 463 T/CUMM (130-400); Red Blood Count 3.52 MC/CUMM (3.8-5.5); Red Cell Distribution Width 13.7 % (9.3-17.3); White Blood Count 16.4 T/CUMM (4-12)
[2021-06-10] MEDS: SODIUM CHLORIDE 0.9% 1,000 ML IV SCH ×3 (07:05→21:53)
[2021-06-10] MEDS: INSULIN LISPRO 100 UNIT/ML SUBCUT SCH ×4 (08:58→21:31)
[2021-06-10] MEDS: PANTOPRAZOLE 40 MG VIAL IV SCH (08:58)
[2021-06-10] MEDS: BISACODYL 5 MG TABLET PO PRN (18:03)
[2021-06-10] MEDS: INSULIN GLARGINE 100 UNIT/ML SUBCUT SCH (21:31)
[2021-06-11] MEDS: MORPHINE 2 MG/1 ML SYRINGE IV PRN ×3 (01:13→09:13)
[2021-06-11] MEDS: PROMETHAZINE 25 MG/1 ML VIAL IM PRN ×3 (01:13→20:24)
[2021-06-11] MEDS: ENOXAPARIN 40 MG/0.4 ML SYRINGE SUBCUT SCH (01:19)
[2021-06-11] MEDS: SODIUM CHLORIDE 0.9% 1,000 ML IV SCH ×4 (05:11→20:31)
[2021-06-11] MEDS: ONDANSETRON 4 MG/2 ML VIAL IV PRN ×3 (05:11→17:07)
[2021-06-11] MEDS: BISACODYL 5 MG TABLET PO PRN (05:19)
[2021-06-11 06:21] LABS: Basophils # 0.1 10*3/uL (0.0-0.2); Basophils % 0.4 % (0.0-0.8); Eosinophils % 0.2 % (0.00-10.9); Hematocrit 31.8 VOL% (35.7-47.0); Hemoglobin 10.4 GM/DL (12.0-16.0); Immature Granulocytes % 0.6 %; Immature Granulocytes Absolute 0.08 #; Lymphocytes # 2.3 10*3/uL (1.4-4.0); Lymphocytes % 17.1 % (21.3-54.2); Mean Corpuscular HGB Conc 32.7 GM/DL (32-36); Mean Corpuscular Volume 85.9 FL (87-102); Monocytes % 7.2 % (1.7-12.7); Neutrophils % 74.5 % (38.7-73.9); Platelet Count 352 T/CUMM (130-400); Red Cell Distribution Width 13.6 % (9.3-17.3); White Blood Count 13.4 T/CUMM (4-12)
[2021-06-11 06:35] LABS: Albumin 3.5 G/DL (3.4-5.0); Bilirubin,Total 0.6 MG/DL (0.20-1.00); Calcium 8.2 MG/DL (8.5-10.1); Osmolality,Calculated 269.5 MOS/KG (273-304); Potassium 3.5 MMOL/L (3.5-5.1)
[2021-06-11] MEDS: PANTOPRAZOLE 40 MG VIAL IV SCH (09:13)
[2021-06-11] MEDS: INSULIN LISPRO 100 UNIT/ML SUBCUT SCH ×4 (09:13→21:53)
[2021-06-11] MEDS ORDERED: HYDROmorphone 2 MG/1 ML VIAL SUBCUT PRN (12:27)
[2021-06-11] MEDS: ERYTHROMYCIN INJ 250 MG in SODIUM CHLORIDE 0.9% 100 ML IV SCH ×2 (14:40→18:20)
[2021-06-11] MEDS: HYDROmorphone 2 MG/1 ML VIAL IV PRN ×2 (17:08→20:22)
[2021-06-11] MEDS: traZODone 50 MG TABLET PO SCH (20:23)
[2021-06-11] MEDS: GABAPENTIN 600 MG TABLET PO SCH (20:23)
[2021-06-11] MEDS: DOCUSATE SODIUM 100 MG CAPSULE PO SCH (20:23)
[2021-06-11] MEDS: busPIRone 15 MG TABLET PO SCH (20:24)
[2021-06-11] MEDS: LUBIPROSTONE 8 MCG CAPSULE PO SCH (20:24)
[2021-06-11] MEDS ORDERED: INSULIN GLARGINE 100 UNIT/ML SUBCUT SCH (21:00)
[2021-06-12] MEDS: ERYTHROMYCIN INJ 250 MG in SODIUM CHLORIDE 0.9% 100 ML IV SCH ×4 (00:08→18:24)
[2021-06-12] MEDS: PROMETHAZINE 25 MG/1 ML VIAL IM PRN ×3 (04:04→18:25)
[2021-06-12] MEDS: HYDROmorphone 2 MG/1 ML VIAL IV PRN ×5 (04:05→21:39)
[2021-06-12] MEDS: SODIUM CHLORIDE 0.9% 1,000 ML IV SCH (04:05)
[2021-06-12 06:38] LABS: Basophils # 0.1 10*3/uL (0.0-0.2); Basophils % 0.6 % (0.0-0.8); Eosinophils # 0.2 10*3/uL (0.0-0.87); Eosinophils % 1.5 % (0.00-10.9); Hematocrit 28.5 VOL% (35.7-47.0); Hemoglobin 9.3 GM/DL (12.0-16.0); Immature Granulocytes % 0.5 %; Immature Granulocytes Absolute 0.05 #; Lymphocytes # 2.6 10*3/uL (1.4-4.0); Lymphocytes % 24.9 % (21.3-54.2); Mean Corpuscular HGB Conc 32.6 GM/DL (32-36); Mean Corpuscular Volume 86.6 FL (87-102); Mean Platelet Volume 9.3 FL (9.6-12.0); Monocytes % 8.4 % (1.7-12.7); Neutrophils % 64.1 % (38.7-73.9); Platelet Count 325 T/CUMM (130-400); Red Blood Count 3.29 MC/CUMM (3.8-5.5); Red Cell Distribution Width 13.5 % (9.3-17.3); White Blood Count 10.5 T/CUMM (4-12)
[2021-06-12 07:05] LABS: Calcium 7.7 MG/DL (8.5-10.1); Osmolality,Calculated 277.5 MOS/KG (273-304); Potassium 2.8 MMOL/L (3.5-5.1)
[2021-06-12] MEDS ORDERED: POTASSIUM CHLORIDE 20 MEQ TABLET PO ONE (08:00)
[2021-06-12] MEDS ORDERED: MAGNESIUM SULF RIDER 2 GM/50 ML PREMIX IV ONE (09:00)
[2021-06-12] MEDS: LINACLOTIDE 145 MCG CAPSULE PO SCH (09:15)
[2021-06-12] MEDS: busPIRone 15 MG TABLET PO SCH ×2 (09:15→21:39)
[2021-06-12] MEDS: tiZANidine 4 MG TABLET PO SCH (09:15)
[2021-06-12] MEDS: GABAPENTIN 600 MG TABLET PO SCH ×2 (09:15→21:39)
[2021-06-12] MEDS: PANTOPRAZOLE 40 MG VIAL IV SCH (09:16)
[2021-06-12] MEDS: METHYLNALTREXONE 12 MG/0.6 ML VIAL SUBCUT SCH (09:16)
[2021-06-12] MEDS: ENOXAPARIN 40 MG/0.4 ML SYRINGE SUBCUT SCH (09:16)
[2021-06-12] MEDS: DOCUSATE SODIUM 100 MG CAPSULE PO SCH ×2 (09:17→21:38)
[2021-06-12] MEDS: INSULIN LISPRO 100 UNIT/ML SUBCUT SCH ×4 (09:17→21:41)
[2021-06-12] MEDS: LUBIPROSTONE 8 MCG CAPSULE PO SCH ×2 (09:17→21:39)
[2021-06-12] MEDS: ONDANSETRON 4 MG/2 ML VIAL IV PRN ×3 (09:25→21:40)
[2021-06-12] MEDS: POTASSIUM CHLORIDE INJ 20 MEQ in LACTATED RINGERS 1,000 ML IV SCH (11:43)
[2021-06-12] MEDS: traZODone 50 MG TABLET PO SCH (21:39)
[2021-06-12] MEDS: INSULIN GLARGINE 100 UNIT/ML SUBCUT SCH (21:41)
[2021-06-13] MEDS: ERYTHROMYCIN INJ 250 MG in SODIUM CHLORIDE 0.9% 100 ML IV SCH ×4 (01:05→18:08)
[2021-06-13] MEDS: POTASSIUM CHLORIDE INJ 20 MEQ in LACTATED RINGERS 1,000 ML IV SCH ×3 (01:06→16:49)
[2021-06-13] MEDS: HYDROmorphone 2 MG/1 ML VIAL IV PRN ×5 (03:49→21:26)
[2021-06-13] MEDS: PROMETHAZINE 25 MG/1 ML VIAL IM PRN ×3 (03:50→21:26)
[2021-06-13 05:43] LABS: Basophils % 0.5 % (0.0-0.8); Eosinophils # 0.3 10*3/uL (0.0-0.87); Hematocrit 27.7 VOL% (35.7-47.0); Hemoglobin 8.7 GM/DL (12.0-16.0); Immature Granulocytes % 0.8 %; Immature Granulocytes Absolute 0.07 #; Lymphocytes # 2.5 10*3/uL (1.4-4.0); Lymphocytes % 28.1 % (21.3-54.2); Mean Corpuscular HGB Conc 31.4 GM/DL (32-36); Mean Corpuscular Volume 90.2 FL (87-102); Mean Platelet Volume 9.7 FL (9.6-12.0); Monocytes % 8.3 % (1.7-12.7); Neutrophils % 59.3 % (38.7-73.9); Platelet Count 308 T/CUMM (130-400); Red Blood Count 3.07 MC/CUMM (3.8-5.5); Red Cell Distribution Width 13.8 % (9.3-17.3); White Blood Count 8.8 T/CUMM (4-12)
[2021-06-13 06:11] LABS: Calcium 7.7 MG/DL (8.5-10.1); Osmolality,Calculated 274.7 MOS/KG (273-304)
[2021-06-13] MEDS: ONDANSETRON 4 MG/2 ML VIAL IV PRN ×2 (08:29→16:50)
[2021-06-13] MEDS: GABAPENTIN 600 MG TABLET PO SCH ×2 (08:30→21:25)
[2021-06-13] MEDS: tiZANidine 4 MG TABLET PO SCH (08:30)
[2021-06-13] MEDS: METHYLNALTREXONE 12 MG/0.6 ML VIAL SUBCUT SCH (08:30)
[2021-06-13] MEDS: PANTOPRAZOLE 40 MG VIAL IV SCH (08:30)
[2021-06-13] MEDS: LUBIPROSTONE 8 MCG CAPSULE PO SCH ×2 (08:30→21:25)
[2021-06-13] MEDS: DOCUSATE SODIUM 100 MG CAPSULE PO SCH ×2 (08:31→21:27)
[2021-06-13] MEDS: busPIRone 15 MG TABLET PO SCH ×2 (08:31→21:25)
[2021-06-13] MEDS: LINACLOTIDE 145 MCG CAPSULE PO SCH (08:31)
[2021-06-13] MEDS: ENOXAPARIN 40 MG/0.4 ML SYRINGE SUBCUT SCH (08:33)
[2021-06-13] MEDS ORDERED: POTASSIUM CHLORIDE 20 MEQ TABLET PO ONE (08:35)
[2021-06-13] MEDS ORDERED: POLYETHYLENE GLYCOL POWDER 17 GM PACK PO SCH (09:00)
[2021-06-13] MEDS: INSULIN LISPRO 100 UNIT/ML SUBCUT SCH ×4 (10:43→21:25)
[2021-06-13] MEDS: POLYETHYLENE GLYCOL POWDER 17 GM PACK PO SCH ×3 (10:44→21:25)
[2021-06-13] MEDS: POTASSIUM CHLORIDE 20 MEQ TABLET PO SCH ×3 (11:23→18:22)
[2021-06-13] MEDS ORDERED: POTASSIUM CHLORIDE 20 MEQ TABLET PO SCH (16:00)
[2021-06-13] MEDS ORDERED: SENNA 8.6 MG TABLET PO SCH (21:00)
[2021-06-13] MEDS: INSULIN GLARGINE 100 UNIT/ML SUBCUT SCH (21:24)
[2021-06-13] MEDS: traZODone 50 MG TABLET PO SCH (21:25)
[2021-06-14] MEDS: ERYTHROMYCIN INJ 250 MG in SODIUM CHLORIDE 0.9% 100 ML IV SCH ×4 (01:17→21:39)
[2021-06-14] MEDS: ONDANSETRON 4 MG/2 ML VIAL IV PRN ×3 (03:09→17:09)
[2021-06-14] MEDS: HYDROmorphone 2 MG/1 ML VIAL IV PRN ×5 (03:09→21:28)
[2021-06-14] MEDS: POTASSIUM CHLORIDE INJ 20 MEQ in LACTATED RINGERS 1,000 ML IV SCH ×2 (03:13→06:02)
[2021-06-14 05:41] LABS: Basophils % 0.5 % (0.0-0.8); Eosinophils # 0.3 10*3/uL (0.0-0.87); Eosinophils % 3.1 % (0.00-10.9); Hematocrit 26.6 VOL% (35.7-47.0); Hemoglobin 8.2 GM/DL (12.0-16.0); Immature Granulocytes % 0.4 %; Immature Granulocytes Absolute 0.03 #; Mean Corpuscular HGB Conc 30.8 GM/DL (32-36); Mean Corpuscular Volume 92.7 FL (87-102); Mean Platelet Volume 9.7 FL (9.6-12.0); Platelet Count 276 T/CUMM (130-400); Red Blood Count 2.87 MC/CUMM (3.8-5.5); White Blood Count 8.1 T/CUMM (4-12)
[2021-06-14 06:06] LABS: Calcium 8.1 MG/DL (8.5-10.1); Osmolality,Calculated 280.1 MOS/KG (273-304); Potassium 3.9 MMOL/L (3.5-5.1)
[2021-06-14] MEDS: tiZANidine 4 MG TABLET PO SCH (08:49)
[2021-06-14] MEDS: POLYETHYLENE GLYCOL POWDER 17 GM PACK PO SCH ×3 (08:49→21:53)
[2021-06-14] MEDS: busPIRone 15 MG TABLET PO SCH ×2 (08:50→21:25)
[2021-06-14] MEDS: LUBIPROSTONE 8 MCG CAPSULE PO SCH ×2 (08:50→21:25)
[2021-06-14] MEDS: METHYLNALTREXONE 12 MG/0.6 ML VIAL SUBCUT SCH (08:50)
[2021-06-14] MEDS: GABAPENTIN 600 MG TABLET PO SCH ×2 (08:50→21:24)
[2021-06-14] MEDS: ENOXAPARIN 40 MG/0.4 ML SYRINGE SUBCUT SCH (08:51)
[2021-06-14] MEDS: PANTOPRAZOLE 40 MG VIAL IV SCH (08:52)
[2021-06-14] MEDS: LINACLOTIDE 145 MCG CAPSULE PO SCH (08:52)
[2021-06-14] MEDS: INSULIN LISPRO 100 UNIT/ML SUBCUT SCH ×4 (09:40→21:49)
[2021-06-14] MEDS: DOCUSATE SODIUM 100 MG CAPSULE PO SCH ×2 (09:40→21:52)
[2021-06-14] MEDS: PROMETHAZINE 25 MG/1 ML VIAL IM PRN ×2 (13:08→21:28)
[2021-06-14] MEDS: ALBUTEROL 2.5 MG/3 ML NEB RESP TX PRN (20:18)
[2021-06-14] MEDS ORDERED: SENNA 8.6 MG TABLET PO SCH (21:00)
[2021-06-14] MEDS: traZODone 50 MG TABLET PO SCH (21:26)
[2021-06-14] MEDS: INSULIN GLARGINE 100 UNIT/ML SUBCUT SCH (21:48)
[2021-06-15] MEDS: POTASSIUM CHLORIDE INJ 20 MEQ in LACTATED RINGERS 1,000 ML IV SCH ×2 (00:52→16:16)
[2021-06-15] MEDS: ALBUTEROL 2.5 MG/3 ML NEB RESP TX PRN (01:04)
[2021-06-15] MEDS: ONDANSETRON 4 MG/2 ML VIAL IV PRN ×4 (03:50→21:08)
[2021-06-15] MEDS: HYDROmorphone 2 MG/1 ML VIAL IV PRN ×5 (03:50→21:07)
[2021-06-15] MEDS: ERYTHROMYCIN INJ 250 MG in SODIUM CHLORIDE 0.9% 100 ML IV SCH ×5 (03:59→23:30)
[2021-06-15 06:33] LABS: Basophils % 0.4 % (0.0-0.8); Eosinophils # 0.2 10*3/uL (0.0-0.87); Eosinophils % 2.9 % (0.00-10.9); Hematocrit 26.5 VOL% (35.7-47.0); Hemoglobin 8.1 GM/DL (12.0-16.0); Immature Granulocytes % 0.4 %; Immature Granulocytes Absolute 0.03 #; Lymphocytes # 1.9 10*3/uL (1.4-4.0); Lymphocytes % 27.5 % (21.3-54.2); Mean Corpuscular HGB Conc 30.6 GM/DL (32-36); Mean Platelet Volume 9.7 FL (9.6-12.0); Monocytes % 8.1 % (1.7-12.7); Neutrophils % 60.7 % (38.7-73.9); Platelet Count 266 T/CUMM (130-400); Red Blood Count 2.88 MC/CUMM (3.8-5.5); Red Cell Distribution Width 14.1 % (9.3-17.3); White Blood Count 6.9 T/CUMM (4-12)
[2021-06-15 06:59] LABS: Calcium 8.3 MG/DL (8.5-10.1); Osmolality,Calculated 279.4 MOS/KG (273-304); Potassium 4.2 MMOL/L (3.5-5.1)
[2021-06-15] MEDS: INSULIN LISPRO 100 UNIT/ML SUBCUT SCH ×4 (07:35→22:37)
[2021-06-15] MEDS: LINACLOTIDE 145 MCG CAPSULE PO SCH (07:39)
[2021-06-15] MEDS: ENOXAPARIN 40 MG/0.4 ML SYRINGE SUBCUT SCH (09:15)
[2021-06-15] MEDS: PANTOPRAZOLE 40 MG VIAL IV SCH (09:17)
[2021-06-15] MEDS: busPIRone 15 MG TABLET PO SCH ×2 (09:19→21:10)
[2021-06-15] MEDS: POLYETHYLENE GLYCOL POWDER 17 GM PACK PO SCH (09:19)
[2021-06-15] MEDS: tiZANidine 4 MG TABLET PO SCH (09:19)
[2021-06-15] MEDS: GABAPENTIN 600 MG TABLET PO SCH ×2 (09:19→21:03)
[2021-06-15] MEDS: LUBIPROSTONE 8 MCG CAPSULE PO SCH (09:19)
[2021-06-15] MEDS: DOCUSATE SODIUM 100 MG CAPSULE PO SCH ×2 (09:19→21:30)
[2021-06-15] MEDS: PROMETHAZINE 25 MG/1 ML VIAL IM PRN (13:21)
[2021-06-15] MEDS ORDERED: GLUCAGON 1 MG VIAL IM PRN (16:19)
[2021-06-15] MEDS ORDERED: DEXTROSE 50% 25 GM/50 ML VIAL IV PRN (16:19)
[2021-06-15] MEDS: traZODone 50 MG TABLET PO SCH (21:03)
[2021-06-15] MEDS: INSULIN GLARGINE 100 UNIT/ML SUBCUT SCH (21:06)
[2021-06-16] MEDS: HYDROmorphone 2 MG/1 ML VIAL IV PRN ×2 (01:30→08:57)
[2021-06-16] MEDS: PROMETHAZINE 25 MG/1 ML VIAL IM PRN (01:35)
[2021-06-16] MEDS: POTASSIUM CHLORIDE INJ 20 MEQ in LACTATED RINGERS 1,000 ML IV SCH (05:38)
[2021-06-16] MEDS: ERYTHROMYCIN INJ 250 MG in SODIUM CHLORIDE 0.9% 100 ML IV SCH ×2 (05:39→11:40)
[2021-06-16 06:24] LABS: Basophils % 0.4 % (0.0-0.8); Eosinophils # 0.3 10*3/uL (0.0-0.87); Eosinophils % 3.6 % (0.00-10.9); Hematocrit 28.7 VOL% (35.7-47.0); Hemoglobin 8.8 GM/DL (12.0-16.0); Immature Granulocytes % 0.6 %; Immature Granulocytes Absolute 0.04 #; Lymphocytes # 2.1 10*3/uL (1.4-4.0); Lymphocytes % 28.7 % (21.3-54.2); Mean Corpuscular HGB Conc 30.7 GM/DL (32-36); Mean Corpuscular Volume 92.3 FL (87-102); Monocytes % 8.3 % (1.7-12.7); Neutrophils % 58.4 % (38.7-73.9); Platelet Count 286 T/CUMM (130-400); Red Blood Count 3.11 MC/CUMM (3.8-5.5); White Blood Count 7.3 T/CUMM (4-12)
[2021-06-16 06:51] LABS: Calcium 8.5 MG/DL (8.5-10.1); Osmolality,Calculated 278.5 MOS/KG (273-304); Potassium 4.1 MMOL/L (3.5-5.1)
[2021-06-16] MEDS: LINACLOTIDE 145 MCG CAPSULE PO SCH (07:32)
[2021-06-16] MEDS: INSULIN LISPRO 100 UNIT/ML SUBCUT SCH ×2 (07:37→11:26)
[2021-06-16] MEDS: PANTOPRAZOLE 40 MG VIAL IV SCH (08:45)
[2021-06-16] MEDS: ENOXAPARIN 40 MG/0.4 ML SYRINGE SUBCUT SCH (08:47)
[2021-06-16] MEDS: ONDANSETRON 4 MG/2 ML VIAL IV PRN (08:56)
[2021-06-16] MEDS: GABAPENTIN 600 MG TABLET PO SCH (10:21)
[2021-06-16] MEDS: busPIRone 15 MG TABLET PO SCH (10:22)
[2021-06-16] MEDS: tiZANidine 4 MG TABLET PO SCH (10:22)
[2021-06-16] MEDS: DOCUSATE SODIUM 100 MG CAPSULE PO SCH (10:22)
[2021-06-16 11:33] VITALS: BP 151/83
== END 2021-06-16 14:00 | disposition home or self-care (01) | DRG 74 ==
LOC: N.ED 20:37 → N.EDINP 20:37 → N.3E 06-09 04:30 → SUATTDRO 06-10 14:53 → N.OB 06-14 16:51
PROVIDERS: ADMIT Emergency Medicine; ATTEND Internal Medicine

== ENCOUNTER 2022-09-28 06:11 | Inpatient (IN) ==
[2022-09-28] MEDS ORDERED: HYDROmorphone 1 MG/1 ML SYRINGE IV STA (06:47)
[2022-09-28] MEDS ORDERED: SODIUM CHLORIDE 0.9% 1,000 ML IV STA (06:47)
[2022-09-28] MEDS ORDERED: ONDANSETRON 4 MG/2 ML VIAL IV STA ×2 (06:47→07:49)
[2022-09-28 07:19] LABS: Basophils % 0.3 % (0.0-0.8); Eosinophils % 0.1 % (0.00-10.9); Hematocrit 33.3 VOL% (35.7-47.0); Hemoglobin 10.3 GM/DL (12.0-16.0); Immature Granulocytes % 0.6 %; Immature Granulocytes Absolute 0.08 #; Lymphocytes # 1.4 10*3/uL (1.4-4.0); Lymphocytes % 10.3 % (21.3-54.2); Mean Corpuscular HGB Conc 30.9 GM/DL (32-36); Mean Corpuscular Volume 90.5 FL (87-102); Mean Platelet Volume 9.3 FL (9.6-12.0); Monocytes # 0.5 10*3/uL (0.11-0.8); Monocytes % 3.4 % (1.7-12.7); Neutrophils % 85.3 % (38.7-73.9); Platelet Count 353 T/CUMM (130-400); Red Blood Count 3.68 MC/CUMM (3.8-5.5); Red Cell Distribution Width 13.6 % (9.3-17.3)
[2022-09-28 07:37] LABS: Albumin 3.6 G/DL (3.4-5.0); Bilirubin,Total 0.5 MG/DL (0.20-1.00); Calcium 8.6 MG/DL (8.5-10.1); Osmolality,Calculated 281.5 MOS/KG (273-304); Potassium 3.8 MMOL/L (3.5-5.1); Total Protein 7.5 G/DL (6.4-8.2)
[2022-09-28] MEDS ORDERED: PROMETHAZINE 25 MG/1 ML VIAL IM STA (09:01)
[2022-09-28] MEDS ORDERED: DICYCLOMINE 20 MG TABLET PO PRN (09:57)
[2022-09-28] MEDS ORDERED: LACTULOSE 20 GM/30 ML UDCUP PO PRN (09:57)
[2022-09-28] MEDS ORDERED: PROMETHAZINE 25 MG/1 ML VIAL IM PRN (10:06)
[2022-09-28] MEDS: LACTATED RINGERS 1,000 ML IV SCH ×2 (10:45→18:13)
[2022-09-28] MEDS: ENOXAPARIN 40 MG/0.4 ML SYRINGE SUBCUT SCH (10:46)
[2022-09-28] MEDS: HYDROmorphone 1 MG/1 ML SYRINGE IV PRN ×2 (10:48→14:33)
[2022-09-28] MEDS: KETOROLAC 30 MG/1 ML VIAL IV PRN ×3 (12:32→23:57)
[2022-09-28] MEDS: ONDANSETRON 4 MG/2 ML VIAL IV PRN (13:14)
[2022-09-28 15:24] LABS: Mucus,Urine Occasional /LPF (Occasional); RBC,Urine 5 /HPF (0-4); Squamous Epithelial Cell,Urine Occasional /HPF (0-10)
[2022-09-28 15:25] LABS: Bilirubin,Urine Moderate mg/dL (Negative); Blood, Urine Negative (Negative); Glucose,Urine (UA) 500 mg/dL (Negative); Ketones,Urine >=160 mg/dL (Negative); Nitrite,Urine Negative (Negative); Protein,Urine 30 mg/dL (Negative); Urine Appearance Clear (Clear); Urine Color Yellow (Yellow); Urine Specific Gravity 1.015 (1.001-1.035); Urine Urobilinogen 0.2 eU/dL (<2.0); Urine pH 5.5 (4.5-8.0)
[2022-09-28] MEDS: metFORMIN 500 MG TABLET PO SCH (16:11)
[2022-09-28] MEDS: INSULIN LISPRO 100 UNIT/ML SUBCUT SCH (16:13)
[2022-09-28] MEDS ORDERED: ERYTHROMYCIN BASE 250 MG TABLET PO PRN (16:30)
[2022-09-28] MEDS: METOCLOPRAMIDE 10 MG/2 ML VIAL IV SCH ×2 (18:12→23:55)
[2022-09-28] MEDS: INSULIN GLARGINE 100 UNIT/ML SUBCUT SCH (20:53)
[2022-09-28] MEDS ORDERED: hydroCHLOROthiazide 25 MG TABLET PO SCH (21:00)
[2022-09-28] MEDS: DOXEPIN 25 MG CAPSULE PO PRN (21:06)
[2022-09-28] MEDS: NEBIVOLOL 5 MG TABLET PO SCH (21:06)
[2022-09-28] MEDS: VALSARTAN 160 MG TABLET PO SCH (21:06)
[2022-09-28] MEDS: ARIPiprazole 5 MG TABLET PO SCH (21:06)
[2022-09-28] MEDS: busPIRone 15 MG TABLET PO SCH (21:06)
[2022-09-28] MEDS: QUEtiapine 100 MG TABLET PO SCH (21:07)
[2022-09-28] MEDS: GABAPENTIN 600 MG TABLET PO SCH (21:07)
[2022-09-28] MEDS: ATORVASTATIN 20 MG TABLET PO SCH (21:07)
[2022-09-28] MEDS: PANTOPRAZOLE 40 MG VIAL IV SCH (21:09)
[2022-09-29] MEDS: ONDANSETRON 4 MG/2 ML VIAL IV PRN ×5 (00:10→23:08)
[2022-09-29] MEDS: diphenhydrAMINE CAP 25 MG CAPSULE PO PRN ×2 (00:10→21:16)
[2022-09-29] MEDS: LACTATED RINGERS 1,000 ML IV SCH ×6 (04:23→22:41)
[2022-09-29 05:25] LABS: Basophils % 0.2 % (0.0-0.8); Eosinophils % 0.2 % (0.00-10.9); Hematocrit 29.2 VOL% (35.7-47.0); Hemoglobin 9.2 GM/DL (12.0-16.0); Immature Granulocytes % 0.7 %; Immature Granulocytes Absolute 0.08 #; Lymphocytes # 1.3 10*3/uL (1.4-4.0); Lymphocytes % 10.7 % (21.3-54.2); Mean Corpuscular HGB Conc 31.5 GM/DL (32-36); Mean Corpuscular Volume 89.6 FL (87-102); Mean Platelet Volume 9.6 FL (9.6-12.0); Monocytes # 0.5 10*3/uL (0.11-0.8); Monocytes % 4.1 % (1.7-12.7); Neutrophils % 84.1 % (38.7-73.9); Platelet Count 326 T/CUMM (130-400); Red Blood Count 3.26 MC/CUMM (3.8-5.5); Red Cell Distribution Width 13.5 % (9.3-17.3); White Blood Count 12.2 T/CUMM (4-12)
[2022-09-29] MEDS: METOCLOPRAMIDE 10 MG/2 ML VIAL IV SCH ×4 (05:50→23:50)
[2022-09-29] MEDS: KETOROLAC 30 MG/1 ML VIAL IV PRN ×4 (05:52→23:08)
[2022-09-29 06:00] LABS: Calcium 8.3 MG/DL (8.5-10.1); Osmolality,Calculated 285.1 MOS/KG (273-304); Potassium 4.2 MMOL/L (3.5-5.1)
[2022-09-29] MEDS ORDERED: MAGNESIUM SULF RIDER 2 GM/50 ML PREMIX IV ONE ×2 (07:53→08:38)
[2022-09-29] MEDS: QUEtiapine 100 MG TABLET PO SCH ×2 (08:17→21:15)
[2022-09-29] MEDS: busPIRone 15 MG TABLET PO SCH ×2 (08:17→21:16)
[2022-09-29] MEDS: metFORMIN 500 MG TABLET PO SCH ×2 (08:17→16:55)
[2022-09-29] MEDS: GABAPENTIN 600 MG TABLET PO SCH ×2 (08:17→21:16)
[2022-09-29] MEDS: INSULIN LISPRO 100 UNIT/ML SUBCUT SCH ×3 (08:18→16:56)
[2022-09-29] MEDS: VILAZODONE 40 MG PO SCH (08:18)
[2022-09-29] MEDS: PANTOPRAZOLE 40 MG VIAL IV SCH ×2 (08:20→21:22)
[2022-09-29] MEDS: LINACLOTIDE 145 MCG CAPSULE PO SCH (08:20)
[2022-09-29] MEDS: INSULIN GLARGINE 100 UNIT/ML SUBCUT SCH ×2 (08:21→21:17)
[2022-09-29] MEDS: NON-FORMULARY MEDICATION (Phentermine 37.5 mg tablet) PO SCH (08:21)
[2022-09-29] MEDS ORDERED: PANTOPRAZOLE 40 MG TABLET PO SCH (09:00)
[2022-09-29] MEDS ORDERED: FUROSEMIDE 40 MG TABLET PO SCH (09:00)
[2022-09-29] MEDS: ENOXAPARIN 40 MG/0.4 ML SYRINGE SUBCUT SCH (11:52)
[2022-09-29] MEDS: ACETAMINOPHEN 325 MG TABLET PO PRN (11:53)
[2022-09-29] MEDS: ARIPiprazole 5 MG TABLET PO SCH (21:14)
[2022-09-29] MEDS: DOXEPIN 25 MG CAPSULE PO PRN (21:14)
[2022-09-29] MEDS: ATORVASTATIN 20 MG TABLET PO SCH (21:15)
[2022-09-29] MEDS: NEBIVOLOL 5 MG TABLET PO SCH (21:15)
[2022-09-29] MEDS: VALSARTAN 160 MG TABLET PO SCH (21:20)
[2022-09-30] MEDS: tiZANidine 4 MG TABLET PO PRN ×3 (03:19→21:06)
[2022-09-30] MEDS: ACETAMINOPHEN 325 MG TABLET PO PRN ×3 (03:20→21:05)
[2022-09-30 05:11] LABS: Basophils % 0.3 % (0.0-0.8); Eosinophils # 0.1 10*3/uL (0.0-0.87); Eosinophils % 0.6 % (0.00-10.9); Hemoglobin 9.2 GM/DL (12.0-16.0); Immature Granulocytes % 0.6 %; Immature Granulocytes Absolute 0.06 #; Lymphocytes # 0.9 10*3/uL (1.4-4.0); Lymphocytes % 9.2 % (21.3-54.2); Mean Corpuscular HGB Conc 31.7 GM/DL (32-36); Mean Corpuscular Volume 87.3 FL (87-102); Mean Platelet Volume 9.8 FL (9.6-12.0); Monocytes # 0.6 10*3/uL (0.11-0.8); Monocytes % 6.1 % (1.7-12.7); Neutrophils % 83.2 % (38.7-73.9); Platelet Count 278 T/CUMM (130-400); Red Blood Count 3.32 MC/CUMM (3.8-5.5); Red Cell Distribution Width 13.5 % (9.3-17.3); White Blood Count 10.1 T/CUMM (4-12)
[2022-09-30] MEDS: KETOROLAC 30 MG/1 ML VIAL IV PRN ×4 (05:28→23:39)
[2022-09-30] MEDS: METOCLOPRAMIDE 10 MG/2 ML VIAL IV SCH ×4 (05:29→23:39)
[2022-09-30] MEDS: LACTATED RINGERS 1,000 ML IV SCH ×3 (05:34→19:28)
[2022-09-30 05:40] LABS: Calcium 8.2 MG/DL (8.5-10.1); Osmolality,Calculated 273.1 MOS/KG (273-304); Potassium 3.2 MMOL/L (3.5-5.1)
[2022-09-30] MEDS: VILAZODONE 40 MG PO SCH (08:47)
[2022-09-30] MEDS: NON-FORMULARY MEDICATION (Phentermine 37.5 mg tablet) PO SCH (08:47)
[2022-09-30] MEDS: PANTOPRAZOLE 40 MG VIAL IV SCH ×2 (08:56→21:06)
[2022-09-30] MEDS: INSULIN GLARGINE 100 UNIT/ML SUBCUT SCH ×2 (08:57→21:16)
[2022-09-30] MEDS: INSULIN LISPRO 100 UNIT/ML SUBCUT SCH ×3 (08:57→16:04)
[2022-09-30] MEDS: LINACLOTIDE 145 MCG CAPSULE PO SCH (08:58)
[2022-09-30] MEDS: metFORMIN 500 MG TABLET PO SCH ×2 (08:58→16:04)
[2022-09-30] MEDS: busPIRone 15 MG TABLET PO SCH ×2 (08:58→21:06)
[2022-09-30] MEDS: QUEtiapine 100 MG TABLET PO SCH ×2 (08:59→21:05)
[2022-09-30] MEDS: GABAPENTIN 600 MG TABLET PO SCH ×2 (09:00→21:05)
[2022-09-30] MEDS ORDERED: POTASSIUM CHLORIDE 20 MEQ TABLET PO PRN (09:08)
[2022-09-30] MEDS ORDERED: POTASSIUM CHLORIDE RIDER 10 MEQ/100 ML PREMIX IV PRN ×2 (09:08→11:15)
[2022-09-30 09:28] LABS: % Iron Saturation 7.7 % (18-50)
[2022-09-30] MEDS: ENOXAPARIN 40 MG/0.4 ML SYRINGE SUBCUT SCH (10:01)
[2022-09-30] MEDS: POTASSIUM CHLORIDE 20 MEQ TABLET PO PRN ×4 (11:21→17:21)
[2022-09-30] MEDS: ONDANSETRON 4 MG/2 ML VIAL IV PRN ×2 (11:30→17:20)
[2022-09-30] MEDS: FLUTICASONE 50 MCG NASAL SPRAY 16 GM BOTTLE BOTH NARES SCH ×2 (12:27→23:40)
[2022-09-30] MEDS ORDERED: hydrALAZINE 20 MG/1 ML VIAL IV PRN (14:14)
[2022-09-30] MEDS: DOXEPIN 25 MG CAPSULE PO PRN (21:04)
[2022-09-30] MEDS: ARIPiprazole 5 MG TABLET PO SCH (21:04)
[2022-09-30] MEDS: VALSARTAN 160 MG TABLET PO SCH (21:04)
[2022-09-30] MEDS: NEBIVOLOL 5 MG TABLET PO SCH (21:04)
[2022-09-30] MEDS: ATORVASTATIN 20 MG TABLET PO SCH (21:06)
[2022-09-30] MEDS: diphenhydrAMINE CAP 25 MG CAPSULE PO PRN (21:06)
[2022-09-30] MEDS: FERROUS SULFATE 325 MG TABLET PO SCH (21:06)
[2022-10-01] MEDS: LACTATED RINGERS 1,000 ML IV SCH (02:46)
[2022-10-01] MEDS ORDERED: FUROSEMIDE 40 MG/4 ML VIAL IV ONE (04:25)
[2022-10-01] MEDS: METOCLOPRAMIDE 10 MG/2 ML VIAL IV SCH ×4 (05:21→23:19)
[2022-10-01 06:53] LABS: Basophils # 0.1 10*3/uL (0.0-0.2); Basophils % 0.3 % (0.0-0.8); Eosinophils % 0.3 % (0.00-10.9); Hematocrit 33.4 VOL% (35.7-47.0); Hemoglobin 10.5 GM/DL (12.0-16.0); Immature Granulocytes % 0.6 %; Immature Granulocytes Absolute 0.09 #; Lymphocytes # 1.7 10*3/uL (1.4-4.0); Lymphocytes % 10.5 % (21.3-54.2); Mean Corpuscular HGB Conc 31.4 GM/DL (32-36); Mean Corpuscular Volume 89.3 FL (87-102); Mean Platelet Volume 9.5 FL (9.6-12.0); Monocytes # 0.6 10*3/uL (0.11-0.8); Monocytes % 3.5 % (1.7-12.7); Neutrophils % 84.8 % (38.7-73.9); Platelet Count 312 T/CUMM (130-400); Red Blood Count 3.74 MC/CUMM (3.8-5.5); White Blood Count 15.9 T/CUMM (4-12)
[2022-10-01] MEDS: ALBUTEROL/IPRATROPIUM 3 ML NEB RESP TX SCH ×3 (07:05→19:50)
[2022-10-01] MEDS: ACETAMINOPHEN 325 MG TABLET PO PRN (07:06)
[2022-10-01 07:13] LABS: Calcium 8.6 MG/DL (8.5-10.1); Osmolality,Calculated 270.2 MOS/KG (273-304)
[2022-10-01] MEDS ORDERED: PIPERACILLIN/TAZOBACTAM 3,375 MG in SODIUM CHLORIDE 0.9% 100 ML IV SCH (08:00)
[2022-10-01] MEDS ORDERED: VANCOMYCIN INJ 1,250 MG in SODIUM CHLORIDE 0.9% 250 ML IV SCH (09:00)
[2022-10-01 09:21] LABS: Arterial Base Excess iSTAT 6 MMOL/L (-2.5-2.5); Arterial Bicarbonate iSTAT 29.8 MMOL/L (20-26); Arterial O2 Saturation iSTAT 99 % (95-100); Arterial PCO2 iSTAT 41 MM HG (35-48); Arterial PO2 iSTAT 143 MM HG (80-95); Arterial Total CO2 iSTAT 31 MMO/L (23-27); Arterial pH iSTAT 7.472 (7.35-7.45)
[2022-10-01] MEDS: ONDANSETRON 4 MG/2 ML VIAL IV PRN ×2 (09:21→16:43)
[2022-10-01] MEDS: KETOROLAC 30 MG/1 ML VIAL IV PRN ×3 (09:21→23:19)
[2022-10-01] MEDS: PANTOPRAZOLE 40 MG VIAL IV SCH (09:22)
[2022-10-01] MEDS: ENOXAPARIN 40 MG/0.4 ML SYRINGE SUBCUT SCH (09:24)
[2022-10-01] MEDS: ALPRAZolam 0.25 MG TABLET PO PRN (09:26)
[2022-10-01] MEDS: LINACLOTIDE 145 MCG CAPSULE PO SCH (09:26)
[2022-10-01] MEDS: busPIRone 15 MG TABLET PO SCH ×2 (09:26→21:21)
[2022-10-01] MEDS: FERROUS SULFATE 325 MG TABLET PO SCH ×2 (09:26→21:20)
[2022-10-01] MEDS: QUEtiapine 100 MG TABLET PO SCH ×2 (09:26→21:20)
[2022-10-01] MEDS: GABAPENTIN 600 MG TABLET PO SCH ×2 (09:26→21:21)
[2022-10-01] MEDS: VILAZODONE 40 MG PO SCH (09:27)
[2022-10-01] MEDS: NON-FORMULARY MEDICATION (Phentermine 37.5 mg tablet) PO SCH (09:27)
[2022-10-01] MEDS: FLUTICASONE 50 MCG NASAL SPRAY 16 GM BOTTLE BOTH NARES SCH ×2 (09:28→21:22)
[2022-10-01] MEDS: metFORMIN 500 MG TABLET PO SCH ×2 (09:29→16:17)
[2022-10-01] MEDS: INSULIN GLARGINE 100 UNIT/ML SUBCUT SCH ×2 (09:30→21:23)
[2022-10-01] MEDS: INSULIN LISPRO 100 UNIT/ML SUBCUT SCH ×3 (09:30→16:17)
[2022-10-01 12:39] LABS: Ferritin 74.4 ng/mL (8-252)
[2022-10-01] MEDS ORDERED: REMDESIVIR 200 MG in SODIUM CHLORIDE 0.9% 210 ML IV ONE (15:00)
[2022-10-01] MEDS: cefTRIAXone 1,000 MG in SODIUM CHLORIDE 0.9% 100 ML IV SCH (16:36)
[2022-10-01] MEDS: AZITHROMYCIN INJ 500 MG in SODIUM CHLORIDE 0.9% 250 ML IV SCH (16:37)
[2022-10-01] MEDS: methylPREDNISolone SOD SUC 40 MG/1 ML VIAL IV SCH (16:38)
[2022-10-01] MEDS: PROMETHAZINE INJ 25 MG in SODIUM CHLORIDE 0.9% 50 ML IV PRN (17:07)
[2022-10-01] MEDS: ATORVASTATIN 20 MG TABLET PO SCH (21:20)
[2022-10-01] MEDS: NEBIVOLOL 5 MG TABLET PO SCH (21:21)
[2022-10-01] MEDS: ASCORBIC ACID 500 MG TABLET PO SCH (21:21)
[2022-10-01] MEDS: ARIPiprazole 5 MG TABLET PO SCH (21:21)
[2022-10-01] MEDS: FAMOTIDINE 20 MG TABLET PO SCH (21:22)
[2022-10-01] MEDS: VALSARTAN 160 MG TABLET PO SCH (21:22)
[2022-10-01] MEDS: DOXEPIN 25 MG CAPSULE PO PRN (21:30)
[2022-10-02] MEDS: methylPREDNISolone SOD SUC 40 MG/1 ML VIAL IV SCH ×3 (00:35→17:49)
[2022-10-02] MEDS: ALBUTEROL/IPRATROPIUM 3 ML NEB RESP TX SCH ×4 (01:34→19:54)
[2022-10-02] MEDS: PROMETHAZINE INJ 25 MG in SODIUM CHLORIDE 0.9% 50 ML IV PRN ×2 (01:54→18:56)
[2022-10-02 05:23] LABS: Basophils % 0.1 % (0.0-0.8); Hematocrit 27.9 VOL% (35.7-47.0); Hemoglobin 8.8 GM/DL (12.0-16.0); Immature Granulocytes % 0.6 %; Immature Granulocytes Absolute 0.07 #; Lymphocytes # 0.4 10*3/uL (1.4-4.0); Mean Corpuscular HGB Conc 31.5 GM/DL (32-36); Mean Corpuscular Volume 90.3 FL (87-102); Monocytes # 0.1 10*3/uL (0.11-0.8); Monocytes % 0.9 % (1.7-12.7); Neutrophils % 94.4 % (38.7-73.9); Platelet Count 226 T/CUMM (130-400); Red Blood Count 3.09 MC/CUMM (3.8-5.5); Red Cell Distribution Width 13.9 % (9.3-17.3)
[2022-10-02 05:40] LABS: Albumin 2.6 G/DL (3.4-5.0); Bilirubin,Total 0.4 MG/DL (0.20-1.00); Calcium 8.1 MG/DL (8.5-10.1); Potassium 3.8 MMOL/L (3.5-5.1); Total Protein 6.3 G/DL (6.4-8.2)
[2022-10-02 05:51] LABS: Hypochromia Slight; Lymphocytes 2 % (20-55); Microcytosis Slight; Platelet Estimate Adequate; Total Cells Counted 100
[2022-10-02] MEDS: METOCLOPRAMIDE 10 MG/2 ML VIAL IV SCH ×2 (06:05→12:18)
[2022-10-02] MEDS: FAMOTIDINE 20 MG TABLET PO SCH ×2 (10:11→20:49)
[2022-10-02] MEDS: QUEtiapine 100 MG TABLET PO SCH ×2 (10:11→20:48)
[2022-10-02] MEDS: CHOLECALCIFEROL 1,000 UNIT TABLET PO SCH (10:11)
[2022-10-02] MEDS: ZINC GLUCONATE 50 MG TABLET PO SCH (10:11)
[2022-10-02] MEDS: FERROUS SULFATE 325 MG TABLET PO SCH ×2 (10:11→20:49)
[2022-10-02] MEDS: GABAPENTIN 600 MG TABLET PO SCH ×2 (10:11→20:49)
[2022-10-02] MEDS: busPIRone 15 MG TABLET PO SCH ×2 (10:11→20:48)
[2022-10-02] MEDS: ASCORBIC ACID 500 MG TABLET PO SCH ×2 (10:12→20:49)
[2022-10-02] MEDS: INSULIN LISPRO 100 UNIT/ML SUBCUT SCH ×5 (10:12→21:00)
[2022-10-02] MEDS: CETIRIZINE 10 MG TABLET PO SCH (10:12)
[2022-10-02] MEDS: LINACLOTIDE 145 MCG CAPSULE PO SCH (10:12)
[2022-10-02] MEDS: REMDESIVIR 100 MG in SODIUM CHLORIDE 0.9% 100 ML IV SCH (10:13)
[2022-10-02] MEDS: INSULIN GLARGINE 100 UNIT/ML SUBCUT SCH ×2 (10:13→20:50)
[2022-10-02] MEDS: ENOXAPARIN 40 MG/0.4 ML SYRINGE SUBCUT SCH (10:27)
[2022-10-02] MEDS: FLUTICASONE 50 MCG NASAL SPRAY 16 GM BOTTLE BOTH NARES SCH ×2 (10:27→20:59)
[2022-10-02] MEDS: NON-FORMULARY MEDICATION (Phentermine 37.5 mg tablet) PO SCH (10:31)
[2022-10-02] MEDS: VILAZODONE 40 MG PO SCH (10:32)
[2022-10-02] MEDS: metFORMIN 500 MG TABLET PO SCH (11:15)
[2022-10-02] MEDS: KETOROLAC 30 MG/1 ML VIAL IV PRN ×2 (15:59→21:45)
[2022-10-02] MEDS: cefTRIAXone 1,000 MG in SODIUM CHLORIDE 0.9% 100 ML IV SCH (18:09)
[2022-10-02] MEDS: AZITHROMYCIN INJ 500 MG in SODIUM CHLORIDE 0.9% 250 ML IV SCH (18:48)
[2022-10-02] MEDS: VALSARTAN 160 MG TABLET PO SCH (20:48)
[2022-10-02] MEDS: ARIPiprazole 5 MG TABLET PO SCH (20:48)
[2022-10-02] MEDS: DOXEPIN 25 MG CAPSULE PO PRN (20:48)
[2022-10-02] MEDS: NEBIVOLOL 5 MG TABLET PO SCH (20:49)
[2022-10-02] MEDS: ALPRAZolam 0.25 MG TABLET PO PRN (20:49)
[2022-10-02] MEDS: ATORVASTATIN 20 MG TABLET PO SCH (20:49)
[2022-10-03] MEDS: methylPREDNISolone SOD SUC 40 MG/1 ML VIAL IV SCH ×2 (00:10→12:16)
[2022-10-03] MEDS: ALBUTEROL/IPRATROPIUM 3 ML NEB RESP TX SCH ×4 (00:50→19:40)
[2022-10-03] MEDS: PROMETHAZINE INJ 25 MG in SODIUM CHLORIDE 0.9% 50 ML IV PRN ×3 (02:05→18:27)
[2022-10-03 05:42] LABS: Basophils % 0.1 % (0.0-0.8); Hematocrit 26.9 VOL% (35.7-47.0); Hemoglobin 8.5 GM/DL (12.0-16.0); Immature Granulocytes Absolute 0.14 #; Lymphocytes # 0.7 10*3/uL (1.4-4.0); Lymphocytes % 4.7 % (21.3-54.2); Mean Corpuscular HGB Conc 31.6 GM/DL (32-36); Mean Platelet Volume 10.3 FL (9.6-12.0); Monocytes # 0.3 10*3/uL (0.11-0.8); Monocytes % 2.3 % (1.7-12.7); Neutrophils % 91.9 % (38.7-73.9); Platelet Count 274 T/CUMM (130-400); Red Blood Count 2.99 MC/CUMM (3.8-5.5); Red Cell Distribution Width 14.1 % (9.3-17.3); White Blood Count 14.5 T/CUMM (4-12)
[2022-10-03 06:02] LABS: Alanine Aminotransferase 13 U/L (13-56); Albumin 2.6 G/DL (3.4-5.0); Alkaline Phosphatase 98 U/L (45-117); Aspartate Amino Transferase 13 U/L (0-37); Bilirubin,Total < 0.39 MG/DL (0.20-1.00); Blood Urea Nitrogen 12 MG/DL (7-18); Calcium 8.2 MG/DL (8.5-10.1); Carbon Dioxide 29 MMOL/L (21-32); Chloride 97 MMOL/L (98-107); Ferritin 159.2 ng/mL (8-252); Glucose 498 MG/DL (74-106); Osmolality,Calculated 289.2 MOS/KG (273-304); Potassium 3.6 MMOL/L (3.5-5.1); Sodium 134 MMOL/L (136-145); Total Protein 6.2 G/DL (6.4-8.2)
[2022-10-03 06:03] LABS: Band Neutrophils 1 % (0-10); Hypochromia Slight; Lymphocytes 5 % (20-55); Metamyelocytes 1 %; Microcytosis Slight; Total Cells Counted 100
[2022-10-03 06:04] LABS: Platelet Estimate Normal
[2022-10-03 06:49] LABS: Sedimentation Rate-Westergren 95 MM/HR (0-30)
[2022-10-03] MEDS: INSULIN LISPRO 100 UNIT/ML SUBCUT SCH ×7 (07:43→20:51)
[2022-10-03] MEDS: NON-FORMULARY MEDICATION (Phentermine 37.5 mg tablet) PO SCH (08:26)
[2022-10-03] MEDS: VILAZODONE 40 MG PO SCH (08:27)
[2022-10-03] MEDS: REMDESIVIR 100 MG in SODIUM CHLORIDE 0.9% 100 ML IV SCH (08:40)
[2022-10-03] MEDS: KETOROLAC 30 MG/1 ML VIAL IV PRN (08:41)
[2022-10-03] MEDS: QUEtiapine 100 MG TABLET PO SCH ×2 (08:42→20:51)
[2022-10-03] MEDS: FERROUS SULFATE 325 MG TABLET PO SCH ×2 (08:42→20:49)
[2022-10-03] MEDS: ASCORBIC ACID 500 MG TABLET PO SCH ×2 (08:42→20:50)
[2022-10-03] MEDS: CHOLECALCIFEROL 1,000 UNIT TABLET PO SCH (08:42)
[2022-10-03] MEDS: busPIRone 15 MG TABLET PO SCH ×2 (08:43→20:50)
[2022-10-03] MEDS: CETIRIZINE 10 MG TABLET PO SCH (08:43)
[2022-10-03] MEDS: ZINC GLUCONATE 50 MG TABLET PO SCH (08:43)
[2022-10-03] MEDS: FLUTICASONE 50 MCG NASAL SPRAY 16 GM BOTTLE BOTH NARES SCH ×2 (08:43→20:51)
[2022-10-03] MEDS: FAMOTIDINE 20 MG TABLET PO SCH ×2 (08:43→20:50)
[2022-10-03] MEDS: GABAPENTIN 600 MG TABLET PO SCH ×2 (08:43→20:50)
[2022-10-03] MEDS: ENOXAPARIN 40 MG/0.4 ML SYRINGE SUBCUT SCH (08:45)
[2022-10-03] MEDS: INSULIN GLARGINE 100 UNIT/ML SUBCUT SCH ×2 (08:45→20:51)
[2022-10-03] MEDS: AZITHROMYCIN 250 MG TABLET PO SCH (10:25)
[2022-10-03] MEDS: ALPRAZolam 0.25 MG TABLET PO PRN ×2 (10:25→20:50)
[2022-10-03] MEDS: cefTRIAXone 1,000 MG in SODIUM CHLORIDE 0.9% 100 ML IV SCH (16:57)
[2022-10-03] MEDS: ACETAMINOPHEN 325 MG TABLET PO PRN (18:41)
[2022-10-03] MEDS: NEBIVOLOL 5 MG TABLET PO SCH (20:49)
[2022-10-03] MEDS: DOXEPIN 25 MG CAPSULE PO PRN (20:49)
[2022-10-03] MEDS: ARIPiprazole 5 MG TABLET PO SCH (20:49)
[2022-10-03] MEDS: MELATONIN 3 MG TABLET PO PRN (20:49)
[2022-10-03] MEDS: VALSARTAN 160 MG TABLET PO SCH (20:50)
[2022-10-03] MEDS: ATORVASTATIN 20 MG TABLET PO SCH (20:50)
[2022-10-04] MEDS: ALBUTEROL/IPRATROPIUM 3 ML NEB RESP TX SCH ×5 (00:54→23:27)
[2022-10-04] MEDS: methylPREDNISolone SOD SUC 40 MG/1 ML VIAL IV SCH ×2 (01:34→13:34)
[2022-10-04] MEDS: PROMETHAZINE INJ 25 MG in SODIUM CHLORIDE 0.9% 50 ML IV PRN (04:36)
[2022-10-04 05:58] LABS: Basophils % 0.1 % (0.0-0.8); Hematocrit 27.2 VOL% (35.7-47.0); Hemoglobin 8.5 GM/DL (12.0-16.0); Immature Granulocytes % 1.4 %; Immature Granulocytes Absolute 0.16 #; Lymphocytes # 0.8 10*3/uL (1.4-4.0); Mean Corpuscular HGB Conc 31.3 GM/DL (32-36); Mean Corpuscular Volume 90.4 FL (87-102); Monocytes # 0.4 10*3/uL (0.11-0.8); Monocytes % 3.2 % (1.7-12.7); Neutrophils % 88.3 % (38.7-73.9); Platelet Count 288 T/CUMM (130-400); Red Blood Count 3.01 MC/CUMM (3.8-5.5); Red Cell Distribution Width 13.9 % (9.3-17.3); White Blood Count 11.6 T/CUMM (4-12)
[2022-10-04 06:18] LABS: Alanine Aminotransferase 16 U/L (13-56); Albumin 2.9 G/DL (3.4-5.0); Alkaline Phosphatase 92 U/L (45-117); Aspartate Amino Transferase 16 U/L (0-37); Bilirubin,Total < 0.39 MG/DL (0.20-1.00); Blood Urea Nitrogen 11 MG/DL (7-18); Calcium 8.8 MG/DL (8.5-10.1); Carbon Dioxide 31 MMOL/L (21-32); Chloride 101 MMOL/L (98-107); Glucose 267 MG/DL (74-106); Osmolality,Calculated 282.7 MOS/KG (273-304); Potassium 3.2 MMOL/L (3.5-5.1); Sodium 138 MMOL/L (136-145); Total Protein 6.5 G/DL (6.4-8.2)
[2022-10-04] MEDS ORDERED: POTASSIUM CHLORIDE 20 MEQ TABLET PO ONE (07:57)
[2022-10-04] MEDS: ZINC GLUCONATE 50 MG TABLET PO SCH (08:32)
[2022-10-04] MEDS: AZITHROMYCIN 250 MG TABLET PO SCH (08:32)
[2022-10-04] MEDS: ALPRAZolam 0.25 MG TABLET PO PRN (08:32)
[2022-10-04] MEDS: CETIRIZINE 10 MG TABLET PO SCH (08:33)
[2022-10-04] MEDS: ASCORBIC ACID 500 MG TABLET PO SCH ×2 (08:33→21:44)
[2022-10-04] MEDS: GABAPENTIN 600 MG TABLET PO SCH ×2 (08:33→21:45)
[2022-10-04] MEDS: QUEtiapine 100 MG TABLET PO SCH ×2 (08:33→21:44)
[2022-10-04] MEDS: busPIRone 15 MG TABLET PO SCH ×2 (08:33→21:44)
[2022-10-04] MEDS: FERROUS SULFATE 325 MG TABLET PO SCH ×2 (08:34→21:44)
[2022-10-04] MEDS: CHOLECALCIFEROL 1,000 UNIT TABLET PO SCH (08:34)
[2022-10-04] MEDS: ENOXAPARIN 40 MG/0.4 ML SYRINGE SUBCUT SCH (08:34)
[2022-10-04] MEDS: INSULIN GLARGINE 100 UNIT/ML SUBCUT SCH ×2 (08:35→21:43)
[2022-10-04] MEDS: INSULIN LISPRO 100 UNIT/ML SUBCUT SCH ×7 (08:35→21:43)
[2022-10-04] MEDS: FLUTICASONE 50 MCG NASAL SPRAY 16 GM BOTTLE BOTH NARES SCH ×2 (08:36→21:55)
[2022-10-04] MEDS: FAMOTIDINE 20 MG TABLET PO SCH ×2 (10:20→21:46)
[2022-10-04] MEDS: NON-FORMULARY MEDICATION (Phentermine 37.5 mg tablet) PO SCH (10:20)
[2022-10-04] MEDS: REMDESIVIR 100 MG in SODIUM CHLORIDE 0.9% 100 ML IV SCH (10:20)
[2022-10-04] MEDS: VILAZODONE 40 MG PO SCH (10:21)
[2022-10-04] MEDS: ACETAMINOPHEN 325 MG TABLET PO PRN (13:38)
[2022-10-04] MEDS: ONDANSETRON 4 MG/2 ML VIAL IV PRN ×2 (13:38→21:55)
[2022-10-04] MEDS: cefTRIAXone 1,000 MG in SODIUM CHLORIDE 0.9% 100 ML IV SCH (18:09)
[2022-10-04] MEDS: ARIPiprazole 5 MG TABLET PO SCH (21:44)
[2022-10-04] MEDS: VALSARTAN 160 MG TABLET PO SCH (21:44)
[2022-10-04] MEDS: NEBIVOLOL 5 MG TABLET PO SCH (21:44)
[2022-10-04] MEDS: DOXEPIN 25 MG CAPSULE PO PRN (21:44)
[2022-10-04] MEDS: MELATONIN 3 MG TABLET PO PRN (21:44)
[2022-10-04] MEDS: ATORVASTATIN 20 MG TABLET PO SCH (21:44)
[2022-10-05] MEDS ORDERED: ALBUTEROL 2.5 MG/3 ML NEB RESP TX ONE ×4 (05:26→23:54)
[2022-10-05] MEDS ORDERED: IPRATROPIUM 500 MCG/2.5 ML NEB RESP TX ONE ×5 (05:26→23:54)
[2022-10-05 06:47] LABS: Basophils % 0.1 % (0.0-0.8); Eosinophils % 0.2 % (0.00-10.9); Hematocrit 25.8 VOL% (35.7-47.0); Hemoglobin 7.9 GM/DL (12.0-16.0); Immature Granulocytes Absolute 0.11 #; Lymphocytes # 2.9 10*3/uL (1.4-4.0); Lymphocytes % 27.8 % (21.3-54.2); Mean Corpuscular HGB Conc 30.6 GM/DL (32-36); Mean Corpuscular Volume 90.8 FL (87-102); Mean Platelet Volume 9.8 FL (9.6-12.0); Monocytes # 0.8 10*3/uL (0.11-0.8); Monocytes % 7.4 % (1.7-12.7); Neutrophils % 63.5 % (38.7-73.9); Platelet Count 303 T/CUMM (130-400); Red Blood Count 2.84 MC/CUMM (3.8-5.5); Red Cell Distribution Width 13.9 % (9.3-17.3); White Blood Count 10.5 T/CUMM (4-12)
[2022-10-05] MEDS ORDERED: ALBUTEROL 1.25 MG/3 ML NEB RESP TX ONE (07:22)
[2022-10-05] MEDS: ALBUTEROL/IPRATROPIUM 3 ML NEB RESP TX SCH ×3 (07:57→19:51)
[2022-10-05 08:13] LABS: Calcium 8.4 MG/DL (8.5-10.1); Osmolality,Calculated 283.8 MOS/KG (273-304); Potassium 3.6 MMOL/L (3.5-5.1)
[2022-10-05] MEDS ORDERED: methylPREDNISolone SOD SUC 40 MG/1 ML VIAL IV SCH (09:00)
[2022-10-05] MEDS: VILAZODONE 40 MG PO SCH (09:25)
[2022-10-05] MEDS: NON-FORMULARY MEDICATION (Phentermine 37.5 mg tablet) PO SCH (09:25)
[2022-10-05] MEDS: REMDESIVIR 100 MG in SODIUM CHLORIDE 0.9% 100 ML IV SCH (09:27)
[2022-10-05] MEDS: ENOXAPARIN 40 MG/0.4 ML SYRINGE SUBCUT SCH (09:28)
[2022-10-05] MEDS: INSULIN LISPRO 100 UNIT/ML SUBCUT SCH ×7 (09:29→20:43)
[2022-10-05] MEDS: GABAPENTIN 600 MG TABLET PO SCH ×2 (09:30→20:45)
[2022-10-05] MEDS: FLUTICASONE 50 MCG NASAL SPRAY 16 GM BOTTLE BOTH NARES SCH ×2 (09:30→20:43)
[2022-10-05] MEDS: ZINC GLUCONATE 50 MG TABLET PO SCH (09:30)
[2022-10-05] MEDS: QUEtiapine 100 MG TABLET PO SCH ×2 (09:31→20:44)
[2022-10-05] MEDS: ASCORBIC ACID 500 MG TABLET PO SCH ×2 (09:31→20:45)
[2022-10-05] MEDS: AZITHROMYCIN 250 MG TABLET PO SCH (09:32)
[2022-10-05] MEDS: CHOLECALCIFEROL 1,000 UNIT TABLET PO SCH (09:32)
[2022-10-05] MEDS: FERROUS SULFATE 325 MG TABLET PO SCH ×2 (09:32→20:46)
[2022-10-05] MEDS: INSULIN GLARGINE 100 UNIT/ML SUBCUT SCH ×2 (09:34→20:44)
[2022-10-05] MEDS: busPIRone 15 MG TABLET PO SCH ×2 (09:34→20:45)
[2022-10-05] MEDS: FAMOTIDINE 20 MG TABLET PO SCH ×2 (09:35→20:46)
[2022-10-05] MEDS: CETIRIZINE 10 MG TABLET PO SCH (09:35)
[2022-10-05] MEDS: ONDANSETRON 4 MG/2 ML VIAL IV PRN ×2 (09:48→20:53)
[2022-10-05] MEDS: cefTRIAXone 1,000 MG in SODIUM CHLORIDE 0.9% 100 ML IV SCH (16:23)
[2022-10-05] MEDS: VALSARTAN 160 MG TABLET PO SCH (20:45)
[2022-10-05] MEDS: MELATONIN 3 MG TABLET PO PRN (20:45)
[2022-10-05] MEDS: NEBIVOLOL 5 MG TABLET PO SCH (20:45)
[2022-10-05] MEDS: DOXEPIN 25 MG CAPSULE PO PRN (20:45)
[2022-10-05] MEDS: ATORVASTATIN 20 MG TABLET PO SCH (20:45)
[2022-10-05] MEDS: ARIPiprazole 5 MG TABLET PO SCH (20:45)
[2022-10-06] MEDS: ALBUTEROL/IPRATROPIUM 3 ML NEB RESP TX SCH ×2 (00:18→07:29)
[2022-10-06] MEDS ORDERED: IPRATROPIUM 500 MCG/2.5 ML NEB RESP TX ONE (07:18)
[2022-10-06] MEDS ORDERED: ALBUTEROL 2.5 MG/3 ML NEB RESP TX ONE (07:18)
[2022-10-06 08:21] LABS: Basophils % 0.2 % (0.0-0.8); Eosinophils # 0.2 10*3/uL (0.0-0.87); Eosinophils % 1.3 % (0.00-10.9); Hematocrit 28.9 VOL% (35.7-47.0); Hemoglobin 8.9 GM/DL (12.0-16.0); Immature Granulocytes % 3.1 %; Immature Granulocytes Absolute 0.39 #; Lymphocytes % 39.2 % (21.3-54.2); Mean Corpuscular HGB Conc 30.8 GM/DL (32-36); Mean Corpuscular Volume 90.3 FL (87-102); Mean Platelet Volume 9.6 FL (9.6-12.0); Monocytes % 7.5 % (1.7-12.7); Neutrophils % 48.7 % (38.7-73.9); Platelet Count 387 T/CUMM (130-400); Red Cell Distribution Width 13.7 % (9.3-17.3); White Blood Count 12.8 T/CUMM (4-12)
[2022-10-06] MEDS: INSULIN LISPRO 100 UNIT/ML SUBCUT SCH ×2 (08:22)
[2022-10-06] MEDS: ZINC GLUCONATE 50 MG TABLET PO SCH (08:31)
[2022-10-06] MEDS: ENOXAPARIN 40 MG/0.4 ML SYRINGE SUBCUT SCH (08:31)
[2022-10-06] MEDS: GABAPENTIN 600 MG TABLET PO SCH (08:32)
[2022-10-06] MEDS: QUEtiapine 100 MG TABLET PO SCH (08:32)
[2022-10-06] MEDS: busPIRone 15 MG TABLET PO SCH (08:32)
[2022-10-06] MEDS: CHOLECALCIFEROL 1,000 UNIT TABLET PO SCH (08:32)
[2022-10-06] MEDS: ASCORBIC ACID 500 MG TABLET PO SCH (08:32)
[2022-10-06] MEDS: FAMOTIDINE 20 MG TABLET PO SCH (08:32)
[2022-10-06] MEDS: FERROUS SULFATE 325 MG TABLET PO SCH (08:32)
[2022-10-06] MEDS: CETIRIZINE 10 MG TABLET PO SCH (08:32)
[2022-10-06 08:35] LABS: Calcium 8.6 MG/DL (8.5-10.1); Osmolality,Calculated 278.3 MOS/KG (273-304); Potassium 3.4 MMOL/L (3.5-5.1)
[2022-10-06 08:39] LABS: Alanine Aminotransferase 19 U/L (13-56); Albumin 2.8 G/DL (3.4-5.0); Alkaline Phosphatase 97 U/L (45-117); Aspartate Amino Transferase 11 U/L (0-37); Bilirubin,Indirect 0.2 MG/DL (0.0-1.0); Bilirubin,Total < 0.39 MG/DL (0.20-1.00); Total Protein 6.3 G/DL (6.4-8.2)
[2022-10-06 08:45] LABS: Ferritin 80.8 ng/mL (8-252)
[2022-10-06 08:55] VITALS: BP 158/79
[2022-10-06] MEDS ORDERED: predniSONE 20 MG TABLET PO SCH (09:00)
[2022-10-06] MEDS: INSULIN GLARGINE 100 UNIT/ML SUBCUT SCH (09:08)
[2022-10-06] MEDS: FLUTICASONE 50 MCG NASAL SPRAY 16 GM BOTTLE BOTH NARES SCH (10:09)
[2022-10-06] MEDS: NON-FORMULARY MEDICATION (Phentermine 37.5 mg tablet) PO SCH (10:09)
[2022-10-06] MEDS: VILAZODONE 40 MG PO SCH (10:10)
[2022-10-06] MEDS ORDERED: POTASSIUM CHLORIDE 20 MEQ TABLET PO ONE (10:39)
== END 2022-10-06 12:23 | disposition home or self-care (01) | DRG 177 ==
LOC: N.ED 06:11 → N.EDINP 10:06 → SUATTDRO 10:06 → N.5E 11:56
PROVIDERS: ADMIT Phlebology; ATTEND Emergency Medicine